=== PATIENT | female | born 1945 | race Caucasian/White ===

== ENCOUNTER 2017-08-30 04:04 | Inpatient (IN) | payer MEDICARE ==
[~2017-08-30] VITALS: Ht 167.6 cm; Wt 67.6 kg
[2017-08-30] VITALS (23 sets, daily range): BP systolic 93–163; BP diastolic 35–97; PULSE 90–134; RESP 15–20; TEMP 98.6–103.1; O2SAT 92–98
[2017-08-30] MEDS ORDERED: IODIXANOL 320 MG/ML 10 ML VIAL (for Rad CT) IVCONTRAST ONE (04:05)
[2017-08-30] MEDS ORDERED: SODIUM CHLOR 0.9% 1000 ML INJ 1,000 ML IV SCH ×2 (04:44→14:08)
[2017-08-30] MEDS ORDERED: ONDANSETRON HCL 4 MG/2 ML VIAL IVP ONE (04:45)
[2017-08-30] MEDS ORDERED: SODIUM CHLORIDE 0.9% FLUSH 10 ML FLUSH IV FLUSH PRN ×4 (04:45→17:00)
[2017-08-30 04:58] LABS: BASOPHIL % 0.7 % (0.0-2.0); HEMATOCRIT 35.6 % (35.0-46.0); HEMOGLOBIN 11.9 GM/DL (11.6-15.3); LYMPH % 5.8 % (9.0-44.0); LYMPHOCYTE # 0.3 TH/MM3 (1.0-4.8); MEAN CELL VOLUME 87.5 FL (80.0-100.0); MEAN CORPUSCULAR HEMOGLOBIN 29.2 PG (27.0-34.0); MEAN CORPUSCULAR HGB CONC 33.3 % (32.0-36.0); MEAN PLATELET VOLUME 9.8 FL (7.0-11.0); MONO % 1.2 % (0.0-8.0); MONOCYTE # 0.1 TH/MM3 (0-0.9); NEUT % 92.3 % (16.0-70.0); PLATELET COUNT 176 TH/MM3 (150-450); RED BLOOD COUNT 4.07 MIL/MM3 (4.00-5.30); RED CELL DISTRIBUTION WIDTH 12.1 % (11.6-17.2); WHITE BLOOD COUNT 5.4 TH/MM3 (4.0-11.0)
[2017-08-30 05:05] LABS: CHLORIDE 101 MEQ/L (98-107); SODIUM (NA) 136 MEQ/L (136-145)
[2017-08-30 05:08] LABS: CALCIUM 8.6 MG/DL (8.5-10.1)
[2017-08-30 05:09] LABS: ALBUMIN 3.3 GM/DL (3.4-5.0); BICARBONATE 20.4 MEQ/L (21.0-32.0); BLOOD UREA NITROGEN 18 MG/DL (7-18); GLUCOSE,RANDOM 259 MG/DL (74-106)
[2017-08-30 05:12] LABS: ALT (GPT) 21 U/L (10-53); AST (GOT) 17 U/L (15-37); GLOMERULAR FILTRATION RATE 40 ML/MIN (>89)
[2017-08-30 05:13] LABS: TOTAL PROTEIN 7.6 GM/DL (6.4-8.2)
[2017-08-30 05:15] LABS: ALKALINE PHOSPHATASE 75 U/L (45-117)
[2017-08-30] MEDS ORDERED: MORPHINE SULFATE 4 MG/ML INJ IV PUSH ONE (05:15)
[2017-08-30] MEDS ORDERED: ONDANSETRON HCL 4 MG/2 ML VIAL IV ONE (05:15)
[2017-08-30] MEDS ORDERED: METF1000 PO (05:16)
[2017-08-30] MEDS ORDERED: LUMI0.01 EACH EYE (05:16)
[2017-08-30] MEDS ORDERED: VENTAER INH (05:16)
[2017-08-30] MEDS ORDERED: GLIM4TAB PO (05:16)
[2017-08-30] MEDS ORDERED: METO25TA3 PO (05:16)
--- NOTE | 2017-08-30 06:54 | PD ---
HPI Chief Complaint: GI Complaint Time Seen by Provider: 04:37 Travel History International Travel<30 days: No Contact w/Intl Traveler<30days: No Traveled to known affect area: No History of Present Illness HPI The patient is a 72-year-old female that complains of chills, vomiting and abdominal pain since 3 PM yesterday. She denies vomiting any blood and denies any fever or diarrhea. She has not had any abdominal surgeries and still has her gallbladder and appendix. The patient attributes his pain to having eaten boiled peanuts, the pain started almost immediately after she ate peanuts. PFSH Past Medical History Asthma: Yes Heart Rhythm Problems: Yes Diabetes: Yes Patient Takes Glucophage: Yes (08/29/17) Diminished Hearing: Yes Tetanus Vaccination: Unknown LMP: 3 : 1 Past Surgical History Hysterectomy: Yes (OOPHORECTOMY) Other Surgery: Yes (SALIVARY GLAND STONE REMOVED) Social History Alcohol Use: No Tobacco Use: No Substance Use: No Allergies-Medications (Allergen,Severity, Reaction): Coded Allergies: No Known Drug Allergies (Verified Allergy, Unknown, 08/30/17) Reported Meds & Prescriptions Reported Meds & Active Scripts Active Reported Lumigan Opth Drops (Bimatoprost) 0.01% Soln 1 Drop EACH EYE HS Ventolin Hfa 18 GM Inh (Albuterol Sulfate) 90 Mcg/Act Aer 2 Puff INH Q4-6H PRN Glimepiride 4 Mg Tab 4 Mg PO BIDAC Metformin (Metformin HCl) 1,000 Mg Tab 1,000 Mg PO BIDPC Metoprolol Tartrate 25 Mg Tab 25 Mg PO BID Review of Systems Except as stated in HPI: all other systems reviewed are Neg Physical Exam Narrative GENERAL: The patient is alert, oriented 3 in moderate apparent distress with her abdominal discomfort. Her vital signs show heart rate of 108 and temperature of 99.9 and blood pressure 142/61. The rest of vital signs are normal. SKIN: Focused skin assessment warm/dry. HEAD: Atraumatic. Normocephalic. EYES: Pupils equal and round. No scleral icterus. No injection or drainage. ENT: No nasal bleeding or discharge. Mucous membranes pink and moist. NECK: Trachea midline. No JVD. CARDIOVASCULAR: Regular rate and rhythm. No murmur appreciated. RESPIRATORY: No accessory muscle use. Clear to auscultation. Breath sounds equal bilaterally. GASTROINTESTINAL: Abdomen soft, with tenderness in the right upper quadrant and midline epigastrium to direct palpation, nondistended. Hepatic and splenic margins not palpable. No guarding or rebound is present. MUSCULOSKELETAL: No obvious deformities. No clubbing. No cyanosis. No edema. NEUROLOGICAL: Awake and alert. No obvious cranial nerve deficits. Motor grossly within normal limits. Normal speech. PSYCHIATRIC: Appropriate mood and affect; insight and judgment normal. Data Data Last Documented VS Vital Signs Date Time Temp Pulse Resp B/P (MAP) Pulse Ox O2 Delivery O2 Flow Rate FiO2 08/30/17 07:22 15 08/30/17 06:00 102 136/47 (76) 98 08/30/17 04:13 99.9 Orders Orders Complete Blood Count With Diff (08/30/17 04:44) Comprehensive Metabolic Panel (08/30/17 04:44) Lipase (08/30/17 04:44) Urinalysis - C+S If Indicated (08/30/17 04:44) Iv Access Insert/Monitor (08/30/17 04:44) Ecg Monitoring (08/30/17 04:44) Oximetry (08/30/17 04:44) Ondansetron Inj (Zofran Inj) (08/30/17 04:45) Sodium Chlor 0.9% 1000 Ml Inj (Ns 1000 M (08/30/17 04:44) Sodium Chloride 0.9% Flush (Ns Flush) (08/30/17 04:45) Morphine Inj (Morphine Inj) (08/30/17 05:15) Ondansetron Inj (Zofran Inj) (08/30/17 05:15) Ct Abd/Pel W Iv Contrast(Rout) (08/30/17 06:54) Sodium Chloride 0.9% Flush (Ns Flush) (08/30/17 07:00) Urine Culture (08/30/17 07:05) Labs Laboratory Tests Test 08/30/17 04:50 08/30/17 07:05 White Blood Count 5.4 TH/MM3 Red Blood Count 4.07 MIL/MM3 Hemoglobin 11.9 GM/DL Hematocrit 35.6 % Mean Corpuscular Volume 87.5 FL Mean Corpuscular Hemoglobin 29.2 PG Mean Corpuscular Hemoglobin Concent 33.3 % Red Cell Distribution Width 12.1 % Platelet Count 176 TH/MM3 Mean Platelet Volume 9.8 FL Neutrophils (%) (Auto) 92.3 % Lymphocytes (%) (Auto) 5.8 % Monocytes (%) (Auto) 1.2 % Eosinophils (%) (Auto) 0.0 % Basophils (%) (Auto) 0.7 % Neutrophils # (Auto) 5.0 TH/MM3 Lymphocytes # (Auto) 0.3 TH/MM3 Monocytes # (Auto) 0.1 TH/MM3 Eosinophils # (Auto) 0.0 TH/MM3 Basophils # (Auto) 0.0 TH/MM3 CBC Comment DIFF FINAL Differential Comment Blood Urea Nitrogen 18 MG/DL Creatinine 1.30 MG/DL Random Glucose 259 MG/DL Total Protein 7.6 GM/DL Albumin 3.3 GM/DL Calcium Level 8.6 MG/DL Alkaline Phosphatase 75 U/L Aspartate Amino Transf (AST/SGOT) 17 U/L Alanine Aminotransferase (ALT/SGPT) 21 U/L Total Bilirubin 1.0 MG/DL Sodium Level 136 MEQ/L Potassium Level 3.3 MEQ/L Chloride Level 101 MEQ/L Carbon Dioxide Level 20.4 MEQ/L Anion Gap 15 MEQ/L Estimat Glomerular Filtration Rate 40 ML/MIN Lipase 121 U/L Urine Collection Type VOIDED Urine Color YELLOW Urine Turbidity CLEAR Urine pH 5.5 Urine Specific [place] 1.020 Urine Protein 30 mg/dL Urine Glucose (UA) 1000 OR GREATER mg/dL Urine Ketones 15 mg/dL Urine Occult Blood MOD Urine Nitrite NEG Urine Bilirubin NEG Urine Urobilinogen 0.2 MG/DL Urine Leukocyte Esterase NEG Urine WBC 6-8 /hpf Urine WBC Clumps RARE Urine Squamous Epithelial Cells 0-3 /hpf Urine Bacteria MANY /hpf Microscopic Urinalysis Comment CULTURE INDICATED MDM Medical Decision Making Medical Screen Exam Complete: Yes Emergency Medical Condition: Yes Medical Record Reviewed: Yes Differential Diagnosis Gastritis, food poisoning, cholelithiasis with colic, acute cholecystitis, pancreatitis, electrolyte disorder, dehydration Narrative Course It is now 0 738 and the patient feels much better and does not want the CAT scan and wants to go home. She will be given prescriptions for Compazine and Percocet 5. She should follow-up with her primary care physician next week. Diagnosis Primary Impression: Abdominal pain Additional Instructions: The pain pill, Percocet, can make you constipated and nauseated. I wrote nausea medicine-prochlorperazine. Drink plenty of liquids to avoid the constipation on the Percocet. Follow-up next week with your primary care physician. Med/Other Pt SpecificInfo: Prescription(s) given Scripts Prochlorperazine Maleate (Prochlorperazine Maleate) 10 Mg Tab 10 MG PO Q6H Y for NAUSEA OR VOMITING, #20 TAB 0 Refills Prov: Ryan Flannery MD 08/30/17 Oxycodone-Acetaminophen (Percocet) 5-325 mg Tab 1-2 TAB PO Q4H Y for PAIN, #20 TAB 0 Refills Prov: Ryan Flannery MD 08/30/17 Disposition: 01 DISCHARGE HOME Condition: Stable Ryan Flannery MD Aug 30, 2017 06:54
[2017-08-30 07:14] LABS: BILIRUBIN, URINE NEG (NEG); BLOOD, URINE MOD (NEG); GLUCOSE,URINE 1000 OR GREATER mg/dL (NEG); KETONE, URINE 15 mg/dL (NEG); NITRITE,URINE NEG (NEG); PH, URINE 5.5 (5.0-8.5); URINE COLOR YELLOW (YELLW/STRAW); URINE LEUKOCYTE ESTERASE NEG (NEG)
[2017-08-30 07:26] LABS: BACTERIA, URINE MANY /hpf; SQUAMOUS EPITHELIAL CELL URINE 0-3 /hpf (0-5); WHITE BLOOD CELL CLUMPS RARE
[2017-08-30] MEDS ORDERED: PERC5TAB12 PO (07:41)
[2017-08-30] MEDS ORDERED: PROC10TA PO (07:41)
[2017-08-30] MEDS ORDERED: MACR100C2 PO (07:56)
[2017-08-30] MEDS ORDERED: MORPHINE SULFATE 2 MG/ML SYRINGE IV PUSH ONE (08:00)
[2017-08-30] MEDS ORDERED: SODIUM CHLOR 0.9% 1000 ML INJ 1,000 ML IV ONE ×2 (09:00→14:00)
[2017-08-30] MEDS ORDERED: PROPOFOL 200 MG/20 ML AMP IV ONE (12:00)
[2017-08-30] MEDS ORDERED: SUCCINYLCHOLINE CHLORIDE 200 MG/10 ML VIAL IV ONE (12:00)
[2017-08-30] MEDS ORDERED: PHENYLEPH/NS 1000 MCG/10 ML SYR IV ONE (12:00)
[2017-08-30] MEDS ORDERED: ePHEDrine/NS 25 MG/5 ML SYRINGE IV ONE (12:00)
[2017-08-30] MEDS ORDERED: ROCURONIUM INJ 50 MG/5 ML SYRINGE IV PUSH ONE (12:00)
--- NOTE | 2017-08-30 13:15 | RADRPT ---
EXAM DATE/TIME: 08/30/2017 12:19 [facility] COMPARISON: No previous studies available for comparison. INDICATIONS : Sudden onset of abdominal pain, chills and vomiting. IV CONTRAST: 48 cc Visipaque (iodixanol) IV ORAL CONTRAST: No oral contrast ingested. RADIATION DOSE: 9.94 CTDIvol (mGy) ; Patient motion MEDICAL HISTORY : Cardiovascular disease. Diabetes mellitus type 2. Asthma. SURGICAL HISTORY : Hysterectomy. ENCOUNTER: Initial ACUITY: 1 day PAIN SCALE: 6/10 LOCATION: Bilateral lower quadrant TECHNIQUE: Volumetric scanning of the abdomen and pelvis was performed. Using automated exposure control and ad justment of the mA and/or kV according to patient size, radiation dose was kept as low as reasonably achievable to obtain optimal diagnostic quality images. DICOM format image data is available electro nically for review and comparison. FINDINGS: LOWER LUNGS: Mild atelectasis in the posterior lung bases bilaterally. LIVER: Homogeneous density without lesion. There is no dilation of the biliary tree. No calcified gallston es. SPLEEN: Normal size without lesion. PANCREAS: Within normal limits. KIDNEYS: Moderate right hydronephrosis and hydroureter proximal to a 3-4 mm stone at the right ureterovesical junction. There is moderate perinephric fatty tissue stranding and periureteric fatty tissue strandin g. ADRENAL GLANDS: Slightly less than 2 cm low-density mass involving the el limb of the left adrenal, likely adenoma. VASCULAR: There is no aortic aneurysm. BOWEL/MESENTERY: Prominent distal colonic diverticulosis. No abnormal dilatation, wall thickening or focal inflammator y changes. ABDOMINAL WALL: Within normal limits. RETROPERITONEUM: There is no lymphadenopathy. BLADDER: No wall thickening or mass. REPRODUCTIVE: Uterus surgically absent. No evidence of pelvic mass. Minimal pelvic fluid INGUINAL: There is no lymphadenopathy or hernia. MUSCULOSKELETAL: Within normal limits for patient age. CONCLUSION: 3-4 mm stone at the right ureterovesical junction with moderate right hydronephrosis. Possible fornic eal rupture. Ben Esquivel MD on August 30, 2017 at 13:08 Board Certified Radiologist. This report was verified electronically.
[2017-08-30] MEDS ORDERED: CEFEPIME INJ 2,000 MG in SODIUM CHLORIDE 0.9% INJ 100 ML IV ONE (14:00)
[2017-08-30] MEDS ORDERED: ACETAMINOPHEN 650 MG SUPP RECTAL ONE (14:00)
[2017-08-30] MEDS ORDERED: ACETAMINOPHEN 325 MG SUPP RECTAL ONE (14:00)
--- NOTE | 2017-08-30 14:13 | PD ---
Data Data Last Documented VS Vital Signs Date Time Temp Pulse Resp B/P (MAP) Pulse Ox O2 Delivery O2 Flow Rate FiO2 08/30/17 12:47 103.1 08/30/17 12:37 120 20 96 08/30/17 11:54 Nasal Cannula 1.00 Orders Orders Complete Blood Count With Diff (08/30/17 04:44) Comprehensive Metabolic Panel (08/30/17 04:44) Lipase (08/30/17 04:44) Urinalysis - C+S If Indicated (08/30/17 04:44) Iv Access Insert/Monitor (08/30/17 04:44) Ecg Monitoring (08/30/17 04:44) Oximetry (08/30/17 04:44) Ondansetron Inj (Zofran Inj) (08/30/17 04:45) Sodium Chlor 0.9% 1000 Ml Inj (Ns 1000 M (08/30/17 04:44) Sodium Chloride 0.9% Flush (Ns Flush) (08/30/17 04:45) Morphine Inj (Morphine Inj) (08/30/17 05:15) Ondansetron Inj (Zofran Inj) (08/30/17 05:15) Sodium Chloride 0.9% Flush (Ns Flush) (08/30/17 07:00) Urine Culture (08/30/17 07:05) Ed Discharge Order (08/30/17 07:43) Morphine Inj (Morphine Inj) (08/30/17 08:00) Sodium Chlor 0.9% 1000 Ml Inj (Ns 1000 M (08/30/17 09:00) Ct Abd/Pel W Iv Contrast(Rout) (08/30/17 ) Iodixanol 320 Inj (Rad Ct) (Visipaque 32 (08/30/17 04:05) Blood Culture (08/30/17 13:51) Lactic Acid (08/30/17 13:51) Cefepime Inj (Maxipime Inj) (08/30/17 14:00) Sodium Chlor 0.9% 1000 Ml Inj (Ns 1000 M (08/30/17 14:00) Acetaminophen Supp (Tylenol Supp) (08/30/17 14:00) Acetaminophen Supp (Tylenol Supp) (08/30/17 14:00) Iv Access Insert/Monitor (08/30/17 13:54) Admit Order (Ed Use Only) (08/30/17 14:02) Labs Laboratory Tests Test 08/30/17 04:50 08/30/17 07:05 White Blood Count 5.4 TH/MM3 Red Blood Count 4.07 MIL/MM3 Hemoglobin 11.9 GM/DL Hematocrit 35.6 % Mean Corpuscular Volume 87.5 FL Mean Corpuscular Hemoglobin 29.2 PG Mean Corpuscular Hemoglobin Concent 33.3 % Red Cell Distribution Width 12.1 % Platelet Count 176 TH/MM3 Mean Platelet Volume 9.8 FL Neutrophils (%) (Auto) 92.3 % Lymphocytes (%) (Auto) 5.8 % Monocytes (%) (Auto) 1.2 % Eosinophils (%) (Auto) 0.0 % Basophils (%) (Auto) 0.7 % Neutrophils # (Auto) 5.0 TH/MM3 Lymphocytes # (Auto) 0.3 TH/MM3 Monocytes # (Auto) 0.1 TH/MM3 Eosinophils # (Auto) 0.0 TH/MM3 Basophils # (Auto) 0.0 TH/MM3 CBC Comment DIFF FINAL Differential Comment Blood Urea Nitrogen 18 MG/DL Creatinine 1.30 MG/DL Random Glucose 259 MG/DL Total Protein 7.6 GM/DL Albumin 3.3 GM/DL Calcium Level 8.6 MG/DL Alkaline Phosphatase 75 U/L Aspartate Amino Transf (AST/SGOT) 17 U/L Alanine Aminotransferase (ALT/SGPT) 21 U/L Total Bilirubin 1.0 MG/DL Sodium Level 136 MEQ/L Potassium Level 3.3 MEQ/L Chloride Level 101 MEQ/L Carbon Dioxide Level 20.4 MEQ/L Anion Gap 15 MEQ/L Estimat Glomerular Filtration Rate 40 ML/MIN Lipase 121 U/L Urine Collection Type VOIDED Urine Color YELLOW Urine Turbidity CLEAR Urine pH 5.5 Urine Specific [place] 1.020 Urine Protein 30 mg/dL Urine Glucose (UA) 1000 OR GREATER mg/dL Urine Ketones 15 mg/dL Urine Occult Blood MOD Urine Nitrite NEG Urine Bilirubin NEG Urine Urobilinogen 0.2 MG/DL Urine Leukocyte Esterase NEG Urine WBC 6-8 /hpf Urine WBC Clumps RARE Urine Squamous Epithelial Cells 0-3 /hpf Urine Bacteria MANY /hpf Microscopic Urinalysis Comment CULTURE INDICATED MDM Supervised Visit with ANI: No Narrative Course This case was checked out to me at [address] Flannery. However it was an atypical case because shortly after checkout time the patient decided she was going to refuse her CAT scan and just wanted to go home. Dr. Flannery then went back into the room and discharge her from the ER. I had mistakenly thought she was discharged and gone and went on to see other patients for quite some time and then the nurse came back to me and said that she was going to give her some more IV fluids because of nausea and vomiting prior to discharging her. I ordered her a liter of saline IV and afterwards some nausea medicine. However turns out hours later she was still here and has changed her mind and now wants the CAT scan done. I ordered it and when it was resulted I reviewed with her and family at bedside. She has a 3-4 mm right-sided ureteral stone with hydronephrosis. There is some forniceal rupture suggested as well. I placed a second IV and gave her another liter of saline Blood culture was obtained followed by dose of IV cefepime 2 g Lactate sent I gave her Tylenol suppository for temp of 103 Blood pressure holding steady at 110 systolic so I do not feel she needs intensive care neighborhood service center director at this time I spoke to urologist Dr. Perdue. He recommends transfer to the main hospital and he will place a right ureteral stent today I spoke to the hospitalist Critical Care Narrative Aggregate critical care time was 36 minutes. Time to perform other separately billable procedures was not included in the critical care time. My time did not include minutes spent treating any other patients simultaneously or on activities that did not directly contribute to the patient's treatment. The services I provided to this patient were to treat and/or prevent clinically significant deterioration that could result in: Renal failure, septic shock, cardiopulmonary arrest I provided critical care services requiring my management, as noted below: Chart data review, documentation time, medication orders and management, vital sign assessments/reviewing monitor data, ordering and reviewing lab tests, ordering and interpreting/reviewing x-rays and diagnostic studies, care of the patient and discussion of the patient with the admitting physicians. Sepsis Criteria SIRS Criteria (2 or more): Temp > 100.9 or < 96.8, Heart rate over 90 Sepsis Criteria (SIRS+source): Infect source susp/known Criteria Outcome: Meets sepsis criteria Diagnosis Primary Impression: Right ureteral calculus Additional Impressions: Fever Qualified Codes: R50.9 - Fever, unspecified UTI (urinary tract infection) Qualified Codes: N39.0 - Urinary tract infection, site not specified Admitting Information Admitting Physician Requests: Admit Referrals: Murtaza Blue MD (PCP) call for appointment Patient Instructions: General Instructions, Narcotic given in the ED, Urinary Tract Infection in Women (ED) Departure Forms: Tests/Procedures Additional Instruction: Scripts Nitrofurantoin Monohydrate Macrocrystals (Macrobid) 100 Mg Capsule 100 MG PO BID for Infection for 10 Days, #20 CAP 0 Refills Prov: Ryan Flannery MD 08/30/17 Prochlorperazine Maleate (Prochlorperazine Maleate) 10 Mg Tab 10 MG PO Q6H Y for NAUSEA OR VOMITING, #20 TAB 0 Refills Prov: Ryan Flannery MD 08/30/17 Oxycodone-Acetaminophen (Percocet) 5-325 mg Tab 1-2 TAB PO Q4H Y for PAIN, #20 TAB 0 Refills Prov: Ryan Flannery MD 08/30/17 Alfred Cotter MD Aug 30, 2017 14:13
--- NOTE | 2017-08-30 15:34 | HHI.HP ---
[facility] Service [facility] Primary Care Physician Murtaza Blue MD Admission Diagnosis R ureteral stone with hydronephrosis, fever/UTI Diagnoses: Chief Complaint: vomiting Travel History International Travel<30 Days: No Contact w/Intl Traveler <30 Da: No Traveled to Known Affected Are: No History of Present Illness 72-year-old white female being admitted for sepsis secondary to nephrolithiasis and hydronephrosis Patient was in her usual state of health until sometime earlier when she began having diffuse abdominal pain and vomiting. Pain was in the lower part of her belly and rated all throughout to bilateral back flanks. Patient reports subjective fevers and chills. Pain was 10 out of 10 at its worse. Took Tylenol to no avail. Patient just came to the emergency department. Emergency room patient was noted to be febrile up to 103. CT abdomen showed 3- 4 mm obstructing stone at the right ureterovesicular junction with hydronephrosis. Discussed case with ER, blood culture (one set) and urine culture were drawn. patient was given IV fluids and cefepime. Lactic acid was elevated at 5.6. Per the daughter, past medical history significant for Social history is unremarkable for any smoking or drinking. Family history significant ovarian cancer in the patient's mother. Review of Systems Except as stated in HPI: all other systems reviewed are Neg Past Family Social History Allergies: Coded Allergies: No Known Drug Allergies (Verified Allergy, Unknown, 08/30/17) Physical Exam Vital Signs Vital Signs Date Time Temp Pulse Resp B/P (MAP) Pulse Ox O2 Delivery O2 Flow Rate FiO2 08/30/17 15:05 102.0 134 15 113/48 (69) 95 Room Air 08/30/17 12:47 103.1 08/30/17 12:37 120 20 110/44 (66) 96 08/30/17 11:54 98 Nasal Cannula 1.00 08/30/17 11:29 99.7 122 20 125/97 (106) 92 Nasal Cannula 2.00 08/30/17 10:44 99 15 93/35 (54) 95 Nasal Cannula 1.00 08/30/17 09:55 99 15 97/41 (59) 97 Nasal Cannula 1.00 08/30/17 09:54 99 15 97/41 (59) 97 Nasal Cannula 1.00 08/30/17 09:00 100 15 98/41 (60) 97 Nasal Cannula 2.00 08/30/17 07:22 15 08/30/17 06:55 104 16 124/58 (80) 93 Room Air 08/30/17 06:00 102 20 136/47 (76) 98 08/30/17 05:30 98 20 131/44 (73) 98 08/30/17 05:01 20 08/30/17 04:47 108 20 151/47 (81) 95 08/30/17 04:13 99.9 108 16 142/61 (88) 96 Physical Exam VS: afebrile GENERAL: Elderly white female, pale appearing, appears to be in moderate distress secondary to fever and chills and pain SKIN: Warm and dry. EYES: No scleral icterus. No injection or drainage. ENT: No nasal bleeding or discharge. Mucous membranes pink and moist. CARDIOVASCULAR: Regular rate and rhythm. no murmurs RESPIRATORY: No accessory muscle use. Clear to auscultation. Breath sounds equal bilaterally. GASTROINTESTINAL: Abdomen soft, non-tender, nondistended. Right flank is tender to palpation Extremities: No clubbing, cyanosis, or edema. No obvious deformities. MUSCULOSKELETAL: adequate muscle bulk and tone for age and habitus NEUROLOGICAL: Partially somnolent, easily aroused, appears to be having slowed mentation but does answer questions coherently. PSYCHIATRIC: Appropriate mood and affect; insight and judgment normal. Laboratory Laboratory Tests Test 08/30/17 04:50 08/30/17 07:05 08/30/17 14:23 White Blood Count 5.4 Red Blood Count 4.07 Hemoglobin 11.9 Hematocrit 35.6 Mean Corpuscular Volume 87.5 Mean Corpuscular Hemoglobin 29.2 Mean Corpuscular Hemoglobin Concent 33.3 Red Cell Distribution Width 12.1 Platelet Count 176 Mean Platelet Volume 9.8 Neutrophils (%) (Auto) 92.3 Lymphocytes (%) (Auto) 5.8 Monocytes (%) (Auto) 1.2 Eosinophils (%) (Auto) 0.0 Basophils (%) (Auto) 0.7 Neutrophils # (Auto) 5.0 Lymphocytes # (Auto) 0.3 Monocytes # (Auto) 0.1 Eosinophils # (Auto) 0.0 Basophils # (Auto) 0.0 CBC Comment DIFF FINAL Differential Comment Blood Urea Nitrogen 18 Creatinine 1.30 Random Glucose 259 Total Protein 7.6 Albumin 3.3 Calcium Level 8.6 Alkaline Phosphatase 75 Aspartate Amino Transf (AST/SGOT) 17 Alanine Aminotransferase (ALT/SGPT) 21 Total Bilirubin 1.0 Sodium Level 136 Potassium Level 3.3 Chloride Level 101 Carbon Dioxide Level 20.4 Anion Gap 15 Estimat Glomerular Filtration Rate 40 Lipase 121 Urine Collection Type VOIDED Urine Color YELLOW Urine Turbidity CLEAR Urine pH 5.5 Urine Specific [place] 1.020 Urine Protein 30 Urine Glucose (UA) 1000 OR GREATER Urine Ketones 15 Urine Occult Blood MOD Urine Nitrite NEG Urine Bilirubin NEG Urine Urobilinogen 0.2 Urine Leukocyte Esterase NEG Urine WBC 6-8 Urine WBC Clumps RARE Urine Squamous Epithelial Cells 0-3 Urine Bacteria MANY Microscopic Urinalysis Comment CULTURE INDICATED Lactic Acid Level 5.6 Date/Time Source Procedure Growth Status 08/30/17 14:23 Blood Peripheral Aerobic Blood Culture Pending Received 08/30/17 14:23 Blood Peripheral Anaerobic Blood Culture Pending Received 08/30/17 07:05 Urine Random Urine Urine Culture Pending Received Result Diagram: 08/30/17 0450 08/30/17 0450 Imaging Last Impressions Abdomen/Pelvis CT 08/30/17 0000 Signed Impressions: Service Date/Time: Wednesday, August 30, 2017 12:19 - CONCLUSION: 3-4 mm stone at the right ureterovesical junction with moderate right hydronephrosis. Possible forniceal rupture. Ben Esquivel MD Caprini VTE Risk Assessment Caprini VTE Risk Assessment: Mod/High Risk (score >= 2) Caprini Risk Assessment Model Point Value = 1 Point Value = 2 Point Value = 3 Point Value = 5 Age 41-60 Minor surgery BMI > 25 kg/m2 Swollen legs Varicose veins or History of unexplained or recurrent spontaneous Oral contraceptives or hormone replacement Sepsis (< 1 month) Serious lung disease, including pneumonia (< 1 month) Abnormal pulmonary function Acute myocardial infarction Congestive heart failure (< 1 month) History of inflammatory bowel disease Medical patient at bed rest Age 61-74 Arthroscopic surgery Major open surgery (> 45 min) Laparoscopic surgery (> 45 min) Malignancy Confined to bed (> 72 hours) Immobilizing plaster cast Central venous access Age >= 75 History of VTE Family history of VTE Factor V Leiden Prothrombin [id number] Lupus anticoagulant Anticardiolipin antibodies Elevated serum homocysteine Heparin-induced thrombocytopenia Other congenital or acquired thrombophilia Stroke (< 1 month) Elective arthroplasty Hip, pelvis, or leg fracture Acute spinal cord injury (< 1 month) Prophylaxis Regimen Total Risk Factor Score Risk Level Prophylaxis Regimen 0-1 Low Early ambulation 2 Moderate Order ONE of the following: *Sequential Compression Device (SCD) *Heparin 5000 units SQ BID 3-4 Higher Order ONE of the following medications: *Heparin 5000 units SQ TID *Enoxaparin/Lovenox 40 mg SQ daily (WT < 150 kg, CrCl > 30 mL/min) *Enoxaparin/Lovenox 30 mg SQ daily (WT < 150 kg, CrCl > 10-29 mL/min) *Enoxaparin/Lovenox 30 mg SQ BID (WT < 150 kg, CrCl > 30 mL/min) AND/OR *Sequential Compression Device (SCD) 5 or more Highest Order ONE of the following medications: *Heparin 5000 units SQ TID (Preferred with Epidurals) *Enoxaparin/Lovenox 40 mg SQ daily (WT < 150 kg, CrCl > 30 mL/min) *Enoxaparin/Lovenox 30 mg SQ daily (WT < 150 kg, CrCl > 10-29 mL/min) *Enoxaparin/Lovenox 30 mg SQ BID (WT < 150 kg, CrCl > 30 mL/min) AND *Sequential Compression Device (SCD) Assessment and Plan Assessment and Plan 72-year-old white female being admitted for sepsis Sepsis -Likely secondary to urinary tract infection secondary to hydronephrosis secondary to nephrolithiasis -Blood cultures pending (ordering second set as only one set was drawn in the ER ) -Urine culture pending -Aggressive IV fluids Nephrolithiasis/hydronephrosis/urinary tract infection -Urology consulted, planning for stent placement today -N.p.o., IV pain medication as needed -broad spectrum abx - will consider consulting whizzer DEE - LDSS w/ hypoglycemia and accu-checks Physician Certification 2 Midnight Certification Type: Admission for Inpatient Services Order for Inpatient Services The services are ordered in accordance with Medicare regulations or non- Medicare payer requirements, as applicable. In the case of services not specified as inpatient-only, they are appropriately provided as inpatient services in accordance with the 2-midnight benchmark. Estimated LOS (days): 3 3 days is the estimated time the patient will need to remain in the hospital, assuming treatment plan goals are met and no additional complications. Post-Hospital Plan: Not yet determined Daryl Rolon MD Aug 30, 2017 15:34
[2017-08-30] MEDS ORDERED: RESP: ALBUTEROL 2.5 MG/3 ML NEB (PRN) INH (15:45)
[2017-08-30] MEDS ORDERED: GLUCAGON 1 MG/ML VIAL OTHER PRN (15:45)
[2017-08-30] MEDS ORDERED: ACETAMINOPHEN/HYDROcodone 325 MG/5 MG TAB PO PRN (15:45)
[2017-08-30] MEDS ORDERED: NURSING INFORMATION XX SCH (15:45)
[2017-08-30] MEDS ORDERED: LACTULOSE SYRUP 20 GM/30 ML CUP PO PRN (15:45)
[2017-08-30] MEDS ORDERED: DEXTROSE 50% IN WATER 50 ML VIAL(D50) IV PUSH PRN (15:45)
[2017-08-30] MEDS ORDERED: BISACODYL 10 MG SUPP RECTAL PRN (15:45)
[2017-08-30] MEDS ORDERED: CHLORHEXIDINE GLUCONATE 2 % 1 PACK (2 CLOTHS) TOP PRN (15:45)
[2017-08-30] MEDS ORDERED: SENNOSIDES 8.6 MG TAB PO PRN (15:45)
[2017-08-30] MEDS ORDERED: MAGNESIUM HYDROXIDE SUSP 30 ML CUP PO PRN (15:45)
[2017-08-30] MEDS ORDERED: ONDANSETRON HCL 4 MG/2 ML VIAL IV PUSH PRN (15:45)
[2017-08-30] MEDS ORDERED: ACETAMINOPHEN 325 MG TAB PO PRN (15:45)
[2017-08-30] MEDS: SODIUM CHLOR 0.9% 1000 ML INJ 1,000 ML IV SCH (15:57)
[2017-08-30] MEDS: RESP: ALBUTEROL 2.5 MG/IPRATROPIUM 0.5 MG NEB (SCH) INH ×2 (16:00→22:00)
[2017-08-30] MEDS: INSULIN ASPART SUPPLEMENTAL SCALE SQ SCH ×2 (16:00→19:50)
[2017-08-30] MEDS ORDERED: MORPHINE SULFATE 2 MG/ML SYRINGE IV PUSH PRN ×2 (16:00)
--- NOTE | 2017-08-30 16:00 | HHI.HP ---
[facility] Service Critical Care Medicine Primary Care Physician Murtaza Blue MD Admission Diagnosis R ureteral stone with hydronephrosis, fever/UTI Diagnosis: (1) Encephalopathy Diagnosis: Principal (2) Pyrexia Diagnosis: Secondary (3) Bigeminy Diagnosis: Secondary (4) Hard of hearing Diagnosis: Secondary (5) Hypertension Diagnosis: Secondary (6) Hyperglycemia Diagnosis: Principal (7) Diabetes mellitus type 2 in nonobese Diagnosis: Secondary (8) Asthma Diagnosis: Secondary (9) Glaucoma Diagnosis: Secondary (10) Lactic acidosis Diagnosis: Principal (11) Acute kidney injury Diagnosis: Principal (12) Hypokalemia Diagnosis: Secondary (13) Hydronephrosis due to obstruction of ureter Diagnosis: Principal (14) Sinus tachycardia Diagnosis: Principal (15) Severe sepsis Diagnosis: Principal (16) Right ureteral calculus Diagnosis: Principal Chief Complaint: Abdominal pain after eating boiled peanuts Travel History International Travel<30 Days: No Contact w/Intl Traveler <30 Da: No Traveled to Known Affected Are: No Sepsis Criteria SIRS Criteria (2 or more): Temp > 100.9 or < 96.8, Heart rate over 90, RR > 20 or PaCO2 < 32 Sepsis Criteria (SIRS+source): Infect source susp/known Severe Sepsis (+one): Lactate >2 Septic Shock Criteria: Lactic acid >=4 Criteria Outcome: Meets septic shock criteria History of Present Illness 72-year-old female. Date of admission 08/30/2017. Past medical history includes hypertension, glaucoma, hard of hearing, asthma, diabetes mellitus. Patient has no history of frequent urinary tract infections. Patient presents to [facility] with acute onset of diffuse abdominal pain service with nausea and vomiting. Patient was rated 10 out of 10 involving right upper and lower quadrants and bilateral flanks. Patient had eaten boiled peanuts ever sitting out and she attributed the symptoms to possible food poisoning. She took acetaminophen at home which that relieved her symptoms. She arrived at the emergency room for further evaluation treatment. Initially, patient was refusing CT abdomen as she thought this is from food poisoning. Later, CT abdomen/pelvis revealed a 4 mm obstructing stone at the right UVJ junction with associated right hydronephrosis. Blood cultures and urine culture sent the patient received 2 g of cefepime. Lactate elevated at 5.6. White blood cell count was within normal limits. Patient did have a creatinine 1.3. Glucose of 259. Patient received 4 L normal saline but her blood pressures continue to slowly drop. Dr. Perdue/urology wishes patient to be in the ICU at the main campus for possible stent placement later on today. Review of Systems Constitutional: COMPLAINS OF: Fatigue, Fever, Chills, Dizziness, DENIES: Weight gain, Weight loss Endocrine: DENIES: Heat/cold intolerance Eyes: DENIES: Blurred vision Ears, nose, mouth, throat: DENIES: Tinnitus Respiratory: COMPLAINS OF: Shortness of breath, DENIES: Apneas, Sputum production Cardiovascular: DENIES: Chest pain, Lower Extremity Edema Gastrointestinal: COMPLAINS OF: Abdominal pain, Nausea, Vomiting Musculoskeletal: DENIES: Joint pain, Muscle aches Integumentary: DENIES: Abnormal pigmentation Hematologic/lymphatic: DENIES: Bruising Immunologic/allergic: DENIES: Eczema Neurologic: DENIES: Abnormal gait Psychiatric: DENIES: Anxiety, Confusion Past Family Social History Allergies: Coded Allergies: No Known Drug Allergies (Verified Allergy, Unknown, 08/30/17) Past Medical History Hard of hearing Glaucoma Hypertension Mild intermittent asthma bigeminy Nausea/vomiting Diabetes mellitus Past Surgical History Oophorectomy Hysterectomy 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 twice daily Albuterol 18 g 1 puff every 4 6 hours as needed Oxycodone/acetaminophen 5/325 1-2 tabs every 4 hours as needed pain Bimatoprost 0.001% 1 drop each eye at night Prochlorperazine 10 mg p.o. every 6 hours Metformin 1000 mg p.o. twice daily Glimepiride 4 mg p.o. twice daily Metoprolol tartrate 25 mg p.o. twice daily Active Ordered Medications Reviewed in EMR Family History Mother from ovarian cancer. Social History No significant alcohol, tobacco or IV drug use Physical Exam Vital Signs Vital Signs Date Time Temp Pulse Resp B/P (MAP) Pulse Ox O2 Delivery O2 Flow Rate FiO2 08/30/17 15:05 102.0 134 15 113/48 (69) 95 Room Air 08/30/17 12:47 103.1 08/30/17 12:37 120 20 110/44 (66) 96 08/30/17 11:54 98 Nasal Cannula 1.00 08/30/17 11:29 99.7 122 20 125/97 (106) 92 Nasal Cannula 2.00 08/30/17 10:44 99 15 93/35 (54) 95 Nasal Cannula 1.00 08/30/17 09:55 99 15 97/41 (59) 97 Nasal Cannula 1.00 08/30/17 09:54 99 15 97/41 (59) 97 Nasal Cannula 1.00 08/30/17 09:00 100 15 98/41 (60) 97 Nasal Cannula 2.00 08/30/17 07:22 15 08/30/17 06:55 104 16 124/58 (80) 93 Room Air 08/30/17 06:00 102 20 136/47 (76) 98 08/30/17 05:30 98 20 131/44 (73) 98 08/30/17 05:01 20 08/30/17 04:47 108 20 151/47 (81) 95 08/30/17 04:13 99.9 108 16 142/61 (88) 96 Physical Exam GENERAL: 72-year-old female very ill-appearing/pale resting in bed SKIN: Warm and dry. Pale. HEAD: Atraumatic. Normocephalic. EYES: Pupils equal and round 3 mm bilaterally and react. No scleral icterus. No injection or drainage. ENT: No nasal bleeding or discharge. Mucous membranes pink and moist. NECK: Trachea midline. No JVD. CARDIOVASCULAR: RRR. S1, S2 predose without murmur RESPIRATORY: No accessory muscle use. Clear to auscultation. Breath sounds equal bilaterally. GASTROINTESTINAL: Abdomen soft, and palpation right upper quadrant and right flank. No guarding. No rebound. MUSCULOSKELETAL: Extremities without significant peripheral edema. No obvious deformities. NEUROLOGICAL: Awake and alert. No obvious cranial nerve deficits. Motor grossly within normal limits. Five out of 5 muscle strength in the arms and legs. Normal speech. Laboratory Laboratory Tests Test 08/30/17 04:50 08/30/17 07:05 08/30/17 14:23 White Blood Count 5.4 Red Blood Count 4.07 Hemoglobin 11.9 Hematocrit 35.6 Mean Corpuscular Volume 87.5 Mean Corpuscular Hemoglobin 29.2 Mean Corpuscular Hemoglobin Concent 33.3 Red Cell Distribution Width 12.1 Platelet Count 176 Mean Platelet Volume 9.8 Neutrophils (%) (Auto) 92.3 Lymphocytes (%) (Auto) 5.8 Monocytes (%) (Auto) 1.2 Eosinophils (%) (Auto) 0.0 Basophils (%) (Auto) 0.7 Neutrophils # (Auto) 5.0 Lymphocytes # (Auto) 0.3 Monocytes # (Auto) 0.1 Eosinophils # (Auto) 0.0 Basophils # (Auto) 0.0 CBC Comment DIFF FINAL Differential Comment Blood Urea Nitrogen 18 Creatinine 1.30 Random Glucose 259 Total Protein 7.6 Albumin 3.3 Calcium Level 8.6 Alkaline Phosphatase 75 Aspartate Amino Transf (AST/SGOT) 17 Alanine Aminotransferase (ALT/SGPT) 21 Total Bilirubin 1.0 Sodium Level 136 Potassium Level 3.3 Chloride Level 101 Carbon Dioxide Level 20.4 Anion Gap 15 Estimat Glomerular Filtration Rate 40 Lipase 121 Urine Collection Type VOIDED Urine Color YELLOW Urine Turbidity CLEAR Urine pH 5.5 Urine Specific [place] 1.020 Urine Protein 30 Urine Glucose (UA) 1000 OR GREATER Urine Ketones 15 Urine Occult Blood MOD Urine Nitrite NEG Urine Bilirubin NEG Urine Urobilinogen 0.2 Urine Leukocyte Esterase NEG Urine WBC 6-8 Urine WBC Clumps RARE Urine Squamous Epithelial Cells 0-3 Urine Bacteria MANY Microscopic Urinalysis Comment CULTURE INDICATED Lactic Acid Level 5.6 Date/Time Source Procedure Growth Status 08/30/17 14:23 Blood Peripheral Aerobic Blood Culture Pending Received 08/30/17 14:23 Blood Peripheral Anaerobic Blood Culture Pending Received 08/30/17 07:05 Urine Random Urine Urine Culture Pending Received Result Diagram: 08/30/17 0450 08/30/17 0450 Imaging Last Impressions Abdomen/Pelvis CT 08/30/17 0000 Signed Impressions: Service Date/Time: Wednesday, August 30, 2017 12:19 - CONCLUSION: 3-4 mm stone at the right ureterovesical junction with moderate right hydronephrosis. Possible forniceal rupture. Ben Esquivel MD Septic Shock Reassessment Septic shock perfusion: reassessment completed Caprini VTE Risk Assessment Caprini VTE Risk Assessment: Mod/High Risk (score >= 2) Caprini Risk Assessment Model Point Value = 1 Point Value = 2 Point Value = 3 Point Value = 5 Age 41-60 Minor surgery BMI > 25 kg/m2 Swollen legs Varicose veins or History of unexplained or recurrent spontaneous Oral contraceptives or hormone replacement Sepsis (< 1 month) Serious lung disease, including pneumonia (< 1 month) Abnormal pulmonary function Acute myocardial infarction Congestive heart failure (< 1 month) History of inflammatory bowel disease Medical patient at bed rest Age 61-74 Arthroscopic surgery Major open surgery (> 45 min) Laparoscopic surgery (> 45 min) Malignancy Confined to bed (> 72 hours) Immobilizing plaster cast Central venous access Age >= 75 History of VTE Family history of VTE Factor V Leiden Prothrombin [id number] Lupus anticoagulant Anticardiolipin antibodies Elevated serum homocysteine Heparin-induced thrombocytopenia Other congenital or acquired thrombophilia Stroke (< 1 month) Elective arthroplasty Hip, pelvis, or leg fracture Acute spinal cord injury (< 1 month) Prophylaxis Regimen Total Risk Factor Score Risk Level Prophylaxis Regimen 0-1 Low Early ambulation 2 Moderate Order ONE of the following: *Sequential Compression Device (SCD) *Heparin 5000 units SQ BID 3-4 Higher Order ONE of the following medications: *Heparin 5000 units SQ TID *Enoxaparin/Lovenox 40 mg SQ daily (WT < 150 kg, CrCl > 30 mL/min) *Enoxaparin/Lovenox 30 mg SQ daily (WT < 150 kg, CrCl > 10-29 mL/min) *Enoxaparin/Lovenox 30 mg SQ BID (WT < 150 kg, CrCl > 30 mL/min) AND/OR *Sequential Compression Device (SCD) 5 or more Highest Order ONE of the following medications: *Heparin 5000 units SQ TID (Preferred with Epidurals) *Enoxaparin/Lovenox 40 mg SQ daily (WT < 150 kg, CrCl > 30 mL/min) *Enoxaparin/Lovenox 30 mg SQ daily (WT < 150 kg, CrCl > 10-29 mL/min) *Enoxaparin/Lovenox 30 mg SQ BID (WT < 150 kg, CrCl > 30 mL/min) AND *Sequential Compression Device (SCD) Assessment and Plan Assessment and Plan Neuro/Psych: Acute encephalopathy likely toxic metabolic Acetaminophen 650 mg p.o. every 6 hours as needed fever Hydrocodone/acetaminophen 5/325 tablet every 4 hours as needed pain 1 through 5 Morphine sulfate 2 mg IV every 4 hours as needed pain 6 or 10 CV: Sinus tachycardia Lactic acidosis History of hypertension Severe sepsis Status post 4 L normal saline bolus in ED. Currently normal saline at 84 cc an hour Initiate vasopressor therapy if indicated Lactate is currently 5.6. Trend every 6 hours until cleared Hold metoprolol tartrate 20 mg p.o. twice daily in light of hypertension Resp: History of mild intermittent asthma Nasal cannula to maintain saturations greater than equal to 92% Incentive spirometry while awake Albuterol/ipratropium aerosols every 6 hours with albuterol aerosols every 2 hours as needed dyspnea Chest x-ray ordered Patient is on albuterol 18 mg 1 puff every 4-6 hours as needed dyspnea at home GI: Nausea/vomiting Left adrenal adenoma 2 mm Distal colonic diverticulosis Hypoalbuminemia CT abdomen/pelvis revealed a right-sided hydronephrosis with 3-4 mm stone at the right UVJ junction. Left adrenal adenoma 2 mm in size. Distal colonic diverticulosis Currently n.p.o. Ondansetron 4 mg IV every 6 hours as needed nausea Pantoprazole 40 mg IV daily GI prophylaxis Continue sodium/senna 1 tablet twice daily bowel regimen : Winslow catheter for I's and O's in a critically ill patient Endo: Diabetes mellitus type 2 with hyperglycemia Holding metformin 1000 mg twice daily and glimepiride 4 mg p.o. twice daily Sliding scale insulin Accu-Cheks every 4 hours to maintain euglycemia Novulog every 4 hours medium protocol Renal: Acute kidney injury Right hydronephrosis with 4 mm stone at the right UVJ junction Urology/Dr. Perdue consulted for possible stent placement today Creatinine currently 1.3 Monitor urine output Accurate I's and O's Repeat BMP Urine electrolytes and eosinophils ordered Heme: CBC within normal limits.. Repeat in a.m. PT/PTT and fibrinogen ordered ID: Severe sepsis secondary to urinary tract infection/infected stone? Received 1 dose of cefepime in ED 2 g. Will start on vancomycin and ampicillin/ sulbactam 3 g IV every 6 hours Blood cultures 2/UA ordered MSK: PT evaluate and treat FEN: Hypokalemia Replace electrolytes as clinically indicated Access -Utilize peripheral IV. Central line if indicated Prophylaxis -GI -pantoprazole -DVT -SCDs/holding foreclosure prophylaxis pending likely procedure Critical Care: The total critical care time was 35 minutes. Time to perform other separately billable procedures was not included in the critical care time. Code Status Full code Discussed Condition With Patient and . Care plan discussed and all questions answered. Problem Qualifiers (1) Pyrexia: Qualified Codes: R50.9 - Fever, unspecified (2) Hard of hearing: Qualified Codes: H91.90 - Unspecified hearing loss, unspecified ear (3) Hypertension: Qualified Codes: I10 - Essential (primary) hypertension (4) Asthma: Qualified Codes: J45.20 - Mild intermittent asthma, uncomplicated (5) Glaucoma: Qualified Codes: H40.9 - Unspecified glaucoma Chandrakant Reed MD Aug 30, 2017 16:00
[2017-08-30] MEDS ORDERED: MAGNESIUM OXIDE 400 MG TAB PO PRN (16:15)
[2017-08-30] MEDS ORDERED: POTASSIUM CHLOR 20 MEQ PREMIX 100 ML IV PRN ×2 (16:15)
[2017-08-30] MEDS ORDERED: MAGNESIUM SULFATE INJ 4 GM in SODIUM CHLORIDE 0.9% INJ 92 ML IV PRN (16:15)
[2017-08-30] MEDS ORDERED: POTASSIUM CHLORIDE 25 MEQ EFFERVESCENT TAB PO PRN (16:15)
[2017-08-30] MEDS ORDERED: POTASSIUM PHOSPHATE MONOBASIC 500 MG TAB PO/TUBE PRN (16:15)
[2017-08-30] MEDS ORDERED: SODIUM PHOSPHATE INJ 30 MMOL in SODIUM CHLOR 0.9% 250 ML INJ 240 ML IV PRN (16:15)
[2017-08-30] MEDS ORDERED: POTASSIUM CHLOR 40 MEQ PREMIX 100 ML IV PRN ×2 (16:15)
[2017-08-30] MEDS ORDERED: MAGNESIUM SULFATE INJ 2 GM in SODIUM CHLORIDE 0.9% INJ 96 ML IV PRN (16:15)
[2017-08-30] MEDS: AMPICILLIN-SULBACTAM INJ 3 GM in SODIUM CHLORIDE 0.9% INJ 100 ML IV SCH (16:16)
[2017-08-30] MEDS ORDERED: PHENYLEPHRINE INJ 160 MG in DEXTROSE 5% IN WATE 500 ML INJ 484 ML IV PRN ×2 (16:30)
[2017-08-30] MEDS ORDERED: TERBUTALINE INJ 1 MG/ML AMP SQ PRN ×2 (16:30→18:45)
[2017-08-30 16:48] LABS: INTERNATIONAL NORMALIZED RATIO 1.5 RATIO; PROTHROMBIN TIME - PATIENT 14.8 SEC (9.8-11.6)
--- NOTE | 2017-08-30 16:53 | PD.PROCEDR ---
Central Line Procedure REASON FOR PROCEDURE Central venous access PROCEDURE PERFORMED Central line placement: Right IJ CVL CONSENT Informed consent for procedure was obtained. The risks and benefits of the procedure were discussed to include but limited to bleeding, clot formation, infection, and even . ANESTHESIA Local injection of 1% Lidocaine DESCRIPTION OF THE PROCEDURE The patient was placed in supine, mild Trendelenburg position. The area was exposed and cleansed with ChloraPrep, times two. Large sterile drape was used to cover the patient, with the site exposed, under sterile conditions including cap, face mask, sterile gown, and sterile gloves. On single attempt, the introducer needle was inserted with negative pressure in syringe and venous flash was obtained. The guide wire was then advanced without any restriction and the needle was removed. The dilator was used without any complications. Using Seldinger technique the triple lumen antibiotic coated catheter was advanced over the guide wire to a depth of 16 centimeters. The guide wire was removed. All ports were aspirated with dark venous blood return and flushed easily with sterile saline. All ports were capped. Antibiotic disc was placed around central line at puncture site. The central line was secured to the skin with two interrupted 2.0 silk sutures. The area was bandaged with sterile see- through central line bandage. RADIOLOGICAL DATA Ultrasound guidance was used to locate right internal jugular vein. Doppler/ color flow was used to confirm venous flow. COMPLICATIONS: No apparent complications ESTIMATED BLOOD LOSS: Less than 1 cc. Chandrakant Reed MD Aug 30, 2017 16:53
[2017-08-30] MEDS ORDERED: Vancomycin Consult Pharmacy 1 EA OTHER SCH (17:00)
[2017-08-30] MEDS: SODIUM CHLORIDE 0.9% FLUSH 10 ML FLUSH IV FLUSH SCH ×2 (17:00→22:00)
--- NOTE | 2017-08-30 17:15 | RADRPT ---
EXAM DATE/TIME: 08/30/2017 16:55 [facility] COMPARISON: No previous studies available for comparison. INDICATIONS : Central line placement. MEDICAL HISTORY : Cardiovascular disease. Diabetes mellitus type 2. Asthma. SURGICAL HISTORY : Oopherectomy. Rightbreast. ENCOUNTER: Initial ACUITY: 1 day PAIN SCORE: 0/10 LOCATION: Bilateral chest FINDINGS: Patchy bilateral consolidation seen, mostly basilar atelectasis. No pleural effusion. No pneumothorax . Heart size normal. Mediastinal silhouette within normal limits. There is a right internal jugular central venous catheter with tip at the atrial caval junction. CONCLUSION: Patchy bilateral atelectasis. Right IJ central venous catheter with tip at the atriocaval junction. N o pneumothorax or other acute complication. Ben Agarwal MD on August 30, 2017 at 17:12 Board Certified Radiologist. This report was verified electronically.
[2017-08-30] MEDS ORDERED: VANCOMYCIN 1 GM/200 ML PREMIX IV SCH (18:00)
[2017-08-30] MEDS ORDERED: VASOPRESSIN INJ 40 UNITS in DEXTROSE 5% IN WATER 100ML INJ 98 ML IV SCH ×2 (18:34)
[2017-08-30] MEDS ORDERED: NOREPINEPHRINE INJ 4 MG in SODIUM CHLOR 0.9% 250 ML INJ 246 ML IV PRN (19:00)
[2017-08-30] MEDS: HYDROCORTISONE SOD SUCCINATE 100 MG VIAL IV PUSH SCH (19:04)
--- NOTE | 2017-08-30 19:15 | PD.CONS ---
[facility] Service Urology Consult Requested By Primary Care Physician Murtaza Blue MD Diagnosis: (1) Encephalopathy ICD Code: G93.40 - Encephalopathy, unspecified (2) Pyrexia ICD Code: R50.9 - Fever, unspecified (3) Bigeminy ICD Code: I49.9 - Cardiac arrhythmia, unspecified (4) Hard of hearing ICD Code: H91.90 - Unspecified hearing loss, unspecified ear (5) Hypertension ICD Code: I10 - Essential (primary) hypertension (6) Hyperglycemia ICD Code: R73.9 - Hyperglycemia, unspecified (7) Diabetes mellitus type 2 in nonobese ICD Code: E11.9 - Type 2 diabetes mellitus without complications (8) Asthma ICD Code: J45.909 - Unspecified asthma, uncomplicated (9) Glaucoma ICD Code: H40.9 - Unspecified glaucoma (10) Lactic acidosis ICD Code: E87.2 - Acidosis (11) Acute kidney injury ICD Code: N17.9 - Acute kidney failure, unspecified (12) Hypokalemia ICD Code: E87.6 - Hypokalemia (13) Hydronephrosis due to obstruction of ureter ICD Code: N13.2 - Hydronephrosis with renal and ureteral calculous obstruction (14) Sinus tachycardia ICD Code: R00.0 - Tachycardia, unspecified (15) Severe sepsis ICD Code: A41.9 - Sepsis, unspecified organism; R65.20 - Severe sepsis without septic shock (16) Right ureteral calculus ICD Code: N20.1 - Calculus of ureter History of Present Illness 72yo female with obstructing right ureteral stone, located in the right distal UVJ with right hydronephrosis and perinephric stranding. Stone is approx 3-4mm in size. Patient reports she began to experience right flank pain yesterday afternoon around 3pm. Pain worsened with sharp severe right flank pain radiating to the right groin, 10/10, with nausea and vomiting. 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 She presented to the [facility] ED. CT scan identified the distal right UVJ stone. She then developed fevers as high as 103 and began to experience hypotension. She was placed on pressors and IV abx. She was then transferred to the [facility]. Review of Systems ROS Limitations: Clinical Condition Constitutional: COMPLAINS OF: Fever Eyes: DENIES: Blurred vision Ears, nose, mouth, throat: DENIES: Hearing loss Respiratory: DENIES: Cough Cardiovascular: DENIES: Chest pain Gastrointestinal: COMPLAINS OF: Abdominal pain, Nausea, Vomiting Genitourinary: COMPLAINS OF: Urgency Musculoskeletal: COMPLAINS OF: Back pain Neurologic: DENIES: Headache Psychiatric: DENIES: Anxiety Except as stated in HPI: all other systems reviewed are Neg Past Family Social History Past Medical History DM HTN Past Surgical History No prior surgeries Reported Medications Reported Meds & Active Scripts Active Macrobid (Nitrofurantoin Monohydrate Macrocrystals) 100 Mg Capsule 100 Mg PO BID 10 Days Prochlorperazine Maleate 10 Mg Tab 10 Mg PO Q6H PRN Percocet (Oxycodone-Acetaminophen) 5-325 mg Tab 1-2 Tab PO Q4H PRN Reported Lumigan Opth Drops (Bimatoprost) 0.01% Soln 1 Drop EACH EYE HS Ventolin Hfa 18 GM Inh (Albuterol Sulfate) 90 Mcg/Act Aer 2 Puff INH Q4-6H PRN Glimepiride 4 Mg Tab 4 Mg PO BIDAC Metformin (Metformin HCl) 1,000 Mg Tab 1,000 Mg PO BIDPC Metoprolol Tartrate 25 Mg Tab 25 Mg PO BID Allergies: Coded Allergies: No Known Drug Allergies (Verified Allergy, Unknown, 08/30/17) Active Ordered Medications Current Medications Medications (Trade) Dose Ordered Sig/Rowan Route Start Time Stop Time Status Last Admin (Xalatan 0.005% Opth Soln) 1 drop HS EACH EYE 08/30/17 21:00 Cefepime HCl 2000 mg/Sodium Chloride 100 ml @ 200 mls/hr Q12H IV 08/31/17 02:00 Ampicillin Sodium/ Sulbactam Sodium 3 gm/Sodium Chloride 100 ml @ 200 mls/hr Q6H IV 08/30/17 16:00 08/30/17 16:16 (D50w (Vial) Inj) 50 ml UNSCH PRN IV PUSH 08/30/17 15:45 (Glucagon Inj) 1 mg UNSCH PRN OTHER 08/30/17 15:45 (NovoLOG SUPPLEMENTAL SCALE) 1 Q4HR SQ 08/30/17 16:00 Sodium Chloride 1,000 ml @ 84 mls/hr [id number] IV 08/30/17 15:32 08/30/17 15:57 (NS Flush) 2 ml UNSCH PRN IV FLUSH 08/30/17 15:45 (NS Flush) 2 ml BID IV FLUSH 08/30/17 21:00 (Tylenol) 650 mg Q6H PRN PO 08/30/17 15:45 ([place] 5-325 Mg) 1 tab Q4H PRN PO 08/30/17 15:45 (Protonix Inj) 40 mg DAILY IV PUSH 08/31/17 09:00 (Zofran Inj) 4 mg Q6H PRN IV PUSH 08/30/17 15:45 (Duoneb Neb) 1 ampule Q6HR NEB INH 08/30/17 16:00 (Albuterol Neb) 2.5 mg Q2HR NEB PRN INH 08/30/17 15:45 Miscellaneous Information 1 Q361D XX 08/30/17 15:45 (Chlorhexidine 2% Cloth) 3 pack Taper DAILY@04 TOP 08/31/17 04:00 08/27/18 03:59 (Chlorhexidine 2% Cloth) 3 pack UNSCH PRN TOP 08/30/17 15:45 (Cate-Colace) 1 tab BID PO 08/30/17 21:00 (Milk Of Magnesia Liq) 30 ml Q12H PRN PO 08/30/17 15:45 (Senokot) 17.2 mg Q12H PRN PO 08/30/17 15:45 (Dulcolax Supp) 10 mg DAILY PRN RECTAL 08/30/17 15:45 (Lactulose Liq) 30 ml DAILY PRN PO 08/30/17 15:45 (Morphine Inj) 2 mg Q2H PRN IV PUSH 08/30/17 16:00 Pharmacy Profile Note 0 ml @ 0 mls/hr UNSCH OTHER 08/30/17 17:00 Potassium Chloride 100 ml @ 50 mls/hr Q2H PRN IV 08/30/17 16:15 Potassium Chloride 100 ml @ 50 mls/hr Q2H PRN IV 08/30/17 16:15 (K-Lyte Cl Eff) 50 meq UNSCH PRN PO 08/30/17 16:15 Potassium Chloride 100 ml @ 25 mls/hr UNSCH PRN IV 08/30/17 16:15 Potassium Chloride 100 ml @ 50 mls/hr Q2H PRN IV 08/30/17 16:15 Magnesium Sulfate 4 gm/Sodium Chloride 100 ml @ 50 mls/hr UNSCH PRN IV 08/30/17 16:15 (Mag-Ox) 800 mg UNSCH PRN PO 08/30/17 16:15 Magnesium Sulfate 2 gm/Sodium Chloride 100 ml @ 50 mls/hr UNSCH PRN IV 08/30/17 16:15 (K-Phos) 2,000 mg Q4H PRN PO 08/30/17 16:15 Sodium Phosphate 30 mmol/Sodium Chloride 250 ml @ 42 mls/hr UNSCH PRN IV 08/30/17 16:15 (K-Phos) 2,000 mg UNSCH PRN PO/TUBE 08/30/17 16:15 Potassium Phosphate 30 mmol/ Sodium Chloride 260 ml @ 42 mls/hr UNSCH PRN IV 08/30/17 16:15 Vancomycin/Sodium Chloride 200 ml @ 200 mls/hr Q24H IV 08/30/17 18:00 Miscellaneous Information SPECIFIC LAB TO BE DRAWN:VANCOMY... ONCE ONCE .XX 09/02/17 17:45 09/02/17 17:46 Phenylephrine HCl 160 mg/Dextrose 500 ml @ 7.5 mls/hr TITRATE PRN IV 08/30/17 16:30 08/30/17 17:12 (NS Flush) DAILY IV FLUSH 08/30/17 17:00 (NS Flush) UNSCH PRN IV FLUSH 08/30/17 17:00 Vasopressin 40 units/Dextrose 100 ml @ 6 mls/hr [id number] IV 08/30/17 18:34 Norepinephrine Bitartrate 4 mg/ Sodium Chloride 250 ml @ 7.5 mls/hr TITRATE PRN IV 08/30/17 19:00 08/30/17 19:37 (Brethine Inj) 1 mg UNSCH PRN SQ 08/30/17 18:45 (SoluCORTEF INJ) 100 mg Q8H IV PUSH 08/30/17 20:00 08/30/17 19:04 Lactated Ringer's 1,000 ml @ 30 mls/hr Q24H PRN IV 08/30/17 20:30 09/02/17 20:29 Sodium Chloride 500 ml @ 30 mls/hr [id number] PRN IV 08/30/17 20:30 09/02/17 20:29 (Betadine 5% Antisepsis Kit) 1 applic ENGINEERING JOB TITLES PRN EACH NARE 08/30/17 20:30 09/02/17 20:29 (Chlorhexidine 2% Cloth) 3 pack ENGINEERING JOB TITLES PRN TOPICAL 08/30/17 20:30 09/02/17 20:29 Family History Family history reviewed and noncontributory to present illness Social History No smoking history Physical Exam Vital Signs Date Time Temp Pulse Resp B/P (MAP) Pulse Ox O2 Delivery O2 Flow Rate FiO2 08/30/17 18:30 98.6 103 20 95/39 (57) 96 Nasal Cannula 2.00 08/30/17 18:27 107 80/31 08/30/17 18:13 107 77/31 08/30/17 18:04 105 80/31 08/30/17 17:59 105 82/39 08/30/17 17:49 103 80/34 08/30/17 17:38 106 80/32 08/30/17 17:28 108 77/32 08/30/17 17:19 110 80/36 08/30/17 17:12 110 84/35 08/30/17 15:41 100.7 122 20 103/37 (59) 94 Room Air 08/30/17 15:05 102.0 134 15 113/48 (69) 95 Room Air 08/30/17 12:47 103.1 08/30/17 12:37 120 20 110/44 (66) 96 08/30/17 11:54 98 Nasal Cannula 1.00 08/30/17 11:29 99.7 122 20 125/97 (106) 92 Nasal Cannula 2.00 08/30/17 10:44 99 15 93/35 (54) 95 Nasal Cannula 1.00 08/30/17 09:55 99 15 97/41 (59) 97 Nasal Cannula 1.00 08/30/17 09:54 99 15 97/41 (59) 97 Nasal Cannula 1.00 08/30/17 09:00 100 15 98/41 (60) 97 Nasal Cannula 2.00 08/30/17 07:22 15 08/30/17 06:55 104 16 124/58 (80) 93 Room Air 08/30/17 06:00 102 20 136/47 (76) 98 08/30/17 05:30 98 20 131/44 (73) 98 08/30/17 05:01 20 08/30/17 04:47 108 20 151/47 (81) 95 08/30/17 04:13 99.9 108 16 142/61 (88) 96 Physical Exam GENERAL: This is a well-nourished, well-developed patient SKIN: No rashes, ecchymoses or lesions. Cool and dry. HEAD: Atraumatic. Normocephalic EYES: Pupils equal round and reactive. No scleral icterus. No injection or drainage. ENT: Nose without bleeding, purulent drainage. Airway patent. NECK: Trachea midline. No JVD or lymphadenopathy. CARDIOVASCULAR: Slight tachycardia RESPIRATORY: nonlabored GASTROINTESTINAL: Abdomen soft, non-tender, nondistended GENITOURINARY: right flank pain MUSCULOSKELETAL: Extremities without clubbing, cyanosis, or edema. NEUROLOGICAL: Awake and alert. Motor and sensory grossly within normal limits. Normal speech. Lab results reviewed: Yes Laboratory Tests Test 08/30/17 04:50 08/30/17 07:05 08/30/17 14:23 08/30/17 15:50 White Blood Count 5.4 Red Blood Count 4.07 Hemoglobin 11.9 Hematocrit 35.6 Mean Corpuscular Volume 87.5 Mean Corpuscular Hemoglobin 29.2 Mean Corpuscular Hemoglobin Concent 33.3 Red Cell Distribution Width 12.1 Platelet Count 176 Mean Platelet Volume 9.8 Neutrophils (%) (Auto) 92.3 Lymphocytes (%) (Auto) 5.8 Monocytes (%) (Auto) 1.2 Eosinophils (%) (Auto) 0.0 Basophils (%) (Auto) 0.7 Neutrophils # (Auto) 5.0 Lymphocytes # (Auto) 0.3 Monocytes # (Auto) 0.1 Eosinophils # (Auto) 0.0 Basophils # (Auto) 0.0 CBC Comment DIFF FINAL Differential Comment Blood Urea Nitrogen 18 Creatinine 1.30 Random Glucose 259 Total Protein 7.6 Albumin 3.3 Calcium Level 8.6 Alkaline Phosphatase 75 Aspartate Amino Transf (AST/SGOT) 17 Alanine Aminotransferase (ALT/SGPT) 21 Total Bilirubin 1.0 Sodium Level 136 Potassium Level 3.3 Chloride Level 101 Carbon Dioxide Level 20.4 Anion Gap 15 Estimat Glomerular Filtration Rate 40 Lipase 121 Urine Collection Type VOIDED Urine Color YELLOW Urine Turbidity CLEAR Urine pH 5.5 Urine Specific Julian 1.020 Urine Protein 30 Urine Glucose (UA) 1000 OR GREATER Urine Ketones 15 Urine Occult Blood MOD Urine Nitrite NEG Urine Bilirubin NEG Urine Urobilinogen 0.2 Urine Leukocyte Esterase NEG Urine WBC 6-8 Urine WBC Clumps RARE Urine Squamous Epithelial Cells 0-3 Urine Bacteria MANY Microscopic Urinalysis Comment CULTURE INDICATED Lactic Acid Level 5.6 Prothrombin Time 14.8 Prothromb Time International Ratio 1.5 Activated Partial Thromboplast Time 29.8 Date/Time Source Procedure Growth Status 08/30/17 15:50 Blood Peripheral Aerobic Blood Culture Pending Received 08/30/17 15:50 Blood Peripheral Anaerobic Blood Culture Pending Received 08/30/17 07:05 Urine Random Urine Urine Culture Pending Received Result Diagram: 08/30/17 0450 08/30/17 0450 Personally reviewed images: Yes Imaging Last Impressions Chest X-Ray 08/30/17 1653 Signed Impressions: Service Date/Time: Wednesday, August 30, 2017 16:55 - CONCLUSION: Patchy bilateral atelectasis. Right IJ central venous catheter with tip at the atriocaval junction. No pneumothorax or other acute complication. Ben Agarwal MD Abdomen/Pelvis CT 08/30/17 0000 Signed Impressions: Service Date/Time: Wednesday, August 30, 2017 12:19 - CONCLUSION: 3-4 mm stone at the right ureterovesical junction with moderate right hydronephrosis. Possible forniceal rupture. Ben Esquivel MD Assessment and Plan Problem List: (1) Abdominal pain ICD Code: R10.9 - Unspecified abdominal pain Status: Acute (2) Fever ICD Code: R50.9 - Fever, unspecified Status: Acute (3) UTI (urinary tract infection) ICD Code: N39.0 - Urinary tract infection, site not specified Status: Acute (4) Right ureteral calculus ICD Code: N20.1 - Calculus of ureter Status: Acute Assessment and Plan Given the patients overall septic presentation, she is at high risk and therefore emergent transfer to [facility] for immediate cysto, right ureteral stent placement Procedure discussed with patient and family in detail. Consent obtained. NPO IV abx; IVF OR for cystoscopy, right ureteral stent placement Problem Qualifiers (1) Pyrexia: Qualified Codes: R50.9 - Fever, unspecified (2) Hard of hearing: Qualified Codes: H91.90 - Unspecified hearing loss, unspecified ear (3) Hypertension: Qualified Codes: I10 - Essential (primary) hypertension (4) Asthma: Qualified Codes: J45.20 - Mild intermittent asthma, uncomplicated (5) Glaucoma: Qualified Codes: H40.9 - Unspecified glaucoma (6) Fever: Qualified Codes: R50.9 - Fever, unspecified (7) UTI (urinary tract infection): Qualified Codes: N39.0 - Urinary tract infection, site not specified Sylvester Perdue MD Aug 30, 2017 19:15
[2017-08-30 20:19] LABS: BICARBONATE 16.6 MEQ/L (21.0-32.0); CREATININE 1.8 MG/DL (0.50-1.00); PHOSPHORUS 0.9 MG/DL (2.5-4.9)
[2017-08-30 20:21] LABS: TROPONIN I 1.11 NG/ML (0.02-0.05)
[2017-08-30] MEDS ORDERED: LACTATED RINGER'S 1000 ML IV PRN (20:30)
[2017-08-30] MEDS ORDERED: POVIDONE IODINE 5% (ANTISEPSIS KIT) 4 APPLICATIONS EACH NARE PRN (20:30)
[2017-08-30] MEDS ORDERED: CHLORHEXIDINE GLUCONATE 2 % 1 PACK (2 CLOTHS) TOPICAL PRN (20:30)
[2017-08-30] MEDS ORDERED: SODIUM CHLORID 0.9% 500 ML IV PRN (20:30)
[2017-08-30 20:32] LABS: CALCIUM-PROTEIN CORRECTED 7.8 MG/DL (8.5-10.1); TOTAL PROTEIN 5.5 GM/DL (6.4-8.2)
[2017-08-30] MEDS ORDERED: VANCOMYCIN HCL 1000 MG VIAL ONE (20:35)
[2017-08-30] MEDS ORDERED: SUGAMMADEX SODIUM 200 MG/2 ML VIAL IV PUSH ONE (21:23)
--- NOTE | 2017-08-30 21:24 | HHI.PR ---
Subjective Patient symptoms today Successful right ureteral stent placement. Significant purulent material expressed upon stent placement. No visible stone on fluoroscopy, however there is significant tortuosity of the proximal right ureter. Winslow catheter replaced at completion of procedure Objective Vital Signs Vital Signs Date Time Temp Pulse Resp B/P (MAP) Pulse Ox O2 Delivery O2 Flow Rate FiO2 08/30/17 20:30 98.9 106 21 103/51 (68) 97 08/30/17 20:30 97 Nasal Cannula 3 08/30/17 20:30 106 08/30/17 20:00 108 18 99/46 (63) Nasal Cannula 08/30/17 19:37 108 98/46 08/30/17 19:15 94 Nasal Cannula 2.00 08/30/17 19:10 106 20 98/48 (65) 97 Nasal Cannula 2.00 08/30/17 18:30 98.6 103 20 95/39 (57) 96 Nasal Cannula 2.00 08/30/17 18:27 107 80/31 08/30/17 18:13 107 77/31 08/30/17 18:04 105 80/31 08/30/17 17:59 105 82/39 08/30/17 17:49 103 80/34 08/30/17 17:38 106 80/32 08/30/17 17:28 108 77/32 08/30/17 17:19 110 80/36 08/30/17 17:12 110 84/35 08/30/17 15:41 100.7 122 20 103/37 (59) 94 Room Air 08/30/17 15:05 102.0 134 15 113/48 (69) 95 Room Air 08/30/17 12:47 103.1 08/30/17 12:37 120 20 110/44 (66) 96 08/30/17 11:54 98 Nasal Cannula 1.00 08/30/17 11:29 99.7 122 20 125/97 (106) 92 Nasal Cannula 2.00 08/30/17 10:44 99 15 93/35 (54) 95 Nasal Cannula 1.00 08/30/17 09:55 99 15 97/41 (59) 97 Nasal Cannula 1.00 08/30/17 09:54 99 15 97/41 (59) 97 Nasal Cannula 1.00 08/30/17 09:00 100 15 98/41 (60) 97 Nasal Cannula 2.00 08/30/17 07:22 15 08/30/17 06:55 104 16 124/58 (80) 93 Room Air 08/30/17 06:00 102 20 136/47 (76) 98 08/30/17 05:30 98 20 131/44 (73) 98 08/30/17 05:01 20 08/30/17 04:47 108 20 151/47 (81) 95 08/30/17 04:13 99.9 108 16 142/61 (88) 96 Intake & Output 08/31/17 08/31/17 07:00 19:00 Intake Total 0 ml Output Total 325 ml Balance -325 ml Intake Oral 0 ml Output Urine Total 325 ml Result Diagram: 08/30/17 0450 08/30/17 1950 Imaging Last 24 hours Impressions Chest X-Ray 08/30/17 1653 Signed Impressions: Service Date/Time: Wednesday, August 30, 2017 16:55 - CONCLUSION: Patchy bilateral atelectasis. Right IJ central venous catheter with tip at the atriocaval junction. No pneumothorax or other acute complication. Ben Agarwal MD Abdomen/Pelvis CT 08/30/17 0000 Signed Impressions: Service Date/Time: Wednesday, August 30, 2017 12:19 - CONCLUSION: 3-4 mm stone at the right ureterovesical junction with moderate right hydronephrosis. Possible forniceal rupture. Ben Esquivel MD Medications and IVs Current Medications Medications (Trade) Dose Ordered Sig/Rowan Route Start Time Stop Time Status Last Admin (Xalatan 0.005% Opth Soln) 1 drop HS EACH EYE 08/30/17 21:00 Cefepime HCl 2000 mg/Sodium Chloride 100 ml @ 200 mls/hr Q12H IV 08/31/17 02:00 Ampicillin Sodium/ Sulbactam Sodium 3 gm/Sodium Chloride 100 ml @ 200 mls/hr Q6H IV 08/30/17 16:00 08/30/17 16:16 (D50w (Vial) Inj) 50 ml UNSCH PRN IV PUSH 08/30/17 15:45 (Glucagon Inj) 1 mg UNSCH PRN OTHER 08/30/17 15:45 (NovoLOG SUPPLEMENTAL SCALE) 1 Q4HR SQ 08/30/17 16:00 Sodium Chloride 1,000 ml @ 84 mls/hr [id number] IV 08/30/17 15:32 08/30/17 15:57 (NS Flush) 2 ml UNSCH PRN IV FLUSH 08/30/17 15:45 (NS Flush) 2 ml BID IV FLUSH 08/30/17 21:00 (Tylenol) 650 mg Q6H PRN PO 08/30/17 15:45 ([place] 5-325 Mg) 1 tab Q4H PRN PO 08/30/17 15:45 (Protonix Inj) 40 mg DAILY IV PUSH 08/31/17 09:00 (Zofran Inj) 4 mg Q6H PRN IV PUSH 08/30/17 15:45 (Duoneb Neb) 1 ampule Q6HR NEB INH 08/30/17 16:00 (Albuterol Neb) 2.5 mg Q2HR NEB PRN INH 08/30/17 15:45 Miscellaneous Information 1 Q361D XX 08/30/17 15:45 (Chlorhexidine 2% Cloth) 3 pack Taper DAILY@04 TOP 08/31/17 04:00 08/27/18 03:59 (Chlorhexidine 2% Cloth) 3 pack UNSCH PRN TOP 08/30/17 15:45 (Cate-Colace) 1 tab BID PO 08/30/17 21:00 (Milk Of Magnesia Liq) 30 ml Q12H PRN PO 08/30/17 15:45 (Senokot) 17.2 mg Q12H PRN PO 08/30/17 15:45 (Dulcolax Supp) 10 mg DAILY PRN RECTAL 08/30/17 15:45 (Lactulose Liq) 30 ml DAILY PRN PO 08/30/17 15:45 (Morphine Inj) 2 mg Q2H PRN IV PUSH 08/30/17 16:00 Pharmacy Profile Note 0 ml @ 0 mls/hr UNSCH OTHER 08/30/17 17:00 Potassium Chloride 100 ml @ 50 mls/hr Q2H PRN IV 08/30/17 16:15 Potassium Chloride 100 ml @ 50 mls/hr Q2H PRN IV 08/30/17 16:15 (K-Lyte Cl Eff) 50 meq UNSCH PRN PO 08/30/17 16:15 Potassium Chloride 100 ml @ 25 mls/hr UNSCH PRN IV 08/30/17 16:15 Potassium Chloride 100 ml @ 50 mls/hr Q2H PRN IV 08/30/17 16:15 Magnesium Sulfate 4 gm/Sodium Chloride 100 ml @ 50 mls/hr UNSCH PRN IV 08/30/17 16:15 (Mag-Ox) 800 mg UNSCH PRN PO 08/30/17 16:15 Magnesium Sulfate 2 gm/Sodium Chloride 100 ml @ 50 mls/hr UNSCH PRN IV 08/30/17 16:15 (K-Phos) 2,000 mg Q4H PRN PO 08/30/17 16:15 Sodium Phosphate 30 mmol/Sodium Chloride 250 ml @ 42 mls/hr UNSCH PRN IV 08/30/17 16:15 (K-Phos) 2,000 mg UNSCH PRN PO/TUBE 08/30/17 16:15 Potassium Phosphate 30 mmol/ Sodium Chloride 260 ml @ 42 mls/hr UNSCH PRN IV 08/30/17 16:15 Vancomycin/Sodium Chloride 200 ml @ 200 mls/hr Q24H IV 08/30/17 18:00 Miscellaneous Information SPECIFIC LAB TO BE DRAWN:VANCOMY... ONCE ONCE .XX 09/02/17 17:45 09/02/17 17:46 Phenylephrine HCl 160 mg/Dextrose 500 ml @ 7.5 mls/hr TITRATE PRN IV 08/30/17 16:30 08/30/17 17:12 (NS Flush) DAILY IV FLUSH 08/30/17 17:00 (NS Flush) UNSCH PRN IV FLUSH 08/30/17 17:00 Vasopressin 40 units/Dextrose 100 ml @ 6 mls/hr [id number] IV 08/30/17 18:34 Norepinephrine Bitartrate 4 mg/ Sodium Chloride 250 ml @ 7.5 mls/hr TITRATE PRN IV 08/30/17 19:00 08/30/17 19:37 (Brethine Inj) 1 mg UNSCH PRN SQ 08/30/17 18:45 (SoluCORTEF INJ) 100 mg Q8H IV PUSH 08/30/17 20:00 08/30/17 19:04 Lactated Ringer's 1,000 ml @ 30 mls/hr Q24H PRN IV 08/30/17 20:30 09/02/17 20:29 Sodium Chloride 500 ml @ 30 mls/hr [id number] PRN IV 08/30/17 20:30 09/02/17 20:29 (Betadine 5% Antisepsis Kit) 1 applic [employer]LECTION SYSTEM OPERATOR PRN EACH NARE 08/30/17 20:30 09/02/17 20:29 (Chlorhexidine 2% Cloth) 3 pack [employer]AND[employer]LL [employer]LE[employer] SYSTEM OPERATOR PRN TOPICAL 08/30/17 20:30 09/02/17 20:29 Assessment and Plan Problem List: (1) Abdominal pain ICD Code: R10.9 - Unspecified abdominal pain Status: Acute (2) Fever ICD Code: R50.9 - Fever, unspecified Status: Acute (3) UTI (urinary tract infection) ICD Code: N39.0 - Urinary tract infection, site not specified Status: Acute (4) Right ureteral calculus ICD Code: N20.1 - Calculus of ureter Status: Acute Assessment and Plan -Winslow catheter may be removed tomorrow morning -Continue ABx -Will follow Problem Qualifiers (1) Fever: Qualified Codes: R50.9 - Fever, unspecified (2) UTI (urinary tract infection): Qualified Codes: N39.0 - Urinary tract infection, site not specified Sylvester Perdue MD Aug 30, 2017 21:24
[2017-08-30] MEDS ORDERED: DO NOT ADM ANY ANTICOAGULANT DRUGS PRN (22:00)
--- NOTE | 2017-08-30 22:23 | RADRPT ---
EXAM DATE/TIME: 08/30/2017 21:08 [place] COMPARISON: No previous studies available for comparison. INDICATIONS : Stent placement. MEDICAL HISTORY : Cardiovascular disease. Diabetes mellitus type 2. Asthma. SURGICAL HISTORY : Oopherectomy. Rightbreast. ENCOUNTER: Subsequent ACUITY: 1 day PAIN SCORE: Non-responsive. LOCATION: Abdomen. FINDINGS: Multiple images in the procedure room show placement of a right ureteral stent with the proximal pigt ail in the pelvis. There is collecting system opacification during contrast injection. I don't see th e distal portions of the stent. CONCLUSION: Right ureteral stent. Proximal portion of the stent appears appropriately positioned. Ben Agarwal MD on August 30, 2017 at 22:20 Board Certified Radiologist. This report was verified electronically.
[2017-08-31] VITALS (14 sets, daily range): BP systolic 109–145; BP diastolic 45–94; PULSE 85–123; RESP 20–25; TEMP 97.8–99.7; O2SAT 95–97
[2017-08-31] MEDS: CEFEPIME INJ 2,000 MG in SODIUM CHLORIDE 0.9% INJ 100 ML IV SCH ×2 (02:07→13:46)
[2017-08-31 02:28] LABS: AUTOMATED NEUTROPHIL # 16.5 TH/MM3 (1.8-7.7); BASOPHIL % 0.1 % (0.0-2.0); EOSINOPHIL % 0.1 % (0.0-4.0); LYMPHOCYTE # 0.5 TH/MM3 (1.0-4.8); MEAN CELL VOLUME 90.9 FL (80.0-100.0); MEAN CORPUSCULAR HEMOGLOBIN 30.2 PG (27.0-34.0); MEAN CORPUSCULAR HGB CONC 33.2 % (32.0-36.0); MEAN PLATELET VOLUME 9.3 FL (7.0-11.0); MONO % 1.9 % (0.0-8.0); MONOCYTE # 0.3 TH/MM3 (0-0.9); NEUT % 94.9 % (16.0-70.0); PLATELET COUNT 115 TH/MM3 (150-450); WHITE BLOOD COUNT 17.5 TH/MM3 (4.0-11.0)
[2017-08-31 02:38] LABS: INTERNATIONAL NORMALIZED RATIO 1.8 RATIO; PROTHROMBIN TIME - PATIENT 18.2 SEC (9.8-11.6)
[2017-08-31 03:03] LABS: BICARBONATE 13.9 MEQ/L (21.0-32.0); CALCIUM 6.7 MG/DL (8.5-10.1); CREATININE 1.71 MG/DL (0.50-1.00)
[2017-08-31] MEDS: RESP: ALBUTEROL 2.5 MG/IPRATROPIUM 0.5 MG NEB (SCH) INH ×4 (03:09→21:25)
[2017-08-31] MEDS: SODIUM CHLOR 0.9% 1000 ML INJ 1,000 ML IV SCH ×2 (03:27→15:22)
[2017-08-31 03:39] LABS: CALCIUM-PROTEIN CORRECTED 7.3 MG/DL (8.5-10.1); TOTAL PROTEIN 5.8 GM/DL (6.4-8.2)
[2017-08-31] MEDS: HYDROCORTISONE SOD SUCCINATE 100 MG VIAL IV PUSH SCH ×3 (03:56→20:50)
[2017-08-31] MEDS: AMPICILLIN-SULBACTAM INJ 3 GM in SODIUM CHLORIDE 0.9% INJ 100 ML IV SCH ×4 (03:56→20:52)
[2017-08-31] MEDS: INSULIN ASPART SUPPLEMENTAL SCALE SQ SCH ×6 (03:56→20:00)
[2017-08-31] MEDS: CHLORHEXIDINE GLUCONATE 2 % 1 PACK (2 CLOTHS) TOP SCH (03:57)
[2017-08-31 06:44] LABS: BANDS 44 % (0-6); DOHLE BODIES PRESENT (NONE SEEN); LYMPHOCYTES 5 % (9-44); MONOCYTES 2 % (0-8); MYELOCYTES 1 % (0-0); NEUTROPHIL # MANUAL DIFF 16.3 TH/MM3 (1.8-7.7); POLYS (SEG NEUTROPHILS) 48 % (16-70); TOXIC VACUOLATION PRESENT (NONE SEEN)
--- NOTE | 2017-08-31 08:31 | MP ---
cc: Sylvester Perdue MD DATE OF OPERATION: 08/30/2017 DATE OF PROCEDURE: 08/30/2017 PREOPERATIVE DIAGNOSIS: Right-sided nephrolithiasis with sepsis. POSTOPERATIVE DIAGNOSIS: Right-sided nephrolithiasis with sepsis. SURGEON: Sylvester Perdue MD PROCEDURE PERFORMED: 1. Cystoscopy. 2. Right ureteral stent placement, 6 x 24 double-J. PERTINENT FINDINGS: 1. Significant purulent material expressed from the right ureteral orifice upon placement of the right ureteral stent. 2. Significant tortuosity noted at the proximal right ureter, difficulty in passing the stent down into the right renal pelvis. 3. Successful placement of 6 x 24 double-J ureteral stent on the right and confirmed position via fluoroscopy. 4. No visible stone on fluoroscopy; however, likely bypass via stent. INDICATION FOR PROCEDURE: Narda Willett is a 72-year-old female who was found to have significant right flank pain with developing fevers and septic picture for which she now presents for emergent right ureteral stent placement. DESCRIPTION OF PROCEDURE: After proper informed consent was obtained, the patient was brought to the operating room and laid supine on table. Bilateral lower extremity SCDs were in place, the patient was placed under general anesthesia, the patient was placed in lithotomy position, prepped and draped in standard surgical fashion. After a proper timeout was completely, a rigid cystoscope was inserted into urethra and bladder. Urethra mucosa within normal limits without any abnormalities or lesions identified. Upon entering the bladder, bilateral ureteral orifices were identified. The bladder was inspected with no abnormalities. No stone noted in the bladder. At this point, a wire was passed into the right ureteral orifice. There was some mild resistance noted distally; however, the wire was able to be passed up into the proximal ureter. However, upon entering the proximal ureter, there was some resistance met. Fluoroscopy identified tortuosity of this right proximal ureter. Manipulation with a wire as well as an open-ended ureteral catheter was completed which I was able to advance the wire into the right renal pelvis. At this point, a 6 x 24 double-J ureteral stent was successfully placed into the right collecting system with good curl in the renal pelvis, as well as in the bladder. Upon placement of the stent ,significant purulent material was expressed from the right collecting system. The patient's bladder was irrigated and drained. A Winslow catheter was placed at the end of the procedure. The patient was then awoken from anesthesia and taken to the PACU in good and stable condition. The patient tolerated the procedure well and there were no complications. DISPOSITION: The patient is to be admitted overnight for observation with continued IV antibiotics. The Winslow catheter was to be maintained in place for overnight and may be removed tomorrow morning. As long as her clinical picture improves, she may potentially be discharged in the next day or so. Sylvester Perdue MD SML/KD , 09:27 PM , 08:30 AM
[2017-08-31] MEDS: DOCUSATE SODIUM 50 MG/SENNA 8.6 MG TAB PO SCH ×2 (09:00→20:50)
[2017-08-31 09:43] LABS: BICARBONATE 14.7 MEQ/L (21.0-32.0); CALCIUM 6.9 MG/DL (8.5-10.1); CREATININE 1.69 MG/DL (0.50-1.00)
--- NOTE | 2017-08-31 09:45 | HHI.PR ---
Subjective Patient symptoms today Doing well this am. Pain improved. Fevers improved. WBC elevated, however expected after procedure last night. Objective Vital Signs Vital Signs Date Time Temp Pulse Resp B/P (MAP) Pulse Ox O2 Delivery O2 Flow Rate FiO2 08/31/17 08:50 97 Nasal Cannula 2.00 08/31/17 06:00 119 08/31/17 04:00 121 08/31/17 04:00 99.4 123 23 109/57 (74) 96 08/31/17 02:00 109 08/31/17 00:00 100 08/31/17 00:00 99.1 100 23 145/94 (111) 96 08/30/17 23:20 95 Nasal Cannula 2.00 08/30/17 23:00 106 08/30/17 22:53 99.2 112 16 163/91 (115) 97 08/30/17 22:30 98.7 115 20 101/50 (67) 95 Nasal Cannula 3 133/49 (77) 08/30/17 22:15 111 20 97/59 (72) 97 Nasal Cannula 3 08/30/17 22:00 114 118/45 08/30/17 22:00 114 18 109/53 (71) 96 Nasal Cannula 3 118/45 (69) 08/30/17 21:45 114 19 107/53 (71) 97 Nasal Cannula 3 08/30/17 21:45 114 107/53 08/30/17 21:45 114 08/30/17 21:42 98.8 114 19 104/52 (69) 98 Nasal Cannula 3 132/40 (70) 08/30/17 20:30 98.9 106 21 103/51 (68) 97 08/30/17 20:30 97 Nasal Cannula 3 08/30/17 20:30 106 08/30/17 20:00 108 18 99/46 (63) Nasal Cannula 08/30/17 20:00 108 18 97 Nasal Cannula 2.00 08/30/17 19:37 108 98/46 08/30/17 19:15 94 Nasal Cannula 2.00 08/30/17 19:10 106 20 98/48 (65) 97 Nasal Cannula 2.00 08/30/17 18:30 98.6 103 20 95/39 (57) 96 Nasal Cannula 2.00 08/30/17 18:27 107 80/31 08/30/17 18:13 107 77/31 08/30/17 18:04 105 80/31 08/30/17 17:59 105 82/39 08/30/17 17:49 103 80/34 08/30/17 17:38 106 80/32 08/30/17 17:28 108 77/32 08/30/17 17:19 110 80/36 08/30/17 17:12 110 84/35 08/30/17 15:41 100.7 122 20 103/37 (59) 94 Room Air 08/30/17 15:05 102.0 134 15 113/48 (69) 95 Room Air 08/30/17 12:47 103.1 08/30/17 12:37 120 20 110/44 (66) 96 08/30/17 11:54 98 Nasal Cannula 1.00 08/30/17 11:29 99.7 122 20 125/97 (106) 92 Nasal Cannula 2.00 08/30/17 10:44 99 15 93/35 (54) 95 Nasal Cannula 1.00 08/30/17 09:55 99 15 97/41 (59) 97 Nasal Cannula 1.00 08/30/17 09:54 99 15 97/41 (59) 97 Nasal Cannula 1.00 Intake & Output 08/31/17 08/31/17 07:00 19:00 Intake Total 2450 ml Output Total 780 ml Balance 1670 ml Intake Oral 100 ml IV Total 1450 ml Other 900 ml Output Urine Total 775 ml Estimated Blood Loss 5 ml # Bowel Movements 0 Result Diagram: 08/31/178 08/31/17 0218 Imaging Last 24 hours Impressions Chest X-Ray 08/30/17 1653 Signed Impressions: Service Date/Time: Wednesday, August 30, 2017 16:55 - CONCLUSION: Patchy bilateral atelectasis. Right IJ central venous catheter with tip at the atriocaval junction. No pneumothorax or other acute complication. Ben Agarwal MD Objective Remarks AAOx3 Resp NL Ab Soft Winslow in place, dark yellow urine Medications and IVs Current Medications Medications (Trade) Dose Ordered Sig/Rowan Route Start Time Stop Time Status Last Admin (Xalatan 0.005% Opth Soln) 1 drop HS EACH EYE 08/30/17 21:00 Cefepime HCl 2000 mg/Sodium Chloride 100 ml @ 200 mls/hr Q12H IV 08/31/17 02:00 08/31/17 02:07 Ampicillin Sodium/ Sulbactam Sodium 3 gm/Sodium Chloride 100 ml @ 200 mls/hr Q6H IV 08/30/17 16:00 08/31/17 03:56 (D50w (Vial) Inj) 50 ml UNSCH PRN IV PUSH 08/30/17 15:45 (Glucagon Inj) 1 mg UNSCH PRN OTHER 08/30/17 15:45 (NovoLOG SUPPLEMENTAL SCALE) 1 Q4HR SQ 08/30/17 16:00 Sodium Chloride 1,000 ml @ 84 mls/hr [id number] IV 08/30/17 15:32 08/31/17 03:27 (NS Flush) 2 ml UNSCH PRN IV FLUSH 08/30/17 15:45 (NS Flush) 2 ml BID IV FLUSH 08/30/17 21:00 08/30/17 22:00 (Tylenol) 650 mg Q6H PRN PO 08/30/17 15:45 (Willis 5-325 Mg) 1 tab Q4H PRN PO 08/30/17 15:45 (Protonix Inj) 40 mg DAILY IV PUSH 08/31/17 09:00 (Zofran Inj) 4 mg Q6H PRN IV PUSH 08/30/17 15:45 (Duoneb Neb) 1 ampule Q6HR NEB INH 08/30/17 16:00 (Albuterol Neb) 2.5 mg Q2HR NEB PRN INH 08/30/17 15:45 Miscellaneous Information 1 Q361D XX 08/30/17 15:45 (Chlorhexidine 2% Cloth) 3 pack Taper DAILY@04 TOP 08/31/17 04:00 08/27/18 03:59 08/31/17 03:57 (Chlorhexidine 2% Cloth) 3 pack UNSCH PRN TOP 08/30/17 15:45 (Cate-Colace) 1 tab BID PO 08/30/17 21:00 (Milk Of Magnesia Liq) 30 ml Q12H PRN PO 08/30/17 15:45 (Senokot) 17.2 mg Q12H PRN PO 08/30/17 15:45 (Dulcolax Supp) 10 mg DAILY PRN RECTAL 08/30/17 15:45 (Lactulose Liq) 30 ml DAILY PRN PO 08/30/17 15:45 (Morphine Inj) 2 mg Q2H PRN IV PUSH 08/30/17 16:00 Pharmacy Profile Note 0 ml @ 0 mls/hr UNSCH OTHER 08/30/17 17:00 Potassium Chloride 100 ml @ 50 mls/hr Q2H PRN IV 08/30/17 16:15 Potassium Chloride 100 ml @ 50 mls/hr Q2H PRN IV 08/30/17 16:15 (K-Lyte Cl Eff) 50 meq UNSCH PRN PO 08/30/17 16:15 Potassium Chloride 100 ml @ 25 mls/hr UNSCH PRN IV 08/30/17 16:15 Potassium Chloride 100 ml @ 50 mls/hr Q2H PRN IV 08/30/17 16:15 Magnesium Sulfate 4 gm/Sodium Chloride 100 ml @ 50 mls/hr UNSCH PRN IV 08/30/17 16:15 (Mag-Ox) 800 mg UNSCH PRN PO 08/30/17 16:15 Magnesium Sulfate 2 gm/Sodium Chloride 100 ml @ 50 mls/hr UNSCH PRN IV 08/30/17 16:15 (K-Phos) 2,000 mg Q4H PRN PO 08/30/17 16:15 Sodium Phosphate 30 mmol/Sodium Chloride 250 ml @ 42 mls/hr UNSCH PRN IV 08/30/17 16:15 (K-Phos) 2,000 mg UNSCH PRN PO/TUBE 08/30/17 16:15 Potassium Phosphate 30 mmol/ Sodium Chloride 260 ml @ 42 mls/hr UNSCH PRN IV 08/30/17 16:15 Vancomycin/Sodium Chloride 200 ml @ 200 mls/hr Q24H IV 08/30/17 18:00 Miscellaneous Information SPECIFIC LAB TO BE DRAWN:VANCOMY... ONCE ONCE .XX 09/02/17 17:45 09/02/17 17:46 Phenylephrine HCl 160 mg/Dextrose 500 ml @ 7.5 mls/hr TITRATE PRN IV 08/30/17 16:30 08/30/17 17:12 (NS Flush) DAILY IV FLUSH 08/30/17 17:00 (NS Flush) UNSCH PRN IV FLUSH 08/30/17 17:00 Vasopressin 40 units/Dextrose 100 ml @ 6 mls/hr [id number] IV 08/30/17 18:34 Norepinephrine Bitartrate 4 mg/ Sodium Chloride 250 ml @ 7.5 mls/hr TITRATE PRN IV 08/30/17 19:00 08/30/17 19:37 (Brethine Inj) 1 mg UNSCH PRN SQ 08/30/17 18:45 (SoluCORTEF INJ) 100 mg Q8H IV PUSH 08/30/17 20:00 08/31/17 03:56 Lactated Ringer's 1,000 ml @ 30 mls/hr Q24H PRN IV 08/30/17 20:30 09/02/17 20:29 Sodium Chloride 500 ml @ 30 mls/hr [id number] PRN IV 08/30/17 20:30 09/02/17 20:29 (Betadine 5% Antisepsis Kit) 1 applic [employer] WET PROCESS PRN EACH NARE 08/30/17 20:30 09/02/17 20:29 (Chlorhexidine 2% Cloth) 3 pack [employer] PRN TOPICAL 08/30/17 20:30 09/02/17 20:29 Miscellaneous Information ALL NURSING DEPARTME... UNSCH PRN .XX 08/30/17 22:00 08/31/17 21:59 Assessment and Plan Problem List: (1) Abdominal pain ICD Code: R10.9 - Unspecified abdominal pain Status: Acute (2) Fever ICD Code: R50.9 - Fever, unspecified Status: Acute (3) UTI (urinary tract infection) ICD Code: N39.0 - Urinary tract infection, site not specified Status: Acute (4) Right ureteral calculus ICD Code: N20.1 - Calculus of ureter Status: Acute Assessment and Plan -Winslow catheter may remain in place until urine clears and patient is more ambulatory -Continue abx, await culture results -Will follow Problem Qualifiers (1) Fever: Qualified Codes: R50.9 - Fever, unspecified (2) UTI (urinary tract infection): Qualified Codes: N39.0 - Urinary tract infection, site not specified Sylvester Perdue MD Aug 31, 2017 09:45
[2017-08-31 10:01] LABS: CALCIUM-PROTEIN CORRECTED 7.6 MG/DL (8.5-10.1); TOTAL PROTEIN 5.7 GM/DL (6.4-8.2)
[2017-08-31 10:14] LABS: TROPONIN I 4.69 NG/ML (0.02-0.05)
[2017-08-31] MEDS: PANTOPRAZOLE SODIUM 40 MG VIAL IV PUSH SCH (10:26)
[2017-08-31] MEDS: SODIUM CHLORIDE 0.9% FLUSH 10 ML FLUSH IV FLUSH SCH ×3 (10:26→20:51)
--- NOTE | 2017-08-31 14:22 | EKG ---
Date Performed: 08/30/2017 Time Performed: 19:40:59 PTAGE: 72 years EKG: SINUS TACHYCARDIA NONSPECIFIC T-WAVE ABNORMALITY ABNORMAL RHYTHM ECG NO PREVIOUS TRACING DOCTOR: Aimee Flores Interpretating Date/Time 08/31/2017 14:20:26
--- NOTE | 2017-08-31 16:00 | HHI.CCPN ---
Subjective Remarks/Hospital Course 72-year-old female. Date of admission 08/30/2017. Past medical history includes hypertension, glaucoma, hard of hearing, asthma, diabetes mellitus. Patient has no history of frequent urinary tract infections. Patient presents to [facility] with acute onset of diffuse abdominal pain service with nausea and vomiting. Patient was rated 10 out of 10 involving right upper and lower quadrants and bilateral flanks. Patient had eaten boiled peanuts ever sitting out and she attributed the symptoms to possible food poisoning. She took acetaminophen at home which that relieved her symptoms. She arrived at the emergency room for further evaluation treatment. Initially, patient was refusing CT abdomen as she thought this is from food poisoning. Later, CT abdomen/pelvis revealed a 4 mm obstructing stone at the right UVJ junction with associated right hydronephrosis. Blood cultures and urine culture sent the patient received 2 g of cefepime. Lactate elevated at 5.6. White blood cell count was within normal limits. Patient did have a creatinine 1.3. Glucose of 259. Patient received 4 L normal saline but her blood pressures continue to slowly drop. Subjective: 08/31: T-max 99.7. The patient underwent ureteral stent placement yesterday . Winslow draining dark dino urine. Blood cultures reveal E. coli bacteremia, as well as urine cultures revealed E. coli.. Lactic acid downtrending. Patient continues on Unasyn, cefepime and vancomycin. Troponin was noted to be significantly elevated at 4.69. Hemoccult obtained. Patient given aspirin 1 dose. Unable to initiate beta lurdes secondary to hypotension and Levophed was discontinued early this a.m. patient continues on phenylephrine infusion at this time. Objective Vital Signs Date Time Temp Pulse Resp B/P (MAP) Pulse Ox O2 Delivery O2 Flow Rate FiO2 08/31/17 14:00 104 08/31/17 12:00 99.5 20 117/56 (76) 95 131/52 (78) 08/31/17 08:50 Nasal Cannula 2.00 Intake and Output 08/31/17 08/31/17 09/01/17 08:00 16:00 00:00 Intake Total 1300 ml Output Total 400 ml Balance 900 ml Result Diagram: 08/31/17 0218 08/31/17 0845 Other Results Laboratory Tests Test 08/30/17 19:30 Blood Gas Puncture Site RT RADIAL Blood Gas Patient Temperature 37.0 Blood Gas HCO3 15 mmol/L (22-26) Blood Gas Base Excess -9.9 mmol/L (-2-2) Blood Gas Oxygen Saturation 92 % (90-100) Arterial Blood pH 7.31 (7.380-7.420) Arterial Blood Partial Pressure CO2 31 mmHg (38-42) Arterial Blood Partial Pressure O2 63 mmHg (61-120) Arterial Blood Oxygen Content 11.9 Vol % (12.0-20.0) Arterial Blood Carboxyhemoglobin 1.3 % (0-4) Arterial Blood Methemoglobin 0.8 % (0-2) Blood Gas Hemoglobin 9.2 G/DL (12.0-16.0) Oxygen Delivery Device NASAL CANNULA Blood Gas Liter Flow 2 L/M Imaging Last Impressions Abdomen/Pelvis CT 08/30/17 0000 Signed Impressions: Service Date/Time: Wednesday, August 30, 2017 12:19 - CONCLUSION: 3-4 mm stone at the right ureterovesical junction with moderate right hydronephrosis. Possible forniceal rupture. Ben Esquivel MD Objective Remarks GENERAL: 72-year-old female very ill-appearing/pale resting in bed SKIN: Warm and dry. Pale. HEAD: Atraumatic. Normocephalic. EYES: Pupils equal and round 3 mm bilaterally and react. No scleral icterus. No injection or drainage. ENT: No nasal bleeding or discharge. Mucous membranes pink and moist. NECK: Trachea midline. No JVD. CARDIOVASCULAR: RRR. S1, S2 predose without murmur RESPIRATORY: No accessory muscle use. Clear to auscultation. Breath sounds equal bilaterally. GASTROINTESTINAL: Abdomen soft, and palpation right upper quadrant and right flank. No guarding. No rebound. MUSCULOSKELETAL: Extremities without significant peripheral edema. No obvious deformities. NEUROLOGICAL: Awake and alert. No obvious cranial nerve deficits. Motor grossly within normal limits. 5/5 muscle strength in the arms and legs. Normal speech. Urinary Catheter: Yes Winslow insert reason: Measure Accurate Output (Patient with urosepsis status post nephrolithiasis with ureteral stent placement) A/P Assessment and Plan Neuro/Psych: Acute encephalopathy likely toxic metabolic Acetaminophen 650 mg p.o. every 6 hours as needed fever Hydrocodone/acetaminophen 5/325 tablet every 4 hours as needed pain 1 through 5 Morphine sulfate 2 mg IV every 4 hours as needed pain 6 or 10 CV: Sinus tachycardia Lactic acidosis History of hypertension Severe sepsis Elevated troponin levels 08/30 Status post 4 L normal saline bolus in ED. Normal saline at 84 cc an hour Levophed discontinued 08/31, Phenyephrine 40mcgs Lactate is currently 5.6-> 4 Trend every 6 hours until cleared Hold metoprolol tartrate 20 mg p.o. twice daily in the setting of hypotension ASA 324 x 1 dose, will begin atorvastatin Heparin infusion to be initiated upon hemoccult results-discussed with Dr. Flores Troponins 1.11->4.69- continue to trend Obtain echo Consult cardiology Resp: History of mild intermittent asthma Nasal cannula to maintain saturations greater than equal to 92% Incentive spirometry while awake Albuterol/ipratropium aerosols every 6 hours with albuterol aerosols every 2 hours as needed dyspnea Chest x-ray ordered Patient is on albuterol 18 mg 1 puff every 4-6 hours as needed dyspnea at home GI: Nausea/vomiting Left adrenal adenoma 2 mm Distal colonic diverticulosis Hypoalbuminemia CT abdomen/pelvis revealed a right-sided hydronephrosis with 3-4 mm stone at the right UVJ junction. Left adrenal adenoma 2 mm in size. Distal colonic diverticulosis Currently n.p.o. Ondansetron 4 mg IV every 6 hours as needed nausea Pantoprazole 40 mg IV daily GI prophylaxis Continue sodium/senna 1 tablet twice daily bowel regimen : Winslow catheter for I's and O's in a critically ill patient Endo: Diabetes mellitus type 2 with hyperglycemia Holding metformin 1000 mg twice daily and glimepiride 4 mg p.o. twice daily Sliding scale insulin Accu-Cheks every 4 hours to maintain euglycemia Novolog every 4 hours medium protocol Renal: Acute kidney injury Right hydronephrosis with 4 mm stone at the right UVJ junction Urology/Dr. Perdue consulted for possible stent placement today Creatinine currently 1.3 Monitor urine output Accurate I's and O's Repeat BMP Urine electrolytes and eosinophils ordered Heme: Leukocytosis PT/PTT and fibrinogen ordered Continue to monitor CBC INR 1.8 ID: Severe sepsis secondary to urinary tract infection/infected stone? Leukocytosis 08/30 Received 1 dose of cefepime in ED 2 g. Cefepime and ampicillin/sulbactam 3 g IV every 6 hours. Vancomycin discontinued. C. difficile ordered ID consulted Blood cultures 2- EColi Urine Culture- EColi MSK: PT evaluate and treat FEN: Hypokalemia Replace electrolytes as clinically indicated NS 84cc/hr Access -Utilize peripheral IV. Central line if indicated Prophylaxis -GI -pantoprazole -DVT -SCDs/holding pharmacologic prophylaxis, planned initiation of heparin infusion Critical Care: my billing statement This patient remains critically ill with one or more organ systems which are or may become a threat to life. I have spent in excess of 49 minutes discontinuously in the care and management of this patient. This time is exclusive of procedures, and includes, but is not limited to, evaluation of the patient, review of the medical record, discussions with family, consultants, nursing staff, or respiratory therapy, and documentation in the medical record. Physician Narda Rand MD Aug 31, 2017 16:00
[2017-08-31] MEDS ORDERED: ASPIRIN 81 MG CHEW TAB CHEW ONE (16:15)
[2017-08-31] MEDS ORDERED: HEPARIN SODIUM - IV 10,000 UNITS/10 ML VIAL IV PUSH ONE (16:15)
[2017-08-31] MEDS ORDERED: HEPARIN-D5W 25,000 U/250 ML 250 ML IV PRN (16:15)
[2017-08-31 16:37] LABS: HEMATOCRIT 27.4 % (35.0-46.0); HEMOGLOBIN 9.1 GM/DL (11.6-15.3); MEAN CELL VOLUME 89.1 FL (80.0-100.0); MEAN CORPUSCULAR HEMOGLOBIN 29.8 PG (27.0-34.0); MEAN CORPUSCULAR HGB CONC 33.4 % (32.0-36.0); MEAN PLATELET VOLUME 10.2 FL (7.0-11.0); PLATELET COUNT 87 TH/MM3 (150-450); RED BLOOD COUNT 3.07 MIL/MM3 (4.00-5.30); RED CELL DISTRIBUTION WIDTH 13.7 % (11.6-17.2)
[2017-08-31 16:56] LABS: INTERNATIONAL NORMALIZED RATIO 1.9 RATIO; PROTHROMBIN TIME - PATIENT 19.2 SEC (9.8-11.6)
[2017-08-31 17:28] LABS: PHOSPHORUS 2.3 MG/DL (2.5-4.9)
[2017-08-31 17:37] LABS: TROPONIN I 9.73 NG/ML (0.02-0.05)
[2017-08-31] MEDS ORDERED: ATORVASTATIN 40 MG TAB PO SCH (21:00)
[2017-08-31] MEDS ORDERED: HEPARIN SODIUM - IV 10,000 UNITS/10 ML VIAL IV PUSH PRN ×2 (21:45)
[2017-09-01] VITALS (13 sets, daily range): BP systolic 92–135; BP diastolic 52–71; PULSE 74–86; RESP 13–29; TEMP 96.9–98.3; O2SAT 94–96
[2017-09-01] MEDS: CEFEPIME INJ 2,000 MG in SODIUM CHLORIDE 0.9% INJ 100 ML IV SCH ×2 (00:43→14:01)
[2017-09-01] MEDS: RESP: ALBUTEROL 2.5 MG/IPRATROPIUM 0.5 MG NEB (SCH) INH ×2 (03:01→09:40)
[2017-09-01] MEDS: SODIUM CHLOR 0.9% 1000 ML INJ 1,000 ML IV SCH ×2 (03:17→12:35)
[2017-09-01] MEDS: CHLORHEXIDINE GLUCONATE 2 % 1 PACK (2 CLOTHS) TOP SCH (04:00)
[2017-09-01] MEDS: INSULIN ASPART SUPPLEMENTAL SCALE SQ SCH ×6 (04:00→20:55)
[2017-09-01] MEDS: AMPICILLIN-SULBACTAM INJ 3 GM in SODIUM CHLORIDE 0.9% INJ 100 ML IV SCH ×4 (05:51→20:54)
[2017-09-01] MEDS: HYDROCORTISONE SOD SUCCINATE 100 MG VIAL IV PUSH SCH ×3 (05:59→20:54)
[2017-09-01 06:53] LABS: AUTOMATED NEUTROPHIL # 17.2 TH/MM3 (1.8-7.7); BASOPHIL % 0.2 % (0.0-2.0); EOSINOPHIL # 0.5 TH/MM3 (0-0.4); EOSINOPHIL % 2.9 % (0.0-4.0); HEMATOCRIT 26.6 % (35.0-46.0); HEMOGLOBIN 8.9 GM/DL (11.6-15.3); LYMPH % 3.8 % (9.0-44.0); LYMPHOCYTE # 0.7 TH/MM3 (1.0-4.8); MEAN CELL VOLUME 88.9 FL (80.0-100.0); MEAN CORPUSCULAR HEMOGLOBIN 29.9 PG (27.0-34.0); MEAN CORPUSCULAR HGB CONC 33.6 % (32.0-36.0); MEAN PLATELET VOLUME 10.9 FL (7.0-11.0); MONO % 2.6 % (0.0-8.0); MONOCYTE # 0.5 TH/MM3 (0-0.9); NEUT % 90.5 % (16.0-70.0); PLATELET COUNT 74 TH/MM3 (150-450); RED BLOOD COUNT 2.99 MIL/MM3 (4.00-5.30)
[2017-09-01 07:16] LABS: ALBUMIN 2.1 GM/DL (3.4-5.0); BICARBONATE 15.6 MEQ/L (21.0-32.0); CALCIUM 7.2 MG/DL (8.5-10.1); CREATININE 1.22 MG/DL (0.50-1.00); MAGNESIUM 1.4 MG/DL (1.5-2.5); PHOSPHORUS 1.8 MG/DL (2.5-4.9)
[2017-09-01 07:28] LABS: CALCIUM-PROTEIN CORRECTED 8.1 MG/DL (8.5-10.1); RANDOM VANCOMYCIN 3.3 COMMENT; TOTAL BILIRUBIN ADULT 0.5 MG/DL (0.2-1.0); TOTAL PROTEIN 5.5 GM/DL (6.4-8.2); TROPONIN I 5.15 NG/ML (0.02-0.05)
[2017-09-01 08:17] LABS: BANDS 22 % (0-6); LYMPHOCYTES 1 % (9-44); NEUTROPHIL # MANUAL DIFF 18.8 TH/MM3 (1.8-7.7); POLYS (SEG NEUTROPHILS) 77 % (16-70)
[2017-09-01 08:18] LABS: BURR CELLS 1+ (NORMAL); DOHLE BODIES PRESENT (NONE SEEN)
[2017-09-01] MEDS: POTASSIUM PHOSPHATE INJ 30 MMOL in SODIUM CHLOR 0.9% 250 ML INJ 250 ML IV PRN ×2 (08:25→22:45)
[2017-09-01] MEDS: SODIUM CHLORIDE 0.9% FLUSH 10 ML FLUSH IV FLUSH SCH ×3 (08:27→20:56)
[2017-09-01] MEDS: DOCUSATE SODIUM 50 MG/SENNA 8.6 MG TAB PO SCH ×2 (08:27→20:54)
[2017-09-01] MEDS: PANTOPRAZOLE SODIUM 40 MG VIAL IV PUSH SCH (08:27)
--- NOTE | 2017-09-01 10:16 | PD.CONS ---
History of Present Illness Service Infectious Disease Consult Requested By Dr Madeleine Pritchett Reason for Consult Evaluate patient with gram-negative sepsis and UTI Primary Care Physician Murtaza Blue MD Diagnoses: History of Present Illness Patient seen and examined. Records reviewed. Patient is a 72-year-old female, admitted to the hospital with acute onset of severe abdominal pain, and nausea and vomiting. Initially thought that she had food poisoning because she had eaten boiled peanuts. In the ED she had a fever up to 103, and was hypotensive. CT of the abdomen and pelvis showed a stone obstructing the right UVJ junction with associated right hydronephrosis. Her initial WBC was normal but it went up. Urology saw the patient, and she underwent cystoscopy and placement of a stent. Her hemodynamics improved. Her WBC remained elevated. Her temperature is better. Blood culture on admission is growing E. coli. Urine culture has E. coli. Patient currently still feels blah. Abdominal pain is still present but a little better. Her WBC remains elevated. Her creatinine is also elevated. She has good urine output. Nausea and vomiting has improved. Infectious disease consultation has been requested to evaluate the patient. Review of Systems Constitutional: COMPLAINS OF: Fatigue, Fever, Chills Eyes: DENIES: Eye pain Ears, nose, mouth, throat: DENIES: Nasal discharge, Oral lesions, Throat pain, Ear Pain, Running Nose, Sinus Pain Respiratory: DENIES: Cough, Shortness of breath Cardiovascular: DENIES: Chest pain, Palpitations, Dyspnea on Exertion, Lower Extremity Edema Gastrointestinal: COMPLAINS OF: Abdominal pain, Diarrhea, DENIES: Nausea, Vomiting, Difficulty Swallowing Genitourinary: DENIES: Urinary frequency, Hematuria, Dysuria Musculoskeletal: COMPLAINS OF: Muscle aches, Back pain, DENIES: Joint pain, Joint Swelling Integumentary: DENIES: Rash Hematologic/lymphatic: DENIES: Lymphadenopathy Neurologic: DENIES: Localized weakness Psychiatric: DENIES: Hallucinations Past Family Social History Allergies: Coded Allergies: No Known Drug Allergies (Verified Allergy, Unknown, 08/30/17) Past Medical History Hard of hearing Glaucoma Hypertension Nausea/vomiting Diabetes mellitus Past Surgical History Oophorectomy Hysterectomy Salivary gland removal secondary to use sialoangitis Active Ordered Medications Current Medications Medications (Trade) Dose Ordered Sig/Rowan Route Start Time Stop Time Status Last Admin (Xalatan 0.005% Opth Soln) 1 drop HS EACH EYE 4/14/18 21:00 Cefepime HCl 2000 mg/Sodium Chloride 100 ml @ 200 mls/hr Q12H IV 08/31/17 02:00 09/01/17 00:43 Ampicillin Sodium/ Sulbactam Sodium 3 gm/Sodium Chloride 100 ml @ 200 mls/hr Q6H IV 08/30/17 16:00 09/01/17 05:51 (D50w (Vial) Inj) 50 ml UNSCH PRN IV PUSH 08/30/17 15:45 (Glucagon Inj) 1 mg UNSCH PRN OTHER 08/30/17 15:45 (NovoLOG SUPPLEMENTAL SCALE) 1 Q4HR SQ 08/30/17 16:00 09/01/17 08:00 Sodium Chloride 1,000 ml @ 84 mls/hr [id number] IV 08/30/17 15:32 09/01/17 03:17 (NS Flush) 2 ml UNSCH PRN IV FLUSH 08/30/17 15:45 (NS Flush) 2 ml BID IV FLUSH 08/30/17 21:00 09/01/17 08:27 (Tylenol) 650 mg Q6H PRN PO 08/30/17 15:45 ([place] 5-325 Mg) 1 tab Q4H PRN PO 08/30/17 15:45 08/31/17 13:47 (Protonix Inj) 40 mg DAILY IV PUSH 08/31/17 09:00 09/01/17 08:27 (Zofran Inj) 4 mg Q6H PRN IV PUSH 08/30/17 15:45 08/31/17 13:46 (Duoneb Neb) 1 ampule Q6HR NEB INH 08/30/17 16:00 (Albuterol Neb) 2.5 mg Q2HR NEB PRN INH 08/30/17 15:45 Miscellaneous Information 1 Q361D XX 08/30/17 15:45 (Chlorhexidine 2% Cloth) 3 pack Taper DAILY@04 TOP 08/31/17 04:00 08/27/18 03:59 09/01/17 04:00 (Chlorhexidine 2% Cloth) 3 pack UNSCH PRN TOP 08/30/17 15:45 (Cate-Colace) 1 tab BID PO 08/30/17 21:00 (Milk Of Magnesia Liq) 30 ml Q12H PRN PO 08/30/17 15:45 (Senokot) 17.2 mg Q12H PRN PO 08/30/17 15:45 (Dulcolax Supp) 10 mg DAILY PRN RECTAL 08/30/17 15:45 (Lactulose Liq) 30 ml DAILY PRN PO 08/30/17 15:45 (Morphine Inj) 2 mg Q2H PRN IV PUSH 08/30/17 16:00 Potassium Chloride 100 ml @ 50 mls/hr Q2H PRN IV 08/30/17 16:15 Potassium Chloride 100 ml @ 50 mls/hr Q2H PRN IV 08/30/17 16:15 (K-Lyte Cl Eff) 50 meq UNSCH PRN PO 08/30/17 16:15 Potassium Chloride 100 ml @ 25 mls/hr UNSCH PRN IV 08/30/17 16:15 Potassium Chloride 100 ml @ 50 mls/hr Q2H PRN IV 08/30/17 16:15 Magnesium Sulfate 4 gm/Sodium Chloride 100 ml @ 50 mls/hr UNSCH PRN IV 08/30/17 16:15 (Mag-Ox) 800 mg UNSCH PRN PO 08/30/17 16:15 Magnesium Sulfate 2 gm/Sodium Chloride 100 ml @ 50 mls/hr UNSCH PRN IV 08/30/17 16:15 09/01/17 08:25 (K-Phos) 2,000 mg Q4H PRN PO 08/30/17 16:15 Sodium Phosphate 30 mmol/Sodium Chloride 250 ml @ 42 mls/hr UNSCH PRN IV 08/30/17 16:15 (K-Phos) 2,000 mg UNSCH PRN PO/TUBE 08/30/17 16:15 Potassium Phosphate 30 mmol/ Sodium Chloride 260 ml @ 42 mls/hr UNSCH PRN IV 08/30/17 16:15 09/01/17 08:25 Miscellaneous Information SPECIFIC LAB TO BE DRAWN:VANCOMY... ONCE ONCE .XX 09/02/17 17:45 09/02/17 17:46 Phenylephrine HCl 160 mg/Dextrose 500 ml @ 7.5 mls/hr TITRATE PRN IV 08/30/17 16:30 08/30/17 17:12 (NS Flush) DAILY IV FLUSH 08/30/17 17:00 09/01/17 08:28 (NS Flush) UNSCH PRN IV FLUSH 08/30/17 17:00 Norepinephrine Bitartrate 4 mg/ Sodium Chloride 250 ml @ 7.5 mls/hr TITRATE PRN IV 08/30/17 19:00 08/30/17 19:37 (Brethine Inj) 1 mg UNSCH PRN SQ 08/30/17 18:45 (SoluCORTEF INJ) 100 mg Q8H IV PUSH 08/30/17 20:00 09/01/17 05:59 Lactated Ringer's 1,000 ml @ 30 mls/hr Q24H PRN IV 08/30/17 20:30 09/02/17 20:29 Sodium Chloride 500 ml @ 30 mls/hr [id number] PRN IV 08/30/17 20:30 09/02/17 20:29 (Betadine 5% Antisepsis Kit) 1 applic CAMPAIGN ASSISTANT PRN EACH NARE 08/30/17 20:30 09/02/17 20:29 (Chlorhexidine 2% Cloth) 3 pack CAMPAIGN ASSISTANT PRN TOPICAL 08/30/17 20:30 09/02/17 20:29 (Heparin Inj) 5,000 units UNSCH PRN IV PUSH 08/31/17 21:45 Future Hold (Heparin Inj) 2,500 units UNSCH PRN IV PUSH 08/31/17 21:45 Future Hold Heparin Sodium/ Dextrose 250 ml @ 8 mls/hr TITRATE PRN IV 08/31/17 16:15 Future Hold (Lipitor) 40 mg HS PO 08/31/17 21:00 08/31/17 20:50 Family History History of ovarian cancer Social History Denies smoking No alcohol abuse No illicit drugs Physical Exam Vital Signs Vital Signs Date Time Temp Pulse Resp B/P (MAP) Pulse Ox O2 Delivery O2 Flow Rate FiO2 09/01/17 09:39 95 21 09/01/17 06:00 82 09/01/17 04:00 80 13 128/59 (82) 94 131/54 (79) 09/01/17 04:00 81 09/01/17 02:00 81 09/01/17 00:00 80 09/01/17 00:00 98.2 86 29 126/64 (84) 95 126/63 (84) 08/31/17 22:00 85 08/31/17 21:25 96 21 08/31/17 20:00 87 08/31/17 20:00 98.4 88 22 117/56 (76) 95 131/58 (82) 08/31/17 18:00 92 08/31/17 16:00 97.8 95 23 113/56 (75) 95 124/53 (76) 08/31/17 16:00 95 08/31/17 14:47 18 08/31/17 14:00 104 08/31/17 12:00 99.5 115 20 117/56 (76) 95 131/52 (78) 08/31/17 12:00 115 Physical Exam GENERAL: Patient is a well-nourished, well-developed patient, awake and alert , not in respiratory distress. She looks pale. SKIN: Warm and dry. No generalized rash, no ecchymoses and no evidence of embolic lesions. Skin looks sallow HEAD: Atraumatic. Normocephalic. No temporal wasting, or tenderness. EYES: Pale conjunctiva. No petechia or hemorrhage. Pupils equal, round and reactive to light. Extraocular movements full and intact. No scleral icterus. No injection or drainage. EARS, NOSE AND THROAT: Nose without bleeding or purulent nasal discharge. No sinus tenderness. Mucous membranes pink and moist. No oral lesions noted. No exudate. No oral thrush. NECK: Trachea midline. Supple and not tender, no meningeal signs CARDIOVASCULAR: Regular rate and rhythm. No murmurs, rubs or gallops heard RESPIRATORY: Clear to auscultation. Breath sounds equal bilaterally. No rales , wheezing or rhonchi ABDOMEN: Soft, nondistended, bowel sounds present and normoactive. Has abdominal tenderness diffusely, no guarding and no rebound. No organomegaly. EXTREMITIES: No clubbing, cyanosis, or edema.No joint effusion, has good ROM. No calf tenderness. Well perfused and warm. NEUROLOGICAL: Awake and alert. Cranial nerves grossly intact. Motor grossly within normal limits. PSYCHIATRIC: Normal affect, calm and cooperative. LINE: No evidence of infection : Winslow in place, clear urine Laboratory Laboratory Tests Test 08/31/17 15:20 08/31/17 16:02 08/31/17 22:07 09/01/17 06:00 Stool C. difficile Toxin (PCR) NEGATIVE Stl C. difficile Toxin Epiderm 027 PRESUMPTIVE NEGATIVE White Blood Count 20.0 19.0 Red Blood Count 3.07 2.99 Hemoglobin 9.1 8.9 Hematocrit 27.4 26.6 Mean Corpuscular Volume 89.1 88.9 Mean Corpuscular Hemoglobin 29.8 29.9 Mean Corpuscular Hemoglobin Concent 33.4 33.6 Red Cell Distribution Width 13.7 14.0 Platelet Count 87 74 Mean Platelet Volume 10.2 10.9 Prothrombin Time 19.2 Prothromb Time International Ratio 1.9 Activated Partial Thromboplast Time 36.9 35.5 Lactic Acid Level 3.5 3.4 Phosphorus Level 2.3 1.8 Troponin I 9.73 8.59 5.15 Neutrophils (%) (Auto) 90.5 Lymphocytes (%) (Auto) 3.8 Monocytes (%) (Auto) 2.6 Eosinophils (%) (Auto) 2.9 Basophils (%) (Auto) 0.2 Neutrophils # (Auto) 17.2 Lymphocytes # (Auto) 0.7 Monocytes # (Auto) 0.5 Eosinophils # (Auto) 0.5 Basophils # (Auto) 0.0 CBC Comment AUTO DIFF Differential Total Cells Counted 100 Neutrophils % (Manual) 77 Band Neutrophils % 22 Lymphocytes % 1 Neutrophils # (Manual) 18.8 Differential Comment FINAL DIFF MANUAL Dohle Bodies PRESENT Platelet Estimate LOW Platelet Morphology Comment NORMAL Tully Cells 1+ Blood Urea Nitrogen 35 Creatinine 1.22 Random Glucose 220 Total Protein 5.5 Albumin 2.1 Calcium Level 7.2 Magnesium Level 1.4 Alkaline Phosphatase 116 Aspartate Amino Transf (AST/SGOT) 215 Alanine Aminotransferase (ALT/SGPT) 233 Total Bilirubin 0.5 Sodium Level 145 Potassium Level 3.4 Chloride Level 118 Carbon Dioxide Level 15.6 Anion Gap 11 Estimat Glomerular Filtration Rate 43 Protein Corrected Calcium 8.1 Random Vancomycin Level 3.3 Test 09/01/17 07:52 Lactic Acid Level 1.8 Date/Time Source Procedure Growth Status 08/30/17 15:50 Blood Peripheral Aerobic Blood Culture - Preliminary NO GROWTH IN 1 DAY Resulted 08/30/17 15:50 Blood Peripheral Anaerobic Blood Culture - Preliminary NO GROWTH IN 1 DAY Resulted 08/31/17 15:20 Stool Stool Stool Occult Blood ([facility]) - Final HEMOCCULT POSITIVE Complete 08/30/17 07:05 Urine Random Urine Urine Culture - Final Escherichia Coli Complete Result Diagram: 09/01/17 0600 09/01/17 0600 Imaging RADIOLOGY STUDIES/FILMS REVIEWED Last Impressions Chest X-Ray 08/30/17 1653 Signed Impressions: Service Date/Time: Wednesday, August 30, 2017 16:55 - CONCLUSION: Patchy bilateral atelectasis. Right IJ central venous catheter with tip at the atriocaval junction. No pneumothorax or other acute complication. Ben Agarwal MD Abdomen/Pelvis CT 08/30/17 0000 Signed Impressions: Service Date/Time: Wednesday, August 30, 2017 12:19 - CONCLUSION: 3-4 mm stone at the right ureterovesical junction with moderate right hydronephrosis. Possible forniceal rupture. Ben Esquivel MD Abdomen X-Ray 08/30/17 0000 Signed Impressions: Service Date/Time: Wednesday, August 30, 2017 21:08 - CONCLUSION: Right ureteral stent. Proximal portion of the stent appears appropriately positioned. Ben Agarwal MD Assessment and Plan Assessment and Plan IMPRESSION E coli sepsis, with shock, due to complicated UTI - BP better, off pressors Complicated pyelonephritis, E coli, with obstructing stone R, S/P placement of stent Leukocytosis, due to UTI and reactive post cysto and stent placement Renal insufficiency, due to sepsis and shock RECOMMENDATION Continue Cefepime Stop Unasyn Repeat 2 BC Repeat UC Follow CBC Follow C/S Monitor progress I will determine course of Abx once work-up completed I will follow along with you Thank you for this consultation Discussed Condition With Explained plan to the patient, and daughter Yadira Bradshaw MD Sep 01, 2017 10:16
[2017-09-01 10:54] LABS: BACTERIA, URINE FEW /hpf; BILIRUBIN, URINE NEG (NEG); BLOOD, URINE MOD (NEG); GLUCOSE,URINE TRACE mg/dL (NEG); KETONE, URINE NEG (NEG); NITRITE,URINE NEG (NEG); SQUAMOUS EPITHELIAL CELL URINE 3 /hpf (0-5); URINE COLOR YELLOW (YELLW/STRAW); URINE LEUKOCYTE ESTERASE LARGE (NEG); WHITE BLOOD CELL CLUMPS MANY
--- NOTE | 2017-09-01 13:48 | HHI.PR ---
Subjective Patient symptoms today 72yo female with obstructing right ureteral stone, located in the right distal UVJ with right hydronephrosis and perinephric stranding. Stone is approx 3-4mm in size. Patient reports she began to experience right flank pain yesterday afternoon around 3pm. Pain worsened with sharp severe right flank pain radiating to the right groin, 10/10, with nausea and vomiting. 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 She presented to the [facility] ED. CT scan identified the distal right UVJ stone. She then developed fevers as high as 103 and began to experience hypotension. She was placed on pressors and IV abx. She was then transferred to the [facility]. Had right JJ stent placement [address] Perdue 08/31/17: Doing well this am. Pain improved. Fevers improved. WBC elevated, however expected after procedure last night. 09/01/17: Was seen at bedside today. Doing better but still weak. no f/c/n/v, pain is controlled. rothman is in place, draining clear yellow urine. Leukocytosis is slightly better. UC pending Objective Vital Signs Vital Signs Date Time Temp Pulse Resp B/P (MAP) Pulse Ox O2 Delivery O2 Flow Rate FiO2 09/01/17 09:39 95 21 09/01/17 08:00 97.3 84 20 133/56 (81) 94 130/55 (80) 09/01/17 08:00 84 09/01/17 06:00 82 09/01/17 04:00 80 13 128/59 (82) 94 131/54 (79) 09/01/17 04:00 81 09/01/17 02:00 81 09/01/17 00:00 80 09/01/17 00:00 98.2 86 29 126/64 (84) 95 126/63 (84) 08/31/17 22:00 85 08/31/17 21:25 96 21 08/31/17 20:00 87 08/31/17 20:00 98.4 88 22 117/56 (76) 95 131/58 (82) 08/31/17 18:00 92 08/31/17 16:00 97.8 95 23 113/56 (75) 95 124/53 (76) 08/31/17 16:00 95 08/31/17 14:47 18 08/31/17 14:00 104 Intake & Output 09/01/17 09/01/17 06:59 18:59 Intake Total 200 ml Output Total 850 ml Balance -650 ml Intake Oral 200 ml Output Urine Total 750 ml Stool Total 100 ml Result Diagram: 09/01/17 0600 09/01/17 0600 Objective Remarks AAOx3 Resp NL RRR Ab Soft Rothman in place, drains yellow urine Medications and IVs Current Medications Medications (Trade) Dose Ordered Sig/Rowan Route Start Time Stop Time Status Last Admin (Xalatan 0.005% Opth Soln) 1 drop HS EACH EYE 08/30/17 21:00 Cefepime HCl 2000 mg/Sodium Chloride 100 ml @ 200 mls/hr Q12H IV 08/31/17 02:00 09/01/17 00:43 Ampicillin Sodium/ Sulbactam Sodium 3 gm/Sodium Chloride 100 ml @ 200 mls/hr Q6H IV 08/30/17 16:00 09/01/17 10:37 (D50w (Vial) Inj) 50 ml UNSCH PRN IV PUSH 08/30/17 15:45 (Glucagon Inj) 1 mg UNSCH PRN OTHER 08/30/17 15:45 (NovoLOG SUPPLEMENTAL SCALE) 1 Q4HR SQ 08/30/17 16:00 09/01/17 12:00 Sodium Chloride 1,000 ml @ 84 mls/hr [id number] IV 08/30/17 15:32 09/01/17 12:35 (NS Flush) 2 ml UNSCH PRN IV FLUSH 08/30/17 15:45 (NS Flush) 2 ml BID IV FLUSH 08/30/17 21:00 09/01/17 08:27 (Tylenol) 650 mg Q6H PRN PO 08/30/17 15:45 ([place] 5-325 Mg) 1 tab Q4H PRN PO 08/30/17 15:45 08/31/17 13:47 (Protonix Inj) 40 mg DAILY IV PUSH 08/31/17 09:00 09/01/17 08:27 (Zofran Inj) 4 mg Q6H PRN IV PUSH 08/30/17 15:45 08/31/17 13:46 (Duoneb Neb) 1 ampule Q6HR NEB INH 08/30/17 16:00 (Albuterol Neb) 2.5 mg Q2HR NEB PRN INH 08/30/17 15:45 Miscellaneous Information 1 Q361D XX 08/30/17 15:45 (Chlorhexidine 2% Cloth) 3 pack Taper DAILY@04 TOP 08/31/17 04:00 08/27/18 03:59 09/01/17 04:00 (Chlorhexidine 2% Cloth) 3 pack UNSCH PRN TOP 08/30/17 15:45 (Cate-Colace) 1 tab BID PO 08/30/17 21:00 (Milk Of Magnesia Liq) 30 ml Q12H PRN PO 08/30/17 15:45 (Senokot) 17.2 mg Q12H PRN PO 08/30/17 15:45 (Dulcolax Supp) 10 mg DAILY PRN RECTAL 08/30/17 15:45 (Lactulose Liq) 30 ml DAILY PRN PO 08/30/17 15:45 (Morphine Inj) 2 mg Q2H PRN IV PUSH 08/30/17 16:00 Potassium Chloride 100 ml @ 50 mls/hr Q2H PRN IV 08/30/17 16:15 Potassium Chloride 100 ml @ 50 mls/hr Q2H PRN IV 08/30/17 16:15 (K-Lyte Cl Eff) 50 meq UNSCH PRN PO 08/30/17 16:15 Potassium Chloride 100 ml @ 25 mls/hr UNSCH PRN IV 08/30/17 16:15 Potassium Chloride 100 ml @ 50 mls/hr Q2H PRN IV 08/30/17 16:15 Magnesium Sulfate 4 gm/Sodium Chloride 100 ml @ 50 mls/hr UNSCH PRN IV 08/30/17 16:15 (Mag-Ox) 800 mg UNSCH PRN PO 08/30/17 16:15 Magnesium Sulfate 2 gm/Sodium Chloride 100 ml @ 50 mls/hr UNSCH PRN IV 08/30/17 16:15 09/01/17 08:25 (K-Phos) 2,000 mg Q4H PRN PO 08/30/17 16:15 Sodium Phosphate 30 mmol/Sodium Chloride 250 ml @ 42 mls/hr UNSCH PRN IV 08/30/17 16:15 (K-Phos) 2,000 mg UNSCH PRN PO/TUBE 08/30/17 16:15 Potassium Phosphate 30 mmol/ Sodium Chloride 260 ml @ 42 mls/hr UNSCH PRN IV 08/30/17 16:15 09/01/17 08:25 Miscellaneous Information SPECIFIC LAB TO BE DRAWN:VANCOMY... ONCE ONCE .XX 09/02/17 17:45 09/02/17 17:46 Phenylephrine HCl 160 mg/Dextrose 500 ml @ 7.5 mls/hr TITRATE PRN IV 08/30/17 16:30 08/30/17 17:12 (NS Flush) DAILY IV FLUSH 08/30/17 17:00 09/01/17 08:28 (NS Flush) UNSCH PRN IV FLUSH 08/30/17 17:00 Norepinephrine Bitartrate 4 mg/ Sodium Chloride 250 ml @ 7.5 mls/hr TITRATE PRN IV 08/30/17 19:00 08/30/17 19:37 (Brethine Inj) 1 mg UNSCH PRN SQ 08/30/17 18:45 (SoluCORTEF INJ) 100 mg Q8H IV PUSH 08/30/17 20:00 09/01/17 12:36 Lactated Ringer's 1,000 ml @ 30 mls/hr Q24H PRN IV 08/30/17 20:30 09/02/17 20:29 Sodium Chloride 500 ml @ 30 mls/hr [id number] PRN IV 08/30/17 20:30 09/02/17 20:29 (Betadine 5% Antisepsis Kit) 1 applic J2EE SOFTWARE ENGINEER PRN EACH NARE 08/30/17 20:30 09/02/17 20:29 (Chlorhexidine 2% Cloth) 3 pack J2EE SOFTWARE ENGINEER PRN TOPICAL 08/30/17 20:30 09/02/17 20:29 (Heparin Inj) 5,000 units UNSCH PRN IV PUSH 08/31/17 21:45 Future Hold (Heparin Inj) 2,500 units UNSCH PRN IV PUSH 08/31/17 21:45 Future Hold Heparin Sodium/ Dextrose 250 ml @ 8 mls/hr TITRATE PRN IV 08/31/17 16:15 Future Hold (Lipitor) 40 mg HS PO 08/31/17 21:00 08/31/17 20:50 Assessment and Plan Problem List: (1) Abdominal pain ICD Code: R10.9 - Unspecified abdominal pain Status: Acute (2) Fever ICD Code: R50.9 - Fever, unspecified Status: Acute (3) UTI (urinary tract infection) ICD Code: N39.0 - Urinary tract infection, site not specified Status: Acute (4) Right ureteral calculus ICD Code: N20.1 - Calculus of ureter Status: Acute Assessment and Plan -No additional intervention needed -Rothman catheter may remain in place until urine clears and patient is more ambulatory. Strain pt's urine from the bag in case she will pass a stone -Continue care as per primary team -Pt to follow up as outpt for further stent and stone management -Urology Will continue to follow Problem Qualifiers (1) Fever: Qualified Codes: R50.9 - Fever, unspecified (2) UTI (urinary tract infection): Qualified Codes: N39.0 - Urinary tract infection, site not specified Иван Melton Sep 01, 2017 13:48
[2017-09-01 15:01] LABS: CREATININE, RANDOM URINE 76.7 MG/DL
--- NOTE | 2017-09-01 16:35 | HHI.CCPN ---
Subjective Remarks/Hospital Course 72-year-old female. Date of admission 08/30/2017. Past medical history includes hypertension, glaucoma, hard of hearing, asthma, diabetes mellitus. Patient has no history of frequent urinary tract infections. Patient presents to [facility] with acute onset of diffuse abdominal pain service with nausea and vomiting. Patient was rated 10 out of 10 involving right upper and lower quadrants and bilateral flanks. Patient had eaten boiled peanuts ever sitting out and she attributed the symptoms to possible food poisoning. She took acetaminophen at home which that relieved her symptoms. She arrived at the emergency room for further evaluation treatment. Initially, patient was refusing CT abdomen as she thought this is from food poisoning. Later, CT abdomen/pelvis revealed a 4 mm obstructing stone at the right UVJ junction with associated right hydronephrosis. Blood cultures and urine culture sent the patient received 2 g of cefepime. Lactate elevated at 5.6. White blood cell count was within normal limits. Patient did have a creatinine 1.3. Glucose of 259. Patient received 4 L normal saline but her blood pressures continue to slowly drop. Subjective: 08/31: T-max 99.7. The patient underwent ureteral stent placement yesterday . Winslow draining dark dino urine. Blood cultures reveal E. coli bacteremia, as well as urine cultures revealed E. coli.. Lactic acid downtrending. Patient continues on Unasyn, cefepime and vancomycin. Troponin was noted to be significantly elevated at 4.69. Hemoccult obtained. Patient given aspirin 1 dose. Unable to initiate beta lurdes secondary to hypotension and Levophed was discontinued early this a.m. patient continues on phenylephrine infusion at this time. 09/01: Afebrile. Patient unable to have heparin initiated last evening secondary to Hemoccult positive, melena. Patient did receive aspirin and atorvastatin yesterday. Noted elevation in liver enzymes this a.m. statins placed on hold. Aspirin now on hold. GI has been called consulted. Serial hemoglobin and hematocrit continue every 12 hours. Patient troponin is now noted to be trending down norepinephrine and phenylephrine infusions discontinued last night. Plan for physical therapy and occupational therapy as well as continue supplemental nutritional shakes Glucerna .Follow-up on GI recommendations. Objective Vital Signs Date Time Temp Pulse Resp B/P (MAP) Pulse Ox O2 Delivery O2 Flow Rate FiO2 09/01/17 14:00 80 09/01/17 12:00 96.9 19 109/53 (71) 96 121/53 (75) 09/01/17 09:39 21 08/31/17 08:50 Nasal Cannula 2.00 Intake and Output 09/01/17 09/01/17 09/02/17 08:00 16:00 00:00 Intake Total 200 ml Output Total 850 ml Balance -650 ml Result Diagram: 09/01/17 0600 09/01/17 0600 Other Results Microbiology Date/Time Source Procedure Growth Status 08/31/17 15:20 Stool Stool Stool Occult Blood (NIXON) - Final HEMOCCULT POSITIVE Complete 08/30/17 07:05 Urine Random Urine Urine Culture - Final Escherichia Coli Complete Imaging Last Impressions Chest X-Ray 08/30/17 1653 Signed Impressions: Service Date/Time: Wednesday, August 30, 2017 16:55 - CONCLUSION: Patchy bilateral atelectasis. Right IJ central venous catheter with tip at the atriocaval junction. No pneumothorax or other acute complication. Ben Agarwal MD Abdomen/Pelvis CT 08/30/17 0000 Signed Impressions: Service Date/Time: Wednesday, August 30, 2017 12:19 - CONCLUSION: 3-4 mm stone at the right ureterovesical junction with moderate right hydronephrosis. Possible forniceal rupture. Ben Esquivel MD Abdomen X-Ray 08/30/17 0000 Signed Impressions: Service Date/Time: Wednesday, August 30, 2017 21:08 - CONCLUSION: Right ureteral stent. Proximal portion of the stent appears appropriately positioned. Ben Agarwal MD Last Impressions Abdomen/Pelvis CT 08/30/17 0000 Signed Impressions: Service Date/Time: Wednesday, August 30, 2017 12:19 - CONCLUSION: 3-4 mm stone at the right ureterovesical junction with moderate right hydronephrosis. Possible forniceal rupture. Ben Esquivel MD Objective Remarks GENERAL: 72-year-old female very ill-appearing/pale resting in bed SKIN: Warm and dry. Pale. HEAD: Atraumatic. Normocephalic. EYES: Pupils equal and round 3 mm bilaterally and react. No scleral icterus. No injection or drainage. ENT: No nasal bleeding or discharge. Mucous membranes pink and moist. NECK: Trachea midline. No JVD. CARDIOVASCULAR: RRR. S1, S2 predose without murmur RESPIRATORY: No accessory muscle use. Clear to auscultation. Breath sounds equal bilaterally. GASTROINTESTINAL: Abdomen soft, and palpation right upper quadrant and right flank. No guarding. No rebound. MUSCULOSKELETAL: Extremities without significant peripheral edema. No obvious deformities. NEUROLOGICAL: Awake and alert. No obvious cranial nerve deficits. Motor grossly within normal limits. 5/5 muscle strength in the arms and legs. Normal speech. Urinary Catheter: Yes Winslow insert reason: Measure Accurate Output Date of Insertion: Aug 30, 2017 A/P Assessment and Plan Neuro/Psych: Acute encephalopathy likely toxic metabolic Acetaminophen 650 mg p.o. every 6 hours as needed fever Hydrocodone/acetaminophen 5/325 tablet every 4 hours as needed pain 1 through 5 Morphine sulfate 2 mg IV every 4 hours as needed pain 6 or 10 CV: Sinus tachycardia-resolved Lactic acidosis History of hypertension Severe sepsis Elevated troponin levels NSTEMI 08/30 Status post 4 L normal saline bolus in ED. Normal saline at 84 cc an hour Levophed discontinued 08/31, Phenyephrine 40mcgs Lactate is currently 4 ->2.1 Trend every 6 hours until cleared Hold metoprolol tartrate 20 mg p.o. twice daily in the setting of hypotension ASA 324 x 1 dose on 08/31, lovastatin placed on hold in the setting of elevated liver enzymes Heparin infusion not initiated 2/2 positive Hemoccult results, melena-discussed with Dr. Flores Troponins 1.11->4.69-> 8.9 ->5.15downtrending Obtain echo 08/31 Cardiology consulted Resp: History of mild intermittent asthma Nasal cannula to maintain O2 sat greater than equal to 92% Continue I pin ncentive spirometry while awake Albuterol/ipratropium aerosols every 6 hours with albuterol aerosols every 2 hours as needed dyspnea Patient is on albuterol 18 mg 1 puff every 4-6 hours as needed dyspnea at home GI: Nausea/vomiting-resolved Left adrenal adenoma 2 mm Distal colonic diverticulosis Hypoalbuminemia CT abdomen/pelvis revealed a right-sided hydronephrosis with 3-4 mm stone at the right UVJ junction. Left adrenal adenoma 2 mm in size. Distal colonic diverticulosis Patient tolerating diet -soup and fruit Ondansetron 4 mg IV every 6 hours as needed nausea Pantoprazole 40 mg IV daily GI prophylaxis Continue sodium/senna 1 tablet twice daily bowel regimen-on hold Fecal containment device (rectal bag) secondary to loose watery stool 08/31-C. difficile PCR negative 09/01-GI consulted-Hemoccult positive : Winslow catheter for I's and O's in a critically ill patient Endo: Diabetes mellitus type 2 with hyperglycemia Holding metformin 1000 mg twice daily and glimepiride 4 mg p.o. twice daily Sliding scale insulin Accu-Cheks every 4 hours to maintain euglycemia Novolog every 4 hours medium protocol Renal: Acute kidney injury Right hydronephrosis with 4 mm stone at the right UVJ junction Urology/Dr. Perdue consulted for possible stent placement today Creatinine currently 1.2 Monitor urine output Accurate I's and O's Repeat BMP Urine electrolytes and eosinophils ordered Heme: Leukocytosis PT/PTT and fibrinogen ordered Continue to monitor CBC INR 1.8 ID: Severe sepsis secondary to urinary tract infection/infected stone? Leukocytosis 08/30 Received 1 dose of cefepime in ED 2 g. Cefepime and ampicillin/sulbactam 3 g IV every 6 hours. Vancomycin discontinued. C. difficile ordered ID [id number] recommendation Blood cultures 2- EColi Urine Culture- EColi MSK: PT evaluate and treat FEN: Hypokalemia Replace electrolytes as clinically indicated NS 84cc/hr Access -Utilize peripheral IV. Central line if indicated Prophylaxis -GI -pantoprazole -DVT -SCDs/holding pharmacologic prophylaxis secondary to thrombocytopenia and lower GI bleeding Critical Care: 09/01-yesterday's troponin significantly elevated patient received aspirin unable to receive beta lurdes statin initiated however now liver enzymes significantly elevated statin placed on hold. Discussed with cardiology Dr. Flores. Extensive discussion with patient and family today in regards to inability to initiate heparin last evening Physician Narda Rand MD Sep 01, 2017 16:35
--- NOTE | 2017-09-01 17:22 | EKG ---
Date Performed: 08/31/2017 Time Performed: 16:04:39 PTAGE: 72 years EKG: Sinus rhythm WITH SHORT NM INTERVAL LOW QRS VOLTAGE IN PRECORDIAL LEADS NONSPECIFIC T WAVE CHANGES Since the prev ious tracing, no significant change noted BORDERLINE ECG PREVIOUS TRACING : 08/30/2017 19.40 DOCTOR: Shawn Carson Interpretating Date/Time 09/01/2017 17:22:01
--- NOTE | 2017-09-01 19:08 | ECHRPT ---
Indication: Hypertensive Heart Disease CONCLUSIONS The left ventricular systolic function is severely reduced with an estimated ejection fraction in th e range of 25-30%. There is probable diffuse global hypokinesis. Doppler parameters are consistent with impaired left ventricular relaxtion (grade 1 diastolic dysfun ction). The right ventricular systoilc function is mildly decreased. Mild mitral valve regurgitation. There is mild tricuspid regurgitation. BP: 128 / 59 HR: 82 Rhythm: Sinus MEASUREMENTS (Male / Female) Normal Values Technical Quality:Fair 2D ECHO LV Diastolic Diameter PLAX 5.1 cm 4.2 - 5.9 / 3.9 - 5.3 cm LV Systolic Diameter PLAX 4.3 cm IVS Diastolic Thickness 0.9 cm 0.6 - 1.0 / 0.6 - 0.9 cm LVPW Diastolic Thickness 0.9 cm 0.6 - 1.0 / 0.6 - 0.9 cm LV Relative Wall Thickness 0.4 RV Internal Dim ED PLAX 3.5 cm LVOT Diameter 2.0 cm LA Systolic Diameter LX 4.6 cm 3.0 - 4.0 / 2.7 - 3.8 cm LA Volume Index 50.2 cm/m 16 - 28 cm/m M-MODE Aortic Root Diameter MM 2.5 cm LA Systolic Diameter MM 3.8 cm LA Ao Ratio MM 1.5 AV Cusp Separation MM 1.7 cm DOPPLER AV Peak Velocity 102.0 cm/s AV Peak Gradient 4.2 mmHg LVOT Peak Velocity 57.1 cm/s LVOT Peak Gradient 1.3 mmHg AV Area Cont Eq pk 1.8 cm MV Area PHT 3.1 cm Mitral E Point Velocity 68.6 cm/s Mitral A Point Velocity 87.9 cm/s Mitral E to A Ratio 0.8 LV E' Lateral Velocity 10.9 cm/s Mitral E to LV E' Lateral Ratio 6.3 LV E' Septal Velocity 7.2 cm/s Mitral E to LV E' Septal Ratio 9.6 TR Peak Velocity 250.0 cm/s TR Peak Gradient 25.0 mmHg Right Atrial Pressure 10.0 mmHg Pulmonary Artery Systolic Pressu 35.0 mmHg Right Ventricular Systolic Press 35.0 mmHg FINDINGS LEFT VENTRICLE The left ventricular systolic function is severely reduced with an estimated ejection fraction in th e range of 25-30%. There is probable diffuse global hypokinesis. Wall thickness is normal. Normal left ventricular size. Doppler parameters are consistent with impaired left ventricular relaxtion (grade 1 diastolic dysfun ction). RIGHT VENTRICLE Normal right ventricular size. The right ventricular systoilc function is mildly decreased. LEFT ATRIUM The left atrial size is moderately dilated. RIGHT ATRIUM The right atrial size is normal. ATRIAL SEPTUM Normal atrial septal thickness AORTA The aortic root and proximal ascending aorta are normal in size on limited imaging. MITRAL VALVE Mild thickening of the mitral valve leaflets. Mild mitral valve regurgitation. No mitral valve stenosis. AORTIC VALVE Trileaflet aortic valve. No aortic valve stenosis or regurgitation. TRICUSPID VALVE Structurally normal tricuspid valve. There is mild tricuspid regurgitation. The estimated pulmonary arterial pressure is 35 mmHg. PULMONARY VALVE Trivial pulmonary valve regurgitation. VESSELS There is less than 50% respiratory change in dimension of the inferior vena cava (abnormal). PERICARDIUM No pericardial effusion. Gino Delaney DO (Electronically Signed) Final Date:01 September 2017 19:07
[2017-09-01 20:43] LABS: HEMATOCRIT 26.9 % (35.0-46.0); HEMOGLOBIN 9.1 GM/DL (11.6-15.3)
[2017-09-01] MEDS: LATANOPROST 0.005% OPHT SOLN 2.5 ML BTL EACH EYE SCH (21:00)
[2017-09-01 21:07] LABS: MAGNESIUM 1.9 MG/DL (1.5-2.5); PHOSPHORUS 1.2 MG/DL (2.5-4.9)
[2017-09-02] VITALS (14 sets, daily range): BP systolic 108–144; BP diastolic 60–81; PULSE 65–78; RESP 13–27; TEMP 96.8–98.2; O2SAT 95–97
[2017-09-02] MEDS: INSULIN ASPART SUPPLEMENTAL SCALE SQ SCH ×6 (00:02→20:36)
[2017-09-02] MEDS: CEFEPIME INJ 2,000 MG in SODIUM CHLORIDE 0.9% INJ 100 ML IV SCH ×2 (02:00→14:20)
[2017-09-02] MEDS: CHLORHEXIDINE GLUCONATE 2 % 1 PACK (2 CLOTHS) TOP SCH (04:00)
[2017-09-02] MEDS: SODIUM CHLOR 0.9% 1000 ML INJ 1,000 ML IV SCH ×2 (04:21→15:40)
[2017-09-02] MEDS: HYDROCORTISONE SOD SUCCINATE 100 MG VIAL IV PUSH SCH ×3 (05:00→20:35)
[2017-09-02] MEDS: AMPICILLIN-SULBACTAM INJ 3 GM in SODIUM CHLORIDE 0.9% INJ 100 ML IV SCH ×2 (05:01→10:03)
[2017-09-02 05:56] LABS: HEMOGLOBIN 9.3 GM/DL (11.6-15.3); MEAN CELL VOLUME 88.5 FL (80.0-100.0); MEAN CORPUSCULAR HEMOGLOBIN 29.3 PG (27.0-34.0); MEAN CORPUSCULAR HGB CONC 33.1 % (32.0-36.0); MEAN PLATELET VOLUME 10.8 FL (7.0-11.0); PLATELET COUNT 74 TH/MM3 (150-450); RED BLOOD COUNT 3.17 MIL/MM3 (4.00-5.30); RED CELL DISTRIBUTION WIDTH 13.9 % (11.6-17.2)
--- NOTE | 2017-09-02 08:41 | MB ---
cc: Gino Delaney DO DATE: 09/01/2017 REASON FOR CONSULTATION: Elevated troponin. HISTORY OF PRESENT ILLNESS: Narda Willett is a pleasant 72-year-old female who presented to [facility] on 08/30/2017 due to acute onset of abdominal pain with nausea and vomiting. She rated the abdominal pain as 10/10 and felt like she may had food poisoning due to boiled peanuts. She did take Tylenol at home, which relieved some of her symptoms. Upon arrival, she was found to have a 4 mm obstructing stone of the right UVJ junction with hydronephrosis. She was also febrile with a temperature of 103. She ended up going to the OR for placement of a right ureteral stent on 08/30/2017. During the initial admission, she was hypotensive with septic shock, with blood pressures as low as 77/32. Since then, she was also found to have bacteremia with E. coli. Lactic acid trended up to 6.6 and has since trended down. During her initial workup, she had troponins checked and this initially increased to 9.73 and has since decreased. As of today, when seeing her, she has been weaned off vasopressor therapy. In seeing her, she is currently hemodynamically stable and starting to feel better. Before this episode, she states that she has had no chest pain or shortness of breath with her normal activities. She does state that she occasionally does get a little more short of breath when she over does it. After she was found to have an elevated troponin, there was a plan to place her on a heparin drip, but there was concern for blood in her stool and so Hemoccult was done, which was positive. She is also noted to have a drop in her platelets from 176-74. PAST MEDICAL HISTORY: 1. Glaucoma. 2. Hypertension. 3. Asthma. 4. History of bigeminy for which she was placed on Lopressor. 5. Diabetes mellitus. PAST SURGICAL HISTORY: 1. Placement of a right ureteral stent (08/30/2017). 2. Oophorectomy. 3. Hysterectomy. 4. Salivary gland removal. ALLERGIES: NO KNOWN DRUG ALLERGIES. MEDICATIONS: 1. Macrobid 100 mg b.i.d. 2. Albuterol 2 puffs every 4-6 hours as needed for shortness of breath. 3. Metoprolol tartrate 25 mg b.i.d. 4. Percocet 1-2 tablets every 4 hours as needed for pain. 5. Lumigan 1 drop each eye every night. 6. Prochlorperazine 10 mg every 6 hours as needed for nausea or vomiting. 7. Metformin 1000 mg b.i.d. 8. Glimepiride 4 mg b.i.d. FAMILY HISTORY: Denies premature coronary artery disease or sudden cardiac within the family. Mother from ovarian cancer. SOCIAL HISTORY: Denies alcohol, tobacco or drug abuse. REVIEW OF SYSTEMS: Fourteen systems are reviewed including osteopathic, pertinent positives and negatives above, otherwise negative. PHYSICAL EXAMINATION: VITAL SIGNS: Temperature 98.3, heart rate 77, blood pressure 135/63, respirations 20, pulse oximetry 95% on room air. GENERAL: The patient appears well, no acute distress. Alert, awake and oriented x 3. HEENT: Extraocular muscles intact. Mucous membranes moist. NECK: Supple. No JVD at 45 degrees. No carotid bruits heard bilaterally. Carotid upstroke is brisk in nature. HEART: Regular rate and rhythm. Positive first and second heart sounds, with no noted murmurs, gallops or rubs. LUNGS: Clear to auscultation bilaterally. No wheezes, rales or rhonchi. ABDOMEN: Soft, nontender, nondistended. No organomegaly noted. EXTREMITIES: Show no clubbing, cyanosis or edema. Femoral and distal pulses intact bilaterally. NEUROLOGIC: No focal deficits. SKIN: Warm, dry and intact. OSTEOPATHICALLY: No kyphoscoliosis, lordosis or paraspinal tender points. LABORATORY DATA: Hemoglobin 8.9, hematocrit 26.6, platelets 74. Potassium 3.4, BUN 35, creatinine 1.22, lactic acid 6.6, decreasing to 2.1, AST 215, ALT 233. Troponin 9.73, decreasing to 5.15. ELECTROCARDIOGRAM (08/31/2017 AT 1604): Sinus rhythm, nonspecific ST-T wave changes. IMPRESSION: 1. Severe sepsis/septic shock. 2. Bacteremia. 3. Right hydronephrosis with 4 mm stone at the right ureterovesical junction, status post ureteral stent. 4. Acute kidney injury. 5. Elevated liver enzymes. 6. Non-ST elevation myocardial infarction, possible type 1 versus type 2. 7. Diabetes mellitus. 8. Hemoccult positive stool. 9. Thrombocytopenia. RECOMMENDATIONS: 1. Ms. Willett appears to have presented with septic shock and has been treated with a ureteral stent, and is currently off vasopressors therapy and hemodynamically stable. 2. She was found to have quite an elevated troponin and although this may be type 2 due to her overall sickness with septic shock, as well as acute kidney injury, type 1 cannot be ruled out at this time. 3. Unfortunately, due to Hemoccult positive stool, as well as significant thrombocytopenia, she is unable to undergo revascularization or consideration of coronary visualization. 4. We will attempt to treat her medically as best as possible. Most likely starting tomorrow, if stable, we will place her on beta lurdes therapy. Unfortunately, she should not be on statin therapy at this time as her LFTs are significantly elevated. This can be further assessed by either inpatient or outpatient once these have resolved. 5. We will await further workup for GI, but consideration of placing on aspirin therapy if possible. 6. We will check a 2-D echo to look at her overall left ventricular function, cardiac structure and possible valvulopathies. Case was discussed with Dr. Pritchett. Thank you for allowing me to see Narda Willett. If there are any questions, please do not hesitate to call. DO JORGE Curry/DONNY , 10:05 PM , 10:38 PM
[2017-09-02] MEDS: DOCUSATE SODIUM 50 MG/SENNA 8.6 MG TAB PO SCH ×2 (08:46→20:36)
[2017-09-02] MEDS: SODIUM CHLORIDE 0.9% FLUSH 10 ML FLUSH IV FLUSH SCH ×3 (08:46→20:36)
[2017-09-02] MEDS: PANTOPRAZOLE SODIUM 40 MG VIAL IV PUSH SCH (08:46)
[2017-09-02 09:17] LABS: BANDS 5 % (0-6); DOHLE BODIES PRESENT (NONE SEEN); LYMPHOCYTES 2 % (9-44); MONOCYTES 1 % (0-8); NEUTROPHIL # MANUAL DIFF 20.4 TH/MM3 (1.8-7.7); POLYS (SEG NEUTROPHILS) 92 % (16-70)
[2017-09-02 09:18] LABS: TOXIC GRANULATION 1+ (NORMAL)
[2017-09-02 10:53] LABS: PHOSPHORUS 1.6 MG/DL (2.5-4.9)
--- NOTE | 2017-09-02 11:30 | PD.CARD.PN ---
Subjective Subjective Remarks No events overnight Feels slightly better today Objective Medications Current Medications Medications (Trade) Dose Ordered Sig/Rowan Route Start Time Stop Time Status Last Admin (Xalatan 0.005% Opth Soln) 1 drop HS EACH EYE 08/30/17 21:00 Cefepime HCl 2000 mg/Sodium Chloride 100 ml @ 200 mls/hr Q12H IV 08/31/17 02:00 09/02/17 02:00 Ampicillin Sodium/ Sulbactam Sodium 3 gm/Sodium Chloride 100 ml @ 200 mls/hr Q6H IV 08/30/17 16:00 09/02/17 10:03 (D50w (Vial) Inj) 50 ml UNSCH PRN IV PUSH 08/30/17 15:45 (Glucagon Inj) 1 mg UNSCH PRN OTHER 08/30/17 15:45 (NovoLOG SUPPLEMENTAL SCALE) 1 Q4HR SQ 08/30/17 16:00 09/02/17 08:00 Sodium Chloride 1,000 ml @ 75 mls/hr [id number] IV 08/30/17 15:32 09/02/17 04:21 (NS Flush) 2 ml UNSCH PRN IV FLUSH 08/30/17 15:45 (NS Flush) 2 ml BID IV FLUSH 08/30/17 21:00 09/02/17 08:46 (Tylenol) 650 mg Q6H PRN PO 08/30/17 15:45 (Clayton 5-325 Mg) 1 tab Q4H PRN PO 08/30/17 15:45 08/31/17 13:47 (Protonix Inj) 40 mg DAILY IV PUSH 08/31/17 09:00 09/02/17 08:46 (Zofran Inj) 4 mg Q6H PRN IV PUSH 08/30/17 15:45 08/31/17 13:46 (Albuterol Neb) 2.5 mg Q2HR NEB PRN INH 08/30/17 15:45 Miscellaneous Information 1 Q361D XX 08/30/17 15:45 (Chlorhexidine 2% Cloth) 3 pack Taper DAILY@04 TOP 08/31/17 04:00 08/27/18 03:59 09/02/17 04:00 (Chlorhexidine 2% Cloth) 3 pack UNSCH PRN TOP 08/30/17 15:45 (Cate-Colace) 1 tab BID PO 08/30/17 21:00 (Milk Of Magnesia Liq) 30 ml Q12H PRN PO 08/30/17 15:45 (Senokot) 17.2 mg Q12H PRN PO 08/30/17 15:45 (Dulcolax Supp) 10 mg DAILY PRN RECTAL 08/30/17 15:45 (Lactulose Liq) 30 ml DAILY PRN PO 08/30/17 15:45 (Morphine Inj) 2 mg Q2H PRN IV PUSH 08/30/17 16:00 Potassium Chloride 100 ml @ 50 mls/hr Q2H PRN IV 08/30/17 16:15 Potassium Chloride 100 ml @ 50 mls/hr Q2H PRN IV 08/30/17 16:15 (K-Lyte Cl Eff) 50 meq UNSCH PRN PO 08/30/17 16:15 Potassium Chloride 100 ml @ 25 mls/hr UNSCH PRN IV 08/30/17 16:15 Potassium Chloride 100 ml @ 50 mls/hr Q2H PRN IV 08/30/17 16:15 Magnesium Sulfate 4 gm/Sodium Chloride 100 ml @ 50 mls/hr UNSCH PRN IV 08/30/17 16:15 (Mag-Ox) 800 mg UNSCH PRN PO 08/30/17 16:15 Magnesium Sulfate 2 gm/Sodium Chloride 100 ml @ 50 mls/hr UNSCH PRN IV 08/30/17 16:15 09/01/17 08:25 (K-Phos) 2,000 mg Q4H PRN PO 08/30/17 16:15 Sodium Phosphate 30 mmol/Sodium Chloride 250 ml @ 42 mls/hr UNSCH PRN IV 08/30/17 16:15 (K-Phos) 2,000 mg UNSCH PRN PO/TUBE 08/30/17 16:15 Potassium Phosphate 30 mmol/ Sodium Chloride 260 ml @ 42 mls/hr UNSCH PRN IV 08/30/17 16:15 09/01/17 22:45 Miscellaneous Information SPECIFIC LAB TO BE DRAWN:VANCOMY... ONCE ONCE .XX 09/02/17 17:45 09/02/17 17:46 (NS Flush) DAILY IV FLUSH 08/30/17 17:00 09/02/17 08:46 (NS Flush) UNSCH PRN IV FLUSH 08/30/17 17:00 (Brethine Inj) 1 mg UNSCH PRN SQ 08/30/17 18:45 (SoluCORTEF INJ) 100 mg Q8H IV PUSH 08/30/17 20:00 09/02/17 05:00 Lactated Ringer's 1,000 ml @ 30 mls/hr Q24H PRN IV 08/30/17 20:30 09/02/17 20:29 Sodium Chloride 500 ml @ 30 mls/hr [id number] PRN IV 08/30/17 20:30 09/02/17 20:29 (Betadine 5% Antisepsis Kit) 1 applic FIRE [employer] MECH[employer]IC PRN EACH NARE 08/30/17 20:30 09/02/17 20:29 (Chlorhexidine 2% Cloth) 3 pack FIRE [employer] MECH[employer]IC PRN TOPICAL 08/30/17 20:30 09/02/17 20:29 (Heparin Inj) 5,000 units UNSCH PRN IV PUSH 08/31/17 21:45 Future Hold (Heparin Inj) 2,500 units UNSCH PRN IV PUSH 08/31/17 21:45 Future Hold Heparin Sodium/ Dextrose 250 ml @ 8 mls/hr TITRATE PRN IV 08/31/17 16:15 Future Hold (Lipitor) 40 mg HS PO 08/31/17 21:00 Future Hold 08/31/17 20:50 (Duoneb Neb) 1 ampule Q6HR NEB PRN NEB 09/01/17 17:30 Vital Signs / I&O Vital Signs Date Time Temp Pulse Resp B/P (MAP) Pulse Ox O2 Delivery O2 Flow Rate FiO2 09/02/17 10:00 74 09/02/17 09:30 97 21 09/02/17 08:00 70 09/02/17 08:00 96.8 70 13 144/67 (92) 96 09/02/17 06:00 75 09/02/17 04:00 76 09/02/17 04:00 98.1 76 19 142/68 (92) 96 Arterial Line 09/02/17 02:00 78 09/02/17 00:00 76 09/02/17 00:00 97.9 76 22 124/60 (81) 95 108/81 (90) 09/01/17 22:00 78 09/01/17 20:00 97.5 74 20 134/62 (86) 96 92/71 (78) 09/01/17 20:00 74 09/01/17 18:00 80 09/01/17 16:00 98.3 77 21 135/63 (87) 95 131/52 (78) 09/01/17 16:00 77 09/01/17 14:00 80 09/01/17 12:00 79 09/01/17 12:00 96.9 79 19 109/53 (71) 96 121/53 (75) I/O 09/01/17 09/01/17 09/01/17 09/02/17 09/02/17 09/02/17 07:00 15:00 23:00 07:00 15:00 23:00 Intake Total 200 ml 1535 ml 680 ml 2260 ml Output Total 850 ml 850 ml 900 ml Balance -650 ml 1535 ml -170 ml 1360 ml Intake Oral 200 ml 480 ml 800 ml IV Total 1535 ml 200 ml 1460 ml Output Urine Total 750 ml 750 ml 750 ml Stool Total 100 ml 100 ml 150 ml Physical Exam GENERAL: NAD, AAOx3 SKIN: Warm and dry. HEAD: Atraumatic. Normocephalic. EYES: Pupils equal and round. No scleral icterus. No injection or drainage. ENT: No nasal bleeding or discharge. Mucous membranes pink and moist. NECK: Trachea midline. No JVD. CARDIOVASCULAR: Regular rate and rhythm. 1/6 holosystolic murmur at the apex RESPIRATORY: No accessory muscle use. Clear to auscultation. Breath sounds equal bilaterally. GASTROINTESTINAL: Abdomen soft, non-tender, nondistended. Hepatic and splenic margins not palpable. MUSCULOSKELETAL: Extremities without clubbing, cyanosis, or edema. No obvious deformities. NEUROLOGICAL: Awake and alert. No obvious cranial nerve deficits. Motor grossly within normal limits. Five out of 5 muscle strength in the arms and legs. Normal speech. PSYCHIATRIC: Appropriate mood and affect; insight and judgment normal. Laboratory Laboratory Tests Test 09/01/17 13:57 09/01/17 19:30 09/02/17 05:39 09/02/17 09:29 Lactic Acid Level 2.1 mmol/L Hemoglobin 9.1 GM/DL 9.3 GM/DL Hematocrit 26.9 % 28.0 % Potassium Level 3.2 MEQ/L 3.5 MEQ/L Phosphorus Level 1.2 MG/DL 1.6 MG/DL Magnesium Level 1.9 MG/DL White Blood Count 21.0 TH/MM3 Red Blood Count 3.17 MIL/MM3 Mean Corpuscular Volume 88.5 FL Mean Corpuscular Hemoglobin 29.3 PG Mean Corpuscular Hemoglobin Concent 33.1 % Red Cell Distribution Width 13.9 % Platelet Count 74 TH/MM3 Mean Platelet Volume 10.8 FL CBC Comment AUTO DIFF Differential Total Cells Counted 100 Neutrophils % (Manual) 92 % Band Neutrophils % 5 % Lymphocytes % 2 % Monocytes % 1 % Neutrophils # (Manual) 20.4 TH/MM3 Differential Comment FINAL DIFF MANUAL Toxic Granulation 1+ Dohle Bodies PRESENT Platelet Estimate LOW Platelet Morphology Comment NORMAL Assessment and Plan Problem List: (1) NSTEMI (non-ST elevation myocardial infarction) ICD Codes: I21.4 - Non-ST elevation (NSTEMI) myocardial infarction (2) Hydronephrosis due to obstruction of ureter ICD Codes: N13.2 - Hydronephrosis with renal and ureteral calculous obstruction (3) Acute kidney injury ICD Codes: N17.9 - Acute kidney failure, unspecified (4) Diabetes mellitus type 2 in nonobese ICD Codes: E11.9 - Type 2 diabetes mellitus without complications (5) Severe sepsis ICD Codes: A41.9 - Sepsis, unspecified organism; R65.20 - Severe sepsis without septic shock (6) Encephalopathy ICD Codes: G93.40 - Encephalopathy, unspecified (7) Lactic acidosis ICD Codes: E87.2 - Acidosis (8) UTI (urinary tract infection) ICD Codes: N39.0 - Urinary tract infection, site not specified Status: Acute (9) Fever ICD Codes: R50.9 - Fever, unspecified Status: Acute (10) Abdominal pain ICD Codes: R10.9 - Unspecified abdominal pain Status: Acute Assessment and Plan 1) NSTEMI Possible Type 1 vs Type 2 Overall septic shock, LEENA, Lactic acidosis, hypotension Would prefer to have her undergo ischemic evaluation due to elevated troponins But unable to with GI bleed and thrombocytopenia Will plan to continue medical management Plan to start BB therapy today No statin at this time due to elevated LFTs 2) Septic shock Off vasopressors 3) Hemoccult positive stool 4) Thrombocytopenia 5) Elevated cardiovascular risk for any procedure 6) EF 25-30% by echo Problem Qualifiers (1) UTI (urinary tract infection): Qualified Codes: N39.0 - Urinary tract infection, site not specified (2) Fever: Qualified Codes: R50.9 - Fever, unspecified Gino Delaney DO Sep 02, 2017 11:29
[2017-09-02] MEDS: POTASSIUM PHOSPHATE MONOBASIC 500 MG TAB PO PRN ×2 (12:14→20:45)
[2017-09-02] MEDS: CARVEDILOL 3.125 MG TAB PO SCH ×2 (12:17→20:35)
--- NOTE | 2017-09-02 13:50 | PD.CONS ---
HPI History of Present Illness This is a 72 year old F who presented to the ER on Friday with complaints of right flank pain that radiated throughout her entire abdomen and vomiting that began at 3pm on Friday. Pt was found to have a 3-4 mm stone at the right ureterovesical junction with moderate right hydronephrosis. Possible forniceal rupture. She was found to be septic with bacteremia, blood cultures positive for E. Coli, infectious disease is following. Nephrology also following, pt underwent cystoscopy with right ureteral stent placement. Pt now off pressors, and seems to be stabilizing. Our service has been consulted to evaluate pt for anemia with positive Hemoccult stool. Pt reports emesis eight times prior to arrival, has not vomited recently, denies any hematemesis and coffee ground emesis. Currently has Flexiseal with liquid brown stool. She denies any issues with acid reflux, heartburn, dysphagia, abdominal pain or cramping, constipation , diarrhea, blood in stool at home. Denies ETOH, smoking, and NSAIDs. Has never had EGD or colonoscopy. Of note, was found to have elevated troponin and cardiology is holding anticoagulation due to anemia with Hemoccult positive stools. (Dodie Oconnor) [facility] Coded Allergies: No Known Drug Allergies (Verified Allergy, Unknown, 08/30/17) Social History Denies ETOH Denies smoking (Dodie Oconnor) Review of Systems Gastrointestinal: COMPLAINS OF: Diarrhea, DENIES: Abdominal pain, Black stools , Bloody stools, Constipation, Nausea, Vomiting, Difficulty Swallowing, Odynophagia, Swelling of Abdomen, Heartburn, Hematemesis (Dodie Oconnor) GI Exam Vitals I&O Vital Signs Date Time Temp Pulse Resp B/P (MAP) Pulse Ox O2 Delivery O2 Flow Rate FiO2 09/02/17 12:00 97.7 69 19 144/64 (90) 97 09/02/17 12:00 69 09/02/17 10:00 74 09/02/17 09:30 97 21 09/02/17 08:00 70 09/02/17 08:00 96.8 70 13 144/67 (92) 96 09/02/17 06:00 75 09/02/17 04:00 76 09/02/17 04:00 98.1 76 19 142/68 (92) 96 Arterial Line 09/02/17 02:00 78 09/02/17 00:00 76 09/02/17 00:00 97.9 76 22 124/60 (81) 95 108/81 (90) 09/01/17 22:00 78 09/01/17 20:00 97.5 74 20 134/62 (86) 96 92/71 (78) 09/01/17 20:00 74 09/01/17 18:00 80 09/01/17 16:00 98.3 77 21 135/63 (87) 95 131/52 (78) 09/01/17 16:00 77 09/01/17 14:00 80 I/O 09/01/17 09/01/17 09/01/17 09/02/17 09/02/17 09/02/17 07:00 15:00 23:00 07:00 15:00 23:00 Intake Total 200 ml 1535 ml 680 ml 2260 ml Output Total 850 ml 850 ml 900 ml Balance -650 ml 1535 ml -170 ml 1360 ml Intake Oral 200 ml 480 ml 800 ml IV Total 1535 ml 200 ml 1460 ml Output Urine Total 750 ml 750 ml 750 ml Stool Total 100 ml 100 ml 150 ml Imaging Last Impressions Chest X-Ray 08/30/17 1653 Signed Impressions: Service Date/Time: Wednesday, August 30, 2017 16:55 - CONCLUSION: Patchy bilateral atelectasis. Right IJ central venous catheter with tip at the atriocaval junction. No pneumothorax or other acute complication. Ben Agarwal MD Abdomen/Pelvis CT 08/30/17 0000 Signed Impressions: Service Date/Time: Wednesday, August 30, 2017 12:19 - CONCLUSION: 3-4 mm stone at the right ureterovesical junction with moderate right hydronephrosis. Possible forniceal rupture. Ben Esquivel MD Abdomen X-Ray 08/30/17 0000 Signed Impressions: Service Date/Time: Wednesday, August 30, 2017 21:08 - CONCLUSION: Right ureteral stent. Proximal portion of the stent appears appropriately positioned. Ben Agarwal MD Laboratory Test 09/01/17 13:57 09/01/17 19:30 09/02/17 05:39 09/02/17 09:29 Lactic Acid Level 2.1 mmol/L Hemoglobin 9.1 GM/DL 9.3 GM/DL Hematocrit 26.9 % 28.0 % Potassium Level 3.2 MEQ/L 3.5 MEQ/L Phosphorus Level 1.2 MG/DL 1.6 MG/DL Magnesium Level 1.9 MG/DL White Blood Count 21.0 TH/MM3 Red Blood Count 3.17 MIL/MM3 Mean Corpuscular Volume 88.5 FL Mean Corpuscular Hemoglobin 29.3 PG Mean Corpuscular Hemoglobin Concent 33.1 % Red Cell Distribution Width 13.9 % Platelet Count 74 TH/MM3 Mean Platelet Volume 10.8 FL CBC Comment AUTO DIFF Differential Total Cells Counted 100 Neutrophils % (Manual) 92 % Band Neutrophils % 5 % Lymphocytes % 2 % Monocytes % 1 % Neutrophils # (Manual) 20.4 TH/MM3 Differential Comment FINAL DIFF MANUAL Toxic Granulation 1+ Dohle Bodies PRESENT Platelet Estimate LOW Platelet Morphology Comment NORMAL Date/Time Source Procedure Growth Status 09/01/17 11:05 Blood Peripheral Aerobic Blood Culture - Preliminary NO GROWTH IN 1 DAY Resulted 09/01/17 11:05 Blood Peripheral Anaerobic Blood Culture - Preliminary NO GROWTH IN 1 DAY Resulted 08/31/17 15:20 Stool Stool Stool Occult Blood ([facility]) - Final HEMOCCULT POSITIVE Complete 09/01/17 09:40 Urine Catheterized Urine Urine Culture - Preliminary NO GROWTH IN 24 HOURS. Resulted Physical Examination HEENT: Normocephalic; atraumatic CHEST: Even/unlabored CARDIAC: RRR ABDOMEN: Soft, nondistended, nontender; bowel sounds active. Flexiseal with liquid stool SKIN: Pale REPORTING SPECIALIST: Alert and oriented times three. (Dodie Oconnor) Assessment and Plan Plan Assessment: - Anemia with Hemoccult positive stool- Normocytic- H/H has trended down some since admission, currently .08/13. Pt denies history of GIB, ETOH, NSAIDs, not on blood thinners. Has never had EGD or colonoscopy. - Liquid stool in Flexiseal. C diff negative. - Elevated LFTs- WNL on admission, likely elevated secondary to shock liver, pt hypotensive on arrival requiring pressors, now BM stabilized with no pressors. Denies history of liver issues. CT abdomen (liver) Homogeneous density without lesion. There is no dilation of the biliary tree. No calcified gallstones. - Elevated troponin- cardiology following- anticoagulation on hold due to anemia and Hemoccult positive stool - Sepsis, bacteremia- blood cultures positive for E. Coli. ID following. Cefepime - Hydronephrosis secondary to 3-4 mm stone at the right ureterovesical junction Possible forniceal rupture. S/P cystoscopy with right ureteral stent. Wins[place] catheter with good output Discussed with pt GI procedures including EGD and colonoscopy to further evaluate GI bleeding as source for anemia. Pt states she is too weak at this time and just sat up for the first time today and would like to hold off on procedures. I discussed with her that cardiology is holding on anticoagulation due to above and she is aware of this and still does not want to proceed with procedures at this time. She states she will see how she is feeling tomorrow and may reconsider. at bedside for conversation and verbalizes understanding as well. Plan will be to monitor H/H and readdress possibility of procedures tomorrow. Plan: Monitor H/H Notify GI of any active bleeding Protonix Readdress possibility of EGD and colonoscopy with pt tomorrow Monitor LFTs Avoid hepatotoxins Further recommendations based on clinical course Pt has been seen and examined by myself and Dr. Knox and this note is written on her behalf (Dodie Oconnor) Physician Comments seen, examined agree with above discussed in detail about egd/colonoscopy and indication-she will think about it (Nicky Knox MD) Dodie Oconnor Sep 02, 2017 13:50 Nicky Knox MD Sep 02, 2017 20:40
--- NOTE | 2017-09-02 15:21 | HHI.IDPN ---
Subjective Subjective Remarks Patient is a 72-year-old female, admitted to the hospital with acute onset of severe abdominal pain, and nausea and vomiting. Initially thought that she had food poisoning because she had eaten boiled peanuts. In the ED she had a fever up to 103, and was hypotensive. CT of the abdomen and pelvis showed a stone obstructing the right UVJ junction with associated right hydronephrosis. Her initial WBC was normal but it went up. Urology saw the patient, and she underwent cystoscopy and placement of a stent. Her hemodynamics improved. Her WBC remained elevated. Her temperature is better. Blood culture on admission is growing E. coli. Urine culture has E. coli. Patient currently still feels blah. Abdominal pain is still present but a little better. Her WBC remains elevated. Her creatinine is also elevated. She has good urine output. Nausea and vomiting has improved. Infectious disease consultation has been requested to evaluate the patient. Notes reviewed D/W RN Temps ok BP good Patient feels better On RA WBC higher today Repeat UA still with pyuria Repeat UC pending BC pending Antibiotics Cefepime Unasyn Current Medications Medications (Trade) Dose Ordered Sig/Rowan Route Start Time Stop Time Status Last Admin (Xalatan 0.005% Opth Soln) 1 drop HS EACH EYE 08/30/17 21:00 Cefepime HCl 2000 mg/Sodium Chloride 100 ml @ 200 mls/hr Q12H IV 08/31/17 02:00 09/02/17 14:20 Ampicillin Sodium/ Sulbactam Sodium 3 gm/Sodium Chloride 100 ml @ 200 mls/hr Q6H IV 08/30/17 16:00 09/02/17 10:03 (D50w (Vial) Inj) 50 ml UNSCH PRN IV PUSH 08/30/17 15:45 (Glucagon Inj) 1 mg UNSCH PRN OTHER 08/30/17 15:45 (NovoLOG SUPPLEMENTAL SCALE) 1 Q4HR SQ 08/30/17 16:00 09/02/17 12:00 Sodium Chloride 1,000 ml @ 75 mls/hr [id number] IV 08/30/17 15:32 09/02/17 04:21 (NS Flush) 2 ml UNSCH PRN IV FLUSH 08/30/17 15:45 (NS Flush) 2 ml BID IV FLUSH 08/30/17 21:00 09/02/17 08:46 (Tylenol) 650 mg Q6H PRN PO 08/30/17 15:45 ([place] 5-325 Mg) 1 tab Q4H PRN PO 08/30/17 15:45 08/31/17 13:47 (Protonix Inj) 40 mg DAILY IV PUSH 08/31/17 09:00 09/02/17 08:46 (Zofran Inj) 4 mg Q6H PRN IV PUSH 08/30/17 15:45 08/31/17 13:46 (Albuterol Neb) 2.5 mg Q2HR NEB PRN INH 08/30/17 15:45 Miscellaneous Information 1 Q361D XX 08/30/17 15:45 (Chlorhexidine 2% Cloth) 3 pack Taper DAILY@04 TOP 08/31/17 04:00 08/27/18 03:59 09/02/17 04:00 (Chlorhexidine 2% Cloth) 3 pack UNSCH PRN TOP 08/30/17 15:45 (Cate-Colace) 1 tab BID PO 08/30/17 21:00 (Milk Of Magnesia Liq) 30 ml Q12H PRN PO 08/30/17 15:45 (Senokot) 17.2 mg Q12H PRN PO 08/30/17 15:45 (Dulcolax Supp) 10 mg DAILY PRN RECTAL 08/30/17 15:45 (Lactulose Liq) 30 ml DAILY PRN PO 08/30/17 15:45 (Morphine Inj) 2 mg Q2H PRN IV PUSH 08/30/17 16:00 Potassium Chloride 100 ml @ 50 mls/hr Q2H PRN IV 08/30/17 16:15 Potassium Chloride 100 ml @ 50 mls/hr Q2H PRN IV 08/30/17 16:15 (K-Lyte Cl Eff) 50 meq UNSCH PRN PO 08/30/17 16:15 09/02/17 12:15 Potassium Chloride 100 ml @ 25 mls/hr UNSCH PRN IV 08/30/17 16:15 Potassium Chloride 100 ml @ 50 mls/hr Q2H PRN IV 08/30/17 16:15 Magnesium Sulfate 4 gm/Sodium Chloride 100 ml @ 50 mls/hr UNSCH PRN IV 08/30/17 16:15 (Mag-Ox) 800 mg UNSCH PRN PO 08/30/17 16:15 Magnesium Sulfate 2 gm/Sodium Chloride 100 ml @ 50 mls/hr UNSCH PRN IV 08/30/17 16:15 09/01/17 08:25 (K-Phos) 2,000 mg Q4H PRN PO 08/30/17 16:15 09/02/17 12:14 Sodium Phosphate 30 mmol/Sodium Chloride 250 ml @ 42 mls/hr UNSCH PRN IV 08/30/17 16:15 (K-Phos) 2,000 mg UNSCH PRN PO/TUBE 08/30/17 16:15 Potassium Phosphate 30 mmol/ Sodium Chloride 260 ml @ 42 mls/hr UNSCH PRN IV 08/30/17 16:15 09/01/17 22:45 Miscellaneous Information SPECIFIC LAB TO BE DRAWN:VANCOMY... ONCE ONCE .XX 09/02/17 17:45 09/02/17 17:46 (NS Flush) DAILY IV FLUSH 08/30/17 17:00 09/02/17 08:46 (NS Flush) UNSCH PRN IV FLUSH 08/30/17 17:00 (Brethine Inj) 1 mg UNSCH PRN SQ 08/30/17 18:45 (SoluCORTEF INJ) 100 mg Q8H IV PUSH 08/30/17 20:00 09/02/17 12:15 Lactated Ringer's 1,000 ml @ 30 mls/hr Q24H PRN IV 08/30/17 20:30 09/02/17 20:29 Sodium Chloride 500 ml @ 30 mls/hr [id number] PRN IV 08/30/17 20:30 09/02/17 20:29 (Betadine 5% Antisepsis Kit) 1 applic DOORKEEPER PRN EACH NARE 08/30/17 20:30 09/02/17 20:29 (Chlorhexidine 2% Cloth) 3 pack DOORKEEPER PRN TOPICAL 08/30/17 20:30 09/02/17 20:29 (Heparin Inj) 5,000 units UNSCH PRN IV PUSH 08/31/17 21:45 Future Hold (Heparin Inj) 2,500 units UNSCH PRN IV PUSH 08/31/17 21:45 Future Hold Heparin Sodium/ Dextrose 250 ml @ 8 mls/hr TITRATE PRN IV 08/31/17 16:15 Future Hold (Lipitor) 40 mg HS PO 08/31/17 21:00 Future Hold 08/31/17 20:50 (Duoneb Neb) 1 ampule Q6HR NEB PRN NEB 09/01/17 17:30 (Coreg) 3.125 mg Q12HR PO 09/02/17 12:00 09/02/17 12:17 Lines Line with no evidence of infection Past Medical History Hard of hearing Glaucoma Hypertension Nausea/vomiting Diabetes mellitus Past Surgical History Oophorectomy Hysterectomy 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 Vital Signs Date Time Temp Pulse Resp B/P (MAP) Pulse Ox O2 Delivery O2 Flow Rate FiO2 09/02/17 14:00 73 09/02/17 12:00 97.7 69 19 144/64 (90) 97 09/02/17 12:00 69 09/02/17 10:00 74 09/02/17 09:30 97 21 09/02/17 08:00 70 09/02/17 08:00 96.8 70 13 144/67 (92) 96 09/02/17 06:00 75 09/02/17 04:00 76 09/02/17 04:00 98.1 76 19 142/68 (92) 96 Arterial Line 09/02/17 02:00 78 09/02/17 00:00 76 09/02/17 00:00 97.9 76 22 124/60 (81) 95 108/81 (90) 09/01/17 22:00 78 09/01/17 20:00 97.5 74 20 134/62 (86) 96 92/71 (78) 09/01/17 20:00 74 09/01/17 18:00 80 09/01/17 16:00 98.3 77 21 135/63 (87) 95 131/52 (78) 09/01/17 16:00 77 . Laboratory Tests Test 08/31/17 16:02 09/01/17 06:00 09/01/17 19:30 09/02/17 05:39 White Blood Count 20.0 TH/MM3 19.0 TH/MM3 21.0 TH/MM3 Red Blood Count 3.07 MIL/MM3 2.99 MIL/MM3 3.17 MIL/MM3 Hemoglobin 9.1 GM/DL 8.9 GM/DL 9.1 GM/DL 9.3 GM/DL Hematocrit 27.4 % 26.6 % 26.9 % 28.0 % Mean Corpuscular Volume 89.1 FL 88.9 FL 88.5 FL Mean Corpuscular Hemoglobin 29.8 PG 29.9 PG 29.3 PG Mean Corpuscular Hemoglobin Concent 33.4 % 33.6 % 33.1 % Red Cell Distribution Width 13.7 % 14.0 % 13.9 % Platelet Count 87 TH/MM3 74 TH/MM3 74 TH/MM3 Mean Platelet Volume 10.2 FL 10.9 FL 10.8 FL Neutrophils (%) (Auto) 90.5 % Lymphocytes (%) (Auto) 3.8 % Monocytes (%) (Auto) 2.6 % Eosinophils (%) (Auto) 2.9 % Basophils (%) (Auto) 0.2 % Neutrophils # (Auto) 17.2 TH/MM3 Lymphocytes # (Auto) 0.7 TH/MM3 Monocytes # (Auto) 0.5 TH/MM3 Eosinophils # (Auto) 0.5 TH/MM3 Basophils # (Auto) 0.0 TH/MM3 CBC Comment AUTO DIFF AUTO DIFF Differential Total Cells Counted 100 100 Neutrophils % (Manual) 77 % 92 % Band Neutrophils % 22 % 5 % Lymphocytes % 1 % 2 % Neutrophils # (Manual) 18.8 TH/MM3 20.4 TH/MM3 Differential Comment FINAL DIFF MANUAL FINAL DIFF MANUAL Dohle Bodies PRESENT PRESENT Platelet Estimate LOW LOW Platelet Morphology Comment NORMAL NORMAL Whitney Cells 1+ Monocytes % 1 % Toxic Granulation 1+ Laboratory Tests Test 08/31/17 16:02 08/31/17 22:07 09/01/17 06:00 09/01/17 07:52 Lactic Acid Level 3.5 mmol/L 3.4 mmol/L 1.8 mmol/L Phosphorus Level 2.3 MG/DL 1.8 MG/DL Troponin I 9.73 NG/ML 8.59 NG/ML 5.15 NG/ML Blood Urea Nitrogen 35 MG/DL Creatinine 1.22 MG/DL Random Glucose 220 MG/DL Total Protein 5.5 GM/DL Albumin 2.1 GM/DL Calcium Level 7.2 MG/DL Magnesium Level 1.4 MG/DL Alkaline Phosphatase 116 U/L Aspartate Amino Transf (AST/SGOT) 215 U/L Alanine Aminotransferase (ALT/SGPT) 233 U/L Total Bilirubin 0.5 MG/DL Sodium Level 145 MEQ/L Potassium Level 3.4 MEQ/L Chloride Level 118 MEQ/L Carbon Dioxide Level 15.6 MEQ/L Anion Gap 11 MEQ/L Estimat Glomerular Filtration Rate 43 ML/MIN Protein Corrected Calcium 8.1 MG/DL Test 09/01/17 09:53 09/01/17 13:57 09/01/17 19:30 09/02/17 09:29 Lactic Acid Level 1.9 mmol/L 2.1 mmol/L Potassium Level 3.2 MEQ/L 3.5 MEQ/L Phosphorus Level 1.2 MG/DL 1.6 MG/DL Magnesium Level 1.9 MG/DL Microbiology Date/Time Source Procedure Growth Status 09/01/17 11:05 Blood Peripheral Aerobic Blood Culture - Preliminary NO GROWTH IN 1 DAY Resulted 09/01/17 11:05 Blood Peripheral Anaerobic Blood Culture - Preliminary NO GROWTH IN 1 DAY Resulted 09/01/17 11:00 Blood Peripheral Aerobic Blood Culture - Preliminary NO GROWTH IN 1 DAY Resulted 09/01/17 11:00 Blood Peripheral Anaerobic Blood Culture - Preliminary NO GROWTH IN 1 DAY Resulted 08/30/17 15:50 Blood Peripheral Aerobic Blood Culture - Preliminary NO GROWTH IN 3 DAYS Resulted 08/30/17 15:50 Blood Peripheral Anaerobic Blood Culture - Preliminary NO GROWTH IN 3 DAYS Resulted 08/31/17 15:20 Stool Stool Stool Occult Blood ([facility]) - Final HEMOCCULT POSITIVE Complete 09/01/17 09:40 Urine Catheterized Urine Urine Culture - Preliminary NO GROWTH IN 24 HOURS. Resulted Imaging Last Impressions Chest X-Ray 08/30/17 1653 Signed Impressions: Service Date/Time: Wednesday, August 30, 2017 16:55 - CONCLUSION: Patchy bilateral atelectasis. Right IJ central venous catheter with tip at the atriocaval junction. No pneumothorax or other acute complication. Ben Agarwal MD Abdomen/Pelvis CT 08/30/17 0000 Signed Impressions: Service Date/Time: Wednesday, August 30, 2017 12:19 - CONCLUSION: 3-4 mm stone at the right ureterovesical junction with moderate right hydronephrosis. Possible forniceal rupture. Ben Esquivel MD Abdomen X-Ray 08/30/17 0000 Signed Impressions: Service Date/Time: Wednesday, August 30, 2017 21:08 - CONCLUSION: Right ureteral stent. Proximal portion of the stent appears appropriately positioned. Ben Agarwal MD Physical Exam GENERAL: awake and alert, not in respiratory distress. She looks pale. SKIN: Warm and dry. No generalized rash, no ecchymoses and no evidence of embolic lesions. Skin looks sallow HEAD: Atraumatic. Normocephalic. No temporal wasting, or tenderness. EYES: Pale conjunctiva. No petechia or hemorrhage. Pupils equal, round and reactive to light. Extraocular movements full and intact. No scleral icterus. No injection or drainage. EARS, NOSE AND THROAT: Nose without bleeding or purulent nasal discharge. No sinus tenderness. Mucous membranes pink and moist. No oral lesions noted. No exudate. No oral thrush. NECK: Trachea midline. Supple and not tender, no meningeal signs CARDIOVASCULAR: Regular rate and rhythm. No murmurs, rubs or gallops heard RESPIRATORY: Clear to auscultation. Breath sounds equal bilaterally. No rales , wheezing or rhonchi ABDOMEN: Soft, nondistended, bowel sounds present and normoactive. Has very mild abdominal tenderness diffusely, no guarding and no rebound. No organomegaly. EXTREMITIES: No clubbing, cyanosis, or edema. No joint effusion, has good ROM. No calf tenderness. Well perfused and warm. NEUROLOGICAL: Awake and alert. Cranial nerves grossly intact. Motor grossly within normal limits. PSYCHIATRIC: Normal affect, calm and cooperative. LINE: No evidence of infection : Wins[place] in place, clear urine Assessment & Plan Remarks IMPRESSION E coli sepsis, with shock, due to complicated UTI - BP better, off pressors Complicated pyelonephritis, E coli, with obstructing stone R, S/P placement of stent Leukocytosis, due to UTI and reactive post cysto and stent placement - higher today Renal insufficiency, due to sepsis and shock Heme occult (+) stool RECOMMENDATION Continue Cefepime Stop Unasyn Follow repeat 2 BC Follow repeat UC Follow CBC Follow C/S Monitor progress D/W RN Discussed plan with patient and Yadira Bradshaw MD Sep 02, 2017 15:21
--- NOTE | 2017-09-02 15:58 | HHI.PR ---
Subjective Patient symptoms today 72yo female with obstructing right ureteral stone, located in the right distal UVJ with right hydronephrosis and perinephric stranding. Stone is approx 3-4mm in size. Patient reports she began to experience right flank pain yesterday afternoon around 3pm. Pain worsened with sharp severe right flank pain radiating to the right groin, 10/10, with nausea and vomiting. 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 She presented to the [facility] ED. CT scan identified the distal right UVJ stone. She then developed fevers as high as 103 and began to experience hypotension. She was placed on pressors and IV abx. She was then transferred to the [facility]. Had right JJ stent placement [address] Perdue 08/31/17: Doing well this am. Pain improved. Fevers improved. WBC elevated, however expected after procedure last night. 09/01/17: Was seen at bedside today. Doing better but still weak. no f/c/n/v, pain is controlled. rothman is in place, draining clear yellow urine. Leukocytosis is slightly better. UC pending 09/02/17: Pt was seen at bedside this afternoon. No new c/o. no flank pain, urine is light brown and slightly cloudy. While count is slightly worse. UC and BC are positive for E coli. Pt was seen by GI and cardiology due to elevated Troponin diagnosed with NSTEMI but needs GI evaluation first prior to any additional cardiac procedures due to a positive occult blood in stool pt is not ready for endoscopy and colonoscopy yet because still weak, possibly will do it as outpt. She did not ambulate yet but sat in bed earlier. No fever Objective Vital Signs Vital Signs Date Time Temp Pulse Resp B/P (MAP) Pulse Ox O2 Delivery O2 Flow Rate FiO2 09/02/17 14:00 73 09/02/17 12:00 97.7 69 19 144/64 (90) 97 09/02/17 12:00 69 09/02/17 10:00 74 09/02/17 09:30 97 21 09/02/17 08:00 70 09/02/17 08:00 96.8 70 13 144/67 (92) 96 09/02/17 06:00 75 09/02/17 04:00 76 09/02/17 04:00 98.1 76 19 142/68 (92) 96 Arterial Line 09/02/17 02:00 78 09/02/17 00:00 76 09/02/17 00:00 97.9 76 22 124/60 (81) 95 108/81 (90) 09/01/17 22:00 78 09/01/17 20:00 97.5 74 20 134/62 (86) 96 92/71 (78) 09/01/17 20:00 74 09/01/17 18:00 80 09/01/17 16:00 98.3 77 21 135/63 (87) 95 131/52 (78) 09/01/17 16:00 77 Intake & Output 09/02/17 09/02/17 07:00 19:00 Intake Total 2360 ml Output Total 900 ml Balance 1460 ml Intake Oral 800 ml IV Total 1560 ml Output Urine Total 750 ml Stool Total 150 ml Result Diagram: 09/02/17 0539 09/02/17 0929 Objective Remarks AAOx3 Resp NL RRR Ab Soft Rothman in place, drains light brown urine Medications and IVs Current Medications Medications (Trade) Dose Ordered Sig/Rowan Route Start Time Stop Time Status Last Admin (Xalatan 0.005% Opth Soln) 1 drop HS EACH EYE 08/30/17 21:00 Cefepime HCl 2000 mg/Sodium Chloride 100 ml @ 200 mls/hr Q12H IV 08/31/17 02:00 09/02/17 14:20 (D50w (Vial) Inj) 50 ml UNSCH PRN IV PUSH 08/30/17 15:45 (Glucagon Inj) 1 mg UNSCH PRN OTHER 08/30/17 15:45 (NovoLOG SUPPLEMENTAL SCALE) 1 Q4HR SQ 08/30/17 16:00 09/02/17 12:00 Sodium Chloride 1,000 ml @ 75 mls/hr [id number] IV 08/30/17 15:32 09/02/17 15:40 (NS Flush) 2 ml UNSCH PRN IV FLUSH 08/30/17 15:45 (NS Flush) 2 ml BID IV FLUSH 08/30/17 21:00 09/02/17 08:46 (Tylenol) 650 mg Q6H PRN PO 08/30/17 15:45 ([place] 5-325 Mg) 1 tab Q4H PRN PO 08/30/17 15:45 08/31/17 13:47 (Protonix Inj) 40 mg DAILY IV PUSH 08/31/17 09:00 09/02/17 08:46 (Zofran Inj) 4 mg Q6H PRN IV PUSH 08/30/17 15:45 08/31/17 13:46 (Albuterol Neb) 2.5 mg Q2HR NEB PRN INH 08/30/17 15:45 Miscellaneous Information 1 Q361D XX 08/30/17 15:45 (Chlorhexidine 2% Cloth) 3 pack Taper DAILY@04 TOP 08/31/17 04:00 08/27/18 03:59 09/02/17 04:00 (Chlorhexidine 2% Cloth) 3 pack UNSCH PRN TOP 08/30/17 15:45 (Cate-Colace) 1 tab BID PO 08/30/17 21:00 (Milk Of Magnesia Liq) 30 ml Q12H PRN PO 08/30/17 15:45 (Senokot) 17.2 mg Q12H PRN PO 08/30/17 15:45 (Dulcolax Supp) 10 mg DAILY PRN RECTAL 08/30/17 15:45 (Lactulose Liq) 30 ml DAILY PRN PO 08/30/17 15:45 (Morphine Inj) 2 mg Q2H PRN IV PUSH 08/30/17 16:00 Potassium Chloride 100 ml @ 50 mls/hr Q2H PRN IV 08/30/17 16:15 Potassium Chloride 100 ml @ 50 mls/hr Q2H PRN IV 08/30/17 16:15 (K-Lyte Cl Eff) 50 meq UNSCH PRN PO 08/30/17 16:15 09/02/17 12:15 Potassium Chloride 100 ml @ 25 mls/hr UNSCH PRN IV 08/30/17 16:15 Potassium Chloride 100 ml @ 50 mls/hr Q2H PRN IV 08/30/17 16:15 Magnesium Sulfate 4 gm/Sodium Chloride 100 ml @ 50 mls/hr UNSCH PRN IV 08/30/17 16:15 (Mag-Ox) 800 mg UNSCH PRN PO 08/30/17 16:15 Magnesium Sulfate 2 gm/Sodium Chloride 100 ml @ 50 mls/hr UNSCH PRN IV 08/30/17 16:15 09/01/17 08:25 (K-Phos) 2,000 mg Q4H PRN PO 08/30/17 16:15 09/02/17 12:14 Sodium Phosphate 30 mmol/Sodium Chloride 250 ml @ 42 mls/hr UNSCH PRN IV 08/30/17 16:15 (K-Phos) 2,000 mg UNSCH PRN PO/TUBE 08/30/17 16:15 Potassium Phosphate 30 mmol/ Sodium Chloride 260 ml @ 42 mls/hr UNSCH PRN IV 08/30/17 16:15 09/01/17 22:45 Miscellaneous Information SPECIFIC LAB TO BE DRAWN:VANCOMY... ONCE ONCE .XX 09/02/17 17:45 09/02/17 17:46 (NS Flush) DAILY IV FLUSH 08/30/17 17:00 09/02/17 08:46 (NS Flush) UNSCH PRN IV FLUSH 08/30/17 17:00 (Brethine Inj) 1 mg UNSCH PRN SQ 08/30/17 18:45 (SoluCORTEF INJ) 100 mg Q8H IV PUSH 08/30/17 20:00 09/02/17 12:15 Lactated Ringer's 1,000 ml @ 30 mls/hr Q24H PRN IV 08/30/17 20:30 09/02/17 20:29 Sodium Chloride 500 ml @ 30 mls/hr [id number] PRN IV 08/30/17 20:30 09/02/17 20:29 (Betadine 5% Antisepsis Kit) 1 applic SURGICAL INSTRUMENT MAKER PRN EACH NARE 08/30/17 20:30 09/02/17 20:29 (Chlorhexidine 2% Cloth) 3 pack SURGICAL INSTRUMENT MAKER PRN TOPICAL 08/30/17 20:30 09/02/17 20:29 (Heparin Inj) 5,000 units UNSCH PRN IV PUSH 08/31/17 21:45 Future Hold (Heparin Inj) 2,500 units UNSCH PRN IV PUSH 08/31/17 21:45 Future Hold Heparin Sodium/ Dextrose 250 ml @ 8 mls/hr TITRATE PRN IV 08/31/17 16:15 Future Hold (Lipitor) 40 mg HS PO 08/31/17 21:00 Future Hold 08/31/17 20:50 (Duoneb Neb) 1 ampule Q6HR NEB PRN NEB 09/01/17 17:30 (Coreg) 3.125 mg Q12HR PO 09/02/17 12:00 09/02/17 12:17 Assessment and Plan Problem List: (1) Abdominal pain ICD Code: R10.9 - Unspecified abdominal pain Status: Acute (2) Fever ICD Code: R50.9 - Fever, unspecified Status: Acute (3) UTI (urinary tract infection) ICD Code: N39.0 - Urinary tract infection, site not specified Status: Acute (4) Right ureteral calculus ICD Code: N20.1 - Calculus of ureter Status: Acute Assessment and Plan -No additional intervention needed -Rothman catheter may remain in place until urine clears and patient is more ambulatory. Strain pt's urine from the bag in case she will pass a stone -Continue care as per primary team. Follow ID and other consulting doctors recommendations -Pt to follow up as outpt for further stent and stone management -Urology Will continue to follow Problem Qualifiers (1) Fever: Qualified Codes: R50.9 - Fever, unspecified (2) UTI (urinary tract infection): Qualified Codes: N39.0 - Urinary tract infection, site not specified Иван Melton Sep 02, 2017 15:58
--- NOTE | 2017-09-02 16:29 | HHI.CCPN ---
Subjective Remarks/Hospital Course 72-year-old female. Date of admission 08/30/2017. Past medical history includes hypertension, glaucoma, hard of hearing, asthma, diabetes mellitus. Patient has no history of frequent urinary tract infections. Patient presents to [facility] with acute onset of diffuse abdominal pain service with nausea and vomiting. Patient was rated 10 out of 10 involving right upper and lower quadrants and bilateral flanks. Patient had eaten boiled peanuts ever sitting out and she attributed the symptoms to possible food poisoning. She took acetaminophen at home which that relieved her symptoms. She arrived at the emergency room for further evaluation treatment. Initially, patient was refusing CT abdomen as she thought this is from food poisoning. Later, CT abdomen/pelvis revealed a 4 mm obstructing stone at the right UVJ junction with associated right hydronephrosis. Blood cultures and urine culture sent the patient received 2 g of cefepime. Lactate elevated at 5.6. White blood cell count was within normal limits. Patient did have a creatinine 1.3. Glucose of 259. Patient received 4 L normal saline but her blood pressures continue to slowly drop. Subjective: 08/31: T-max 99.7. The patient underwent ureteral stent placement yesterday . Winslow draining dark dino urine. Blood cultures reveal E. coli bacteremia, as well as urine cultures revealed E. coli.. Lactic acid downtrending. Patient continues on Unasyn, cefepime and vancomycin. Troponin was noted to be significantly elevated at 4.69. Hemoccult obtained. Patient given aspirin 1 dose. Unable to initiate beta lurdes secondary to hypotension and Levophed was discontinued early this a.m. patient continues on phenylephrine infusion at this time. 09/01: Afebrile. Patient unable to have heparin initiated last evening secondary to Hemoccult positive, melena. Patient did receive aspirin and atorvastatin yesterday. Noted elevation in liver enzymes this a.m. statins placed on hold. Aspirin now on hold. GI has been called consulted. Serial hemoglobin and hematocrit continue every 12 hours. Patient troponin is now noted to be trending down norepinephrine and phenylephrine infusions discontinued last night. Plan for physical therapy and occupational therapy as well as continue supplemental nutritional shakes Glucerna .Follow-up on GI recommendations. 09/02: Afebrile . Patient denies any chest discomfort . Beta-blockers initiated today , hemodynamically stable . Patient tolerating p.o. intake. Objective Vital Signs Date Time Temp Pulse Resp B/P (MAP) Pulse Ox O2 Delivery O2 Flow Rate FiO2 09/02/17 14:00 73 09/02/17 12:00 97.7 19 144/64 (90) 97 09/02/17 09:30 21 08/31/17 08:50 Nasal Cannula 2.00 Intake and Output 09/02/17 09/02/17 09/02/17 07:59 15:59 23:59 Intake Total 2260 ml Output Total 900 ml Balance 1360 ml Result Diagram: 09/02/17 0539 09/02/17 0929 Other Results Microbiology Date/Time Source Procedure Growth Status 08/31/17 15:20 Stool Stool Stool Occult Blood (NIXON) - Final HEMOCCULT POSITIVE Complete Imaging Last Impressions Chest X-Ray 08/30/17 1653 Signed Impressions: Service Date/Time: Wednesday, August 30, 2017 16:55 - CONCLUSION: Patchy bilateral atelectasis. Right IJ central venous catheter with tip at the atriocaval junction. No pneumothorax or other acute complication. Ben Agarwal MD Abdomen/Pelvis CT 08/30/17 0000 Signed Impressions: Service Date/Time: Wednesday, August 30, 2017 12:19 - CONCLUSION: 3-4 mm stone at the right ureterovesical junction with moderate right hydronephrosis. Possible forniceal rupture. Ben Esquivel MD Abdomen X-Ray 08/30/17 0000 Signed Impressions: Service Date/Time: Wednesday, August 30, 2017 21:08 - CONCLUSION: Right ureteral stent. Proximal portion of the stent appears appropriately positioned. Ben Agarwal MD Last Impressions Abdomen/Pelvis CT 08/30/17 0000 Signed Impressions: Service Date/Time: Wednesday, August 30, 2017 12:19 - CONCLUSION: 3-4 mm stone at the right ureterovesical junction with moderate right hydronephrosis. Possible forniceal rupture. Ben Esquivel MD Objective Remarks GENERAL: 72-year-old female lying in bed, in no apparent distress SKIN: Warm and dry. HEAD: Atraumatic. Normocephalic. EYES: Pupils equal and round 3 mm bilaterally and react. No scleral icterus. No injection or drainage. ENT: No nasal bleeding or discharge. Mucous membranes pink and moist. NECK: Trachea midline. No JVD. CARDIOVASCULAR: RRR. S1, S2 predose without murmur RESPIRATORY: No accessory muscle use. Clear to auscultation. Breath sounds equal bilaterally. GASTROINTESTINAL: Abdomen soft, and palpation right upper quadrant and right flank. No guarding. No rebound. Fecal incontinence device in place diarrhea MUSCULOSKELETAL: Extremities 1+ peripheral edema. No obvious deformities. NEUROLOGICAL: GCS 15 .awake and alert. No obvious cranial nerve deficits. Motor grossly within normal limits. 5/5 muscle strength in the arms and legs. Normal speech. Date of Insertion: Aug 30, 2017 A/P Assessment and Plan Neuro/Psych: Acute encephalopathy likely toxic metabolic-resolved Acetaminophen 650 mg p.o. every 6 hours as needed fever Hydrocodone/acetaminophen 5/325 tablet every 4 hours as needed pain 1 through 5 Morphine sulfate 2 mg IV every 4 hours as needed pain 6 or 10 CV: Sinus tachycardia-resolved Lactic acidosis-resolved Hypertension Severe sepsis-resolved Elevated troponin levels-resolved 08/30 Status post 4 L normal saline bolus in ED. Levophed discontinued 08/31, Phenyephrine 40mcgs Lactate cleared Carvedilol initiated Troponins downtrend 08/22 2D echo-EF 25- 30% Cardiology following Resp: History of mild intermittent asthma Nasal cannula to maintain saturations greater than equal to 92% Incentive spirometry while awake Albuterol/ipratropium aerosols every 6 hours with albuterol aerosols every 2 hours as needed dyspnea Patient is on albuterol 18 mg 1 puff every 4-6 hours as needed dyspnea at home GI: Nausea/vomiting Left adrenal adenoma 2 mm Distal colonic diverticulosis Hypoalbuminemia CT abdomen/pelvis revealed a right-sided hydronephrosis with 3-4 mm stone at the right UVJ junction. Left adrenal adenoma 2 mm in size. Distal colonic diverticulosis Heart healthy diet as tolerated Ondansetron 4 mg IV every 6 hours as needed nausea Pantoprazole 40 mg IV daily GI prophylaxis Continue sodium/senna 1 tablet twice daily bowel regimen-hold for diarrhea : Winslow catheter for I's and O's in a critically ill patient Endo: Diabetes mellitus type 2 with hyperglycemia Holding metformin 1000 mg twice daily and glimepiride 4 mg p.o. twice daily Sliding scale insulin Accu-Cheks every 4 hours to maintain euglycemia Novolog every 4 hours medium protocol Renal: Acute kidney injury Right hydronephrosis with 4 mm stone at the right UVJ junction Urology/Dr. Perdue consulted for possible stent placement today Maintain Winslow Monitor urine output Accurate I's and O's Repeat BMP Urine electrolytes and eosinophils ordered Heme: Leukocytosis Continue to monitor CBC ID: Severe sepsis secondary to urinary tract infection/infected stone? Leukocytosis 08/30 Received 1 dose of cefepime in ED 2 g. Cefepime and ampicillin/sulbactam 3 g IV every 6 hours. Vancomycin discontinued. C. difficile ordered ID following Blood cultures 2- EColi Urine Culture- EColi MSK: PT evaluate and treat FEN: Hypokalemia Hypophosphatemia Replace electrolytes as clinically indicated Access -Utilize peripheral IV. Discontinue central line Prophylaxis -GI -pantoprazole -DVT -SCDs Level 2 follow-up [facility] transfer to [facility] floor when bed becomes available Discussed with patient family and CAR SANDER at bedside (Bri). All questions answered. Physician Narda Rand MD Sep 02, 2017 16:29
[2017-09-02] MEDS ORDERED: VANCOMYCIN TROUGH ONE (17:45)
[2017-09-02 19:27] LABS: ALKALINE PHOSPHATASE 173 U/L (45-117); ALT (GPT) 177 U/L (10-53); AST (GOT) 60 U/L (15-37); BICARBONATE 18.4 MEQ/L (21.0-32.0); BLOOD UREA NITROGEN 23 MG/DL (7-18); CALCIUM 7.2 MG/DL (8.5-10.1); CHLORIDE 115 MEQ/L (98-107); CREATININE 0.78 MG/DL (0.50-1.00); GLOMERULAR FILTRATION RATE 73 ML/MIN (>89); GLUCOSE,RANDOM 233 MG/DL (74-106); PHOSPHORUS 1.2 MG/DL (2.5-4.9); SODIUM (NA) 143 MEQ/L (136-145); TOTAL BILIRUBIN ADULT 0.5 MG/DL (0.2-1.0); TOTAL PROTEIN 5.6 GM/DL (6.4-8.2); VANCOMYCIN TROUGH LESS THAN 0.8 MCG/ML (5.0-10.0)
[2017-09-02] MEDS: LATANOPROST 0.005% OPHT SOLN 2.5 ML BTL EACH EYE SCH (20:36)
[2017-09-02 21:50] LABS: HEMATOCRIT 30.2 % (35.0-46.0); HEMOGLOBIN 10.1 GM/DL (11.6-15.3)
[2017-09-02] MEDS: RESP: ALBUTEROL 2.5 MG/IPRATROPIUM 0.5 MG NEB (PRN) NEB (23:57)
[2017-09-03] VITALS (12 sets, daily range): BP systolic 115–144; BP diastolic 58–88; PULSE 58–73; RESP 14–20; TEMP 97.3–98; O2SAT 94–97
[2017-09-03] MEDS: INSULIN ASPART SUPPLEMENTAL SCALE SQ SCH ×7 (00:07→23:30)
[2017-09-03] MEDS: CEFEPIME INJ 2,000 MG in SODIUM CHLORIDE 0.9% INJ 100 ML IV SCH (03:25)
[2017-09-03] MEDS: HYDROCORTISONE SOD SUCCINATE 100 MG VIAL IV PUSH SCH ×3 (03:25→21:53)
[2017-09-03] MEDS: CHLORHEXIDINE GLUCONATE 2 % 1 PACK (2 CLOTHS) TOP SCH (03:34)
[2017-09-03] MEDS: SODIUM CHLOR 0.9% 1000 ML INJ 1,000 ML IV SCH ×2 (05:27→23:30)
--- NOTE | 2017-09-03 07:13 | RADRPT ---
EXAM DATE/TIME: 09/03/2017 06:18 [place] COMPARISON: CHEST SINGLE AP, August 30, 2017, 16:55. INDICATIONS : Infiltrates. MEDICAL HISTORY : Cardiovascular disease. Diabetes mellitus type II. Asthma. SURGICAL HISTORY : Oopherectomy. Right breast. ENCOUNTER: Subsequent ACUITY: 4 - 6 days PAIN SCORE: 0/10 LOCATION: Bilateral chest FINDINGS: There is been removal of the right-sided central line. There is bilateral basilar airspace consolidat ion, right greater than left. The right hemidiaphragm is obscured. Heart size appears minimally enlar ged possibly secondary to portable technique. Pulmonary vasculature is normal in caliber. CONCLUSION: Bilateral basilar consolidation, right greater than left. Patricia Christianson MD on September 03, 2017 at 7:10 Board Certified Radiologist. This report was verified electronically.
[2017-09-03] MEDS: SODIUM CHLORIDE 0.9% FLUSH 10 ML FLUSH IV FLUSH SCH ×3 (07:50→21:00)
[2017-09-03] MEDS: PANTOPRAZOLE SODIUM 40 MG VIAL IV PUSH SCH (07:58)
[2017-09-03] MEDS: CARVEDILOL 3.125 MG TAB PO SCH ×2 (07:58→21:51)
[2017-09-03] MEDS: DOCUSATE SODIUM 50 MG/SENNA 8.6 MG TAB PO SCH ×3 (07:58→21:51)
--- NOTE | 2017-09-03 10:20 | HHI.IDPN ---
Subjective Subjective Remarks Patient is a 72-year-old female, admitted to the hospital with acute onset of severe abdominal pain, and nausea and vomiting. Initially thought that she had food poisoning because she had eaten boiled peanuts. In the ED she had a fever up to 103, and was hypotensive. CT of the abdomen and pelvis showed a stone obstructing the right UVJ junction with associated right hydronephrosis. Her initial WBC was normal but it went up. Urology saw the patient, and she underwent cystoscopy and placement of a stent. Her hemodynamics improved. Her WBC remained elevated. Her temperature is better. Blood culture on admission is growing E. coli. Urine culture has E. coli. Patient currently still feels blah. Abdominal pain is still present but a little better. Her WBC remains elevated. Her creatinine is also elevated. She has good urine output. Nausea and vomiting has improved. Infectious disease consultation has been requested to evaluate the patient. Notes reviewed D/W RN Temps ok BP good Patient feels better On RA Denies SOB Very weak C/O unable to tell if she has BM - pasty Labs pending Repeat UC negative BC negative Antibiotics Cefepime Current Medications Medications (Trade) Dose Ordered Sig/Rowan Route Start Time Stop Time Status Last Admin (Xalatan 0.005% Opth Soln) 1 drop HS EACH EYE 08/30/17 21:00 (D50w (Vial) Inj) 50 ml UNSCH PRN IV PUSH 08/30/17 15:45 (Glucagon Inj) 1 mg UNSCH PRN OTHER 08/30/17 15:45 (NovoLOG SUPPLEMENTAL SCALE) 1 Q4HR SQ 08/30/17 16:00 09/03/17 07:59 Sodium Chloride 1,000 ml @ 75 mls/hr [id number] IV 08/30/17 15:32 09/03/17 05:27 (NS Flush) 2 ml UNSCH PRN IV FLUSH 08/30/17 15:45 (NS Flush) 2 ml BID IV FLUSH 08/30/17 21:00 09/03/17 07:50 (Tylenol) 650 mg Q6H PRN PO 08/30/17 15:45 ([place] 5-325 Mg) 1 tab Q4H PRN PO 08/30/17 15:45 08/31/17 13:47 (Protonix Inj) 40 mg DAILY IV PUSH 08/31/17 09:00 09/03/17 07:58 (Zofran Inj) 4 mg Q6H PRN IV PUSH 08/30/17 15:45 08/31/17 13:46 (Albuterol Neb) 2.5 mg Q2HR NEB PRN INH 08/30/17 15:45 Miscellaneous Information 1 Q361D XX 08/30/17 15:45 (Chlorhexidine 2% Cloth) 3 pack Taper DAILY@04 TOP 08/31/17 04:00 08/27/18 03:59 09/02/17 04:00 (Chlorhexidine 2% Cloth) 3 pack UNSCH PRN TOP 08/30/17 15:45 (Cate-Colace) 1 tab BID PO 08/30/17 21:00 09/03/17 07:58 (Milk Of Magnesia Liq) 30 ml Q12H PRN PO 08/30/17 15:45 (Senokot) 17.2 mg Q12H PRN PO 08/30/17 15:45 (Dulcolax Supp) 10 mg DAILY PRN RECTAL 08/30/17 15:45 (Lactulose Liq) 30 ml DAILY PRN PO 08/30/17 15:45 (Morphine Inj) 2 mg Q2H PRN IV PUSH 08/30/17 16:00 (NS Flush) DAILY IV FLUSH 08/30/17 17:00 09/02/17 08:46 (NS Flush) UNSCH PRN IV FLUSH 08/30/17 17:00 (Brethine Inj) 1 mg UNSCH PRN SQ 08/30/17 18:45 (SoluCORTEF INJ) 100 mg Q8H IV PUSH 08/30/17 20:00 09/03/17 03:25 (Heparin Inj) 5,000 units UNSCH PRN IV PUSH 08/31/17 21:45 Future Hold (Heparin Inj) 2,500 units UNSCH PRN IV PUSH 08/31/17 21:45 Future Hold Heparin Sodium/ Dextrose 250 ml @ 8 mls/hr TITRATE PRN IV 08/31/17 16:15 Future Hold (Lipitor) 40 mg HS PO 08/31/17 21:00 Future Hold 08/31/17 20:50 (Duoneb Neb) 1 ampule Q6HR NEB PRN NEB 09/01/17 17:30 09/02/17 23:57 (Coreg) 3.125 mg Q12HR PO 09/02/17 12:00 09/03/17 07:58 Ceftriaxone Sodium 2000 mg/ Sodium Chloride 100 ml @ 200 mls/hr Q24H IV 09/03/17 10:00 Lines PIV - Line with no evidence of infection Past Medical History Hard of hearing Glaucoma Hypertension Nausea/vomiting Diabetes mellitus Past Surgical History Oophorectomy Hysterectomy 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 Vital Signs Date Time Temp Pulse Resp B/P (MAP) Pulse Ox O2 Delivery O2 Flow Rate FiO2 09/03/17 04:07 62 09/03/17 04:00 97.6 63 20 115/88 (97) 96 09/03/17 00:00 69 09/03/17 00:00 98.0 70 20 127/62 (83) 94 09/02/17 22:00 97.8 68 18 135/75 (95) 96 09/02/17 20:00 67 09/02/17 20:00 98.2 67 27 132/63 (86) 97 09/02/17 19:02 97 21 09/02/17 18:00 65 09/02/17 16:00 98.0 68 24 138/68 (91) 97 09/02/17 16:00 68 09/02/17 14:00 73 09/02/17 12:00 97.7 69 19 144/64 (90) 97 09/02/17 12:00 69 . Laboratory Tests Test 09/01/17 19:30 09/02/17 05:39 09/02/17 20:29 Hemoglobin 9.1 GM/DL 9.3 GM/DL 10.1 GM/DL Hematocrit 26.9 % 28.0 % 30.2 % White Blood Count 21.0 TH/MM3 Red Blood Count 3.17 MIL/MM3 Mean Corpuscular Volume 88.5 FL Mean Corpuscular Hemoglobin 29.3 PG Mean Corpuscular Hemoglobin Concent 33.1 % Red Cell Distribution Width 13.9 % Platelet Count 74 TH/MM3 Mean Platelet Volume 10.8 FL CBC Comment AUTO DIFF Differential Total Cells Counted 100 Neutrophils % (Manual) 92 % Band Neutrophils % 5 % Lymphocytes % 2 % Monocytes % 1 % Neutrophils # (Manual) 20.4 TH/MM3 Differential Comment FINAL DIFF MANUAL Toxic Granulation 1+ Dohle Bodies PRESENT Platelet Estimate LOW Platelet Morphology Comment NORMAL Laboratory Tests Test 09/01/17 13:57 09/01/17 19:30 09/02/17 09:29 09/02/17 17:45 Lactic Acid Level 2.1 mmol/L Potassium Level 3.2 MEQ/L 3.5 MEQ/L 4.5 MEQ/L Phosphorus Level 1.2 MG/DL 1.6 MG/DL 1.2 MG/DL Magnesium Level 1.9 MG/DL Blood Urea Nitrogen 23 MG/DL Creatinine 0.78 MG/DL Random Glucose 233 MG/DL Total Protein 5.6 GM/DL Albumin 2.0 GM/DL Calcium Level 7.2 MG/DL Alkaline Phosphatase 173 U/L Aspartate Amino Transf (AST/SGOT) 60 U/L Alanine Aminotransferase (ALT/SGPT) 177 U/L Total Bilirubin 0.5 MG/DL Sodium Level 143 MEQ/L Chloride Level 115 MEQ/L Carbon Dioxide Level 18.4 MEQ/L Anion Gap 10 MEQ/L Estimat Glomerular Filtration Rate 73 ML/MIN Protein Corrected Calcium 8.0 MG/DL Microbiology Date/Time Source Procedure Growth Status 09/01/17 11:05 Blood Peripheral Aerobic Blood Culture - Preliminary NO GROWTH IN 1 DAY Resulted 09/01/17 11:05 Blood Peripheral Anaerobic Blood Culture - Preliminary NO GROWTH IN 1 DAY Resulted 09/01/17 11:00 Blood Peripheral Aerobic Blood Culture - Preliminary NO GROWTH IN 1 DAY Resulted 09/01/17 11:00 Blood Peripheral Anaerobic Blood Culture - Preliminary NO GROWTH IN 1 DAY Resulted 08/31/17 15:20 Stool Stool Stool Occult Blood (NIXON) - Final HEMOCCULT POSITIVE Complete 09/01/17 09:40 Urine Catheterized Urine Urine Culture - Final NO GROWTH IN 48 HOURS. Complete Imaging Last Impressions Chest X-Ray 08/30/17 1653 Signed Impressions: Service Date/Time: Wednesday, August 30, 2017 16:55 - CONCLUSION: Patchy bilateral atelectasis. Right IJ central venous catheter with tip at the atriocaval junction. No pneumothorax or other acute complication. Ben Agarwal MD Abdomen/Pelvis CT 08/30/17 0000 Signed Impressions: Service Date/Time: Wednesday, August 30, 2017 12:19 - CONCLUSION: 3-4 mm stone at the right ureterovesical junction with moderate right hydronephrosis. Possible forniceal rupture. Ben Esquivel MD Abdomen X-Ray 08/30/17 0000 Signed Impressions: Service Date/Time: Wednesday, August 30, 2017 21:08 - CONCLUSION: Right ureteral stent. Proximal portion of the stent appears appropriately positioned. Ben Agarwal MD Physical Exam GENERAL: awake and alert, not in respiratory distress. SKIN: Warm and dry. No generalized rash, no ecchymoses and no evidence of embolic lesions. Skin looks sallow HEAD: Atraumatic. Normocephalic. No temporal wasting, or tenderness. EYES: Pale conjunctiva. No petechia or hemorrhage. Pupils equal, round and reactive to light. Extraocular movements full and intact. No scleral icterus. No injection or drainage. EARS, NOSE AND THROAT: Nose without bleeding or purulent nasal discharge. No sinus tenderness. Mucous membranes pink and moist. No oral lesions noted. No exudate. No oral thrush. NECK: Trachea midline. Supple and not tender, no meningeal signs CARDIOVASCULAR: Regular rate and rhythm. No murmurs, rubs or gallops heard RESPIRATORY: Clear to auscultation. Breath sounds equal bilaterally. No rales , wheezing or rhonchi ABDOMEN: Soft, nondistended, bowel sounds present and normoactive. Min abdominal tenderness diffusely, no guarding and no rebound. No organomegaly. EXTREMITIES: No clubbing, cyanosis, or edema. No joint effusion, has good ROM. No calf tenderness. Well perfused and warm. NEUROLOGICAL: Non-focal. PSYCHIATRIC: Normal affect, calm and cooperative. LINE: No evidence of infection : Winslow in place, clear urine Assessment & Plan Remarks IMPRESSION E coli sepsis, with shock, due to complicated UTI - BP better, off pressors Complicated pyelonephritis, E coli, with obstructing stone R, S/P placement of stent Leukocytosis, due to UTI and reactive post cysto and stent placement Renal insufficiency, due to sepsis and shock - resolved Heme occult (+) stool RECOMMENDATION Change Cefepime to Rocephin Follow CBC Follow C/S Monitor progress Discussed plan with patient and daughter Yadira Bradshaw MD Sep 03, 2017 10:20
[2017-09-03] MEDS: RESP: ALBUTEROL 2.5 MG/IPRATROPIUM 0.5 MG NEB (PRN) NEB (11:34)
[2017-09-03] MEDS: cefTRIAXone INJ 2,000 MG in SODIUM CHLORIDE 0.9% INJ 100 ML IV SCH (12:55)
[2017-09-03 14:07] LABS: HEMATOCRIT 32.2 % (35.0-46.0); HEMOGLOBIN 10.7 GM/DL (11.6-15.3); MEAN CELL VOLUME 88.9 FL (80.0-100.0); MEAN CORPUSCULAR HEMOGLOBIN 29.4 PG (27.0-34.0); PLATELET COUNT 78 TH/MM3 (150-450); RED BLOOD COUNT 3.63 MIL/MM3 (4.00-5.30); WHITE BLOOD COUNT 22.3 TH/MM3 (4.0-11.0)
--- NOTE | 2017-09-03 14:09 | HHI.GIFU ---
Subjective Remarks Pt resting in bed. Still does not want EGD and colonoscopy. (Kassie Amador) Objective Vitals I&O Vital Signs Date Time Temp Pulse Resp B/P (MAP) Pulse Ox O2 Delivery O2 Flow Rate FiO2 09/03/17 08:50 97 21 09/03/17 08:18 97.3 72 17 129/60 (83) 96 09/03/17 04:07 62 09/03/17 04:00 97.6 63 20 115/88 (97) 96 09/03/17 00:00 69 09/03/17 00:00 98.0 70 20 127/62 (83) 94 09/02/17 22:00 97.8 68 18 135/75 (95) 96 09/02/17 20:00 67 09/02/17 20:00 98.2 67 27 132/63 (86) 97 09/02/17 19:02 97 21 09/02/17 18:00 65 09/02/17 16:00 98.0 68 24 138/68 (91) 97 09/02/17 16:00 68 I/O 09/02/17 09/02/17 09/02/17 09/03/17 09/03/17 09/03/17 07:00 15:00 23:00 07:00 15:00 23:00 Intake Total 2260 ml 200 ml 1960 ml 1320 ml Output Total 900 ml 650 ml 450 ml Balance 1360 ml 200 ml 1310 ml 870 ml Intake Oral 800 ml 960 ml 220 ml IV Total 1460 ml 200 ml 1000 ml 1100 ml Output Urine Total 750 ml 650 ml 450 ml Stool Total 150 ml # Bowel Movements 3 1 Laboratory Laboratory Tests Test 09/02/17 17:45 09/02/17 20:29 09/03/17 12:44 Blood Urea Nitrogen 23 Creatinine 0.78 Random Glucose 233 Total Protein 5.6 Albumin 2.0 Calcium Level 7.2 Phosphorus Level 1.2 Alkaline Phosphatase 173 Aspartate Amino Transf (AST/SGOT) 60 Alanine Aminotransferase (ALT/SGPT) 177 Total Bilirubin 0.5 Sodium Level 143 Potassium Level 4.5 Chloride Level 115 Carbon Dioxide Level 18.4 Anion Gap 10 Estimat Glomerular Filtration Rate 73 Protein Corrected Calcium 8.0 Vancomycin Level Trough LESS THAN 0.8 Hemoglobin 10.1 Hematocrit 30.2 Date/Time Source Procedure Growth Status 09/01/17 11:05 Blood Peripheral Aerobic Blood Culture - Preliminary NO GROWTH IN 2 DAYS Resulted 09/01/17 11:05 Blood Peripheral Anaerobic Blood Culture - Preliminary NO GROWTH IN 2 DAYS Resulted 08/31/17 15:20 Stool Stool Stool Occult Blood (NIXON) - Final HEMOCCULT POSITIVE Complete 09/01/17 09:40 Urine Catheterized Urine Urine Culture - Final NO GROWTH IN 48 HOURS. Complete Imaging Last Impressions Chest X-Ray 09/03/17 0000 Signed Impressions: Service Date/Time: Sunday, September 03, 2017 06:18 - CONCLUSION: Bilateral basilar consolidation, right greater than left. Patricia Christianson MD Abdomen/Pelvis CT 08/30/17 0000 Signed Impressions: Service Date/Time: Wednesday, August 30, 2017 12:19 - CONCLUSION: 3-4 mm stone at the right ureterovesical junction with moderate right hydronephrosis. Possible forniceal rupture. Ben Esquivel MD Abdomen X-Ray 08/30/17 0000 Signed Impressions: Service Date/Time: Wednesday, August 30, 2017 21:08 - CONCLUSION: Right ureteral stent. Proximal portion of the stent appears appropriately positioned. Ben Agarwal MD Physical Exam HEENT: PERRL; normocephalic; atraumatic; no jaundice. CHEST: CTA CARDIAC: RRR ABDOMEN: Soft, obese, nontender; no hepatosplenomegaly; bowel sounds are present in all four quadrants. EXTREMITIES: No clubbing, cyanosis, or edema. SKIN: Normal; no rash; no jaundice. HOPPER OPERATOR: No focal deficits; alert and oriented times three. (Kassie Amador [facility]) Assessment and Plan Plan Assessment: - Anemia with Hemoccult positive stool- Normocytic- H/H has trended down some since admission, currently 9.328. Pt denies history of GIB, ETOH, NSAIDs, not on blood thinners. Has never had EGD or colonoscopy. - Liquid stool in Flexiseal. C diff negative. - Elevated LFTs- WNL on admission, likely elevated secondary to shock liver, pt hypotensive on arrival requiring pressors, now BM stabilized with no pressors. Denies history of liver issues. CT abdomen (liver) Homogeneous density without lesion. There is no dilation of the biliary tree. No calcified gallstones. - Elevated troponin- cardiology following- anticoagulation on hold due to anemia and Hemoccult positive stool - Sepsis, bacteremia- blood cultures positive for E. Coli. ID following. Cefepime - Hydronephrosis secondary to 3-4 mm stone at the right ureterovesical junction Possible forniceal rupture. S/P cystoscopy with right ureteral stent. Winslow catheter with good output Discussed with pt GI procedures including EGD and colonoscopy to further evaluate GI bleeding as source for anemia. Pt states she is too weak at this time and just sat up for the first time today and would like to hold off on procedures. I discussed with her that cardiology is holding on anticoagulation due to above and she is aware of this and still does not want to proceed with procedures at this time. She states she will see how she is feeling tomorrow and may reconsider. at bedside for conversation and verbalizes understanding as well. Plan will be to monitor H/H and readdress possibility of procedures tomorrow. 09/03/17 pt still does not want procedures. HH improving. LFTs trending down. no obvious bleeding Plan: Monitor H/H Notify GI of any active bleeding Protonix pt does not want procedures now Monitor LFTs Avoid hepatotoxins f/u with GI after d/c for outpt EGD and colonoscopy GI will sign off. please reconsult if needed Pt has been seen and examined by myself and Dr. Knox and this note is written on her behalf (Kassie Amador) Physician Comments agree with above (Nicky Knox MD) Kassie Amador Sep 03, 2017 14:09 Nicky Knox MD Sep 03, 2017 17:43
[2017-09-03 14:40] LABS: DIRECT BILIRUBIN ADULT 0.1 MG/DL (0.0-0.2)
[2017-09-03 14:42] LABS: INDIRECT BILIRUBIN 0.5 MG/DL (0.0-0.8); TOTAL BILIRUBIN ADULT 0.6 MG/DL (0.2-1.0); TOTAL PROTEIN 5.4 GM/DL (6.4-8.2)
--- NOTE | 2017-09-03 15:03 | PD.CARD.PN ---
Subjective Subjective Remarks No events overnight Feels slightly better today Objective Medications Current Medications Medications (Trade) Dose Ordered Sig/Rowan Route Start Time Stop Time Status Last Admin (Xalatan 0.005% Opth Soln) 1 drop HS EACH EYE 08/30/17 21:00 (D50w (Vial) Inj) 50 ml UNSCH PRN IV PUSH 08/30/17 15:45 (Glucagon Inj) 1 mg UNSCH PRN OTHER 08/30/17 15:45 (NovoLOG SUPPLEMENTAL SCALE) 1 Q4HR SQ 08/30/17 16:00 09/03/17 12:54 Sodium Chloride 1,000 ml @ 75 mls/hr [id number] IV 08/30/17 15:32 09/03/17 05:27 (NS Flush) 2 ml UNSCH PRN IV FLUSH 08/30/17 15:45 (NS Flush) 2 ml BID IV FLUSH 08/30/17 21:00 09/03/17 07:50 (Tylenol) 650 mg Q6H PRN PO 08/30/17 15:45 ([place] 5-325 Mg) 1 tab Q4H PRN PO 08/30/17 15:45 08/31/17 13:47 (Protonix Inj) 40 mg DAILY IV PUSH 08/31/17 09:00 09/03/17 07:58 (Zofran Inj) 4 mg Q6H PRN IV PUSH 08/30/17 15:45 08/31/17 13:46 (Albuterol Neb) 2.5 mg Q2HR NEB PRN INH 08/30/17 15:45 Miscellaneous Information 1 Q361D XX 08/30/17 15:45 (Chlorhexidine 2% Cloth) 3 pack Taper DAILY@04 TOP 08/31/17 04:00 08/27/18 03:59 09/02/17 04:00 (Chlorhexidine 2% Cloth) 3 pack UNSCH PRN TOP 08/30/17 15:45 (Cate-Colace) 1 tab BID PO 08/30/17 21:00 09/03/17 07:58 (Milk Of Magnesia Liq) 30 ml Q12H PRN PO 08/30/17 15:45 (Senokot) 17.2 mg Q12H PRN PO 08/30/17 15:45 (Dulcolax Supp) 10 mg DAILY PRN RECTAL 08/30/17 15:45 (Lactulose Liq) 30 ml DAILY PRN PO 08/30/17 15:45 (Morphine Inj) 2 mg Q2H PRN IV PUSH 08/30/17 16:00 (NS Flush) DAILY IV FLUSH 08/30/17 17:00 09/02/17 08:46 (NS Flush) UNSCH PRN IV FLUSH 08/30/17 17:00 (Brethine Inj) 1 mg UNSCH PRN SQ 08/30/17 18:45 (SoluCORTEF INJ) 100 mg Q8H IV PUSH 08/30/17 20:00 09/03/17 12:55 (Heparin Inj) 5,000 units UNSCH PRN IV PUSH 08/31/17 21:45 Future Hold (Heparin Inj) 2,500 units UNSCH PRN IV PUSH 08/31/17 21:45 Future Hold Heparin Sodium/ Dextrose 250 ml @ 8 mls/hr TITRATE PRN IV 08/31/17 16:15 Future Hold (Lipitor) 40 mg HS PO 08/31/17 21:00 Future Hold 08/31/17 20:50 (Duoneb Neb) 1 ampule Q6HR NEB PRN NEB 09/01/17 17:30 09/03/17 11:34 (Coreg) 3.125 mg Q12HR PO 09/02/17 12:00 09/03/17 07:58 Ceftriaxone Sodium 2000 mg/ Sodium Chloride 100 ml @ 200 mls/hr Q24H IV 09/03/17 10:00 09/03/17 12:55 Vital Signs / I&O Vital Signs Date Time Temp Pulse Resp B/P (MAP) Pulse Ox O2 Delivery O2 Flow Rate FiO2 09/03/17 08:50 97 21 09/03/17 08:18 97.3 72 17 129/60 (83) 96 09/03/17 04:07 62 09/03/17 04:00 97.6 63 20 115/88 (97) 96 09/03/17 00:00 69 09/03/17 00:00 98.0 70 20 127/62 (83) 94 09/02/17 22:00 97.8 68 18 135/75 (95) 96 09/02/17 20:00 67 09/02/17 20:00 98.2 67 27 132/63 (86) 97 09/02/17 19:02 97 21 09/02/17 18:00 65 09/02/17 16:00 98.0 68 24 138/68 (91) 97 09/02/17 16:00 68 I/O 09/02/17 09/02/17 09/02/17 09/03/17 09/03/17 09/03/17 07:00 15:00 23:00 07:00 15:00 23:00 Intake Total 2260 ml 200 ml 1960 ml 1320 ml Output Total 900 ml 650 ml 450 ml Balance 1360 ml 200 ml 1310 ml 870 ml Intake Oral 800 ml 960 ml 220 ml IV Total 1460 ml 200 ml 1000 ml 1100 ml Output Urine Total 750 ml 650 ml 450 ml Stool Total 150 ml # Bowel Movements 3 1 Physical Exam GENERAL: NAD, AAOx3 SKIN: Warm and dry. HEAD: Atraumatic. Normocephalic. EYES: Pupils equal and round. No scleral icterus. No injection or drainage. ENT: No nasal bleeding or discharge. Mucous membranes pink and moist. NECK: Trachea midline. No JVD. CARDIOVASCULAR: Regular rate and rhythm. 1/6 holosystolic murmur at the apex RESPIRATORY: No accessory muscle use. Clear to auscultation. Breath sounds equal bilaterally. GASTROINTESTINAL: Abdomen soft, non-tender, nondistended. Hepatic and splenic margins not palpable. MUSCULOSKELETAL: Extremities without clubbing, cyanosis, or edema. No obvious deformities. NEUROLOGICAL: Awake and alert. No obvious cranial nerve deficits. Motor grossly within normal limits. Five out of 5 muscle strength in the arms and legs. Normal speech. PSYCHIATRIC: Appropriate mood and affect; insight and judgment normal. Laboratory Laboratory Tests Test 09/02/17 17:45 09/02/17 20:29 09/03/17 12:44 Blood Urea Nitrogen 23 MG/DL Creatinine 0.78 MG/DL Random Glucose 233 MG/DL Total Protein 5.6 GM/DL 5.4 GM/DL Albumin 2.0 GM/DL 2.0 GM/DL Calcium Level 7.2 MG/DL Phosphorus Level 1.2 MG/DL Alkaline Phosphatase 173 U/L 168 U/L Aspartate Amino Transf (AST/SGOT) 60 U/L 39 U/L Alanine Aminotransferase (ALT/SGPT) 177 U/L 140 U/L Total Bilirubin 0.5 MG/DL 0.6 MG/DL Sodium Level 143 MEQ/L Potassium Level 4.5 MEQ/L Chloride Level 115 MEQ/L Carbon Dioxide Level 18.4 MEQ/L Anion Gap 10 MEQ/L Estimat Glomerular Filtration Rate 73 ML/MIN Protein Corrected Calcium 8.0 MG/DL Vancomycin Level Trough LESS THAN 0.8 MCG/ML Hemoglobin 10.1 GM/DL 10.7 GM/DL Hematocrit 30.2 % 32.2 % White Blood Count 22.3 TH/MM3 Red Blood Count 3.63 MIL/MM3 Mean Corpuscular Volume 88.9 FL Mean Corpuscular Hemoglobin 29.4 PG Mean Corpuscular Hemoglobin Concent 33.0 % Red Cell Distribution Width 14.0 % Platelet Count 78 TH/MM3 Mean Platelet Volume 12.0 FL Direct Bilirubin 0.1 MG/DL Indirect Bilirubin 0.5 MG/DL Imaging Last 24 hours Impressions Chest X-Ray 09/03/17 0000 Signed Impressions: Service Date/Time: Sunday, September 03, 2017 06:18 - CONCLUSION: Bilateral basilar consolidation, right greater than left. Patricia Christianson MD Assessment and Plan Problem List: (1) NSTEMI (non-ST elevation myocardial infarction) ICD Codes: I21.4 - Non-ST elevation (NSTEMI) myocardial infarction (2) Hydronephrosis due to obstruction of ureter ICD Codes: N13.2 - Hydronephrosis with renal and ureteral calculous obstruction (3) Acute kidney injury ICD Codes: N17.9 - Acute kidney failure, unspecified (4) Diabetes mellitus type 2 in nonobese ICD Codes: E11.9 - Type 2 diabetes mellitus without complications (5) Severe sepsis ICD Codes: A41.9 - Sepsis, unspecified organism; R65.20 - Severe sepsis without septic shock (6) Encephalopathy ICD Codes: G93.40 - Encephalopathy, unspecified (7) Lactic acidosis ICD Codes: E87.2 - Acidosis (8) UTI (urinary tract infection) ICD Codes: N39.0 - Urinary tract infection, site not specified Status: Acute (9) Fever ICD Codes: R50.9 - Fever, unspecified Status: Acute (10) Abdominal pain ICD Codes: R10.9 - Unspecified abdominal pain Status: Acute Assessment and Plan 1) NSTEMI Possible Type 1 vs Type 2 Overall septic shock, LEENA, Lactic acidosis, hypotension Would prefer to have her undergo ischemic evaluation due to elevated troponins But unable to with GI bleed and thrombocytopenia Will plan to continue medical management No statin at this time due to elevated LFTs 2) Septic shock Off vasopressors 3) Hemoccult positive stool Patient feels too weak to do EGD/Cscope, plan to continue medical management 4) Thrombocytopenia 5) Elevated cardiovascular risk for any procedure 6) EF 25-30% by echo Problem Qualifiers (1) UTI (urinary tract infection): Qualified Codes: N39.0 - Urinary tract infection, site not specified (2) Fever: Qualified Codes: R50.9 - Fever, unspecified Gino Delaney DO Sep 03, 2017 15:03
--- NOTE | 2017-09-03 15:24 | HHI.PR ---
Subjective Remarks 72-year-old female. Date of admission 08/30/2017. Past medical history includes hypertension, glaucoma, hard of hearing, asthma, diabetes mellitus. Patient has no history of frequent urinary tract infections. Patient [facility] to [facility] with acute onset of diffuse abdominal pain service with nausea and vomiting. Patient was rated 10 out of 10 involving right upper and lower quadrants and bilateral flanks. Patient had eaten boiled peanuts ever sitting out and she attributed the symptoms to possible food poisoning. She took acetaminophen at home which that relieved her symptoms. She arrived at the emergency room for further evaluation treatment. Initially, patient was refusing CT abdomen as she thought this is from food poisoning. Later, CT abdomen/pelvis revealed a 4 mm obstructing stone at the right UVJ junction with associated right hydronephrosis. Blood cultures and urine culture sent the patient received 2 g of cefepime. Lactate elevated at 5.6. White blood cell count was within normal limits. Patient did have a creatinine 1.3. Glucose of 259. Patient received 4 L normal saline but her blood pressures continue to slowly drop. Patient with E.coli Bacteremia, elevated troponin, She required pressors. Also had melena in the ICU. 09/03/17: Patient reports feeling much better. Appetite better. No pain. Objective Vitals Vital Signs Date Time Temp Pulse Resp B/P (MAP) Pulse Ox O2 Delivery O2 Flow Rate FiO2 09/03/17 08:50 97 21 09/03/17 08:18 97.3 72 17 129/60 (83) 96 09/03/17 04:07 62 09/03/17 04:00 97.6 63 20 115/88 (97) 96 09/03/17 00:00 69 09/03/17 00:00 98.0 70 20 127/62 (83) 94 09/02/17 22:00 97.8 68 18 135/75 (95) 96 09/02/17 20:00 67 09/02/17 20:00 98.2 67 27 132/63 (86) 97 09/02/17 19:02 97 21 09/02/17 18:00 65 09/02/17 16:00 98.0 68 24 138/68 (91) 97 09/02/17 16:00 68 I/O 09/02/17 09/02/17 09/02/17 09/03/17 09/03/17 4/18/18 06:59 14:59 22:59 06:59 14:59 22:59 Intake Total 2260 ml 200 ml 1960 ml 1320 ml Output Total 900 ml 650 ml 450 ml Balance 1360 ml 200 ml 1310 ml 870 ml Intake Oral 800 ml 960 ml 220 ml IV Total 1460 ml 200 ml 1000 ml 1100 ml Output Urine Total 750 ml 650 ml 450 ml Stool Total 150 ml # Bowel Movements 3 1 Result Diagram: 09/03/17 1244 09/02/17 1745 Objective Remarks GENERAL: Elderly and frail female. CARDIOVASCULAR: Regular rate and rhythm. RESPIRATORY: No accessory muscle use. Clear to auscultation. Breath sounds equal bilaterally. GASTROINTESTINAL: Abdomen soft, non-tender, nondistended. Hepatic and splenic margins not palpable. MUSCULOSKELETAL: Extremities without clubbing, cyanosis, or edema. No obvious deformities. NEUROLOGICAL: Awake and alert. No obvious cranial nerve deficits. Motor grossly within normal limits. Generalized weakness. Normal speech. PSYCHIATRIC: Appropriate mood and affect; insight and judgment normal. Date of Insertion: Aug 30, 2017 A/P Problem List: (1) Encephalopathy ICD Code: G93.40 - Encephalopathy, unspecified (2) Pyrexia ICD Code: R50.9 - Fever, unspecified (3) [place]eminy ICD Code: I49.9 - Cardiac arrhythmia, unspecified (4) Hard of hearing ICD Code: H91.90 - Unspecified hearing loss, unspecified ear (5) Hypertension ICD Code: I10 - Essential (primary) hypertension (6) Hyperglycemia ICD Code: R73.9 - Hyperglycemia, unspecified (7) Diabetes mellitus type 2 in nonobese ICD Code: E11.9 - Type 2 diabetes mellitus without complications (8) Asthma ICD Code: J45.909 - Unspecified asthma, uncomplicated (9) Glaucoma ICD Code: H40.9 - Unspecified glaucoma (10) Lactic acidosis ICD Code: E87.2 - Acidosis (11) Acute kidney injury ICD Code: N17.9 - Acute kidney failure, unspecified (12) Hypokalemia ICD Code: E87.6 - Hypokalemia (13) Hydronephrosis due to obstruction of ureter ICD Code: N13.2 - Hydronephrosis with renal and ureteral calculous obstruction (14) Sinus tachycardia ICD Code: R00.0 - Tachycardia, unspecified (15) Severe sepsis ICD Code: A41.9 - Sepsis, unspecified organism; R65.20 - Severe sepsis without septic shock (16) Right ureteral calculus ICD Code: N20.1 - Calculus of ureter Status: Acute Assessment and Plan 72 Y/O female with E. Coli sepsis with shock, infected stone. Patient also with NSTEMI, Melena. S/P ICU course. Severe Ecoli sepsis with shock secondary to urinary tract infection/infected stone? Leukocytosis ID following. On Rocephin S/P pressors. Improving Acute kidney injury Right hydronephrosis with 4 mm stone at the right UVJ junction Urology/Dr. Perdue following. S/P stent placement Maintain Wins[place] Monitor urine output Accurate I's and O's Follow BMP NSTEMI Possible Type 1 vs Type 2 Overall septic shock, LEENA, Lactic acidosis, hypotension Cardiology following and consider ischemic evaluation due to elevated troponins But unable to with GI bleed and thrombocytopenia Medical management advised. No statin at this time due to elevated LFTs Cardiomyopathy: EF 25-30% by echo Cardiology following History of mild intermittent asthma Nasal cannula to maintain saturations greater than equal to 92% Incentive spirometry while awake Albuterol/ipratropium aerosols every 6 hours with albuterol aerosols every 2 hours as needed dyspnea Patient is on albuterol 18 mg 1 puff every 4-6 hours as needed dyspnea at home Diabetes mellitus type 2 with hyperglycemia Holding metformin 1000 mg twice daily and glimepiride 4 mg p.o. twice daily Sliding scale insulin Accu-Cheks every 4 hours to maintain euglycemia Novolog every 4 hours medium protocol Hypokalemia Hypophosphatemia Replace electrolytes as clinically indicated Access -Utilize peripheral IV. Prophylaxis -GI -pantoprazole -DVT -SCDs Discharge Planning May need rehab. PT to eval. Problem Qualifiers (1) Pyrexia: Qualified Codes: R50.9 - Fever, unspecified (2) Hard of hearing: Qualified Codes: H91.90 - Unspecified hearing loss, unspecified ear (3) Hypertension: Qualified Codes: I10 - Essential (primary) hypertension (4) Asthma: Qualified Codes: J45.20 - Mild intermittent asthma, uncomplicated (5) Glaucoma: Qualified Codes: H40.9 - Unspecified glaucoma Anthony Cuevas MD Sep 03, 2017 15:24
[2017-09-03] MEDS: LATANOPROST 0.005% OPHT SOLN 2.5 ML BTL EACH EYE SCH (21:00)
[2017-09-04] VITALS (12 sets, daily range): BP systolic 113–150; BP diastolic 56–76; PULSE 60–82; RESP 16–20; TEMP 97.1–98.1; O2SAT 93–96
[2017-09-04] MEDS: CHLORHEXIDINE GLUCONATE 2 % 1 PACK (2 CLOTHS) TOP SCH (04:00)
[2017-09-04] MEDS: INSULIN ASPART SUPPLEMENTAL SCALE SQ SCH ×5 (05:26→20:00)
[2017-09-04] MEDS: HYDROCORTISONE SOD SUCCINATE 100 MG VIAL IV PUSH SCH ×2 (05:27→21:14)
[2017-09-04] MEDS: SODIUM CHLORIDE 0.9% FLUSH 10 ML FLUSH IV FLUSH SCH ×3 (09:00→21:00)
[2017-09-04] MEDS: DOCUSATE SODIUM 50 MG/SENNA 8.6 MG TAB PO SCH ×2 (09:00→21:00)
[2017-09-04] MEDS: CARVEDILOL 3.125 MG TAB PO SCH ×2 (09:20→21:13)
[2017-09-04] MEDS: PANTOPRAZOLE SODIUM 40 MG VIAL IV PUSH SCH (09:20)
[2017-09-04 09:24] LABS: HEMATOCRIT 30.4 % (35.0-46.0); HEMOGLOBIN 10.3 GM/DL (11.6-15.3); MEAN CELL VOLUME 88.1 FL (80.0-100.0); MEAN CORPUSCULAR HEMOGLOBIN 29.8 PG (27.0-34.0); MEAN CORPUSCULAR HGB CONC 33.8 % (32.0-36.0); MEAN PLATELET VOLUME 12.2 FL (7.0-11.0); PLATELET COUNT 104 TH/MM3 (150-450); RED BLOOD COUNT 3.45 MIL/MM3 (4.00-5.30); RED CELL DISTRIBUTION WIDTH 13.8 % (11.6-17.2); WHITE BLOOD COUNT 23.3 TH/MM3 (4.0-11.0)
[2017-09-04] MEDS: cefTRIAXone INJ 2,000 MG in SODIUM CHLORIDE 0.9% INJ 100 ML IV SCH (09:45)
[2017-09-04 09:57] LABS: BICARBONATE 21.7 MEQ/L (21.0-32.0); CALCIUM 7.4 MG/DL (8.5-10.1); CREATININE 0.73 MG/DL (0.50-1.00)
[2017-09-04 10:27] LABS: CALCIUM-PROTEIN CORRECTED 8.4 MG/DL (8.5-10.1); TOTAL PROTEIN 5.3 GM/DL (6.4-8.2)
[2017-09-04] MEDS: SODIUM CHLOR 0.9% 1000 ML INJ 1,000 ML IV SCH (11:45)
--- NOTE | 2017-09-04 13:39 | HHI.IDPN ---
Subjective Subjective Remarks Patient is a 72-year-old female, admitted to the hospital with acute onset of severe abdominal pain, and nausea and vomiting. Initially thought that she had food poisoning because she had eaten boiled peanuts. In the ED she had a fever up to 103, and was hypotensive. CT of the abdomen and pelvis showed a stone obstructing the right UVJ junction with associated right hydronephrosis. Her initial WBC was normal but it went up. Urology saw the patient, and she underwent cystoscopy and placement of a stent. Her hemodynamics improved. Her WBC remained elevated. Her temperature is better. Blood culture on admission is growing E. coli. Urine culture has E. coli. Patient currently still feels blah. Abdominal pain is still present but a little better. Her WBC remains elevated. Her creatinine is also elevated. She has good urine output. Nausea and vomiting has improved. Infectious disease consultation has been requested to evaluate the patient. Notes reviewed Temps ok BP good Weak NO diarrhea Not SOB Abdominal pain stable No rash or itching No N/V WBC continues to rise; platelets better Repeat UC negative BC negative Antibiotics Rocephin Current Medications Medications (Trade) Dose Ordered Sig/Rowan Route Start Time Stop Time Status Last Admin (Xalatan 0.005% Opth Soln) 1 drop HS EACH EYE 08/30/17 21:00 (D50w (Vial) Inj) 50 ml UNSCH PRN IV PUSH 08/30/17 15:45 (Glucagon Inj) 1 mg UNSCH PRN OTHER 08/30/17 15:45 (NovoLOG SUPPLEMENTAL SCALE) 1 Q4HR SQ 08/30/17 16:00 09/04/17 13:34 Sodium Chloride 1,000 ml @ 75 mls/hr [id number] IV 08/30/17 15:32 09/04/17 11:45 (NS Flush) 2 ml UNSCH PRN IV FLUSH 08/30/17 15:45 (NS Flush) 2 ml BID IV FLUSH 08/30/17 21:00 09/03/17 07:50 (Tylenol) 650 mg Q6H PRN PO 08/30/17 15:45 ([place] 5-325 Mg) 1 tab Q4H PRN PO 08/30/17 15:45 08/31/17 13:47 (Protonix Inj) 40 mg DAILY IV PUSH 08/31/17 09:00 09/04/17 09:20 (Zofran Inj) 4 mg Q6H PRN IV PUSH 08/30/17 15:45 08/31/17 13:46 (Albuterol Neb) 2.5 mg Q2HR NEB PRN INH 08/30/17 15:45 09/03/17 22:07 Miscellaneous Information 1 Q361D XX 08/30/17 15:45 (Chlorhexidine 2% Cloth) 3 pack Taper DAILY@04 TOP 08/31/17 04:00 08/27/18 03:59 09/02/17 04:00 (Chlorhexidine 2% Cloth) 3 pack UNSCH PRN TOP 08/30/17 15:45 (Cate-Colace) 1 tab BID PO 08/30/17 21:00 09/03/17 07:58 (Milk Of Magnesia Liq) 30 ml Q12H PRN PO 08/30/17 15:45 (Senokot) 17.2 mg Q12H PRN PO 08/30/17 15:45 (Dulcolax Supp) 10 mg DAILY PRN RECTAL 08/30/17 15:45 (Lactulose Liq) 30 ml DAILY PRN PO 08/30/17 15:45 (Morphine Inj) 2 mg Q2H PRN IV PUSH 08/30/17 16:00 (NS Flush) DAILY IV FLUSH 08/30/17 17:00 09/02/17 08:46 (NS Flush) UNSCH PRN IV FLUSH 08/30/17 17:00 (Brethine Inj) 1 mg UNSCH PRN SQ 08/30/17 18:45 (Heparin Inj) 5,000 units UNSCH PRN IV PUSH 08/31/17 21:45 Future Hold (Heparin Inj) 2,500 units UNSCH PRN IV PUSH 08/31/17 21:45 Future Hold Heparin Sodium/ Dextrose 250 ml @ 8 mls/hr TITRATE PRN IV 08/31/17 16:15 Future Hold (Lipitor) 40 mg HS PO 08/31/17 21:00 Future Hold 08/31/17 20:50 (Duoneb Neb) 1 ampule Q6HR NEB PRN NEB 09/01/17 17:30 09/03/17 11:34 (Coreg) 3.125 mg Q12HR PO 09/02/17 12:00 4/19/18 09:20 Ceftriaxone Sodium 2000 mg/ Sodium Chloride 100 ml @ 200 mls/hr Q24H IV 09/03/17 10:00 09/04/17 09:45 (SoluCORTEF INJ) 50 mg Q12HR IV PUSH 09/04/17 21:00 Current Medications Medications (Trade) Dose Ordered Sig/Rowan Route Start Time Stop Time Status Last Admin (Xalatan 0.005% Opth Soln) 1 drop HS EACH EYE 08/30/17 21:00 (D50w (Vial) Inj) 50 ml UNSCH PRN IV PUSH 08/30/17 15:45 (Glucagon Inj) 1 mg UNSCH PRN OTHER 08/30/17 15:45 (NovoLOG SUPPLEMENTAL SCALE) 1 Q4HR SQ 08/30/17 16:00 09/03/17 07:59 Sodium Chloride 1,000 ml @ 75 mls/hr [id number] IV 08/30/17 15:32 09/03/17 05:27 (NS Flush) 2 ml UNSCH PRN IV FLUSH 08/30/17 15:45 (NS Flush) 2 ml BID IV FLUSH 08/30/17 21:00 09/03/17 07:50 (Tylenol) 650 mg Q6H PRN PO 08/30/17 15:45 ([place] 5-325 Mg) 1 tab Q4H PRN PO 08/30/17 15:45 08/31/17 13:47 (Protonix Inj) 40 mg DAILY IV PUSH 08/31/17 09:00 09/03/17 07:58 (Zofran Inj) 4 mg Q6H PRN IV PUSH 08/30/17 15:45 08/31/17 13:46 (Albuterol Neb) 2.5 mg Q2HR NEB PRN INH 08/30/17 15:45 Miscellaneous Information 1 Q361D XX 08/30/17 15:45 (Chlorhexidine 2% Cloth) 3 pack Taper DAILY@04 TOP 08/31/17 04:00 08/27/18 03:59 09/02/17 04:00 (Chlorhexidine 2% Cloth) 3 pack UNSCH PRN TOP 08/30/17 15:45 (Cate-Colace) 1 tab BID PO 08/30/17 21:00 09/03/17 07:58 (Milk Of Magnesia Liq) 30 ml Q12H PRN PO 08/30/17 15:45 (Senokot) 17.2 mg Q12H PRN PO 08/30/17 15:45 (Dulcolax Supp) 10 mg DAILY PRN RECTAL 08/30/17 15:45 (Lactulose Liq) 30 ml DAILY PRN PO 08/30/17 15:45 (Morphine Inj) 2 mg Q2H PRN IV PUSH 08/30/17 16:00 (NS Flush) DAILY IV FLUSH 08/30/17 17:00 09/02/17 08:46 (NS Flush) UNSCH PRN IV FLUSH 08/30/17 17:00 (Brethine Inj) 1 mg UNSCH PRN SQ 08/30/17 18:45 (SoluCORTEF INJ) 100 mg Q8H IV PUSH 08/30/17 20:00 09/03/17 03:25 (Heparin Inj) 5,000 units UNSCH PRN IV PUSH 08/31/17 21:45 Future Hold (Heparin Inj) 2,500 units UNSCH PRN IV PUSH 08/31/17 21:45 Future Hold Heparin Sodium/ Dextrose 250 ml @ 8 mls/hr TITRATE PRN IV 08/31/17 16:15 Future Hold (Lipitor) 40 mg HS PO 08/31/17 21:00 Future Hold 08/31/17 20:50 (Duoneb Neb) 1 ampule Q6HR NEB PRN NEB 09/01/17 17:30 09/02/17 23:57 (Coreg) 3.125 mg Q12HR PO 09/02/17 12:00 09/03/17 07:58 Ceftriaxone Sodium 2000 mg/ Sodium Chloride 100 ml @ 200 mls/hr Q24H IV 09/03/17 10:00 Lines PIV - Line with no evidence of infection Past Medical History Hard of hearing Glaucoma Hypertension Nausea/vomiting Diabetes mellitus Past Surgical History Oophorectomy Hysterectomy 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 Vital Signs Date Time Temp Pulse Resp B/P (MAP) Pulse Ox O2 Delivery O2 Flow Rate FiO2 09/04/17 11:25 98.0 67 18 113/56 (75) 93 09/04/17 09:10 96 09/04/17 07:00 97.7 71 16 132/76 (94) 96 09/04/17 04:00 97.1 69 18 135/63 (87) 96 09/04/17 04:00 Room Air 09/04/17 04:00 60 09/04/17 00:00 97.3 67 20 130/63 (85) 95 09/04/17 00:00 Room Air 09/04/17 00:00 67 09/03/17 21:55 98.0 67 144/65 (91) 95 09/03/17 21:27 96 09/03/17 20:00 73 09/03/17 20:00 Room Air 09/03/17 20:00 98.0 67 14 144/65 (91) 95 09/03/17 16:05 97.6 68 15 125/58 (80) 96 09/03/17 16:00 67 . Laboratory Tests Test 09/02/17 20:29 09/03/17 12:44 09/04/17 07:05 Hemoglobin 10.1 GM/DL 10.7 GM/DL 10.3 GM/DL Hematocrit 30.2 % 32.2 % 30.4 % White Blood Count 22.3 TH/MM3 23.3 TH/MM3 Red Blood Count 3.63 MIL/MM3 3.45 MIL/MM3 Mean Corpuscular Volume 88.9 FL 88.1 FL Mean Corpuscular Hemoglobin 29.4 PG 29.8 PG Mean Corpuscular Hemoglobin Concent 33.0 % 33.8 % Red Cell Distribution Width 14.0 % 13.8 % Platelet Count 78 TH/MM3 104 TH/MM3 Mean Platelet Volume 12.0 FL 12.2 FL Laboratory Tests Test 09/02/17 17:45 09/03/17 12:44 09/04/17 07:45 Blood Urea Nitrogen 23 MG/DL 21 MG/DL Creatinine 0.78 MG/DL 0.73 MG/DL Random Glucose 233 MG/DL 222 MG/DL Total Protein 5.6 GM/DL 5.4 GM/DL 5.3 GM/DL Albumin 2.0 GM/DL 2.0 GM/DL Calcium Level 7.2 MG/DL 7.4 MG/DL Phosphorus Level 1.2 MG/DL Alkaline Phosphatase 173 U/L 168 U/L Aspartate Amino Transf (AST/SGOT) 60 U/L 39 U/L Alanine Aminotransferase (ALT/SGPT) 177 U/L 140 U/L Total Bilirubin 0.5 MG/DL 0.6 MG/DL Sodium Level 143 MEQ/L 145 MEQ/L Potassium Level 4.5 MEQ/L 3.3 MEQ/L Chloride Level 115 MEQ/L 114 MEQ/L Carbon Dioxide Level 18.4 MEQ/L 21.7 MEQ/L Anion Gap 10 MEQ/L 9 MEQ/L Estimat Glomerular Filtration Rate 73 ML/MIN 79 ML/MIN Protein Corrected Calcium 8.0 MG/DL 8.4 MG/DL Direct Bilirubin 0.1 MG/DL Indirect Bilirubin 0.5 MG/DL Imaging Last Impressions Chest X-Ray 08/30/17 1653 Signed Impressions: Service Date/Time: Wednesday, August 30, 2017 16:55 - CONCLUSION: Patchy bilateral atelectasis. Right IJ central venous catheter with tip at the atriocaval junction. No pneumothorax or other acute complication. Ben Agarwal MD Abdomen/Pelvis CT 08/30/17 0000 Signed Impressions: Service Date/Time: Wednesday, August 30, 2017 12:19 - CONCLUSION: 3-4 mm stone at the right ureterovesical junction with moderate right hydronephrosis. Possible forniceal rupture. Ben Esquivel MD Abdomen X-Ray 08/30/17 0000 Signed Impressions: Service Date/Time: Wednesday, August 30, 2017 21:08 - CONCLUSION: Right ureteral stent. Proximal portion of the stent appears appropriately positioned. Ben Agarwal MD Physical Exam GENERAL: awake and alert, not in respiratory distress. SKIN: Warm and dry. No generalized rash HEAD: Atraumatic. Normocephalic. No temporal wasting, or tenderness. EYES: Pale conjunctiva. No petechia or hemorrhage. Pupils equal, round and reactive to light. Extraocular movements full and intact. No scleral icterus. No injection or drainage. EARS, NOSE AND THROAT: Nose without bleeding or purulent nasal discharge. No sinus tenderness. Mucous membranes pink and moist. No oral lesions noted. No exudate. No oral thrush. NECK: Trachea midline. Supple and not tender, no meningeal signs CARDIOVASCULAR: Regular rate and rhythm. No murmurs, rubs or gallops heard RESPIRATORY: Clear to auscultation. Breath sounds equal bilaterally. No rales , wheezing or rhonchi ABDOMEN: Soft, nondistended, bowel sounds present and normoactive. Min abdominal tenderness diffusely, no guarding and no rebound. No organomegaly. EXTREMITIES: No clubbing, cyanosis. Has mild pedal edema. No calf tenderness. Well perfused and warm. Large ecchymosis L forearm NEUROLOGICAL: Non-focal. PSYCHIATRIC: Normal affect, calm and cooperative. LINE: No evidence of infection : Wins[place] in place, clear urine Assessment & Plan Remarks IMPRESSION E coli sepsis, with shock, due to complicated UTI - BP better, off pressors Complicated pyelonephritis, E coli, with obstructing stone R, S/P placement of stent Leukocytosis, due to UTI and reactive post cysto and stent placement - ?other etiology - worsening Renal insufficiency, due to sepsis and shock - resolved Heme occult (+) stool - currently refusing endoscopy RECOMMENDATION Continue Rocephin UA and C/S Repeat CT A/P Follow CBC Add Diflucan Follow C/S Monitor progress Decreased steroids Discussed plan with patient, and daughter; answered all their questions D/W Yadira Lindquist MD Sep 04, 2017 13:39
[2017-09-04] MEDS: FLUCONAZOLE 100 MG TAB PO SCH (14:17)
--- NOTE | 2017-09-04 15:47 | HHI.PR ---
Subjective Remarks Reports feeling better today. Appetite is better. No fevers. Objective Vitals Vital Signs Date Time Temp Pulse Resp B/P (MAP) Pulse Ox O2 Delivery O2 Flow Rate FiO2 09/04/17 11:25 98.0 67 18 113/56 (75) 93 09/04/17 09:10 96 09/04/17 08:00 78 09/04/17 08:00 Room Air 09/04/17 07:00 97.7 71 16 132/76 (94) 96 09/04/17 04:00 97.1 69 18 135/63 (87) 96 09/04/17 04:00 Room Air 09/04/17 04:00 60 09/04/17 00:00 97.3 67 20 130/63 (85) 95 09/04/17 00:00 Room Air 09/04/17 00:00 67 09/03/17 21:55 98.0 67 144/65 (91) 95 09/03/17 21:27 96 09/03/17 20:00 73 09/03/17 20:00 Room Air 09/03/17 20:00 98.0 67 14 144/65 (91) 95 09/03/17 16:05 97.6 68 15 125/58 (80) 96 09/03/17 16:00 67 I/O 09/03/17 09/03/17 09/03/17 09/04/17 09/04/17 09/04/17 07:00 15:00 23:00 07:00 15:00 23:00 Intake Total 1320 ml 380 ml 1465 ml Output Total 450 ml 1200 ml 1175 ml Balance 870 ml -820 ml 290 ml Intake Oral 220 ml 380 ml 0 ml IV Total 1100 ml 1465 ml Output Urine Total 450 ml 1200 ml 1175 ml # Bowel Movements 1 1 0 Result Diagram: 09/04/17 0705 09/04/17 0745 Objective Remarks GENERAL: Elderly and frail female. CARDIOVASCULAR: Regular rate and rhythm. RESPIRATORY: No accessory muscle use. Clear to auscultation. Breath sounds equal bilaterally. GASTROINTESTINAL: Abdomen soft, non-tender, nondistended. Hepatic and splenic margins not palpable. MUSCULOSKELETAL: Extremities without clubbing, cyanosis, or edema. No obvious deformities. NEUROLOGICAL: Awake and alert. No obvious cranial nerve deficits. Motor grossly within normal limits. Generalized weakness. Normal speech. PSYCHIATRIC: Appropriate mood and affect; insight and judgment normal. Date of Insertion: Aug 30, 2017 A/P Problem List: (1) Encephalopathy ICD Code: G93.40 - Encephalopathy, unspecified (2) Pyrexia ICD Code: R50.9 - Fever, unspecified (3) Bigeminy ICD Code: I49.9 - Cardiac arrhythmia, unspecified (4) Hard of hearing ICD Code: H91.90 - Unspecified hearing loss, unspecified ear (5) Hypertension ICD Code: I10 - Essential (primary) hypertension (6) Hyperglycemia ICD Code: R73.9 - Hyperglycemia, unspecified (7) Diabetes mellitus type 2 in nonobese ICD Code: E11.9 - Type 2 diabetes mellitus without complications (8) Asthma ICD Code: J45.909 - Unspecified asthma, uncomplicated (9) Glaucoma ICD Code: H40.9 - Unspecified glaucoma (10) Lactic acidosis ICD Code: E87.2 - Acidosis (11) Acute kidney injury ICD Code: N17.9 - Acute kidney failure, unspecified (12) Hypokalemia ICD Code: E87.6 - Hypokalemia (13) Hydronephrosis due to obstruction of ureter ICD Code: N13.2 - Hydronephrosis with renal and ureteral calculous obstruction (14) Sinus tachycardia ICD Code: R00.0 - Tachycardia, unspecified (15) Severe sepsis ICD Code: A41.9 - Sepsis, unspecified organism; R65.20 - Severe sepsis without septic shock (16) Right ureteral calculus ICD Code: N20.1 - Calculus of ureter Status: Acute Assessment and Plan 72 Y/O female with E. Coli sepsis with shock, infected stone. Patient also with NSTEMI, Melena. S/P ICU course. Severe Ecoli sepsis with shock secondary to urinary tract infection/infected stone? Leukocytosis ID following. On Rocephin S/P pressors. Wean off stress dose steroid. Cut dose by half today. May discontinue tomorrow. Leukocytosis worse. May be related to steroids. Repeat abdominal CT per ID. Acute kidney injury Right hydronephrosis with 4 mm stone at the right UVJ junction Urology/Dr. Perdue following. S/P stent placement DC rothman Monitor urine output Accurate I's and O's Follow BMP NSTEMI Possible Type 1 vs Type 2 Overall septic shock, LEENA, Lactic acidosis, hypotension Cardiology following and consider ischemic evaluation due to elevated troponin But unable to with GI bleed and thrombocytopenia Medical management advised. No statin at this time due to elevated LFTs Cardiomyopathy: EF 25-30% by echo Cardiology following History of mild intermittent asthma Nasal cannula to maintain saturations greater than equal to 92% Incentive spirometry while awake Albuterol/ipratropium aerosols every 6 hours with albuterol aerosols every 2 hours as needed dyspnea Patient is on albuterol 18 mg 1 puff every 4-6 hours as needed dyspnea at home Diabetes mellitus type 2 with hyperglycemia Holding metformin 1000 mg twice daily and glimepiride 4 mg p.o. twice daily Sliding scale insulin Accu-Cheks every 4 hours to maintain euglycemia Novolog every 4 hours medium protocol Hypokalemia Hypophosphatemia Replace electrolytes as clinically indicated Access -Utilize peripheral IV. Prophylaxis -GI -pantoprazole -DVT -SCDs Discharge Planning Will need rehab. Follow leukocytosis and specialist recs for DC planning. Problem Qualifiers (1) Pyrexia: Qualified Codes: R50.9 - Fever, unspecified (2) Hard of hearing: Qualified Codes: H91.90 - Unspecified hearing loss, unspecified ear (3) Hypertension: Qualified Codes: I10 - Essential (primary) hypertension (4) Asthma: Qualified Codes: J45.20 - Mild intermittent asthma, uncomplicated (5) Glaucoma: Qualified Codes: H40.9 - Unspecified glaucoma Anthony Cuevas MD Sep 04, 2017 15:47
--- NOTE | 2017-09-04 18:38 | PD.CARD.PN ---
Subjective Subjective Remarks Patient was seen earlier today, late entry note No events overnight Feels better overall today Objective Medications Current Medications Medications (Trade) Dose Ordered Sig/Rowan Route Start Time Stop Time Status Last Admin (Xalatan 0.005% Opth Soln) 1 drop HS EACH EYE 08/30/17 21:00 (D50w (Vial) Inj) 50 ml UNSCH PRN IV PUSH 08/30/17 15:45 (Glucagon Inj) 1 mg UNSCH PRN OTHER 08/30/17 15:45 (NovoLOG SUPPLEMENTAL SCALE) 1 Q4HR SQ 08/30/17 16:00 09/04/17 17:36 Sodium Chloride 1,000 ml @ 75 mls/hr [id number] IV 08/30/17 15:32 09/04/17 11:45 (NS Flush) 2 ml UNSCH PRN IV FLUSH 08/30/17 15:45 (NS Flush) 2 ml BID IV FLUSH 08/30/17 21:00 09/03/17 07:50 (Tylenol) 650 mg Q6H PRN PO 08/30/17 15:45 (Niles 5-325 Mg) 1 tab Q4H PRN PO 08/30/17 15:45 08/31/17 13:47 (Protonix Inj) 40 mg DAILY IV PUSH 08/31/17 09:00 09/04/17 09:20 (Zofran Inj) 4 mg Q6H PRN IV PUSH 08/30/17 15:45 08/31/17 13:46 (Albuterol Neb) 2.5 mg Q2HR NEB PRN INH 08/30/17 15:45 09/03/17 22:07 Miscellaneous Information 1 Q361D XX 08/30/17 15:45 (Chlorhexidine 2% Cloth) 3 pack Taper DAILY@04 TOP 08/31/17 04:00 08/27/18 03:59 09/02/17 04:00 (Chlorhexidine 2% Cloth) 3 pack UNSCH PRN TOP 08/30/17 15:45 (Cate-Colace) 1 tab BID PO 08/30/17 21:00 09/03/17 07:58 (Milk Of Magnesia Liq) 30 ml Q12H PRN PO 08/30/17 15:45 (Senokot) 17.2 mg Q12H PRN PO 08/30/17 15:45 (Dulcolax Supp) 10 mg DAILY PRN RECTAL 08/30/17 15:45 (Lactulose Liq) 30 ml DAILY PRN PO 08/30/17 15:45 (Morphine Inj) 2 mg Q2H PRN IV PUSH 08/30/17 16:00 (NS Flush) DAILY IV FLUSH 08/30/17 17:00 09/02/17 08:46 (NS Flush) UNSCH PRN IV FLUSH 08/30/17 17:00 (Brethine Inj) 1 mg UNSCH PRN SQ 08/30/17 18:45 (Heparin Inj) 5,000 units UNSCH PRN IV PUSH 08/31/17 21:45 Future Hold (Heparin Inj) 2,500 units UNSCH PRN IV PUSH 08/31/17 21:45 Future Hold Heparin Sodium/ Dextrose 250 ml @ 8 mls/hr TITRATE PRN IV 08/31/17 16:15 Future Hold (Lipitor) 40 mg HS PO 08/31/17 21:00 Future Hold 08/31/17 20:50 (Duoneb Neb) 1 ampule Q6HR NEB PRN NEB 09/01/17 17:30 09/03/17 11:34 (Coreg) 3.125 mg Q12HR PO 09/02/17 12:00 09/04/17 09:20 Ceftriaxone Sodium 2000 mg/ Sodium Chloride 100 ml @ 200 mls/hr Q24H IV 09/03/17 10:00 09/04/17 09:45 (SoluCORTEF INJ) 50 mg Q12HR IV PUSH 09/04/17 21:00 (Diflucan) 100 mg DAILY PO 09/04/17 13:45 09/04/17 14:17 Vital Signs / I&O Vital Signs Date Time Temp Pulse Resp B/P (MAP) Pulse Ox O2 Delivery O2 Flow Rate FiO2 09/04/17 17:33 95 21 09/04/17 16:00 75 09/04/17 15:40 98.1 80 20 128/60 (82) 95 09/04/17 12:00 77 09/04/17 11:25 98.0 67 18 113/56 (75) 93 09/04/17 09:10 96 09/04/17 08:00 78 09/04/17 08:00 Room Air 09/04/17 07:00 97.7 71 16 132/76 (94) 96 09/04/17 04:00 97.1 69 18 135/63 (87) 96 09/04/17 04:00 Room Air 09/04/17 04:00 60 09/04/17 00:00 97.3 67 20 130/63 (85) 95 09/04/17 00:00 Room Air 09/04/17 00:00 67 09/03/17 21:55 98.0 67 144/65 (91) 95 09/03/17 21:27 96 09/03/17 20:00 73 09/03/17 20:00 Room Air 09/03/17 20:00 98.0 67 14 144/65 (91) 95 I/O 09/03/17 09/03/17 09/03/17 09/04/17 09/04/17 09/04/17 07:00 15:00 23:00 07:00 15:00 23:00 Intake Total 1320 ml 380 ml 1465 ml Output Total 450 ml 1200 ml 1175 ml 1200 ml Balance 870 ml -820 ml 290 ml -1200 ml Intake Oral 220 ml 380 ml 0 ml IV Total 1100 ml 1465 ml Output Urine Total 450 ml 1200 ml 1175 ml 1200 ml # Bowel Movements 1 1 0 Physical Exam GENERAL: NAD, AAOx3 SKIN: Warm and dry. HEAD: Atraumatic. Normocephalic. EYES: Pupils equal and round. No scleral icterus. No injection or drainage. ENT: No nasal bleeding or discharge. Mucous membranes pink and moist. NECK: Trachea midline. No JVD. CARDIOVASCULAR: Regular rate and rhythm. 1/6 holosystolic murmur at the apex RESPIRATORY: No accessory muscle use. Clear to auscultation. Breath sounds equal bilaterally. GASTROINTESTINAL: Abdomen soft, non-tender, nondistended. Hepatic and splenic margins not palpable. MUSCULOSKELETAL: Extremities without clubbing, cyanosis, or edema. No obvious deformities. NEUROLOGICAL: Awake and alert. No obvious cranial nerve deficits. Motor grossly within normal limits. Five out of 5 muscle strength in the arms and legs. Normal speech. PSYCHIATRIC: Appropriate mood and affect; insight and judgment normal. Laboratory Laboratory Tests Test 09/04/17 07:05 09/04/17 07:45 09/04/17 10:00 White Blood Count 23.3 TH/MM3 Red Blood Count 3.45 MIL/MM3 Hemoglobin 10.3 GM/DL Hematocrit 30.4 % Mean Corpuscular Volume 88.1 FL Mean Corpuscular Hemoglobin 29.8 PG Mean Corpuscular Hemoglobin Concent 33.8 % Red Cell Distribution Width 13.8 % Platelet Count 104 TH/MM3 Mean Platelet Volume 12.2 FL Blood Urea Nitrogen 21 MG/DL Creatinine 0.73 MG/DL Random Glucose 222 MG/DL Total Protein 5.3 GM/DL Calcium Level 7.4 MG/DL Sodium Level 145 MEQ/L Potassium Level 3.3 MEQ/L Chloride Level 114 MEQ/L Carbon Dioxide Level 21.7 MEQ/L Anion Gap 9 MEQ/L Estimat Glomerular Filtration Rate 79 ML/MIN Protein Corrected Calcium 8.4 MG/DL Urine Eosinophils NONE SEEN /HPF Assessment and Plan Problem List: (1) NSTEMI (non-ST elevation myocardial infarction) ICD Codes: I21.4 - Non-ST elevation (NSTEMI) myocardial infarction (2) Hydronephrosis due to obstruction of ureter ICD Codes: N13.2 - Hydronephrosis with renal and ureteral calculous obstruction (3) Acute kidney injury ICD Codes: N17.9 - Acute kidney failure, unspecified (4) Diabetes mellitus type 2 in nonobese ICD Codes: E11.9 - Type 2 diabetes mellitus without complications (5) Severe sepsis ICD Codes: A41.9 - Sepsis, unspecified organism; R65.20 - Severe sepsis without septic shock (6) Encephalopathy ICD Codes: G93.40 - Encephalopathy, unspecified (7) Lactic acidosis ICD Codes: E87.2 - Acidosis (8) UTI (urinary tract infection) ICD Codes: N39.0 - Urinary tract infection, site not specified Status: Acute (9) Fever ICD Codes: R50.9 - Fever, unspecified Status: Acute (10) Abdominal pain ICD Codes: R10.9 - Unspecified abdominal pain Status: Acute Assessment and Plan 1) NSTEMI Possible Type 1 vs Type 2 Overall septic shock, LEENA, Lactic acidosis, hypotension No ischemic evaluation due to GI bleed Will plan to continue medical management No statin at this time due to elevated LFTs 2) Septic shock Off vasopressors 3) Hemoccult positive stool Patient feels too weak to do EGD/Cscope, plan to continue medical management 4) Thrombocytopenia 5) Elevated cardiovascular risk for any procedure 6) EF 25-30% by echo Problem Qualifiers (1) UTI (urinary tract infection): Qualified Codes: N39.0 - Urinary tract infection, site not specified (2) Fever: Qualified Codes: R50.9 - Fever, unspecified Gino Delaney DO Sep 04, 2017 18:38
--- NOTE | 2017-09-04 19:43 | RADRPT ---
EXAM DATE/TIME: 09/04/2017 19:11 [facility] COMPARISON: CT ABDOMEN & PELVIS W CONTRAST, August 30, 2017, 12:19. INDICATIONS : Complicated UTI, has stent, has worsening leukocytes ORAL CONTRAST: No oral contrast ingested. RADIATION DOSE: 14.82 CTDIvol (mGy) MEDICAL HISTORY : Diabetes,asthma SURGICAL HISTORY : oophorectomy ENCOUNTER: Initial ACUITY: 1 day PAIN SCALE: 3/10 LOCATION: Abdomen TECHNIQUE: Volumetric scanning of the abdomen and pelvis was performed. Using automated exposure control and ad justment of the mA and/or kV according to patient size, radiation dose was kept as low as reasonably achievable to obtain optimal diagnostic quality images. DICOM format image data is available electro nically for review and comparison. FINDINGS: LOWER LUNGS: Small bilateral pleural effusions and lung base atelectasis. LIVER: Homogeneous density without lesion. There is no dilation of the biliary tree. No calcified gallston es. SPLEEN: Normal size without lesion. PANCREAS: Within normal limits. KIDNEYS: Interval placement of a right ureteral stent with decrease in right hydronephrosis. Left kidney is un remarkable. ADRENAL GLANDS: Left adrenal nodule again noted. VASCULAR: There is no aortic aneurysm. BOWEL/MESENTERY: Distal colonic diverticulosis. No abnormal dilatation, wall thickening or inflammatory change. Small bottom of nonspecific peritoneal and retroperitoneal ABDOMINAL WALL: Within normal limits. RETROPERITONEUM: Slight interval decrease in indurated changes in the right retroperitoneum BLADDER: No wall thickening or mass. REPRODUCTIVE: Uterus surgically absent. No evidence of pelvic mass or free fluid INGUINAL: There is no lymphadenopathy or hernia. MUSCULOSKELETAL: Within normal limits for patient age. CONCLUSION: Interval placement of a right ureteral stent with decrease in right hydronephrosis. No new acute find ings in the abdomen or pelvis. Lung base infiltrates and effusions Ben Esquivel MD on September 04, 2017 at 19:35 Board Certified Radiologist. This report was verified electronically.
[2017-09-04] MEDS: LATANOPROST 0.005% OPHT SOLN 2.5 ML BTL EACH EYE SCH (21:00)
[2017-09-05] VITALS (11 sets, daily range): BP systolic 125–142; BP diastolic 61–68; PULSE 70–90; RESP 16–20; TEMP 97.5–98.3; O2SAT 92–95
[2017-09-05] MEDS: SODIUM CHLOR 0.9% 1000 ML INJ 1,000 ML IV SCH ×2 (02:05→15:45)
[2017-09-05] MEDS: INSULIN ASPART SUPPLEMENTAL SCALE SQ SCH ×6 (04:00→20:51)
[2017-09-05] MEDS: CHLORHEXIDINE GLUCONATE 2 % 1 PACK (2 CLOTHS) TOP SCH (04:00)
[2017-09-05 07:28] LABS: HEMATOCRIT 34.5 % (35.0-46.0); HEMOGLOBIN 11.3 GM/DL (11.6-15.3); MEAN CORPUSCULAR HEMOGLOBIN 29.2 PG (27.0-34.0); MEAN CORPUSCULAR HGB CONC 32.8 % (32.0-36.0); MEAN PLATELET VOLUME 11.5 FL (7.0-11.0); PLATELET COUNT 159 TH/MM3 (150-450); RED BLOOD COUNT 3.88 MIL/MM3 (4.00-5.30); RED CELL DISTRIBUTION WIDTH 13.6 % (11.6-17.2); WHITE BLOOD COUNT 29.2 TH/MM3 (4.0-11.0)
[2017-09-05 07:56] LABS: ALBUMIN 2.2 GM/DL (3.4-5.0); BICARBONATE 24.4 MEQ/L (21.0-32.0); CALCIUM 7.6 MG/DL (8.5-10.1); CREATININE 0.74 MG/DL (0.50-1.00); DIRECT BILIRUBIN ADULT 0.2 MG/DL (0.0-0.2); INDIRECT BILIRUBIN 0.5 MG/DL (0.0-0.8); TOTAL BILIRUBIN ADULT 0.7 MG/DL (0.2-1.0); TOTAL PROTEIN 5.7 GM/DL (6.4-8.2)
[2017-09-05] MEDS ORDERED: POTASSIUM CHLORIDE 20 MEQ CONTROLLED RELEASE TAB PO ONE ×3 (08:30→17:15)
[2017-09-05] MEDS: HYDROCORTISONE SOD SUCCINATE 100 MG VIAL IV PUSH SCH ×2 (08:32→20:51)
[2017-09-05] MEDS: CARVEDILOL 3.125 MG TAB PO SCH ×2 (08:32→20:51)
[2017-09-05] MEDS: PANTOPRAZOLE SODIUM 40 MG VIAL IV PUSH SCH (08:32)
[2017-09-05] MEDS: FLUCONAZOLE 100 MG TAB PO SCH (08:32)
[2017-09-05] MEDS: DOCUSATE SODIUM 50 MG/SENNA 8.6 MG TAB PO SCH ×2 (08:33→20:52)
[2017-09-05] MEDS: SODIUM CHLORIDE 0.9% FLUSH 10 ML FLUSH IV FLUSH SCH ×3 (08:33→20:51)
[2017-09-05 08:43] LABS: MAGNESIUM 1.4 MG/DL (1.5-2.5); PHOSPHORUS 1.7 MG/DL (2.5-4.9)
[2017-09-05] MEDS: cefTRIAXone INJ 2,000 MG in SODIUM CHLORIDE 0.9% INJ 100 ML IV SCH (08:48)
--- NOTE | 2017-09-05 10:47 | HHI.PR ---
Subjective Remarks This is a pleasant [address] of the abdomen and pelvis showed a stone obstructing the right UVJ junction with associated right hydronephrosis. 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 09/05: Seen in her bedroom discussed with nurse and on MDR, no nausea, vomit or diarrhea. Objective Vital Signs Date Time Temp Pulse Resp B/P (MAP) Pulse Ox O2 Delivery O2 Flow Rate FiO2 09/05/17 08:00 70 09/05/17 08:00 Room Air 09/05/17 07:00 98.0 85 16 139/68 (91) 95 09/05/17 04:00 98.0 74 18 140/64 (89) 92 09/05/17 04:00 Room Air 09/05/17 04:00 71 09/05/17 00:05 72 09/05/17 00:00 Room Air 09/04/17 20:10 82 09/04/17 20:00 Room Air 09/04/17 20:00 97.4 76 19 150/65 (93) 95 09/04/17 17:33 95 21 09/04/17 16:00 75 09/04/17 15:40 98.1 80 20 128/60 (82) 95 09/04/17 12:00 77 09/04/17 11:25 98.0 67 18 113/56 (75) 93 I/O 09/04/17 09/04/17 09/04/17 09/05/17 09/05/17 09/05/17 06:59 14:59 22:59 06:59 14:59 22:59 Intake Total 1465 ml 1320 ml 1120 ml Output Total 1175 ml 1200 ml Balance 290 ml 120 ml 1120 ml Intake Oral 0 ml 1320 ml 120 ml IV Total 1465 ml 1000 ml Output Urine Total 1175 ml 1200 ml # Voids 3 # Bowel Movements 0 2 0 Result Diagram: 09/05/17 0645 09/05/17 0645 Imaging Last Impressions Abdomen/Pelvis CT 09/04/17 0000 Signed Impressions: Service Date/Time: August 19:11 - CONCLUSION: Interval placement of a right ureteral stent with decrease in right hydronephrosis. No new acute findings in the abdomen or pelvis. Lung base infiltrates and effusions Ben Esquivel MD Chest X-Ray 09/03/17 0000 Signed Impressions: Service Date/Time: Sunday, September 03, 2017 06:18 - CONCLUSION: Bilateral basilar consolidation, right greater than left. Patricia Christianson MD Abdomen X-Ray 08/30/17 0000 Signed Impressions: Service Date/Time: Wednesday, August 30, 2017 21:08 - CONCLUSION: Right ureteral stent. Proximal portion of the stent appears appropriately positioned. Ben Agarwal MD Procedures Pressors. Other Results Laboratory Tests Test 08/30/17 07:05 08/30/17 15:50 08/30/17 19:30 08/30/17 19:50 Urine Collection Type VOIDED Fibrinogen 326 mg/dL Blood Gas Puncture Site RT RADIAL Blood Gas Patient Temperature 37.0 Blood Gas HCO3 15 mmol/L Blood Gas Base Excess -9.9 mmol/L Blood Gas Oxygen Saturation 92 % Arterial Blood pH 7.31 Arterial Blood Partial Pressure CO2 31 mmHg Arterial Blood Partial Pressure O2 63 mmHg Arterial Blood Oxygen Content 11.9 Vol % Arterial Blood Carboxyhemoglobin 1.3 % Arterial Blood Methemoglobin 0.8 % Blood Gas Hemoglobin 9.2 G/DL Oxygen Delivery Device NASAL CANNULA Blood Gas Liter Flow 2 L/M Ammonia 23 MCMOL/L Total Creatine Kinase 131 U/L Amylase Level 38 U/L Lipase 91 U/L Test 08/30/17 22:40 08/31/17 02:18 08/31/17 08:45 08/31/17 15:20 Nasal Screen MRSA (PCR) MRSA NOT DETECTED Myelocytes 1 % Toxic Vacuolation PRESENT Thyroid Stimulating Hormone 3rd Gen 0.625 uIU/ML Stool C. difficile Toxin (PCR) NEGATIVE Stl C. difficile Toxin Epiderm 027 PRESUMPTIVE NEGATIVE Test 08/31/17 16:02 08/31/17 22:07 09/01/17 06:00 09/01/17 09:40 Prothrombin Time 19.2 SEC Prothromb Time International Ratio 1.9 RATIO Activated Partial Thromboplast Time 35.5 SEC Neutrophils (%) (Auto) 90.5 % Lymphocytes (%) (Auto) 3.8 % Monocytes (%) (Auto) 2.6 % Eosinophils (%) (Auto) 2.9 % Basophils (%) (Auto) 0.2 % Neutrophils # (Auto) 17.2 TH/MM3 Lymphocytes # (Auto) 0.7 TH/MM3 Monocytes # (Auto) 0.5 TH/MM3 Eosinophils # (Auto) 0.5 TH/MM3 Basophils # (Auto) 0.0 TH/MM3 Whitney Cells 1+ Troponin I 5.15 NG/ML Random Vancomycin Level 3.3 COMMENT Urine Color YELLOW Urine Turbidity CLOUDY Urine pH 6.0 Urine Specific [place] 1.022 Urine Protein 100 mg/dL Urine Glucose (UA) TRACE mg/dL Urine Ketones NEG mg/dL Urine Occult Blood MOD Urine Nitrite NEG Urine Bilirubin NEG Urine Urobilinogen LESS THAN 2.0 MG/DL Urine Leukocyte Esterase LARGE Urine RBC /hpf Urine WBC /hpf Urine WBC Clumps MANY Urine Squamous Epithelial Cells 3 /hpf Urine Bacteria FEW /hpf Microscopic Urinalysis Comment CATH-CULTURE IND Urine Random Creatinine 76.7 MG/DL Urine Random Sodium 15 MEQ/L Test 09/01/17 13:57 09/02/17 05:39 09/02/17 17:45 09/04/17 07:45 Lactic Acid Level 2.1 mmol/L CBC Comment AUTO DIFF Differential Total Cells Counted 100 Neutrophils % (Manual) 92 % Band Neutrophils % 5 % Lymphocytes % 2 % Monocytes % 1 % Neutrophils # (Manual) 20.4 TH/MM3 Differential Comment FINAL DIFF MANUAL Toxic Granulation 1+ Dohle Bodies PRESENT Platelet Estimate LOW Platelet Morphology Comment NORMAL Vancomycin Level Trough LESS THAN 0.8 MCG/ML Protein Corrected Calcium 8.4 MG/DL Test 09/04/17 10:00 09/05/17 06:45 Urine Eosinophils NONE SEEN /HPF White Blood Count 29.2 TH/MM3 Red Blood Count 3.88 MIL/MM3 Hemoglobin 11.3 GM/DL Hematocrit 34.5 % Mean Corpuscular Volume 89.0 FL Mean Corpuscular Hemoglobin 29.2 PG Mean Corpuscular Hemoglobin Concent 32.8 % Red Cell Distribution Width 13.6 % Platelet Count 159 TH/MM3 Mean Platelet Volume 11.5 FL Blood Urea Nitrogen 14 MG/DL Creatinine 0.74 MG/DL Random Glucose 194 MG/DL Total Protein 5.7 GM/DL Albumin 2.2 GM/DL Calcium Level 7.6 MG/DL Alkaline Phosphatase 153 U/L Aspartate Amino Transf (AST/SGOT) 24 U/L Alanine Aminotransferase (ALT/SGPT) 98 U/L Total Bilirubin 0.7 MG/DL Direct Bilirubin 0.2 MG/DL Sodium Level 143 MEQ/L Potassium Level 2.8 MEQ/L Chloride Level 111 MEQ/L Carbon Dioxide Level 24.4 MEQ/L Anion Gap 8 MEQ/L Estimat Glomerular Filtration Rate 77 ML/MIN Phosphorus Level 1.7 MG/DL Magnesium Level 1.4 MG/DL Indirect Bilirubin 0.5 MG/DL Objective Remarks GENERAL: Elderly and frail female. CARDIOVASCULAR: Regular rate and rhythm. RESPIRATORY: No accessory muscle use. Clear to auscultation. Breath sounds equal bilaterally. GASTROINTESTINAL: Abdomen soft, non-tender, nondistended. Hepatic and splenic margins not palpable. MUSCULOSKELETAL: Extremities without clubbing, cyanosis, or edema. No obvious deformities. NEUROLOGICAL: Awake and alert. No obvious cranial nerve deficits. Motor grossly within normal limits. Generalized weakness. Normal speech. PSYCHIATRIC: Appropriate mood and affect; insight and judgment normal. Medications and IVs Current Medications Medications (Trade) Dose Ordered Sig/Rowan Route Start Time Stop Time Status Last Admin (Xalatan 0.005% Opth Soln) 1 drop HS EACH EYE 08/30/17 21:00 (D50w (Vial) Inj) 50 ml UNSCH PRN IV PUSH 08/30/17 15:45 (Glucagon Inj) 1 mg UNSCH PRN OTHER 08/30/17 15:45 (NovoLOG SUPPLEMENTAL SCALE) 1 Q4HR SQ 08/30/17 16:00 09/05/17 08:47 Sodium Chloride 1,000 ml @ 75 mls/hr [id number] IV 08/30/17 15:32 09/05/17 02:05 (NS Flush) 2 ml UNSCH PRN IV FLUSH 08/30/17 15:45 (NS Flush) 2 ml BID IV FLUSH 08/30/17 21:00 09/05/17 08:33 (Tylenol) 650 mg Q6H PRN PO 08/30/17 15:45 ([place] 5-325 Mg) 1 tab Q4H PRN PO 08/30/17 15:45 08/31/17 13:47 (Protonix Inj) 40 mg DAILY IV PUSH 08/31/17 09:00 09/05/17 08:32 (Zofran Inj) 4 mg Q6H PRN IV PUSH 08/30/17 15:45 08/31/17 13:46 (Albuterol Neb) 2.5 mg Q2HR NEB PRN INH 08/30/17 15:45 09/03/17 22:07 Miscellaneous Information 1 Q361D XX 08/30/17 15:45 (Chlorhexidine 2% Cloth) Taper DAILY@04 TOP 08/31/17 04:00 08/27/18 03:59 09/02/17 04:00 (Chlorhexidine 2% Cloth) 3 pack UNSCH PRN TOP 08/30/17 15:45 (Cate-Colace) 1 tab BID PO 08/30/17 21:00 09/03/17 07:58 (Milk Of Magnesia Liq) 30 ml Q12H PRN PO 08/30/17 15:45 (Senokot) 17.2 mg Q12H PRN PO 08/30/17 15:45 (Dulcolax Supp) 10 mg DAILY PRN RECTAL 08/30/17 15:45 (Lactulose Liq) 30 ml DAILY PRN PO 08/30/17 15:45 (Morphine Inj) 2 mg Q2H PRN IV PUSH 08/30/17 16:00 (NS Flush) DAILY IV FLUSH 08/30/17 17:00 09/02/17 08:46 (NS Flush) UNSCH PRN IV FLUSH 08/30/17 17:00 (Brethine Inj) 1 mg UNSCH PRN SQ 08/30/17 18:45 (Heparin Inj) 5,000 units UNSCH PRN IV PUSH 08/31/17 21:45 Future Hold (Heparin Inj) 2,500 units UNSCH PRN IV PUSH 08/31/17 21:45 Future Hold Heparin Sodium/ Dextrose 250 ml @ 8 mls/hr TITRATE PRN IV 08/31/17 16:15 Future Hold (Lipitor) 40 mg HS PO 08/31/17 21:00 Future Hold 08/31/17 20:50 (Duoneb Neb) 1 ampule Q6HR NEB PRN NEB 09/01/17 17:30 09/03/17 11:34 (Coreg) 3.125 mg Q12HR PO 09/02/17 12:00 09/05/17 08:32 Ceftriaxone Sodium 2000 mg/ Sodium Chloride 100 ml @ 200 mls/hr Q24H IV 09/03/17 10:00 09/05/17 08:48 (SoluCORTEF INJ) 50 mg Q12HR IV PUSH 09/04/17 21:00 09/05/17 08:32 (Diflucan) 100 mg DAILY PO 09/04/17 13:45 09/05/17 08:32 (KCl) 40 meq ONCE ONCE PO 09/05/17 11:00 09/05/17 11:01 A/P Assessment and Plan (1) Encephalopathy ICD Code: G93.40 - Encephalopathy, unspecified (2) Pyrexia ICD Code: R50.9 - Fever, unspecified (3) Bigeminy ICD Code: I49.9 - Cardiac arrhythmia, unspecified (4) Hard of hearing ICD Code: H91.90 - Unspecified hearing loss, unspecified ear (5) Hypertension ICD Code: I10 - Essential (primary) hypertension (6) Hyperglycemia ICD Code: R73.9 - Hyperglycemia, unspecified (7) Diabetes mellitus type 2 in nonobese ICD Code: E11.9 - Type 2 diabetes mellitus without complications (8) Asthma ICD Code: J45.909 - Unspecified asthma, uncomplicated (9) Glaucoma ICD Code: H40.9 - Unspecified glaucoma (10) Lactic acidosis ICD Code: E87.2 - Acidosis (11) Acute kidney injury ICD Code: N17.9 - Acute kidney failure, unspecified (12) Hypokalemia ICD Code: E87.6 - Hypokalemia (13) Hydronephrosis due to obstruction of ureter ICD Code: N13.2 - Hydronephrosis with renal and ureteral calculous obstruction (14) Sinus tachycardia ICD Code: R00.0 - Tachycardia, unspecified (15) Severe sepsis ICD Code: A41.9 - Sepsis, unspecified organism; R65.20 - Severe sepsis without septic shock (16) Right ureteral calculus ICD Code: N20.1 - Calculus of ureter Status: Acute 72 Y/O female with E. Coli sepsis with shock, infected stone. Patient also with NSTEMI, Melena. S/P ICU course. Severe Ecoli sepsis with shock secondary to urinary tract infection/infected stone? Leukocytosis ID following. On Rocephin S/P pressors. Wean off stress dose steroid. Cut dose by half today. May discontinue tomorrow. Leukocytosis worse. May be related to steroids. Repeat abdominal CT per ID did not found new acute pathology. CT of the abdomen and pelvis showed a stone obstructing the right UVJ junction with associated right hydronephrosis. E Coli Sepsis with shock due to complicated UTI, was on Pressors, complicated Pyelonephritis, E coli, with obstructing stone R, S/P placement of stent Leukocytosis, due to UTI and reactive post cysto and stent placement, to continue Rocephin, added Diflucan. 3) Hemoccult positive stool Patient feels too weak to do EGD/Cscope, plan to continue medical management 4) Thrombocytopenia 5) Elevated cardiovascular risk for any procedure 6) EF 25-30% by echo 7) Any concerns over the weekend, Dr. Soares will be covering Acute kidney injury Improved. Right hydronephrosis with 4 mm stone at the right UVJ junction Urology/Dr. Perdue following. 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 Cardiomyopathy: EF 25-30% by echo Cardiology following History of mild intermittent asthma stable. Nasal cannula to maintain saturations greater than equal to 92% Incentive spirometry while awake Albuterol/ipratropium aerosols every 6 hours with albuterol aerosols every 2 hours as needed dyspnea Patient is on albuterol 18 mg 1 puff every 4-6 hours as needed dyspnea at home Diabetes mellitus type 2 with hyperglycemia Holding metformin 1000 mg twice daily and glimepiride 4 mg p.o. twice daily Sliding scale insulin Accu-Cheks every 4 hours to maintain euglycemia Novolog every 4 hours medium protocol Uncontrolled. Hypokalemia Hypophosphatemia Replace electrolytes as clinically indicated Access -Utilize peripheral IV. Prophylaxis -GI -pantoprazole -DVT -SCDs Discharge Planning Will need rehab. Follow leukocytosis and specialist recs for DC planning. Rickey Wu MD Sep 05, 2017 10:47
--- NOTE | 2017-09-05 13:35 | PD.CARD.PN ---
Subjective Subjective Remarks No events overnight Feels better overall today Objective Medications Current Medications Medications (Trade) Dose Ordered Sig/Rowan Route Start Time Stop Time Status Last Admin (Xalatan 0.005% Opth Soln) 1 drop HS EACH EYE 08/30/17 21:00 (D50w (Vial) Inj) 50 ml UNSCH PRN IV PUSH 08/30/17 15:45 (Glucagon Inj) 1 mg UNSCH PRN OTHER 08/30/17 15:45 (NovoLOG SUPPLEMENTAL SCALE) 1 Q4HR SQ 08/30/17 16:00 09/05/17 13:12 Sodium Chloride 1,000 ml @ 75 mls/hr [id number] IV 08/30/17 15:32 09/05/17 02:05 (NS Flush) 2 ml UNSCH PRN IV FLUSH 08/30/17 15:45 (NS Flush) 2 ml BID IV FLUSH 08/30/17 21:00 09/05/17 08:33 (Tylenol) 650 mg Q6H PRN PO 08/30/17 15:45 ([place] 5-325 Mg) 1 tab Q4H PRN PO 08/30/17 15:45 08/31/17 13:47 (Protonix Inj) 40 mg DAILY IV PUSH 08/31/17 09:00 09/05/17 08:32 (Zofran Inj) 4 mg Q6H PRN IV PUSH 08/30/17 15:45 08/31/17 13:46 (Albuterol Neb) 2.5 mg Q2HR NEB PRN INH 08/30/17 15:45 09/03/17 22:07 Miscellaneous Information 1 Q361D XX 08/30/17 15:45 (Chlorhexidine 2% Cloth) Taper DAILY@04 TOP 08/31/17 04:00 08/27/18 03:59 09/02/17 04:00 (Chlorhexidine 2% Cloth) 3 pack UNSCH PRN TOP 08/30/17 15:45 (Cate-Colace) 1 tab BID PO 08/30/17 21:00 09/03/17 07:58 (Milk Of Magnesia Liq) 30 ml Q12H PRN PO 08/30/17 15:45 (Senokot) 17.2 mg Q12H PRN PO 4/14/18 15:45 (Dulcolax Supp) 10 mg DAILY PRN RECTAL 08/30/17 15:45 (Lactulose Liq) 30 ml DAILY PRN PO 08/30/17 15:45 (Morphine Inj) 2 mg Q2H PRN IV PUSH 08/30/17 16:00 (NS Flush) DAILY IV FLUSH 08/30/17 17:00 09/02/17 08:46 (NS Flush) UNSCH PRN IV FLUSH 08/30/17 17:00 (Brethine Inj) 1 mg UNSCH PRN SQ 08/30/17 18:45 (Heparin Inj) 5,000 units UNSCH PRN IV PUSH 08/31/17 21:45 Future Hold (Heparin Inj) 2,500 units UNSCH PRN IV PUSH 08/31/17 21:45 Future Hold Heparin Sodium/ Dextrose 250 ml @ 8 mls/hr TITRATE PRN IV 08/31/17 16:15 Future Hold (Lipitor) 40 mg HS PO 08/31/17 21:00 Future Hold 08/31/17 20:50 (Duoneb Neb) 1 ampule Q6HR NEB PRN NEB 09/01/17 17:30 09/03/17 11:34 (Coreg) 3.125 mg Q12HR PO 09/02/17 12:00 09/05/17 08:32 Ceftriaxone Sodium 2000 mg/ Sodium Chloride 100 ml @ 200 mls/hr Q24H IV 09/03/17 10:00 09/05/17 08:48 (SoluCORTEF INJ) 50 mg Q12HR IV PUSH 09/04/17 21:00 09/05/17 08:32 (Diflucan) 100 mg DAILY PO 09/04/17 13:45 09/05/17 08:32 Vital Signs / I&O Vital Signs Date Time Temp Pulse Resp B/P (MAP) Pulse Ox O2 Delivery O2 Flow Rate FiO2 09/05/17 11:25 97.5 78 16 139/61 (87) 93 09/05/17 08:00 70 09/05/17 08:00 Room Air 09/05/17 07:00 98.0 85 16 139/68 (91) 95 09/05/17 04:00 98.0 74 18 140/64 (89) 92 09/05/17 04:00 Room Air 09/05/17 04:00 71 09/05/17 00:05 72 09/05/17 00:00 Room Air 09/04/17 20:10 82 09/04/17 20:00 Room Air 09/04/17 20:00 97.4 76 19 150/65 (93) 95 09/04/17 17:33 95 21 09/04/17 16:00 75 09/04/17 15:40 98.1 80 20 128/60 (82) 95 I/O 09/04/17 09/04/17 09/04/17 09/05/17 09/05/17 09/05/17 07:00 15:00 23:00 07:00 15:00 23:00 Intake Total 1465 ml 1320 ml 1120 ml Output Total 1175 ml 1200 ml Balance 290 ml 120 ml 1120 ml Intake Oral 0 ml 1320 ml 120 ml IV Total 1465 ml 1000 ml Output Urine Total 1175 ml 1200 ml # Voids 3 # Bowel Movements 0 2 0 Physical Exam GENERAL: NAD, AAOx3 SKIN: Warm and dry. HEAD: Atraumatic. Normocephalic. EYES: Pupils equal and round. No scleral icterus. No injection or drainage. ENT: No nasal bleeding or discharge. Mucous membranes pink and moist. NECK: Trachea midline. No JVD. CARDIOVASCULAR: Regular rate and rhythm. 1/6 holosystolic murmur at the apex RESPIRATORY: No accessory muscle use. Clear to auscultation. Breath sounds equal bilaterally. GASTROINTESTINAL: Abdomen soft, non-tender, nondistended. Hepatic and splenic margins not palpable. MUSCULOSKELETAL: Extremities without clubbing, cyanosis, or edema. No obvious deformities. NEUROLOGICAL: Awake and alert. No obvious cranial nerve deficits. Motor grossly within normal limits. Five out of 5 muscle strength in the arms and legs. Normal speech. PSYCHIATRIC: Appropriate mood and affect; insight and judgment normal. Laboratory Laboratory Tests Test 09/05/17 06:45 White Blood Count 29.2 TH/MM3 Red Blood Count 3.88 MIL/MM3 Hemoglobin 11.3 GM/DL Hematocrit 34.5 % Mean Corpuscular Volume 89.0 FL Mean Corpuscular Hemoglobin 29.2 PG Mean Corpuscular Hemoglobin Concent 32.8 % Red Cell Distribution Width 13.6 % Platelet Count 159 TH/MM3 Mean Platelet Volume 11.5 FL Blood Urea Nitrogen 14 MG/DL Creatinine 0.74 MG/DL Random Glucose 194 MG/DL Total Protein 5.7 GM/DL Albumin 2.2 GM/DL Calcium Level 7.6 MG/DL Alkaline Phosphatase 153 U/L Aspartate Amino Transf (AST/SGOT) 24 U/L Alanine Aminotransferase (ALT/SGPT) 98 U/L Total Bilirubin 0.7 MG/DL Direct Bilirubin 0.2 MG/DL Sodium Level 143 MEQ/L Potassium Level 2.8 MEQ/L Chloride Level 111 MEQ/L Carbon Dioxide Level 24.4 MEQ/L Anion Gap 8 MEQ/L Estimat Glomerular Filtration Rate 77 ML/MIN Phosphorus Level 1.7 MG/DL Magnesium Level 1.4 MG/DL Indirect Bilirubin 0.5 MG/DL Assessment and Plan Problem List: (1) NSTEMI (non-ST elevation myocardial infarction) ICD Codes: I21.4 - Non-ST elevation (NSTEMI) myocardial infarction (2) Hydronephrosis due to obstruction of ureter ICD Codes: N13.2 - Hydronephrosis with renal and ureteral calculous obstruction (3) Acute kidney injury ICD Codes: N17.9 - Acute kidney failure, unspecified (4) Diabetes mellitus type 2 in nonobese ICD Codes: E11.9 - Type 2 diabetes mellitus without complications (5) Severe sepsis ICD Codes: A41.9 - Sepsis, unspecified organism; R65.20 - Severe sepsis without septic shock (6) Encephalopathy ICD Codes: G93.40 - Encephalopathy, unspecified (7) Lactic acidosis ICD Codes: E87.2 - Acidosis (8) UTI (urinary tract infection) ICD Codes: N39.0 - Urinary tract infection, site not specified Status: Acute (9) Fever ICD Codes: R50.9 - Fever, unspecified Status: Acute (10) Abdominal pain ICD Codes: R10.9 - Unspecified abdominal pain Status: Acute Assessment and Plan 1) NSTEMI Possible Type 1 vs Type 2 Overall septic shock, LEENA, Lactic acidosis, hypotension No ischemic evaluation due to GI bleed Will plan to continue medical management No statin at this time due to elevated LFTs 2) Septic shock Off vasopressors 3) Hemoccult positive stool Patient feels too weak to do EGD/Cscope, plan to continue medical management 4) Thrombocytopenia 5) Elevated cardiovascular risk for any procedure 6) EF 25-30% by echo 7) Any concerns over the weekend, Dr. Soares will be covering Problem Qualifiers (1) UTI (urinary tract infection): Qualified Codes: N39.0 - Urinary tract infection, site not specified (2) Fever: Qualified Codes: R50.9 - Fever, unspecified Gino Delaney DO Sep 05, 2017 13:35
[2017-09-05] MEDS ORDERED: POTASSIUM PHOSPHATE INJ 21 MMOL in SODIUM CHLORIDE 0.9% INJ 150 ML IV ONE (17:15)
[2017-09-05] MEDS: MAGNESIUM SULFATE 1 GM PREMIX 100 ML IV SCH ×2 (17:56→18:56)
[2017-09-05] MEDS: LATANOPROST 0.005% OPHT SOLN 2.5 ML BTL EACH EYE SCH (20:55)
[2017-09-06] VITALS: BP 146/74; PULSE 85; RESP 20; TEMP 98.4; O2SAT 93
[2017-09-06] MEDS: INSULIN ASPART SUPPLEMENTAL SCALE SQ SCH ×6 (00:06→20:31)
[2017-09-06] MEDS: SODIUM CHLOR 0.9% 1000 ML INJ 1,000 ML IV SCH ×3 (01:41→23:20)
[2017-09-06 03:48] VITALS: PULSE 81
[2017-09-06] MEDS: CHLORHEXIDINE GLUCONATE 2 % 1 PACK (2 CLOTHS) TOP SCH (04:00)
[2017-09-06 08:00] VITALS: BP 145/82; PULSE 93; PULSE 95; RESP 20; TEMP 98; O2SAT 96
[2017-09-06] MEDS: DOCUSATE SODIUM 50 MG/SENNA 8.6 MG TAB PO SCH ×2 (09:00→20:31)
[2017-09-06] MEDS: SODIUM CHLORIDE 0.9% FLUSH 10 ML FLUSH IV FLUSH SCH ×3 (09:00→20:30)
[2017-09-06] MEDS: FLUCONAZOLE 100 MG TAB PO SCH (09:07)
[2017-09-06] MEDS: CARVEDILOL 3.125 MG TAB PO SCH ×2 (09:07→20:30)
[2017-09-06] MEDS: HYDROCORTISONE SOD SUCCINATE 100 MG VIAL IV PUSH SCH ×2 (09:08→20:30)
[2017-09-06] MEDS: PANTOPRAZOLE SODIUM 40 MG VIAL IV PUSH SCH (09:08)
[2017-09-06] MEDS: cefTRIAXone INJ 2,000 MG in SODIUM CHLORIDE 0.9% INJ 100 ML IV SCH (09:10)
[2017-09-06 12:00] VITALS: BP 135/68; PULSE 82; PULSE 87; RESP 20; TEMP 98.1; O2SAT 91
[2017-09-06 15:26] LABS: BILIRUBIN, URINE NEG (NEG); BLOOD, URINE LARGE (NEG); GLUCOSE,URINE 1000 mg/dL (NEG); HYALINE CAST, URINE 2 /lpf (RARE); KETONE, URINE TRACE mg/dL (NEG); NITRITE,URINE NEG (NEG); SQUAMOUS EPITHELIAL CELL URINE <1 /hpf (0-5); URINE COLOR YELLOW (YELLW/STRAW); URINE LEUKOCYTE ESTERASE MOD (NEG)
[2017-09-06 16:00] VITALS: BP 140/75; PULSE 83; PULSE 87; RESP 20; TEMP 97.9; O2SAT 93
--- NOTE | 2017-09-06 16:57 | HHI.PR ---
Subjective Remarks This is a pleasant [address] CT of the abdomen and pelvis showed a stone obstructing the right UVJ junction with associated right hydronephrosis. 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 09/05: Seen in her bedroom discussed with nurse and on MDR. 09/06: Stable in her bedroom, continue with uncontrolled blood sugars, will titrate the dosages of Solu-Medrol and her insulin will need further adjustments no nausea, vomit or diarrhea Objective Vital Signs Date Time Temp Pulse Resp B/P (MAP) Pulse Ox O2 Delivery O2 Flow Rate FiO2 09/06/17 08:00 98.0 95 20 145/82 (103) 96 09/06/17 07:00 Room Air 09/06/17 03:48 81 09/06/17 00:00 98.4 85 20 146/74 (98) 93 09/06/17 00:00 Room Air 09/05/17 23:48 90 09/05/17 20:00 Room Air 09/05/17 20:00 98.3 90 17 142/61 (88) 95 09/05/17 19:54 83 I/O 09/05/17 09/05/17 09/05/17 09/06/17 09/06/17 09/06/17 07:00 15:00 23:00 07:00 15:00 23:00 Intake Total 1120 ml 820 ml 637 ml Balance 1120 ml 820 ml 637 ml Intake Oral 120 ml 720 ml 480 ml IV Total 1000 ml 100 ml 157 ml # Voids 3 2 3 # Bowel Movements 0 2 3 Result Diagram: 09/05/17 0645 09/05/17 1440 Imaging Last Impressions Abdomen/Pelvis CT 09/04/17 0000 Signed Impressions: Service Date/Time: August 19:11 - CONCLUSION: Interval placement of a right ureteral stent with decrease in right hydronephrosis. No new acute findings in the abdomen or pelvis. Lung base infiltrates and effusions Ben Esquivel MD Chest X-Ray 09/03/17 0000 Signed Impressions: Service Date/Time: Sunday, September 03, 2017 06:18 - CONCLUSION: Bilateral basilar consolidation, right greater than left. Patricia Christianson MD Abdomen X-Ray 08/30/17 0000 Signed Impressions: Service Date/Time: Wednesday, August 30, 2017 21:08 - CONCLUSION: Right ureteral stent. Proximal portion of the stent appears appropriately positioned. Ben Agarwal MD Procedures Pressors Other Results Laboratory Tests Test 08/30/17 07:05 08/30/17 15:50 08/30/17 19:30 08/30/17 19:50 Urine Collection Type VOIDED Fibrinogen 326 mg/dL Blood Gas Puncture Site RT RADIAL Blood Gas Patient Temperature 37.0 Blood Gas HCO3 15 mmol/L Blood Gas Base Excess -9.9 mmol/L Blood Gas Oxygen Saturation 92 % Arterial Blood pH 7.31 Arterial Blood Partial Pressure CO2 31 mmHg Arterial Blood Partial Pressure O2 63 mmHg Arterial Blood Oxygen Content 11.9 Vol % Arterial Blood Carboxyhemoglobin 1.3 % Arterial Blood Methemoglobin 0.8 % Blood Gas Hemoglobin 9.2 G/DL Oxygen Delivery Device NASAL CANNULA Blood Gas Liter Flow 2 L/M Ammonia 23 MCMOL/L Total Creatine Kinase 131 U/L Amylase Level 38 U/L Lipase 91 U/L Test 08/30/17 22:40 08/31/17 02:18 08/31/17 08:45 08/31/17 15:20 Nasal Screen MRSA (PCR) MRSA NOT DETECTED Myelocytes 1 % Toxic Vacuolation PRESENT Thyroid Stimulating Hormone 3rd Gen 0.625 uIU/ML Stool C. difficile Toxin (PCR) NEGATIVE Stl C. difficile Toxin Epiderm 027 PRESUMPTIVE NEGATIVE Test 08/31/17 16:02 08/31/17 22:07 09/01/17 06:00 09/01/17 09:40 Prothrombin Time 19.2 SEC Prothromb Time International Ratio 1.9 RATIO Activated Partial Thromboplast Time 35.5 SEC Neutrophils (%) (Auto) 90.5 % Lymphocytes (%) (Auto) 3.8 % Monocytes (%) (Auto) 2.6 % Eosinophils (%) (Auto) 2.9 % Basophils (%) (Auto) 0.2 % Neutrophils # (Auto) 17.2 TH/MM3 Lymphocytes # (Auto) 0.7 TH/MM3 Monocytes # (Auto) 0.5 TH/MM3 Eosinophils # (Auto) 0.5 TH/MM3 Basophils # (Auto) 0.0 TH/MM3 Douglass Cells 1+ Troponin I 5.15 NG/ML Random Vancomycin Level 3.3 COMMENT Urine WBC Clumps MANY Urine Bacteria FEW /hpf Urine Random Creatinine 76.7 MG/DL Urine Random Sodium 15 MEQ/L Test 09/01/17 13:57 09/02/17 05:39 09/02/17 17:45 09/04/17 07:45 Lactic Acid Level 2.1 mmol/L CBC Comment AUTO DIFF Differential Total Cells Counted 100 Neutrophils % (Manual) 92 % Band Neutrophils % 5 % Lymphocytes % 2 % Monocytes % 1 % Neutrophils # (Manual) 20.4 TH/MM3 Differential Comment FINAL DIFF MANUAL Toxic Granulation 1+ Dohle Bodies PRESENT Platelet Estimate LOW Platelet Morphology Comment NORMAL Vancomycin Level Trough LESS THAN 0.8 MCG/ML Protein Corrected Calcium 8.4 MG/DL Test 09/04/17 10:00 09/05/17 06:45 09/05/17 14:40 09/06/17 14:40 Urine Eosinophils NONE SEEN /HPF White Blood Count 29.2 TH/MM3 Red Blood Count 3.88 MIL/MM3 Hemoglobin 11.3 GM/DL Hematocrit 34.5 % Mean Corpuscular Volume 89.0 FL Mean Corpuscular Hemoglobin 29.2 PG Mean Corpuscular Hemoglobin Concent 32.8 % Red Cell Distribution Width 13.6 % Platelet Count 159 TH/MM3 Mean Platelet Volume 11.5 FL Blood Urea Nitrogen 14 MG/DL Creatinine 0.74 MG/DL Random Glucose 194 MG/DL Total Protein 5.7 GM/DL Albumin 2.2 GM/DL Calcium Level 7.6 MG/DL Alkaline Phosphatase 153 U/L Aspartate Amino Transf (AST/SGOT) 24 U/L Alanine Aminotransferase (ALT/SGPT) 98 U/L Total Bilirubin 0.7 MG/DL Direct Bilirubin 0.2 MG/DL Sodium Level 143 MEQ/L Potassium Level 2.8 MEQ/L 3.7 MEQ/L Chloride Level 111 MEQ/L Carbon Dioxide Level 24.4 MEQ/L Anion Gap 8 MEQ/L Estimat Glomerular Filtration Rate 77 ML/MIN Phosphorus Level 1.7 MG/DL Magnesium Level 1.4 MG/DL Indirect Bilirubin 0.5 MG/DL Urine Color YELLOW Urine Turbidity CLEAR Urine pH 6.0 Urine Specific Rogers 1.023 Urine Protein TRACE mg/dL Urine Glucose (UA) 1000 mg/dL Urine Ketones TRACE mg/dL Urine Occult Blood LARGE Urine Nitrite NEG Urine Bilirubin NEG Urine Urobilinogen LESS THAN 2.0 MG/DL Urine Leukocyte Esterase MOD Urine RBC 10 /hpf Urine WBC 25 /hpf Urine Squamous Epithelial Cells <1 /hpf Urine Hyaline Casts 2 /lpf Microscopic Urinalysis Comment CATH-CULTURE IND Objective Remarks GENERAL: No acute distress. CARDIOVASCULAR: Regular rate and rhythm. RESPIRATORY: No accessory muscle use. Clear to auscultation. Breath sounds equal bilaterally. GASTROINTESTINAL: Abdomen soft, non-tender, nondistended. Hepatic and splenic margins not palpable. MUSCULOSKELETAL: Extremities without clubbing, cyanosis, or edema. No obvious deformities. NEUROLOGICAL: Awake and alert. No obvious cranial nerve deficits. Motor grossly within normal limits. Generalized weakness. Normal speech. PSYCHIATRIC: Appropriate mood and affect; insight and judgment normal. Medications and IVs Current Medications Medications (Trade) Dose Ordered Sig/Rowan Route Start Time Stop Time Status Last Admin (Xalatan 0.005% Opth Soln) 1 drop HS EACH EYE 08/30/17 21:00 (D50w (Vial) Inj) 50 ml UNSCH PRN IV PUSH 08/30/17 15:45 (Glucagon Inj) 1 mg UNSCH PRN OTHER 08/30/17 15:45 (NovoLOG SUPPLEMENTAL SCALE) 1 Q4HR SQ 08/30/17 16:00 09/06/17 12:00 Sodium Chloride 1,000 ml @ 75 mls/hr [id number] IV 08/30/17 15:32 09/06/17 09:15 (NS Flush) 2 ml UNSCH PRN IV FLUSH 08/30/17 15:45 (NS Flush) 2 ml BID IV FLUSH 08/30/17 21:00 09/05/17 20:51 (Tylenol) 650 mg Q6H PRN PO 08/30/17 15:45 ([place] 5-325 Mg) 1 tab Q4H PRN PO 08/30/17 15:45 08/31/17 13:47 (Protonix Inj) 40 mg DAILY IV PUSH 08/31/17 09:00 09/06/17 09:08 (Zofran Inj) 4 mg Q6H PRN IV PUSH 08/30/17 15:45 08/31/17 13:46 (Albuterol Neb) 2.5 mg Q2HR NEB PRN INH 08/30/17 15:45 09/03/17 22:07 Miscellaneous Information 1 Q361D XX 08/30/17 15:45 (Chlorhexidine 2% Cloth) Taper DAILY@04 TOP 08/31/17 04:00 08/27/18 03:59 09/02/17 04:00 (Chlorhexidine 2% Cloth) 3 pack UNSCH PRN TOP 08/30/17 15:45 (Cate-Colace) 1 tab BID PO 08/30/17 21:00 09/03/17 07:58 (Milk Of Magnesia Liq) 30 ml Q12H PRN PO 08/30/17 15:45 (Senokot) 17.2 mg Q12H PRN PO 08/30/17 15:45 (Dulcolax Supp) 10 mg DAILY PRN RECTAL 08/30/17 15:45 (Lactulose Liq) 30 ml DAILY PRN PO 08/30/17 15:45 (Morphine Inj) 2 mg Q2H PRN IV PUSH 08/30/17 16:00 (NS Flush) DAILY IV FLUSH 08/30/17 17:00 09/02/17 08:46 (NS Flush) UNSCH PRN IV FLUSH 08/30/17 17:00 (Brethine Inj) 1 mg UNSCH PRN SQ 08/30/17 18:45 (Heparin Inj) 5,000 units UNSCH PRN IV PUSH 08/31/17 21:45 Future Hold (Heparin Inj) 2,500 units UNSCH PRN IV PUSH 08/31/17 21:45 Future Hold Heparin Sodium/ Dextrose 250 ml @ 8 mls/hr TITRATE PRN IV 08/31/17 16:15 Future Hold (Lipitor) 40 mg HS PO 08/31/17 21:00 Future Hold 08/31/17 20:50 (Duoneb Neb) 1 ampule Q6HR NEB PRN NEB 09/01/17 17:30 09/03/17 11:34 (Coreg) 3.125 mg Q12HR PO 09/02/17 12:00 09/06/17 09:07 Ceftriaxone Sodium 2000 mg/ Sodium Chloride 100 ml @ 200 mls/hr Q24H IV 09/03/17 10:00 09/06/17 09:10 (SoluCORTEF INJ) 50 mg Q12HR IV PUSH 09/04/17 21:00 09/06/17 09:08 (Diflucan) 100 mg DAILY PO 09/04/17 13:45 09/06/17 09:07 A/P Assessment and Plan (1) Encephalopathy ICD Code: G93.40 - Encephalopathy, unspecified (2) Pyrexia ICD Code: R50.9 - Fever, unspecified (3) Bigeminy ICD Code: I49.9 - Cardiac arrhythmia, unspecified (4) Hard of hearing ICD Code: H91.90 - Unspecified hearing loss, unspecified ear (5) Hypertension ICD Code: I10 - Essential (primary) hypertension (6) Hyperglycemia ICD Code: R73.9 - Hyperglycemia, unspecified (7) Diabetes mellitus type 2 in nonobese ICD Code: E11.9 - Type 2 diabetes mellitus without complications (8) Asthma ICD Code: J45.909 - Unspecified asthma, uncomplicated (9) Glaucoma ICD Code: H40.9 - Unspecified glaucoma (10) Lactic acidosis ICD Code: E87.2 - Acidosis (11) Acute kidney injury ICD Code: N17.9 - Acute kidney failure, unspecified (12) Hypokalemia ICD Code: E87.6 - Hypokalemia (13) Hydronephrosis due to obstruction of ureter ICD Code: N13.2 - Hydronephrosis with renal and ureteral calculous obstruction (14) Sinus tachycardia ICD Code: R00.0 - Tachycardia, unspecified (15) Severe sepsis ICD Code: A41.9 - Sepsis, unspecified organism; R65.20 - Severe sepsis without septic shock (16) Right ureteral calculus ICD Code: N20.1 - Calculus of ureter Status: Acute 72 Y/O female with E. Coli sepsis with shock, infected stone. Patient also with NSTEMI, Melena. S/P ICU course. Severe Ecoli sepsis with shock secondary to urinary tract infection/infected stone? Leukocytosis ID following. On Rocephin S/P pressors. Wean off stress dose steroid. Cut dose by half today. May discontinue tomorrow. Leukocytosis worse. May be related to steroids. Repeat abdominal CT per ID did not found new acute pathology. CT of the abdomen and pelvis showed a stone obstructing the right UVJ junction with associated right hydronephrosis. E Coli Sepsis with shock due to complicated UTI, was on Pressors, complicated Pyelonephritis, E coli, with obstructing stone R, S/P placement of stent Leukocytosis, due to UTI and reactive post cysto and stent placement, to continue Rocephin, added Diflucan. Acute kidney injury Improved. Right hydronephrosis with 4 mm stone at the right UVJ junction Urology/Dr. Perdue following. 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 Cardiomyopathy: EF 25-30% by echo Cardiology following History of mild intermittent asthma stable. Nasal cannula to maintain saturations greater than equal to 92% Incentive spirometry while awake Albuterol/ipratropium aerosols every 6 hours with albuterol aerosols every 2 hours as needed dyspnea Patient is on albuterol 18 mg 1 puff every 4-6 hours as needed dyspnea at home Diabetes mellitus type 2 with hyperglycemia Holding metformin 1000 mg twice daily and glimepiride 4 mg p.o. twice daily Continue sliding scale, uncontrolled blood sugars, will decrease dosages of Solu -Medrol and follow Hypokalemia Hypophosphatemia Replace electrolytes as clinically indicated Access -Utilize peripheral IV. Prophylaxis -GI -pantoprazole -DVT -SCDs Discharge Planning Will need rehab. Follow leukocytosis and specialist recs for DC planning. Rickey Wu MD Sep 06, 2017 16:57
[2017-09-06 20:00] VITALS: BP 129/63; PULSE 85; PULSE 88; RESP 16; TEMP 97.4; O2SAT 94
[2017-09-06] MEDS: LATANOPROST 0.005% OPHT SOLN 2.5 ML BTL EACH EYE SCH (20:31)
[2017-09-07] VITALS: PULSE 79
[2017-09-07 04:00] VITALS: PULSE 94
[2017-09-07] MEDS: CHLORHEXIDINE GLUCONATE 2 % 1 PACK (2 CLOTHS) TOP SCH (04:00)
[2017-09-07] MEDS: INSULIN ASPART SUPPLEMENTAL SCALE SQ SCH ×7 (04:56→22:33)
[2017-09-07 06:35] LABS: AUTOMATED NEUTROPHIL # 16.7 TH/MM3 (1.8-7.7); BASOPHIL % 0.2 % (0.0-2.0); EOSINOPHIL # 0.1 TH/MM3 (0-0.4); EOSINOPHIL % 0.3 % (0.0-4.0); HEMATOCRIT 31.2 % (35.0-46.0); HEMOGLOBIN 10.3 GM/DL (11.6-15.3); LYMPH % 8.4 % (9.0-44.0); LYMPHOCYTE # 1.6 TH/MM3 (1.0-4.8); MEAN CELL VOLUME 90.7 FL (80.0-100.0); MEAN CORPUSCULAR HEMOGLOBIN 29.8 PG (27.0-34.0); MEAN CORPUSCULAR HGB CONC 32.9 % (32.0-36.0); MEAN PLATELET VOLUME 10.4 FL (7.0-11.0); MONO % 5.1 % (0.0-8.0); PLATELET COUNT 240 TH/MM3 (150-450); RED BLOOD COUNT 3.44 MIL/MM3 (4.00-5.30); RED CELL DISTRIBUTION WIDTH 14.2 % (11.6-17.2); WHITE BLOOD COUNT 19.5 TH/MM3 (4.0-11.0)
[2017-09-07 08:00] VITALS: BP 146/80; PULSE 90; PULSE 93; RESP 20; TEMP 97.7; O2SAT 96
[2017-09-07 08:25] LABS: BANDS 7 % (0-6); LYMPHOCYTES 8 % (9-44); METAMYELOCYTES 3 % (0-1); MONOCYTES 4 % (0-8); POLYS (SEG NEUTROPHILS) 77 % (16-70)
[2017-09-07] MEDS: SODIUM CHLORIDE 0.9% FLUSH 10 ML FLUSH IV FLUSH SCH ×3 (09:00→20:48)
[2017-09-07] MEDS: DOCUSATE SODIUM 50 MG/SENNA 8.6 MG TAB PO SCH ×2 (09:00→20:48)
[2017-09-07] MEDS: CARVEDILOL 3.125 MG TAB PO SCH ×2 (09:05→20:48)
[2017-09-07] MEDS: FLUCONAZOLE 100 MG TAB PO SCH (09:05)
[2017-09-07] MEDS: HYDROCORTISONE SOD SUCCINATE 100 MG VIAL IV PUSH SCH ×2 (09:08→20:48)
[2017-09-07] MEDS: PANTOPRAZOLE SODIUM 40 MG VIAL IV PUSH SCH (09:08)
[2017-09-07] MEDS: cefTRIAXone INJ 2,000 MG in SODIUM CHLORIDE 0.9% INJ 100 ML IV SCH (09:10)
--- NOTE | 2017-09-07 10:32 | HHI.PR ---
Subjective Remarks This is a pleasant [address] CT of the abdomen and pelvis showed a stone obstructing the right UVJ junction with associated right hydronephrosis. 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 09/05: Seen in her bedroom discussed with nurse and on MDR. 09/06: Stable in her bedroom, continue with uncontrolled blood sugars, will titrate the dosages of Solu-Medrol and her insulin will need further adjustments 09/07: No complaint stable increased activity, no nausea, vomit or diarrhea, encourage ambulation. Objective Vital Signs Date Time Temp Pulse Resp B/P (MAP) Pulse Ox O2 Delivery O2 Flow Rate FiO2 09/07/17 04:00 94 09/07/17 00:00 Room Air 09/07/17 00:00 79 09/06/17 22:18 21 09/06/17 20:10 Room Air 09/06/17 20:00 85 09/06/17 20:00 97.4 88 16 129/63 (85) 94 09/06/17 16:00 83 09/06/17 16:00 97.9 87 20 140/75 (96) 93 09/06/17 12:00 87 09/06/17 12:00 98.1 82 20 135/68 (90) 91 I/O 09/06/17 09/06/17 09/06/17 09/07/17 09/07/17 09/07/17 07:00 15:00 23:00 07:00 15:00 23:00 Intake Total 1487 ml 250 ml 2370 ml 1278 ml Balance 1487 ml 250 ml 2370 ml 1278 ml Intake Oral 480 ml 720 ml 480 ml IV Total 1007 ml 250 ml 1650 ml 798 ml # Voids 3 6 2 # Bowel Movements 3 6 1 Result Diagram: 09/07/17 0613 09/05/17 1440 Imaging Last Impressions Abdomen/Pelvis CT 09/04/17 0000 Signed Impressions: Service Date/Time: August 19:11 - CONCLUSION: Interval placement of a right ureteral stent with decrease in right hydronephrosis. No new acute findings in the abdomen or pelvis. Lung base infiltrates and effusions Ben Esquivel MD Chest X-Ray 09/03/17 0000 Signed Impressions: Service Date/Time: Sunday, September 03, 2017 06:18 - CONCLUSION: Bilateral basilar consolidation, right greater than left. Patricia Christianson MD Abdomen X-Ray 08/30/17 0000 Signed Impressions: Service Date/Time: Wednesday, August 30, 2017 21:08 - CONCLUSION: Right ureteral stent. Proximal portion of the stent appears appropriately positioned. Ben Agarwal MD Procedures Pressors Other Results Laboratory Tests Test 08/30/17 07:05 08/30/17 15:50 08/30/17 19:30 08/30/17 19:50 Urine Collection Type VOIDED Fibrinogen 326 mg/dL Blood Gas Puncture Site RT RADIAL Blood Gas Patient Temperature 37.0 Blood Gas HCO3 15 mmol/L Blood Gas Base Excess -9.9 mmol/L Blood Gas Oxygen Saturation 92 % Arterial Blood pH 7.31 Arterial Blood Partial Pressure CO2 31 mmHg Arterial Blood Partial Pressure O2 63 mmHg Arterial Blood Oxygen Content 11.9 Vol % Arterial Blood Carboxyhemoglobin 1.3 % Arterial Blood Methemoglobin 0.8 % Blood Gas Hemoglobin 9.2 G/DL Oxygen Delivery Device NASAL CANNULA Blood Gas Liter Flow 2 L/M Ammonia 23 MCMOL/L Total Creatine Kinase 131 U/L Amylase Level 38 U/L Lipase 91 U/L Test 08/30/17 22:40 08/31/17 02:18 08/31/17 08:45 08/31/17 15:20 Nasal Screen MRSA (PCR) MRSA NOT DETECTED Myelocytes 1 % Toxic Vacuolation PRESENT Thyroid Stimulating Hormone 3rd Gen 0.625 uIU/ML Stool C. difficile Toxin (PCR) NEGATIVE Stl C. difficile Toxin Epiderm 027 PRESUMPTIVE NEGATIVE Test 08/31/17 16:02 08/31/17 22:07 09/01/17 06:00 09/01/17 09:40 Prothrombin Time 19.2 SEC Prothromb Time International Ratio 1.9 RATIO Activated Partial Thromboplast Time 35.5 SEC Whitney Cells 1+ Troponin I 5.15 NG/ML Random Vancomycin Level 3.3 COMMENT Urine WBC Clumps MANY Urine Bacteria FEW /hpf Urine Random Creatinine 76.7 MG/DL Urine Random Sodium 15 MEQ/L Test 09/01/17 13:57 09/02/17 05:39 09/02/17 17:45 09/04/17 07:45 Lactic Acid Level 2.1 mmol/L Toxic Granulation 1+ Dohle Bodies PRESENT Vancomycin Level Trough LESS THAN 0.8 MCG/ML Protein Corrected Calcium 8.4 MG/DL Test 09/04/17 10:00 09/05/17 06:45 09/05/17 14:40 09/06/17 14:40 Urine Eosinophils NONE SEEN /HPF Blood Urea Nitrogen 14 MG/DL Creatinine 0.74 MG/DL Random Glucose 194 MG/DL Total Protein 5.7 GM/DL Albumin 2.2 GM/DL Calcium Level 7.6 MG/DL Alkaline Phosphatase 153 U/L Aspartate Amino Transf (AST/SGOT) 24 U/L Alanine Aminotransferase (ALT/SGPT) 98 U/L Total Bilirubin 0.7 MG/DL Direct Bilirubin 0.2 MG/DL Sodium Level 143 MEQ/L Potassium Level 2.8 MEQ/L 3.7 MEQ/L Chloride Level 111 MEQ/L Carbon Dioxide Level 24.4 MEQ/L Anion Gap 8 MEQ/L Estimat Glomerular Filtration Rate 77 ML/MIN Phosphorus Level 1.7 MG/DL Magnesium Level 1.4 MG/DL Indirect Bilirubin 0.5 MG/DL Urine Color YELLOW Urine Turbidity CLEAR Urine pH 6.0 Urine Specific [place] 1.023 Urine Protein TRACE mg/dL Urine Glucose (UA) 1000 mg/dL Urine Ketones TRACE mg/dL Urine Occult Blood LARGE Urine Nitrite NEG Urine Bilirubin NEG Urine Urobilinogen LESS THAN 2.0 MG/DL Urine Leukocyte Esterase MOD Urine RBC 10 /hpf Urine WBC 25 /hpf Urine Squamous Epithelial Cells <1 /hpf Urine Hyaline Casts 2 /lpf Microscopic Urinalysis Comment CATH-CULTURE IND Test 09/07/17 06:13 White Blood Count 19.5 TH/MM3 Red Blood Count 3.44 MIL/MM3 Hemoglobin 10.3 GM/DL Hematocrit 31.2 % Mean Corpuscular Volume 90.7 FL Mean Corpuscular Hemoglobin 29.8 PG Mean Corpuscular Hemoglobin Concent 32.9 % Red Cell Distribution Width 14.2 % Platelet Count 240 TH/MM3 Mean Platelet Volume 10.4 FL Neutrophils (%) (Auto) 86.0 % Lymphocytes (%) (Auto) 8.4 % Monocytes (%) (Auto) 5.1 % Eosinophils (%) (Auto) 0.3 % Basophils (%) (Auto) 0.2 % Neutrophils # (Auto) 16.7 TH/MM3 Lymphocytes # (Auto) 1.6 TH/MM3 Monocytes # (Auto) 1.0 TH/MM3 Eosinophils # (Auto) 0.1 TH/MM3 Basophils # (Auto) 0.0 TH/MM3 CBC Comment AUTO DIFF Differential Total Cells Counted 100 Neutrophils % (Manual) 77 % Band Neutrophils % 7 % Lymphocytes % 8 % Monocytes % 4 % Eosinophils % 1 % Neutrophils # (Manual) 17.0 TH/MM3 Metamyelocytes 3 % Differential Comment FINAL DIFF MANUAL Platelet Estimate NORMAL Platelet Morphology Comment NORMAL Objective Remarks GENERAL: No acute distress. CARDIOVASCULAR: Regular rate and rhythm. RESPIRATORY: No accessory muscle use. Clear to auscultation. Breath sounds equal bilaterally. GASTROINTESTINAL: Abdomen soft, non-tender, nondistended. Hepatic and splenic margins not palpable. MUSCULOSKELETAL: Extremities without clubbing, cyanosis, or edema. No obvious deformities. NEUROLOGICAL: Awake and alert. No obvious cranial nerve deficits. Motor grossly within normal limits. Generalized weakness. Normal speech. PSYCHIATRIC: Appropriate mood and affect; insight and judgment normal. Medications and IVs Current Medications Medications (Trade) Dose Ordered Sig/Rowan Route Start Time Stop Time Status Last Admin (Xalatan 0.005% Opth Soln) 1 drop HS EACH EYE 08/30/17 21:00 (D50w (Vial) Inj) 50 ml UNSCH PRN IV PUSH 08/30/17 15:45 (Glucagon Inj) 1 mg UNSCH PRN OTHER 08/30/17 15:45 (NovoLOG SUPPLEMENTAL SCALE) 1 Q4HR SQ 08/30/17 16:00 09/07/17 09:04 Sodium Chloride 1,000 ml @ 75 mls/hr [id number] IV 08/30/17 15:32 09/06/17 23:20 (NS Flush) 2 ml UNSCH PRN IV FLUSH 08/30/17 15:45 (NS Flush) 2 ml BID IV FLUSH 08/30/17 21:00 09/06/17 20:30 (Tylenol) 650 mg Q6H PRN PO 08/30/17 15:45 ([place] 5-325 Mg) 1 tab Q4H PRN PO 08/30/17 15:45 08/31/17 13:47 (Protonix Inj) 40 mg DAILY IV PUSH 08/31/17 09:00 09/07/17 09:08 (Zofran Inj) 4 mg Q6H PRN IV PUSH 08/30/17 15:45 08/31/17 13:46 (Albuterol Neb) 2.5 mg Q2HR NEB PRN INH 08/30/17 15:45 09/03/17 22:07 Miscellaneous Information 1 Q361D XX 08/30/17 15:45 (Chlorhexidine 2% Cloth) Taper DAILY@04 TOP 08/31/17 04:00 08/27/18 03:59 09/02/17 04:00 (Chlorhexidine 2% Cloth) 3 pack UNSCH PRN TOP 08/30/17 15:45 (Cate-Colace) 1 tab BID PO 08/30/17 21:00 09/03/17 07:58 (Milk Of Magnesia Liq) 30 ml Q12H PRN PO 08/30/17 15:45 (Senokot) 17.2 mg Q12H PRN PO 08/30/17 15:45 (Dulcolax Supp) 10 mg DAILY PRN RECTAL 08/30/17 15:45 (Lactulose Liq) 30 ml DAILY PRN PO 08/30/17 15:45 (Morphine Inj) 2 mg Q2H PRN IV PUSH 08/30/17 16:00 (NS Flush) DAILY IV FLUSH 08/30/17 17:00 09/02/17 08:46 (NS Flush) UNSCH PRN IV FLUSH 08/30/17 17:00 (Brethine Inj) 1 mg UNSCH PRN SQ 08/30/17 18:45 (Heparin Inj) 5,000 units UNSCH PRN IV PUSH 08/31/17 21:45 Future Hold (Heparin Inj) 2,500 units UNSCH PRN IV PUSH 08/31/17 21:45 Future Hold Heparin Sodium/ Dextrose 250 ml @ 8 mls/hr TITRATE PRN IV 08/31/17 16:15 Future Hold (Lipitor) 40 mg HS PO 08/31/17 21:00 Future Hold 08/31/17 20:50 (Duoneb Neb) 1 ampule Q6HR NEB PRN NEB 09/01/17 17:30 09/03/17 11:34 (Coreg) 3.125 mg Q12HR PO 09/02/17 12:00 09/07/17 09:05 Ceftriaxone Sodium 2000 mg/ Sodium Chloride 100 ml @ 200 mls/hr Q24H IV 09/03/17 10:00 09/07/17 09:10 (SoluCORTEF INJ) 50 mg Q12HR IV PUSH 09/04/17 21:00 09/07/17 09:08 (Diflucan) 100 mg DAILY PO 09/04/17 13:45 09/07/17 09:05 A/P Assessment and Plan (1) Encephalopathy ICD Code: G93.40 - Encephalopathy, unspecified (2) Pyrexia ICD Code: R50.9 - Fever, unspecified (3) Bigeminy ICD Code: I49.9 - Cardiac arrhythmia, unspecified (4) Hard of hearing ICD Code: H91.90 - Unspecified hearing loss, unspecified ear (5) Hypertension ICD Code: I10 - Essential (primary) hypertension (6) Hyperglycemia ICD Code: R73.9 - Hyperglycemia, unspecified (7) Diabetes mellitus type 2 in nonobese ICD Code: E11.9 - Type 2 diabetes mellitus without complications (8) Asthma ICD Code: J45.909 - Unspecified asthma, uncomplicated (9) Glaucoma ICD Code: H40.9 - Unspecified glaucoma (10) Lactic acidosis ICD Code: E87.2 - Acidosis (11) Acute kidney injury ICD Code: N17.9 - Acute kidney failure, unspecified (12) Hypokalemia ICD Code: E87.6 - Hypokalemia (13) Hydronephrosis due to obstruction of ureter ICD Code: N13.2 - Hydronephrosis with renal and ureteral calculous obstruction (14) Sinus tachycardia ICD Code: R00.0 - Tachycardia, unspecified (15) Severe sepsis ICD Code: A41.9 - Sepsis, unspecified organism; R65.20 - Severe sepsis without septic shock (16) Right ureteral calculus ICD Code: N20.1 - Calculus of ureter Status: Acute 72 Y/O female with E. Coli sepsis with shock, infected stone. Patient also with NSTEMI, Melena. S/P ICU course. Severe Ecoli sepsis with shock secondary to urinary tract infection/infected stone? Leukocytosis ID following. On Rocephin S/P pressors. Wean off stress dose steroid. Cut dose by half today. May discontinue tomorrow. Leukocytosis worse. May be related to steroids. Repeat abdominal CT per ID did not found new acute pathology. CT of the abdomen and pelvis showed a stone obstructing the right UVJ junction with associated right hydronephrosis. E Coli Sepsis with shock due to complicated UTI, was on Pressors, complicated Pyelonephritis, E coli, with obstructing stone R, S/P placement of stent Leukocytosis, due to UTI and reactive post cysto and stent placement, to continue Rocephin, added Diflucan. Acute kidney injury Improved. Right hydronephrosis with 4 mm stone at the right UVJ junction Urology/Dr. Perdue following. 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 Cardiomyopathy: EF 25-30% by echo Cardiology following History of mild intermittent asthma stable. Nasal cannula to maintain saturations greater than equal to 92% Incentive spirometry while awake Albuterol/ipratropium aerosols every 6 hours with albuterol aerosols every 2 hours as needed dyspnea Patient is on albuterol 18 mg 1 puff every 4-6 hours as needed dyspnea at home Diabetes mellitus type 2 with hyperglycemia Holding metformin 1000 mg twice daily and glimepiride 4 mg p.o. twice daily Continue sliding scale, uncontrolled blood sugars, will decrease dosages of Solu -Medrol and follow Hypokalemia Hypophosphatemia Replace electrolytes as clinically indicated Access -Utilize peripheral IV. Prophylaxis -GI -pantoprazole -DVT -SCDs Discharge Planning Will need rehab. Follow leukocytosis and specialist recs for DC planning. Rickey Wu MD Sep 07, 2017 10:32
[2017-09-07] MEDS: INSULIN DETEMIR 100 UNITS/ML VIAL SQ SCH ×2 (11:00→20:49)
--- NOTE | 2017-09-07 11:23 | HHI.IDPN ---
Subjective Subjective Remarks Patient is a 72-year-old female, admitted to the hospital with acute onset of severe abdominal pain, and nausea and vomiting. Initially thought that she had food poisoning because she had eaten boiled peanuts. In the ED she had a fever up to 103, and was hypotensive. CT of the abdomen and pelvis showed a stone obstructing the right UVJ junction with associated right hydronephrosis. Her initial WBC was normal but it went up. Urology saw the patient, and she underwent cystoscopy and placement of a stent. Her hemodynamics improved. Her WBC remained elevated. Her temperature is better. Blood culture on admission is growing E. coli. Urine culture has E. coli. Patient currently still feels blah. Abdominal pain is still present but a little better. Her WBC remains elevated. Her creatinine is also elevated. She has good urine output. Nausea and vomiting has improved. Infectious disease consultation has been requested to evaluate the patient. Notes reviewed Temps ok BP good Weak, but improving [place] has been removed She is incontinent of urine and stool Stools are semi-formed No rash or itching No N/V WBC down to 19,000 Repeat UC negative BC negative Repeat UA better Antibiotics Rocephin Current Medications Medications (Trade) Dose Ordered Sig/Rowan Route Start Time Stop Time Status Last Admin (Xalatan 0.005% Opth Soln) 1 drop HS EACH EYE 08/30/17 21:00 (D50w (Vial) Inj) 50 ml UNSCH PRN IV PUSH 08/30/17 15:45 (Glucagon Inj) 1 mg UNSCH PRN OTHER 08/30/17 15:45 (NovoLOG SUPPLEMENTAL SCALE) 1 Q4HR SQ 08/30/17 16:00 09/07/17 09:04 Sodium Chloride 1,000 ml @ 75 mls/hr [id number] IV 08/30/17 15:32 09/06/17 23:20 (NS Flush) 2 ml UNSCH PRN IV FLUSH 08/30/17 15:45 (NS Flush) 2 ml BID IV FLUSH 08/30/17 21:00 09/06/17 20:30 (Tylenol) 650 mg Q6H PRN PO 08/30/17 15:45 ([place] 5-325 Mg) 1 tab Q4H PRN PO 08/30/17 15:45 08/31/17 13:47 (Protonix Inj) 40 mg DAILY IV PUSH 08/31/17 09:00 09/07/17 09:08 (Zofran Inj) 4 mg Q6H PRN IV PUSH 08/30/17 15:45 08/31/17 13:46 (Albuterol Neb) 2.5 mg Q2HR NEB PRN INH 08/30/17 15:45 09/03/17 22:07 Miscellaneous Information 1 Q361D XX 08/30/17 15:45 (Chlorhexidine 2% Cloth) Taper DAILY@04 TOP 08/31/17 04:00 08/27/18 03:59 09/02/17 04:00 (Chlorhexidine 2% Cloth) 3 pack UNSCH PRN TOP 08/30/17 15:45 (Cate-Colace) 1 tab BID PO 08/30/17 21:00 09/03/17 07:58 (Milk Of Magnesia Liq) 30 ml Q12H PRN PO 08/30/17 15:45 (Senokot) 17.2 mg Q12H PRN PO 08/30/17 15:45 (Dulcolax Supp) 10 mg DAILY PRN RECTAL 08/30/17 15:45 (Lactulose Liq) 30 ml DAILY PRN PO 08/30/17 15:45 (Morphine Inj) 2 mg Q2H PRN IV PUSH 08/30/17 16:00 (NS Flush) DAILY IV FLUSH 08/30/17 17:00 09/02/17 08:46 (NS Flush) UNSCH PRN IV FLUSH 08/30/17 17:00 (Brethine Inj) 1 mg UNSCH PRN SQ 08/30/17 18:45 (Heparin Inj) 5,000 units UNSCH PRN IV PUSH 08/31/17 21:45 Future Hold (Heparin Inj) 2,500 units UNSCH PRN IV PUSH 08/31/17 21:45 Future Hold Heparin Sodium/ Dextrose 250 ml @ 8 mls/hr TITRATE PRN IV 08/31/17 16:15 Future Hold (Lipitor) 40 mg HS PO 08/31/17 21:00 Future Hold 08/31/17 20:50 (Duoneb Neb) 1 ampule Q6HR NEB PRN NEB 09/01/17 17:30 09/03/17 11:34 (Coreg) 3.125 mg Q12HR PO 09/02/17 12:00 09/07/17 09:05 Ceftriaxone Sodium 2000 mg/ Sodium Chloride 100 ml @ 200 mls/hr Q24H IV 09/03/17 10:00 09/07/17 09:10 (Diflucan) 100 mg DAILY PO 09/04/17 13:45 09/07/17 09:05 (SoluCORTEF INJ) 40 mg Q12HR IV PUSH 09/07/17 21:00 (NovoLOG INJ) 5 units TIDAC SQ 09/07/17 12:00 (Levemir Inj) 10 units BID SQ 09/07/17 11:00 Lines PIV - Line with no evidence of infection Past Medical History Hard of hearing Glaucoma Hypertension Nausea/vomiting Diabetes mellitus Past Surgical History Oophorectomy Hysterectomy 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 Vital Signs Date Time Temp Pulse Resp B/P (MAP) Pulse Ox O2 Delivery O2 Flow Rate FiO2 09/07/17 08:00 97.7 93 20 146/80 (102) 96 09/07/17 08:00 90 09/07/17 07:00 Room Air 09/07/17 04:00 94 09/07/17 00:00 Room Air 09/07/17 00:00 79 09/06/17 22:18 21 09/06/17 20:10 Room Air 09/06/17 20:00 85 09/06/17 20:00 97.4 88 16 129/63 (85) 94 09/06/17 16:00 83 09/06/17 16:00 97.9 87 20 140/75 (96) 93 09/06/17 12:00 87 09/06/17 12:00 98.1 82 20 135/68 (90) 91 . Laboratory Tests Test 09/07/17 06:13 White Blood Count 19.5 TH/MM3 Red Blood Count 3.44 MIL/MM3 Hemoglobin 10.3 GM/DL Hematocrit 31.2 % Mean Corpuscular Volume 90.7 FL Mean Corpuscular Hemoglobin 29.8 PG Mean Corpuscular Hemoglobin Concent 32.9 % Red Cell Distribution Width 14.2 % Platelet Count 240 TH/MM3 Mean Platelet Volume 10.4 FL Neutrophils (%) (Auto) 86.0 % Lymphocytes (%) (Auto) 8.4 % Monocytes (%) (Auto) 5.1 % Eosinophils (%) (Auto) 0.3 % Basophils (%) (Auto) 0.2 % Neutrophils # (Auto) 16.7 TH/MM3 Lymphocytes # (Auto) 1.6 TH/MM3 Monocytes # (Auto) 1.0 TH/MM3 Eosinophils # (Auto) 0.1 TH/MM3 Basophils # (Auto) 0.0 TH/MM3 CBC Comment AUTO DIFF Differential Total Cells Counted 100 Neutrophils % (Manual) 77 % Band Neutrophils % 7 % Lymphocytes % 8 % Monocytes % 4 % Eosinophils % 1 % Neutrophils # (Manual) 17.0 TH/MM3 Metamyelocytes 3 % Differential Comment FINAL DIFF MANUAL Platelet Estimate NORMAL Platelet Morphology Comment NORMAL Laboratory Tests Test 09/05/17 14:40 Potassium Level 3.7 MEQ/L Microbiology Date/Time Source Procedure Growth Status 09/05/17 14:40 Blood Peripheral Aerobic Blood Culture - Preliminary NO GROWTH IN 2 DAYS Resulted 09/05/17 14:40 Blood Peripheral Anaerobic Blood Culture - Preliminary NO GROWTH IN 2 DAYS Resulted 09/05/17 14:40 Blood Peripheral Aerobic Blood Culture - Preliminary NO GROWTH IN 2 DAYS Resulted 09/05/17 14:40 Blood Peripheral Anaerobic Blood Culture - Preliminary NO GROWTH IN 2 DAYS Resulted 09/06/17 14:40 Urine Catheterized Urine Urine Culture Pending Received Imaging Last Impressions Chest X-Ray 08/30/17 1653 Signed Impressions: Service Date/Time: Wednesday, August 30, 2017 16:55 - CONCLUSION: Patchy bilateral atelectasis. Right IJ central venous catheter with tip at the atriocaval junction. No pneumothorax or other acute complication. Ben Agarwal MD Abdomen/Pelvis CT 08/30/17 0000 Signed Impressions: Service Date/Time: Wednesday, August 30, 2017 12:19 - CONCLUSION: 3-4 mm stone at the right ureterovesical junction with moderate right hydronephrosis. Possible forniceal rupture. Ben Esquivel MD Abdomen X-Ray 08/30/17 0000 Signed Impressions: Service Date/Time: Wednesday, August 30, 2017 21:08 - CONCLUSION: Right ureteral stent. Proximal portion of the stent appears appropriately positioned. Ben Agarwal MD Physical Exam GENERAL: awake and alert, not in respiratory distress. SKIN: Warm and dry. No generalized rash HEAD: Atraumatic. Normocephalic. No temporal wasting, or tenderness. EYES: Pale conjunctiva. No petechia or hemorrhage. Pupils equal, round and reactive to light. Extraocular movements full and intact. No scleral icterus. No injection or drainage. EARS, NOSE AND THROAT: Nose without bleeding or purulent nasal discharge. No sinus tenderness. Mucous membranes pink and moist. No oral lesions noted. No exudate. No oral thrush. NECK: Trachea midline. Supple and not tender, no meningeal signs CARDIOVASCULAR: Regular rate and rhythm. No murmurs, rubs or gallops heard RESPIRATORY: Clear to auscultation. Breath sounds equal bilaterally. No rales , wheezing or rhonchi ABDOMEN: Soft, nondistended, bowel sounds present and normoactive. Min abdominal tenderness diffusely, no guarding and no rebound. No organomegaly. EXTREMITIES: No clubbing, cyanosis. Has mild pedal edema. No calf tenderness. Well perfused and warm. Large ecchymosis L forearm NEUROLOGICAL: Non-focal. PSYCHIATRIC: Normal affect, calm and cooperative. LINE: No evidence of infection Assessment & Plan Remarks IMPRESSION E coli sepsis, with shock, due to complicated UTI - BP better, off pressors Complicated pyelonephritis, E coli, with obstructing stone R, S/P placement of stent Leukocytosis, due to UTI and reactive post cysto and stent placement - ?other etiology - worsening Renal insufficiency, due to sepsis and shock - resolved Heme occult (+) stool - currently refusing endoscopy RECOMMENDATION Continue Rocephin Will switch to Bactrim in next day or two if she remains stable Follow CBC Continue Diflucan Follow C/S Monitor progress Decrease steroids Discussed plan with patient, and daughter; answered all their questions Patient does not want to go to a rehab facility Yadira Bradshaw MD Sep 07, 2017 11:23
[2017-09-07 12:00] VITALS: BP 153/73; PULSE 80; PULSE 81; RESP 20; TEMP 98; O2SAT 93
[2017-09-07] MEDS: INSULIN ASPART 1,000 UNITS/10 ML VIAL SQ SCH ×2 (12:00→17:00)
[2017-09-07] MEDS: SODIUM CHLOR 0.9% 1000 ML INJ 1,000 ML IV SCH (13:15)
[2017-09-07 16:00] VITALS: BP 149/73; PULSE 81; PULSE 85; RESP 20; TEMP 97.9; O2SAT 93
[2017-09-07 20:00] VITALS: PULSE 87
[2017-09-07] MEDS: LATANOPROST 0.005% OPHT SOLN 2.5 ML BTL EACH EYE SCH (20:48)
[2017-09-08] VITALS (9 sets, daily range): BP systolic 129–154; BP diastolic 60–65; PULSE 70–95; RESP 16–20; TEMP 97.4–98.5; O2SAT 93–96
[2017-09-08] MEDS: INSULIN ASPART SUPPLEMENTAL SCALE SQ SCH ×6 (04:00→20:00)
[2017-09-08] MEDS: CHLORHEXIDINE GLUCONATE 2 % 1 PACK (2 CLOTHS) TOP SCH (04:00)
[2017-09-08] MEDS: DOCUSATE SODIUM 50 MG/SENNA 8.6 MG TAB PO SCH ×2 (09:00→21:49)
[2017-09-08] MEDS: SODIUM CHLORIDE 0.9% FLUSH 10 ML FLUSH IV FLUSH SCH ×3 (09:00→21:50)
[2017-09-08] MEDS: INSULIN DETEMIR 100 UNITS/ML VIAL SQ SCH ×2 (09:27→21:48)
[2017-09-08] MEDS: INSULIN ASPART 1,000 UNITS/10 ML VIAL SQ SCH ×3 (09:28→18:35)
[2017-09-08] MEDS: cefTRIAXone INJ 2,000 MG in SODIUM CHLORIDE 0.9% INJ 100 ML IV SCH (09:29)
[2017-09-08] MEDS: HYDROCORTISONE SOD SUCCINATE 100 MG VIAL IV PUSH SCH (09:29)
[2017-09-08] MEDS: PANTOPRAZOLE SODIUM 40 MG VIAL IV PUSH SCH (09:29)
[2017-09-08] MEDS: FLUCONAZOLE 100 MG TAB PO SCH (09:30)
[2017-09-08] MEDS: CARVEDILOL 3.125 MG TAB PO SCH ×2 (09:30→21:49)
--- NOTE | 2017-09-08 10:32 | PD.CARD.PN ---
Subjective Subjective Remarks No events over the weekend Doing well today No chest pain/SOB Objective Medications Current Medications Medications (Trade) Dose Ordered Sig/Rowan Route Start Time Stop Time Status Last Admin (Xalatan 0.005% Opth Soln) 1 drop HS EACH EYE 08/30/17 21:00 (D50w (Vial) Inj) 50 ml UNSCH PRN IV PUSH 08/30/17 15:45 (Glucagon Inj) 1 mg UNSCH PRN OTHER 08/30/17 15:45 (NovoLOG SUPPLEMENTAL SCALE) 1 Q4HR SQ 08/30/17 16:00 09/07/17 22:33 (NS Flush) 2 ml UNSCH PRN IV FLUSH 08/30/17 15:45 (NS Flush) 2 ml BID IV FLUSH 08/30/17 21:00 09/08/17 09:30 (Tylenol) 650 mg Q6H PRN PO 08/30/17 15:45 ([place] 5-325 Mg) 1 tab Q4H PRN PO 08/30/17 15:45 08/31/17 13:47 (Protonix Inj) 40 mg DAILY IV PUSH 08/31/17 09:00 09/08/17 09:29 (Zofran Inj) 4 mg Q6H PRN IV PUSH 08/30/17 15:45 08/31/17 13:46 (Albuterol Neb) 2.5 mg Q2HR NEB PRN INH 08/30/17 15:45 09/03/17 22:07 Miscellaneous Information 1 Q361D XX 08/30/17 15:45 (Chlorhexidine 2% Cloth) Taper DAILY@04 TOP 08/31/17 04:00 08/27/18 03:59 09/02/17 04:00 (Chlorhexidine 2% Cloth) 3 pack UNSCH PRN TOP 08/30/17 15:45 (Cate-Colace) 1 tab BID PO 08/30/17 21:00 09/03/17 07:58 (Milk Of Magnesia Liq) 30 ml Q12H PRN PO 08/30/17 15:45 (Senokot) 17.2 mg Q12H PRN PO 08/30/17 15:45 (Dulcolax Supp) 10 mg DAILY PRN RECTAL 08/30/17 15:45 (Lactulose Liq) 30 ml DAILY PRN PO 08/30/17 15:45 (Morphine Inj) 2 mg Q2H PRN IV PUSH 08/30/17 16:00 (NS Flush) DAILY IV FLUSH 08/30/17 17:00 09/02/17 08:46 (NS Flush) UNSCH PRN IV FLUSH 08/30/17 17:00 (Brethine Inj) 1 mg UNSCH PRN SQ 08/30/17 18:45 (Heparin Inj) 5,000 units UNSCH PRN IV PUSH 08/31/17 21:45 Future Hold (Heparin Inj) 2,500 units UNSCH PRN IV PUSH 08/31/17 21:45 Future Hold Heparin Sodium/ Dextrose 250 ml @ 8 mls/hr TITRATE PRN IV 08/31/17 16:15 Future Hold (Lipitor) 40 mg HS PO 08/31/17 21:00 Future Hold 08/31/17 20:50 (Duoneb Neb) 1 ampule Q6HR NEB PRN NEB 09/01/17 17:30 09/03/17 11:34 (Coreg) 3.125 mg Q12HR PO 09/02/17 12:00 09/08/17 09:30 Ceftriaxone Sodium 2000 mg/ Sodium Chloride 100 ml @ 200 mls/hr Q24H IV 09/03/17 10:00 09/08/17 09:29 (Diflucan) 100 mg DAILY PO 09/04/17 13:45 09/08/17 09:30 (SoluCORTEF INJ) 40 mg Q12HR IV PUSH 09/07/17 21:00 09/08/17 09:29 (NovoLOG INJ) 5 units TIDAC SQ 09/07/17 12:00 09/08/17 09:28 (Levemir Inj) 10 units BID SQ 09/07/17 11:00 09/08/17 09:27 Vital Signs / I&O Vital Signs Date Time Temp Pulse Resp B/P (MAP) Pulse Ox O2 Delivery O2 Flow Rate FiO2 09/08/17 08:00 97.9 76 20 134/60 (84) 95 09/08/17 04:00 97.7 95 20 139/65 (89) 93 09/08/17 04:00 70 09/08/17 00:00 Room Air 09/08/17 00:00 97.4 80 20 138/62 (87) 94 09/08/17 00:00 76 09/07/17 20:00 87 09/07/17 20:00 Room Air 09/07/17 16:00 97.9 81 20 149/73 (98) 93 09/07/17 16:00 85 09/07/17 12:00 80 09/07/17 12:00 98.0 81 20 153/73 (99) 93 I/O 09/07/17 09/07/17 09/07/17 09/08/17 09/08/17 09/08/17 07:00 15:00 23:00 07:00 15:00 23:00 Intake Total 1278 ml 550 ml 1780 ml 120 ml Balance 1278 ml 550 ml 1780 ml 120 ml Intake Oral 480 ml 480 ml 120 ml IV Total 798 ml 550 ml 1300 ml # Voids 2 4 6 # Bowel Movements 1 4 1 Physical Exam GENERAL: NAD, AAOx3 SKIN: Warm and dry. HEAD: Atraumatic. Normocephalic. EYES: Pupils equal and round. No scleral icterus. No injection or drainage. ENT: No nasal bleeding or discharge. Mucous membranes pink and moist. NECK: Trachea midline. No JVD. CARDIOVASCULAR: Regular rate and rhythm. 1/6 holosystolic murmur at the apex RESPIRATORY: No accessory muscle use. Clear to auscultation. Breath sounds equal bilaterally. GASTROINTESTINAL: Abdomen soft, non-tender, nondistended. Hepatic and splenic margins not palpable. MUSCULOSKELETAL: Extremities without clubbing, cyanosis, or edema. No obvious deformities. NEUROLOGICAL: Awake and alert. No obvious cranial nerve deficits. Motor grossly within normal limits. Five out of 5 muscle strength in the arms and legs. Normal speech. PSYCHIATRIC: Appropriate mood and affect; insight and judgment normal. Assessment and Plan Problem List: (1) NSTEMI (non-ST elevation myocardial infarction) ICD Codes: I21.4 - Non-ST elevation (NSTEMI) myocardial infarction (2) Hydronephrosis due to obstruction of ureter ICD Codes: N13.2 - Hydronephrosis with renal and ureteral calculous obstruction (3) Acute kidney injury ICD Codes: N17.9 - Acute kidney failure, unspecified (4) Diabetes mellitus type 2 in nonobese ICD Codes: E11.9 - Type 2 diabetes mellitus without complications (5) Severe sepsis ICD Codes: A41.9 - Sepsis, unspecified organism; R65.20 - Severe sepsis without septic shock (6) Encephalopathy ICD Codes: G93.40 - Encephalopathy, unspecified (7) Lactic acidosis ICD Codes: E87.2 - Acidosis (8) UTI (urinary tract infection) ICD Codes: N39.0 - Urinary tract infection, site not specified Status: Acute (9) Fever ICD Codes: R50.9 - Fever, unspecified Status: Acute (10) Abdominal pain ICD Codes: R10.9 - Unspecified abdominal pain Status: Acute Assessment and Plan 1) NSTEMI Possible Type 1 vs Type 2 Overall septic shock, ELENA, Lactic acidosis, hypotension No ischemic evaluation due to GI bleed Will plan to continue medical management No statin at this time due to elevated LFTs 2) Septic shock Off vasopressors 3) Hemoccult positive stool Patient feels too weak to do EGD/Cscope, plan to continue medical management 4) Thrombocytopenia 5) Elevated cardiovascular risk for any procedure 6) EF 25-30% by echo On Coreg Plan to add Lisinopril for cardiomyopathy Problem Qualifiers (1) UTI (urinary tract infection): Qualified Codes: N39.0 - Urinary tract infection, site not specified (2) Fever: Qualified Codes: R50.9 - Fever, unspecified Gino Delaney DO Sep 08, 2017 10:32
[2017-09-08] MEDS: LISINOPRIL 5 MG TAB PO SCH (12:51)
--- NOTE | 2017-09-08 17:32 | HHI.PR ---
Subjective Remarks This is a pleasant 72 [address] CT of the abdomen and pelvis showed a stone obstructing the right UVJ junction with associated right hydronephrosis. E Coli Sepsis with shock due to complicated UTI, was on Pressors, complicated Pyelonephritis, E coli, with obstructing stone R, S/P placement of stent Leukocytosis, due to UTI and reactive post cysto and stent placement, to continue Rocephin, added Diflucan, debt collection specialist following for NSTEMI Possible Type 1 vs Type 2 overall septic shock, LEENA Lactic acidosis, Hypotension , No ischemic evaluation due to GI bleed, recommended to continue medical management No statin at this time due to elevated LFTs. 09/05: Seen in her bedroom discussed with nurse and on MDR. 09/06: Stable in her bedroom, continue with uncontrolled blood sugars, will titrate the dosages of Solu-Medrol and her insulin will need further adjustments 09/07: No complaint stable increased activity, encourage ambulation. 09/08: Seen in her bedroom, discussed with nurse Miss Vasques no new issues, no nausea, vomit or diarrhea. Objective Vital Signs Date Time Temp Pulse Resp B/P (MAP) Pulse Ox O2 Delivery O2 Flow Rate FiO2 09/08/17 11:20 98.5 75 20 129/62 (84) 96 09/08/17 08:00 97.9 76 20 134/60 (84) 95 09/08/17 04:00 97.7 95 20 139/65 (89) 93 09/08/17 04:00 70 09/08/17 00:00 Room Air 09/08/17 00:00 97.4 80 20 138/62 (87) 94 09/08/17 00:00 76 09/07/17 20:00 87 09/07/17 20:00 Room Air I/O 09/07/17 09/07/17 09/07/17 09/08/17 09/08/17 09/08/17 07:00 15:00 23:00 07:00 15:00 23:00 Intake Total 1278 ml 550 ml 1780 ml 120 ml Balance 1278 ml 550 ml 1780 ml 120 ml Intake Oral 480 ml 480 ml 120 ml IV Total 798 ml 550 ml 1300 ml # Voids 2 4 6 # Bowel Movements 1 4 1 Result Diagram: 09/07/17 0613 09/05/17 1440 Imaging Last Impressions Abdomen/Pelvis CT 09/04/17 0000 Signed Impressions: Service Date/Time: August 19:11 - CONCLUSION: Interval placement of a right ureteral stent with decrease in right hydronephrosis. No new acute findings in the abdomen or pelvis. Lung base infiltrates and effusions Ben Esquivel MD Chest X-Ray 09/03/17 0000 Signed Impressions: Service Date/Time: Sunday, September 03, 2017 06:18 - CONCLUSION: Bilateral basilar consolidation, right greater than left. Patricia Christianson MD Abdomen X-Ray 08/30/17 0000 Signed Impressions: Service Date/Time: Wednesday, August 30, 2017 21:08 - CONCLUSION: Right ureteral stent. Proximal portion of the stent appears appropriately positioned. Ben Agarwal MD Procedures Pressors Other Results Laboratory Tests Test 08/30/17 07:05 08/30/17 15:50 08/30/17 19:30 08/30/17 19:50 Urine Collection Type VOIDED Fibrinogen 326 mg/dL Blood Gas Puncture Site RT RADIAL Blood Gas Patient Temperature 37.0 Blood Gas HCO3 15 mmol/L Blood Gas Base Excess -9.9 mmol/L Blood Gas Oxygen Saturation 92 % Arterial Blood pH 7.31 Arterial Blood Partial Pressure CO2 31 mmHg Arterial Blood Partial Pressure O2 63 mmHg Arterial Blood Oxygen Content 11.9 Vol % Arterial Blood Carboxyhemoglobin 1.3 % Arterial Blood Methemoglobin 0.8 % Blood Gas Hemoglobin 9.2 G/DL Oxygen Delivery Device NASAL CANNULA Blood Gas Liter Flow 2 L/M Ammonia 23 MCMOL/L Total Creatine Kinase 131 U/L Amylase Level 38 U/L Lipase 91 U/L Test 08/30/17 22:40 08/31/17 02:18 08/31/17 08:45 08/31/17 15:20 Nasal Screen MRSA (PCR) MRSA NOT DETECTED Myelocytes 1 % Toxic Vacuolation PRESENT Thyroid Stimulating Hormone 3rd Gen 0.625 uIU/ML Stool C. difficile Toxin (PCR) NEGATIVE Stl C. difficile Toxin Epiderm 027 PRESUMPTIVE NEGATIVE Test 08/31/17 16:02 08/31/17 22:07 09/01/17 06:00 09/01/17 09:40 Prothrombin Time 19.2 SEC Prothromb Time International Ratio 1.9 RATIO Activated Partial Thromboplast Time 35.5 SEC [place] Cells 1+ Troponin I 5.15 NG/ML Random Vancomycin Level 3.3 COMMENT Urine WBC Clumps MANY Urine Bacteria FEW /hpf Urine Random Creatinine 76.7 MG/DL Urine Random Sodium 15 MEQ/L Test 09/01/17 13:57 09/02/17 05:39 09/02/17 17:45 09/04/17 07:45 Lactic Acid Level 2.1 mmol/L Toxic Granulation 1+ Dohle Bodies PRESENT Vancomycin Level Trough LESS THAN 0.8 MCG/ML Protein Corrected Calcium 8.4 MG/DL Test 09/04/17 10:00 09/05/17 06:45 09/05/17 14:40 09/06/17 14:40 Urine Eosinophils NONE SEEN /HPF Blood Urea Nitrogen 14 MG/DL Creatinine 0.74 MG/DL Random Glucose 194 MG/DL Total Protein 5.7 GM/DL Albumin 2.2 GM/DL Calcium Level 7.6 MG/DL Alkaline Phosphatase 153 U/L Aspartate Amino Transf (AST/SGOT) 24 U/L Alanine Aminotransferase (ALT/SGPT) 98 U/L Total Bilirubin 0.7 MG/DL Direct Bilirubin 0.2 MG/DL Sodium Level 143 MEQ/L Potassium Level 2.8 MEQ/L 3.7 MEQ/L Chloride Level 111 MEQ/L Carbon Dioxide Level 24.4 MEQ/L Anion Gap 8 MEQ/L Estimat Glomerular Filtration Rate 77 ML/MIN Phosphorus Level 1.7 MG/DL Magnesium Level 1.4 MG/DL Indirect Bilirubin 0.5 MG/DL Urine Color YELLOW Urine Turbidity CLEAR Urine pH 6.0 Urine Specific [place] 1.023 Urine Protein TRACE mg/dL Urine Glucose (UA) 1000 mg/dL Urine Ketones TRACE mg/dL Urine Occult Blood LARGE Urine Nitrite NEG Urine Bilirubin NEG Urine Urobilinogen LESS THAN 2.0 MG/DL Urine Leukocyte Esterase MOD Urine RBC 10 /hpf Urine WBC 25 /hpf Urine Squamous Epithelial Cells <1 /hpf Urine Hyaline Casts 2 /lpf Microscopic Urinalysis Comment CATH-CULTURE IND Test 09/07/17 06:13 White Blood Count 19.5 TH/MM3 Red Blood Count 3.44 MIL/MM3 Hemoglobin 10.3 GM/DL Hematocrit 31.2 % Mean Corpuscular Volume 90.7 FL Mean Corpuscular Hemoglobin 29.8 PG Mean Corpuscular Hemoglobin Concent 32.9 % Red Cell Distribution Width 14.2 % Platelet Count 240 TH/MM3 Mean Platelet Volume 10.4 FL Neutrophils (%) (Auto) 86.0 % Lymphocytes (%) (Auto) 8.4 % Monocytes (%) (Auto) 5.1 % Eosinophils (%) (Auto) 0.3 % Basophils (%) (Auto) 0.2 % Neutrophils # (Auto) 16.7 TH/MM3 Lymphocytes # (Auto) 1.6 TH/MM3 Monocytes # (Auto) 1.0 TH/MM3 Eosinophils # (Auto) 0.1 TH/MM3 Basophils # (Auto) 0.0 TH/MM3 CBC Comment AUTO DIFF Differential Total Cells Counted 100 Neutrophils % (Manual) 77 % Band Neutrophils % 7 % Lymphocytes % 8 % Monocytes % 4 % Eosinophils % 1 % Neutrophils # (Manual) 17.0 TH/MM3 Metamyelocytes 3 % Differential Comment FINAL DIFF MANUAL Platelet Estimate NORMAL Platelet Morphology Comment NORMAL Objective Remarks GENERAL: No acute distress. CARDIOVASCULAR: Regular rate and rhythm. RESPIRATORY: No accessory muscle use. Clear to auscultation. Breath sounds equal bilaterally. GASTROINTESTINAL: Abdomen soft, non-tender, nondistended. Hepatic and splenic margins not palpable. MUSCULOSKELETAL: Extremities without clubbing, cyanosis, or edema. No obvious deformities. NEUROLOGICAL: Awake and alert. No obvious cranial nerve deficits. Motor grossly within normal limits. Generalized weakness. Normal speech. PSYCHIATRIC: Appropriate mood and affect; insight and judgment normal. Medications and IVs Current Medications Medications (Trade) Dose Ordered Sig/Rowan Route Start Time Stop Time Status Last Admin (Xalatan 0.005% Opth Soln) 1 drop HS EACH EYE 08/30/17 21:00 (D50w (Vial) Inj) 50 ml UNSCH PRN IV PUSH 08/30/17 15:45 (Glucagon Inj) 1 mg UNSCH PRN OTHER 08/30/17 15:45 (NovoLOG SUPPLEMENTAL SCALE) 1 Q4HR SQ 08/30/17 16:00 09/08/17 12:52 (NS Flush) 2 ml UNSCH PRN IV FLUSH 08/30/17 15:45 (NS Flush) 2 ml BID IV FLUSH 08/30/17 21:00 09/08/17 09:30 (Tylenol) 650 mg Q6H PRN PO 08/30/17 15:45 ([place] 5-325 Mg) 1 tab Q4H PRN PO 08/30/17 15:45 08/31/17 13:47 (Protonix Inj) 40 mg DAILY IV PUSH 08/31/17 09:00 09/08/17 09:29 (Zofran Inj) 4 mg Q6H PRN IV PUSH 08/30/17 15:45 08/31/17 13:46 (Albuterol Neb) 2.5 mg Q2HR NEB PRN INH 08/30/17 15:45 09/03/17 22:07 Miscellaneous Information 1 Q361D XX 08/30/17 15:45 (Chlorhexidine 2% Cloth) Taper DAILY@04 TOP 08/31/17 04:00 08/27/18 03:59 09/02/17 04:00 (Chlorhexidine 2% Cloth) 3 pack UNSCH PRN TOP 08/30/17 15:45 (Cate-Colace) 1 tab BID PO 08/30/17 21:00 09/03/17 07:58 (Milk Of Magnesia Liq) 30 ml Q12H PRN PO 08/30/17 15:45 (Senokot) 17.2 mg Q12H PRN PO 08/30/17 15:45 (Dulcolax Supp) 10 mg DAILY PRN RECTAL 08/30/17 15:45 (Lactulose Liq) 30 ml DAILY PRN PO 08/30/17 15:45 (Morphine Inj) 2 mg Q2H PRN IV PUSH 08/30/17 16:00 (NS Flush) DAILY IV FLUSH 08/30/17 17:00 09/02/17 08:46 (NS Flush) UNSCH PRN IV FLUSH 08/30/17 17:00 (Brethine Inj) 1 mg UNSCH PRN SQ 08/30/17 18:45 (Heparin Inj) 5,000 units UNSCH PRN IV PUSH 08/31/17 21:45 Future Hold (Heparin Inj) 2,500 units UNSCH PRN IV PUSH 08/31/17 21:45 Future Hold Heparin Sodium/ Dextrose 250 ml @ 8 mls/hr TITRATE PRN IV 08/31/17 16:15 Future Hold (Lipitor) 40 mg HS PO 08/31/17 21:00 Future Hold 08/31/17 20:50 (Duoneb Neb) 1 ampule Q6HR NEB PRN NEB 09/01/17 17:30 09/03/17 11:34 (Coreg) 3.125 mg Q12HR PO 09/02/17 12:00 09/08/17 09:30 (Diflucan) 100 mg DAILY PO 09/04/17 13:45 09/08/17 09:30 (SoluCORTEF INJ) 40 mg Q12HR IV PUSH 09/07/17 21:00 09/08/17 09:29 (NovoLOG INJ) 5 units TIDAC SQ 09/07/17 12:00 09/08/17 12:52 (Levemir Inj) 10 units BID SQ 09/07/17 11:00 09/08/17 09:27 (Prinivil) 5 mg DAILY PO 09/08/17 10:45 09/08/17 12:51 (Bactrim 400-80 Mg) 1 tab Q12HR PO 09/08/17 21:00 A/P Assessment and Plan (1) Encephalopathy ICD Code: G93.40 - Encephalopathy, unspecified (2) Pyrexia ICD Code: R50.9 - Fever, unspecified (3) Bigeminy ICD Code: I49.9 - Cardiac arrhythmia, unspecified (4) Hard of hearing ICD Code: H91.90 - Unspecified hearing loss, unspecified ear (5) Hypertension ICD Code: I10 - Essential (primary) hypertension (6) Hyperglycemia ICD Code: R73.9 - Hyperglycemia, unspecified (7) Diabetes mellitus type 2 in nonobese ICD Code: E11.9 - Type 2 diabetes mellitus without complications (8) Asthma ICD Code: J45.909 - Unspecified asthma, uncomplicated (9) Glaucoma ICD Code: H40.9 - Unspecified glaucoma (10) Lactic acidosis ICD Code: E87.2 - Acidosis (11) Acute kidney injury ICD Code: N17.9 - Acute kidney failure, unspecified (12) Hypokalemia ICD Code: E87.6 - Hypokalemia (13) Hydronephrosis due to obstruction of ureter ICD Code: N13.2 - Hydronephrosis with renal and ureteral calculous obstruction (14) Sinus tachycardia ICD Code: R00.0 - Tachycardia, unspecified (15) Severe sepsis ICD Code: A41.9 - Sepsis, unspecified organism; R65.20 - Severe sepsis without septic shock (16) Right ureteral calculus ICD Code: N20.1 - Calculus of ureter Status: Acute 72 Y/O female with E. Coli sepsis with shock, infected stone. Patient also with NSTEMI, Melena. S/P ICU course. Severe Ecoli sepsis with shock secondary to urinary tract infection/infected stone? Leukocytosis ID following. On Rocephin S/P pressors. Wean off stress dose steroid. Cut dose by half today. May discontinue tomorrow. Leukocytosis worse. May be related to steroids. Repeat abdominal CT per ID did not found new acute pathology. CT of the abdomen and pelvis showed a stone obstructing the right UVJ junction with associated right hydronephrosis. E Coli Sepsis with shock due to complicated UTI, was on Pressors, complicated Pyelonephritis, E coli, with obstructing stone R, S/P placement of stent Leukocytosis, due to UTI and reactive post cysto and stent placement, to continue Rocephin, added Diflucan. Acute kidney injury Improved. Right hydronephrosis with 4 mm stone at the right UVJ junction Urology/Dr. Perdue following. S/P stent placement DC rothman NSTEMI Possible Type 1 vs Type 2 Overall septic shock, LEENA, Lactic acidosis, hypotension debt collection specialist following for NSTEMI Possible Type 1 vs Type 2 overall septic shock, LEENA Lactic acidosis, Hypotension, No ischemic evaluation due to GI bleed, recommended to continue medical management No statin at this time due to elevated LFTs. Cardiomyopathy: EF 25-30% by echo Cardiology recommended to continue Coreg. Plan add Lisinopril. History of mild intermittent asthma stable. Nasal cannula to maintain saturations greater than equal to 92% Incentive spirometry while awake Albuterol/ipratropium aerosols every 6 hours with albuterol aerosols every 2 hours as needed dyspnea Patient is on albuterol 18 mg 1 puff every 4-6 hours as needed dyspnea at home Diabetes mellitus type 2 with hyperglycemia Holding metformin 1000 mg twice daily and glimepiride 4 mg p.o. twice daily Continue sliding scale, better control after removing Solu Cortef that was given for acute stress. Hypokalemia Hypophosphatemia Replace electrolytes as clinically indicated Access -Utilize peripheral IV. Prophylaxis -GI -pantoprazole -DVT -SCDs PT asked for Home with [facility]. Discharge Planning Will need rehab. Follow leukocytosis and specialist recs for DC planning. Rickey Wu MD Sep 08, 2017 17:32
[2017-09-08] MEDS: LATANOPROST 0.005% OPHT SOLN 2.5 ML BTL EACH EYE SCH (21:00)
[2017-09-08] MEDS ORDERED: HYDROCORTISONE SOD SUCCINATE 100 MG VIAL IV PUSH SCH (21:00)
[2017-09-08] MEDS: SULFAMETHOXAZOLE-TRIMETHOPRIM 400-80 MG TAB PO SCH (21:49)
[2017-09-09] VITALS (7 sets, daily range): BP systolic 134–150; BP diastolic 59–69; PULSE 74–91; RESP 18; TEMP 97.6–98.5; O2SAT 91–94
[2017-09-09] MEDS: CHLORHEXIDINE GLUCONATE 2 % 1 PACK (2 CLOTHS) TOP SCH ×2 (04:00→21:15)
[2017-09-09] MEDS: INSULIN ASPART SUPPLEMENTAL SCALE SQ SCH ×7 (04:00→23:54)
[2017-09-09] MEDS: INSULIN ASPART 1,000 UNITS/10 ML VIAL SQ SCH ×3 (08:00→17:00)
[2017-09-09] MEDS: SODIUM CHLORIDE 0.9% FLUSH 10 ML FLUSH IV FLUSH SCH ×3 (09:00→21:00)
[2017-09-09] MEDS: PANTOPRAZOLE SODIUM 40 MG VIAL IV PUSH SCH (09:11)
[2017-09-09] MEDS: SULFAMETHOXAZOLE-TRIMETHOPRIM 400-80 MG TAB PO SCH ×2 (09:11→21:08)
[2017-09-09] MEDS: DOCUSATE SODIUM 50 MG/SENNA 8.6 MG TAB PO SCH ×2 (09:11→21:00)
[2017-09-09] MEDS: CARVEDILOL 3.125 MG TAB PO SCH ×2 (09:12→21:07)
[2017-09-09] MEDS: LISINOPRIL 5 MG TAB PO SCH (09:12)
[2017-09-09] MEDS: FLUCONAZOLE 100 MG TAB PO SCH (09:12)
[2017-09-09] MEDS: INSULIN DETEMIR 100 UNITS/ML VIAL SQ SCH ×2 (09:12→21:00)
--- NOTE | 2017-09-09 10:44 | PD.CARD.PN ---
Subjective Subjective Remarks No events over night Feels better today No chest pain/SOB Objective Medications Current Medications Medications (Trade) Dose Ordered Sig/Rowan Route Start Time Stop Time Status Last Admin (Xalatan 0.005% Opth Soln) 1 drop HS EACH EYE 08/30/17 21:00 09/08/17 21:00 (D50w (Vial) Inj) 50 ml UNSCH PRN IV PUSH 08/30/17 15:45 (Glucagon Inj) 1 mg UNSCH PRN OTHER 08/30/17 15:45 (NovoLOG SUPPLEMENTAL SCALE) 1 Q4HR SQ 08/30/17 16:00 09/08/17 16:00 (NS Flush) 2 ml UNSCH PRN IV FLUSH 08/30/17 15:45 (NS Flush) 2 ml BID IV FLUSH 08/30/17 21:00 09/09/17 09:13 (Tylenol) 650 mg Q6H PRN PO 08/30/17 15:45 ([place] 5-325 Mg) 1 tab Q4H PRN PO 08/30/17 15:45 08/31/17 13:47 (Protonix Inj) 40 mg DAILY IV PUSH 08/31/17 09:00 09/09/17 09:11 (Zofran Inj) 4 mg Q6H PRN IV PUSH 08/30/17 15:45 08/31/17 13:46 (Albuterol Neb) 2.5 mg Q2HR NEB PRN INH 08/30/17 15:45 09/03/17 22:07 Miscellaneous Information 1 Q361D XX 08/30/17 15:45 (Chlorhexidine 2% Cloth) Taper DAILY@04 TOP 08/31/17 04:00 08/27/18 03:59 09/02/17 04:00 (Chlorhexidine 2% Cloth) 3 pack UNSCH PRN TOP 08/30/17 15:45 (Cate-Colace) 1 tab BID PO 08/30/17 21:00 09/09/17 09:11 (Milk Of Magnesia Liq) 30 ml Q12H PRN PO 08/30/17 15:45 (Senokot) 17.2 mg Q12H PRN PO 08/30/17 15:45 (Dulcolax Supp) 10 mg DAILY PRN RECTAL 4/14/18 15:45 (Lactulose Liq) 30 ml DAILY PRN PO 08/30/17 15:45 (Morphine Inj) 2 mg Q2H PRN IV PUSH 08/30/17 16:00 (NS Flush) DAILY IV FLUSH 08/30/17 17:00 09/02/17 08:46 (NS Flush) UNSCH PRN IV FLUSH 08/30/17 17:00 (Brethine Inj) 1 mg UNSCH PRN SQ 08/30/17 18:45 (Heparin Inj) 5,000 units UNSCH PRN IV PUSH 08/31/17 21:45 Future Hold (Heparin Inj) 2,500 units UNSCH PRN IV PUSH 08/31/17 21:45 Future Hold Heparin Sodium/ Dextrose 250 ml @ 8 mls/hr TITRATE PRN IV 08/31/17 16:15 Future Hold (Lipitor) 40 mg HS PO 08/31/17 21:00 Future Hold 08/31/17 20:50 (Duoneb Neb) 1 ampule Q6HR NEB PRN NEB 09/01/17 17:30 09/03/17 11:34 (Coreg) 3.125 mg Q12HR PO 09/02/17 12:00 09/09/17 09:12 (Diflucan) 100 mg DAILY PO 09/04/17 13:45 09/09/17 09:12 (NovoLOG INJ) 5 units TIDAC SQ 09/07/17 12:00 09/08/17 18:35 (Levemir Inj) 10 units BID SQ 09/07/17 11:00 09/09/17 09:12 (Prinivil) 5 mg DAILY PO 09/08/17 10:45 09/09/17 09:12 (Bactrim 400-80 Mg) 1 tab Q12HR PO 09/08/17 21:00 09/09/17 09:11 Vital Signs / I&O Vital Signs Date Time Temp Pulse Resp B/P (MAP) Pulse Ox O2 Delivery O2 Flow Rate FiO2 09/09/17 08:00 Room Air 09/09/17 08:00 98.5 91 18 137/69 (91) 94 09/09/17 04:00 78 09/09/17 00:00 74 09/08/17 21:15 Room Air 09/08/17 21:10 98.2 85 16 153/65 (94) 95 09/08/17 20:00 95 09/08/17 16:00 82 09/08/17 15:15 97.8 81 18 154/ 95 09/08/17 12:00 77 09/08/17 11:20 98.5 75 20 129/62 (84) 96 I/O 09/08/17 09/08/17 09/08/17 09/09/17 09/09/17 09/09/17 07:00 15:00 23:00 07:00 15:00 23:00 Intake Total 120 ml 100 ml 700 ml Balance 120 ml 100 ml 700 ml Intake Oral 120 ml 600 ml IV Total 100 ml 100 ml # Voids 6 3 # Bowel Movements 1 1 Physical Exam GENERAL: NAD, AAOx3 SKIN: Warm and dry. HEAD: Atraumatic. Normocephalic. EYES: Pupils equal and round. No scleral icterus. No injection or drainage. ENT: No nasal bleeding or discharge. Mucous membranes pink and moist. NECK: Trachea midline. No JVD. CARDIOVASCULAR: Regular rate and rhythm. 1/6 holosystolic murmur at the apex RESPIRATORY: No accessory muscle use. Clear to auscultation. Breath sounds equal bilaterally. GASTROINTESTINAL: Abdomen soft, non-tender, nondistended. Hepatic and splenic margins not palpable. MUSCULOSKELETAL: Extremities without clubbing, cyanosis, or edema. No obvious deformities. NEUROLOGICAL: Awake and alert. No obvious cranial nerve deficits. Motor grossly within normal limits. Five out of 5 muscle strength in the arms and legs. Normal speech. PSYCHIATRIC: Appropriate mood and affect; insight and judgment normal. Assessment and Plan Problem List: (1) NSTEMI (non-ST elevation myocardial infarction) ICD Codes: I21.4 - Non-ST elevation (NSTEMI) myocardial infarction (2) Hydronephrosis due to obstruction of ureter ICD Codes: N13.2 - Hydronephrosis with renal and ureteral calculous obstruction (3) Acute kidney injury ICD Codes: N17.9 - Acute kidney failure, unspecified (4) Diabetes mellitus type 2 in nonobese ICD Codes: E11.9 - Type 2 diabetes mellitus without complications (5) Severe sepsis ICD Codes: A41.9 - Sepsis, unspecified organism; R65.20 - Severe sepsis without septic shock (6) Encephalopathy ICD Codes: G93.40 - Encephalopathy, unspecified (7) Lactic acidosis ICD Codes: E87.2 - Acidosis (8) UTI (urinary tract infection) ICD Codes: N39.0 - Urinary tract infection, site not specified Status: Acute (9) Fever ICD Codes: R50.9 - Fever, unspecified Status: Acute (10) Abdominal pain ICD Codes: R10.9 - Unspecified abdominal pain Status: Acute Assessment and Plan 1) NSTEMI Possible Type 1 vs Type 2 Overall septic shock, LEENA, Lactic acidosis, hypotension No ischemic evaluation due to GI bleed Will plan to continue medical management No statin at this time due to elevated LFTs, coming down 2) Septic shock Off vasopressors 3) Hemoccult positive stool Patient feels too weak to do EGD/Cscope, plan to continue medical management 4) Thrombocytopenia 5) Elevated cardiovascular risk for any procedure 6) EF 25-30% by echo On Coreg/Lisinopril for cardiomyopathy 7) Weights up, Lasix IV daily Problem Qualifiers (1) UTI (urinary tract infection): Qualified Codes: N39.0 - Urinary tract infection, site not specified (2) Fever: Qualified Codes: R50.9 - Fever, unspecified Gino Delaney DO Sep 09, 2017 10:44
[2017-09-09] MEDS ORDERED: FUROSEMIDE 20 MG/2 ML VIAL IV PUSH SCH (10:45)
--- NOTE | 2017-09-09 15:14 | HHI.PR ---
Subjective Remarks no complains of urgency or dysuria or flank pain afebrile laying flat + weight gain from steroids Objective Vitals Vital Signs Date Time Temp Pulse Resp B/P (MAP) Pulse Ox O2 Delivery O2 Flow Rate FiO2 09/09/17 12:00 98.1 78 18 140/60 (86) 91 09/09/17 11:14 21 09/09/17 08:00 Room Air 09/09/17 08:00 98.5 91 18 137/69 (91) 94 09/09/17 04:00 78 09/09/17 00:00 74 09/08/17 21:15 Room Air 09/08/17 21:10 98.2 85 16 153/65 (94) 95 09/08/17 20:00 95 09/08/17 16:00 82 09/08/17 15:15 97.8 81 18 154/ 95 I/O 09/08/17 09/08/17 09/08/17 09/09/17 09/09/17 09/09/17 07:00 15:00 23:00 07:00 15:00 23:00 Intake Total 120 ml 100 ml 700 ml Balance 120 ml 100 ml 700 ml Intake Oral 120 ml 600 ml IV Total 100 ml 100 ml # Voids 6 3 # Bowel Movements 1 1 Result Diagram: 09/07/17 0613 09/05/17 1440 Imaging Last Impressions Abdomen/Pelvis CT 09/04/17 0000 Signed Impressions: Service Date/Time: August 19:11 - CONCLUSION: Interval placement of a right ureteral stent with decrease in right hydronephrosis. No new acute findings in the abdomen or pelvis. Lung base infiltrates and effusions Ben Esquivel MD Chest X-Ray 09/03/17 0000 Signed Impressions: Service Date/Time: Sunday, September 03, 2017 06:18 - CONCLUSION: Bilateral basilar consolidation, right greater than left. Patricia Christianson MD Abdomen X-Ray 08/30/17 0000 Signed Impressions: Service Date/Time: Wednesday, August 30, 2017 21:08 - CONCLUSION: Right ureteral stent. Proximal portion of the stent appears appropriately positioned. Ben Agarwal MD Objective Remarks awake and alert, no acute distress laying flat in bed anicteric no rales regular rhythm abdomen- soft, good bowel sounds extremities no edema Urinary Catheter: No Assessment to: Remove Date of Insertion: Aug 30, 2017 Date of Removal: Sep 04, 2017 A/P Problem List: (1) Encephalopathy ICD Code: G93.40 - Encephalopathy, unspecified (2) Pyrexia ICD Code: R50.9 - Fever, unspecified (3) Bigeminy ICD Code: I49.9 - Cardiac arrhythmia, unspecified (4) Hard of hearing ICD Code: H91.90 - Unspecified hearing loss, unspecified ear (5) Hypertension ICD Code: I10 - Essential (primary) hypertension (6) Hyperglycemia ICD Code: R73.9 - Hyperglycemia, unspecified (7) Diabetes mellitus type 2 in nonobese ICD Code: E11.9 - Type 2 diabetes mellitus without complications (8) Asthma ICD Code: J45.909 - Unspecified asthma, uncomplicated (9) Glaucoma ICD Code: H40.9 - Unspecified glaucoma (10) Lactic acidosis ICD Code: E87.2 - Acidosis (11) Acute kidney injury ICD Code: N17.9 - Acute kidney failure, unspecified (12) Hypokalemia ICD Code: E87.6 - Hypokalemia (13) Hydronephrosis due to obstruction of ureter ICD Code: N13.2 - Hydronephrosis with renal and ureteral calculous obstruction (14) Sinus tachycardia ICD Code: R00.0 - Tachycardia, unspecified (15) Severe sepsis ICD Code: A41.9 - Sepsis, unspecified organism; R65.20 - Severe sepsis without septic shock (16) Right ureteral calculus ICD Code: N20.1 - Calculus of ureter Status: Acute Assessment and Plan 72 Y/O female with E. Coli sepsis with shock, infected stone. Patient also with NSTEMI, Melena. S/P ICU course. Severe Ecoli sepsis with shock secondary to urinary tract infection/infected stone? Leukocytosis ID following.Bactrim till 5/6 S/P pressors. Wean off stress dose steroid. Cut dose by half today. May discontinue tomorrow. Leukocytosis worse. May be related to steroids. Repeat abdominal CT per ID did not found new acute pathology. CT of the abdomen and pelvis showed a stone obstructing the right UVJ junction with associated right hydronephrosis. E Coli Sepsis with shock due to complicated UTI, was on Pressors, complicated Pyelonephritis, E coli, with obstructing stone R, S/P placement of stent Leukocytosis, due to UTI and reactive post cysto and stent placement, to continue Rocephin, added Diflucan. till 09/10 Acute kidney injury Improved. Right hydronephrosis with 4 mm stone at the right UVJ junction Urology/Dr. Perdue following. S/P stent placement DC rothman - voiding spontaenously NSTEMI Possible Type 1 vs Type 2 Overall septic shock, LEENA, Lactic acidosis, hypotension pharmacy specialist following for NSTEMI Possible Type 1 vs Type 2 overall septic shock, LEENA Lactic acidosis, Hypotension, No ischemic evaluation due to GI bleed, recommended to continue medical management No statin at this time due to elevated LFTs. Cardiomyopathy: EF 25-30% by echo + weight increase Cardiology ff- Coreg.+ Lisinopril. Lasix 20 mg IV daily History of mild intermittent asthma stable. Nasal cannula to maintain saturations greater than equal to 92% Incentive spirometry while awake Albuterol/ipratropium aerosols every 6 hours with albuterol aerosols every 2 hours as needed dyspnea Patient is on albuterol 18 mg 1 puff every 4-6 hours as needed dyspnea at home Diabetes mellitus type 2 with hyperglycemia Holding metformin 1000 mg twice daily and glimepiride 4 mg p.o. twice daily Continue sliding scale, better control - off Solu Cortef that was given for acute stress. Hypokalemia Hypophosphatemia Replace electrolytes as clinically indicated Access -Utilize peripheral IV. Prophylaxis -GI -pantoprazole -DVT -SCDs PT asked for Home with [facility]. Discharge Planning Will need rehab. Follow leukocytosis and specialist recs for DC planning. Problem Qualifiers (1) Pyrexia: Qualified Codes: R50.9 - Fever, unspecified (2) Hard of hearing: Qualified Codes: H91.90 - Unspecified hearing loss, unspecified ear (3) Hypertension: Qualified Codes: I10 - Essential (primary) hypertension (4) Asthma: Qualified Codes: J45.20 - Mild intermittent asthma, uncomplicated (5) Glaucoma: Qualified Codes: H40.9 - Unspecified glaucoma Jessy Menendez MD Sep 09, 2017 15:14
[2017-09-09 15:38] LABS: TOTAL BILIRUBIN ADULT 0.4 MG/DL (0.2-1.0); TOTAL PROTEIN 5.8 GM/DL (6.4-8.2)
[2017-09-09 16:05] LABS: ALBUMIN 2.1 GM/DL (3.4-5.0); DIRECT BILIRUBIN ADULT 0.1 MG/DL (0.0-0.2); INDIRECT BILIRUBIN 0.3 MG/DL (0.0-0.8)
[2017-09-09] MEDS: LATANOPROST 0.005% OPHT SOLN 2.5 ML BTL EACH EYE SCH (21:00)
[2017-09-10] VITALS (8 sets, daily range): BP systolic 108–148; BP diastolic 53–86; PULSE 78–93; RESP 16–19; TEMP 97.8–98.5; O2SAT 90–96
[2017-09-10] MEDS: INSULIN ASPART SUPPLEMENTAL SCALE SQ SCH ×6 (04:00→23:33)
[2017-09-10] MEDS: INSULIN ASPART 1,000 UNITS/10 ML VIAL SQ SCH ×3 (08:21→16:07)
--- NOTE | 2017-09-10 08:49 | HHI.PR ---
Subjective Remarks feeling better, no leg swelling laying flat in bed Objective Vitals Vital Signs Date Time Temp Pulse Resp B/P (MAP) Pulse Ox O2 Delivery O2 Flow Rate FiO2 09/10/17 04:08 98.1 83 18 111/53 (72) 90 09/10/17 04:00 81 09/10/17 00:42 98.5 85 18 148/65 (92) 93 09/10/17 00:00 87 09/09/17 20:45 Room Air 09/09/17 20:02 97.6 81 18 150/59 (89) 93 09/09/17 20:00 86 09/09/17 16:00 98.1 75 18 134/64 (87) 93 09/09/17 16:00 87 09/09/17 12:00 98.1 78 18 140/60 (86) 91 09/09/17 12:00 91 09/09/17 11:14 21 I/O 09/09/17 09/09/17 09/09/17 09/10/17 09/10/17 09/10/17 07:00 15:00 23:00 07:00 15:00 23:00 Intake Total 240 ml Balance 240 ml Intake Oral 240 ml # Voids 8 10 5 # Bowel Movements 2 5 Result Diagram: 09/07/17 0613 Imaging Last Impressions Abdomen/Pelvis CT 09/04/17 0000 Signed Impressions: Service Date/Time: August 19:11 - CONCLUSION: Interval placement of a right ureteral stent with decrease in right hydronephrosis. No new acute findings in the abdomen or pelvis. Lung base infiltrates and effusions Ben Esquivel MD Chest X-Ray 09/03/17 0000 Signed Impressions: Service Date/Time: Sunday, September 03, 2017 06:18 - CONCLUSION: Bilateral basilar consolidation, right greater than left. Patricia Christianson MD Abdomen X-Ray 08/30/17 0000 Signed Impressions: Service Date/Time: Wednesday, August 30, 2017 21:08 - CONCLUSION: Right ureteral stent. Proximal portion of the stent appears appropriately positioned. Ben Agarwal MD Objective Remarks awake and alert, no acute distress anicteric no rales regular rhythm abdomen- soft, good bowel sounds extremities no edema Date of Insertion: Aug 30, 2017 Date of Removal: Sep 04, 2017 A/P Problem List: (1) Encephalopathy ICD Code: G93.40 - Encephalopathy, unspecified (2) Pyrexia ICD Code: R50.9 - Fever, unspecified (3) Bigeminy ICD Code: I49.9 - Cardiac arrhythmia, unspecified (4) Hard of hearing ICD Code: H91.90 - Unspecified hearing loss, unspecified ear (5) Hypertension ICD Code: I10 - Essential (primary) hypertension (6) Hyperglycemia ICD Code: R73.9 - Hyperglycemia, unspecified (7) Diabetes mellitus type 2 in nonobese ICD Code: E11.9 - Type 2 diabetes mellitus without complications (8) Asthma ICD Code: J45.909 - Unspecified asthma, uncomplicated (9) Glaucoma ICD Code: H40.9 - Unspecified glaucoma (10) Lactic acidosis ICD Code: E87.2 - Acidosis (11) Acute kidney injury ICD Code: N17.9 - Acute kidney failure, unspecified (12) Hypokalemia ICD Code: E87.6 - Hypokalemia (13) Hydronephrosis due to obstruction of ureter ICD Code: N13.2 - Hydronephrosis with renal and ureteral calculous obstruction (14) Sinus tachycardia ICD Code: R00.0 - Tachycardia, unspecified (15) Severe sepsis ICD Code: A41.9 - Sepsis, unspecified organism; R65.20 - Severe sepsis without septic shock (16) Right ureteral calculus ICD Code: N20.1 - Calculus of ureter Status: Acute Assessment and Plan 72 Y/O female with E. Coli sepsis with shock, infected stone. Patient also with NSTEMI, Melena. S/P ICU course. Severe Ecoli sepsis with shock secondary to urinary tract infection/infected stone? Leukocytosis- trending down ID following.Bactrim till 5/6 S/P pressors. Wean off stress dose steroid. Cut dose by half today. - weaned off steroids May be related to steroids. Repeat abdominal CT per ID did not found new acute pathology. CT of the abdomen and pelvis showed a stone obstructing the right UVJ junction with associated right hydronephrosis. E Coli Sepsis with shock due to complicated UTI, was on Pressors, complicated Pyelonephritis, E coli, with obstructing stone R, S/P placement of stent Leukocytosis, due to UTI and reactive post cysto and stent placement, to continue Rocephin, added Diflucan. till 09/10 Acute kidney injury Improved. Right hydronephrosis with 4 mm stone at the right UVJ junction Urology/Dr. Perdue following. S/P stent placement voiding spontaenously NSTEMI Possible Type 1 vs Type 2 Overall septic shock, LEENA, Lactic acidosis, hypotension senior talent acquisition specialist following for NSTEMI Possible Type 1 vs Type 2 overall septic shock, LEENA Lactic acidosis, Hypotension, No ischemic evaluation due to GI bleed, recommended to continue medical management No statin at this time due to elevated LFTs. Cardiomyopathy: EF 25-30% by echo Cardiology ff- Coreg.+ Lisinopril. Lasix 20 mg IV daily- change to po today and check lytes History of mild intermittent asthma stable. Nasal cannula to maintain saturations greater than equal to 92% Incentive spirometry while awake Albuterol/ipratropium aerosols every 6 hours with albuterol aerosols every 2 hours as needed dyspnea Patient is on albuterol 18 mg 1 puff every 4-6 hours as needed dyspnea at home Diabetes mellitus type 2 with hyperglycemia Holding metformin 1000 mg twice daily and glimepiride 4 mg p.o. twice daily- held due to LEENA Continue sliding scale, better control - off Solu Cortef that was given for acute stress. on Insulin d/w with her that we may have to send her home on Insulin- will hold off on Metformin because of recent LEENA OP ff up with her PCP- Dr. Blue Hypokalemia- Hypophosphatemia Replace electrolytes as clinically indicated recheck today- on Lasix Thromobocytopenia- secondary to sepsis- resolved Access -Utilize peripheral IV. Prophylaxis -GI -pantoprazole -DVT -SCDs DC planning - Home with [facility]. Problem Qualifiers (1) Pyrexia: Qualified Codes: R50.9 - Fever, unspecified (2) Hard of hearing: Qualified Codes: H91.90 - Unspecified hearing loss, unspecified ear (3) Hypertension: Qualified Codes: I10 - Essential (primary) hypertension (4) Asthma: Qualified Codes: J45.20 - Mild intermittent asthma, uncomplicated (5) Glaucoma: Qualified Codes: H40.9 - Unspecified glaucoma Jessy Menendez MD Sep 10, 2017 08:49
--- NOTE | 2017-09-10 08:50 | HHI.FF ---
Face to Face Verification Diagnosis: (1) UTI (urinary tract infection) (2) Right ureteral calculus (3) NSTEMI (non-ST elevation myocardial infarction) (4) Diabetes mellitus type 2 in nonobese (5) Acute kidney injury Physical Therapy Order: Evaluate and Treat, Improve ambulation Home Health Nursing Order: Signs/symptoms of disease process Diabetic education CHF education Nursing assessment with vital signs Marker Shipments Order: To Evaluate: Living conditions/environment, Support services I have seen patient Narda Guallpa on 09/10/17. My clinical findings support the need for the requested home health care services because: Ltd mobility - disease progression Deconditioned w/ increased weakness Need for psychosocial assistance Infection w/ risk of complications I certify that my clinical findings support that this patient is homebound because: Need for psychosocial assistance Poor cardiac reserve Jessy Menendez MD Sep 10, 2017 08:50
[2017-09-10] MEDS: CARVEDILOL 3.125 MG TAB PO SCH ×2 (09:20→21:12)
[2017-09-10] MEDS: SULFAMETHOXAZOLE-TRIMETHOPRIM 400-80 MG TAB PO SCH ×2 (09:20→21:12)
[2017-09-10] MEDS: FLUCONAZOLE 100 MG TAB PO SCH (09:20)
[2017-09-10] MEDS: SODIUM CHLORIDE 0.9% FLUSH 10 ML FLUSH IV FLUSH SCH ×3 (09:20→21:12)
[2017-09-10] MEDS: INSULIN DETEMIR 100 UNITS/ML VIAL SQ SCH ×2 (09:21→21:00)
[2017-09-10] MEDS: LISINOPRIL 5 MG TAB PO SCH (09:21)
[2017-09-10] MEDS: FUROSEMIDE 20 MG TAB PO SCH (09:21)
[2017-09-10] MEDS: DOCUSATE SODIUM 50 MG/SENNA 8.6 MG TAB PO SCH ×2 (09:26→21:00)
[2017-09-10 12:38] LABS: BICARBONATE 32.5 MEQ/L (21.0-32.0); CALCIUM 7.7 MG/DL (8.5-10.1); CREATININE 0.67 MG/DL (0.50-1.00)
[2017-09-10] MEDS ORDERED: POTASSIUM CHLORIDE 20 MEQ CONTROLLED RELEASE TAB PO ONE (16:00)
[2017-09-10] MEDS: POTASSIUM CHLORIDE 10 MEQ CONTROLLED RELEASE TAB PO SCH (21:12)
[2017-09-10] MEDS: LATANOPROST 0.005% OPHT SOLN 2.5 ML BTL EACH EYE SCH (21:13)
--- NOTE | 2017-09-10 22:17 | PD.CARD.PN ---
Subjective Subjective Remarks No events over night Feels better today No chest pain/SOB Objective Medications Current Medications Medications (Trade) Dose Ordered Sig/Rowan Route Start Time Stop Time Status Last Admin (Xalatan 0.005% Opth Soln) 1 drop HS EACH EYE 08/30/17 21:00 09/10/17 21:13 (D50w (Vial) Inj) 50 ml UNSCH PRN IV PUSH 08/30/17 15:45 (Glucagon Inj) 1 mg UNSCH PRN OTHER 08/30/17 15:45 (NovoLOG SUPPLEMENTAL SCALE) 1 Q4HR SQ 08/30/17 16:00 09/08/17 16:00 (NS Flush) 2 ml UNSCH PRN IV FLUSH 08/30/17 15:45 (NS Flush) 2 ml BID IV FLUSH 08/30/17 21:00 09/10/17 21:12 (Tylenol) 650 mg Q6H PRN PO 08/30/17 15:45 ([place] 5-325 Mg) 1 tab Q4H PRN PO 08/30/17 15:45 08/31/17 13:47 (Zofran Inj) 4 mg Q6H PRN IV PUSH 08/30/17 15:45 08/31/17 13:46 (Albuterol Neb) 2.5 mg Q2HR NEB PRN INH 08/30/17 15:45 09/03/17 22:07 Miscellaneous Information 1 Q361D XX 08/30/17 15:45 (Chlorhexidine 2% Cloth) Taper DAILY@04 TOP 08/31/17 04:00 08/27/18 03:59 09/02/17 04:00 (Chlorhexidine 2% Cloth) 3 pack UNSCH PRN TOP 08/30/17 15:45 (Cate-Colace) 1 tab BID PO 08/30/17 21:00 09/09/17 09:11 (Milk Of Magnesia Liq) 30 ml Q12H PRN PO 08/30/17 15:45 (Senokot) 17.2 mg Q12H PRN PO 08/30/17 15:45 (Dulcolax Supp) 10 mg DAILY PRN RECTAL 08/30/17 15:45 (Lactulose Liq) 30 ml DAILY PRN PO 08/30/17 15:45 (Morphine Inj) 2 mg Q2H PRN IV PUSH 08/30/17 16:00 (NS Flush) DAILY IV FLUSH 08/30/17 17:00 09/02/17 08:46 (NS Flush) UNSCH PRN IV FLUSH 08/30/17 17:00 (Brethine Inj) 1 mg UNSCH PRN SQ 08/30/17 18:45 (Heparin Inj) 5,000 units UNSCH PRN IV PUSH 08/31/17 21:45 Future Hold (Heparin Inj) 2,500 units UNSCH PRN IV PUSH 08/31/17 21:45 Future Hold Heparin Sodium/ Dextrose 250 ml @ 8 mls/hr TITRATE PRN IV 08/31/17 16:15 Future Hold (Lipitor) 40 mg HS PO 08/31/17 21:00 Future Hold 08/31/17 20:50 (Duoneb Neb) 1 ampule Q6HR NEB PRN NEB 09/01/17 17:30 09/03/17 11:34 (Coreg) 3.125 mg Q12HR PO 09/02/17 12:00 09/10/17 21:12 (Diflucan) 100 mg DAILY PO 09/04/17 13:45 09/10/17 23:00 09/10/17 09:20 (NovoLOG INJ) 5 units TIDAC SQ 09/07/17 12:00 09/08/17 18:35 (Levemir Inj) 10 units BID SQ 09/07/17 11:00 09/09/17 09:12 (Prinivil) 5 mg DAILY PO 09/08/17 10:45 09/10/17 09:21 (Bactrim 400-80 Mg) 1 tab Q12HR PO 09/08/17 21:00 09/21/17 23:00 09/10/17 21:12 (Lasix) 20 mg DAILY PO 09/10/17 09:00 09/10/17 09:21 (KCl) 10 meq Q12HR PO 09/10/17 21:00 09/10/17 21:12 Vital Signs / I&O Vital Signs Date Time Temp Pulse Resp B/P (MAP) Pulse Ox O2 Delivery O2 Flow Rate FiO2 09/10/17 16:00 87 09/10/17 16:00 97.8 86 18 108/86 (93) 96 09/10/17 12:00 82 4/25/18 12:00 98.0 82 19 134/56 (82) 90 09/10/17 09:20 94 Room Air 09/10/17 08:00 78 09/10/17 08:00 98.0 85 19 142/73 (96) 94 09/10/17 04:08 98.1 83 18 111/53 (72) 90 09/10/17 04:00 81 09/10/17 00:42 98.5 85 18 148/65 (92) 93 09/10/17 00:00 87 I/O 09/09/17 09/09/17 09/09/17 09/10/17 09/10/17 09/10/17 07:00 15:00 23:00 07:00 15:00 23:00 Intake Total 240 ml 960 ml Balance 240 ml 960 ml Intake Oral 240 ml 960 ml # Voids 8 10 5 6 # Bowel Movements 2 5 4 Physical Exam GENERAL: NAD, AAOx3 SKIN: Warm and dry. HEAD: Atraumatic. Normocephalic. EYES: Pupils equal and round. No scleral icterus. No injection or drainage. ENT: No nasal bleeding or discharge. Mucous membranes pink and moist. NECK: Trachea midline. No JVD. CARDIOVASCULAR: Regular rate and rhythm. 1/6 holosystolic murmur at the apex RESPIRATORY: No accessory muscle use. Clear to auscultation. Breath sounds equal bilaterally. GASTROINTESTINAL: Abdomen soft, non-tender, nondistended. Hepatic and splenic margins not palpable. MUSCULOSKELETAL: Extremities without clubbing, cyanosis, or edema. No obvious deformities. NEUROLOGICAL: Awake and alert. No obvious cranial nerve deficits. Motor grossly within normal limits. Five out of 5 muscle strength in the arms and legs. Normal speech. PSYCHIATRIC: Appropriate mood and affect; insight and judgment normal. Laboratory Laboratory Tests Test 09/10/17 11:49 Blood Urea Nitrogen 7 MG/DL Creatinine 0.67 MG/DL Random Glucose 252 MG/DL Calcium Level 7.7 MG/DL Sodium Level 138 MEQ/L Potassium Level 3.0 MEQ/L Chloride Level 100 MEQ/L Carbon Dioxide Level 32.5 MEQ/L Anion Gap 6 MEQ/L Estimat Glomerular Filtration Rate 87 ML/MIN Assessment and Plan Problem List: (1) NSTEMI (non-ST elevation myocardial infarction) ICD Codes: I21.4 - Non-ST elevation (NSTEMI) myocardial infarction (2) Hydronephrosis due to obstruction of ureter ICD Codes: N13.2 - Hydronephrosis with renal and ureteral calculous obstruction (3) Acute kidney injury ICD Codes: N17.9 - Acute kidney failure, unspecified (4) Diabetes mellitus type 2 in nonobese ICD Codes: E11.9 - Type 2 diabetes mellitus without complications (5) Severe sepsis ICD Codes: A41.9 - Sepsis, unspecified organism; R65.20 - Severe sepsis without septic shock (6) Encephalopathy ICD Codes: G93.40 - Encephalopathy, unspecified (7) Lactic acidosis ICD Codes: E87.2 - Acidosis (8) UTI (urinary tract infection) ICD Codes: N39.0 - Urinary tract infection, site not specified Status: Acute (9) Fever ICD Codes: R50.9 - Fever, unspecified Status: Acute (10) Abdominal pain ICD Codes: R10.9 - Unspecified abdominal pain Status: Acute Assessment and Plan 1) NSTEMI Possible Type 1 vs Type 2 Overall septic shock, LEENA, Lactic acidosis, hypotension No ischemic evaluation due to GI bleed Will plan to continue medical management No statin at this time due to elevated LFTs, coming down 2) Septic shock Off vasopressors 3) Hemoccult positive stool Patient feels too weak to do EGD/Cscope, plan to continue medical management 4) Thrombocytopenia 5) Elevated cardiovascular risk for any procedure 6) EF 25-30% by echo On Coreg/Lisinopril for cardiomyopathy 7) Weights up, Lasix IV daily 8) Plan for discharge tomorrow with home health care Will see PRN, call with questions Problem Qualifiers (1) UTI (urinary tract infection): Qualified Codes: N39.0 - Urinary tract infection, site not specified (2) Fever: Qualified Codes: R50.9 - Fever, unspecified Gino Delaney DO Sep 10, 2017 22:17
[2017-09-11] VITALS: BP 136/63; PULSE 81; PULSE 93; RESP 16; TEMP 98.5; O2SAT 93
[2017-09-11 04:00] VITALS: PULSE 84
[2017-09-11] MEDS: INSULIN ASPART SUPPLEMENTAL SCALE SQ SCH ×4 (04:00→15:22)
[2017-09-11] MEDS: CHLORHEXIDINE GLUCONATE 2 % 1 PACK (2 CLOTHS) TOP SCH (04:00)
[2017-09-11 05:32] VITALS: BP 130/62; PULSE 85; RESP 17; TEMP 97.9; O2SAT 92; O2SAT 94
[2017-09-11 08:00] VITALS: BP 148/67; PULSE 83; RESP 18; TEMP 97.8; O2SAT 94
[2017-09-11] MEDS: INSULIN ASPART 1,000 UNITS/10 ML VIAL SQ SCH ×3 (08:00→15:22)
[2017-09-11] MEDS: SODIUM CHLORIDE 0.9% FLUSH 10 ML FLUSH IV FLUSH SCH ×2 (08:38→08:44)
[2017-09-11] MEDS: SULFAMETHOXAZOLE-TRIMETHOPRIM 400-80 MG TAB PO SCH (08:43)
[2017-09-11] MEDS: FUROSEMIDE 20 MG TAB PO SCH (08:44)
[2017-09-11] MEDS: LISINOPRIL 5 MG TAB PO SCH (08:44)
[2017-09-11] MEDS: CARVEDILOL 3.125 MG TAB PO SCH (08:44)
[2017-09-11] MEDS: POTASSIUM CHLORIDE 10 MEQ CONTROLLED RELEASE TAB PO SCH (08:44)
[2017-09-11] MEDS: DOCUSATE SODIUM 50 MG/SENNA 8.6 MG TAB PO SCH (08:44)
[2017-09-11] MEDS ORDERED: SULF400T18 PO (08:47)
[2017-09-11] MEDS ORDERED: CARV3.125 PO (08:48)
[2017-09-11] MEDS ORDERED: LISI-519 PO (08:48)
[2017-09-11] MEDS: INSULIN DETEMIR 100 UNITS/ML VIAL SQ SCH (08:49)
[2017-09-11] MEDS ORDERED: FURO20TA PO (08:53)
[2017-09-11 10:16] LABS: BICARBONATE 30.3 MEQ/L (21.0-32.0); CALCIUM 8.6 MG/DL (8.5-10.1); CREATININE 0.69 MG/DL (0.50-1.00)
[2017-09-11] MEDS ORDERED: SODIUM PHOSPHATE INJ 30 MMOL in SODIUM CHLOR 0.9% 250 ML INJ 250 ML IV ONE (10:45)
[2017-09-11] MEDS ORDERED: POTASSIUM PHOSPHATE MONOBASIC 500 MG TAB PO ONE (11:00)
--- NOTE | 2017-09-11 11:05 | HHI.PR ---
Subjective Remarks feels great, no chest pain or shortness of breath no leg swelling wanting to go home telemetry- in SR Objective Vitals Vital Signs Date Time Temp Pulse Resp B/P (MAP) Pulse Ox O2 Delivery O2 Flow Rate FiO2 09/11/17 08:00 83 09/11/17 08:00 97.8 83 18 148/67 (94) 94 09/11/17 07:29 Room Air 09/11/17 05:32 97.9 85 17 130/62 (84) 94 09/11/17 04:00 84 09/11/17 00:00 98.5 93 16 136/63 (87) 93 09/11/17 00:00 81 09/10/17 20:00 91 09/10/17 20:00 97.9 93 16 131/66 (87) 93 09/10/17 19:00 Room Air 09/10/17 16:00 87 09/10/17 16:00 97.8 86 18 108/86 (93) 96 09/10/17 12:00 82 09/10/17 12:00 98.0 82 19 134/56 (82) 90 I/O 09/10/17 09/10/17 09/10/17 09/11/17 09/11/17 09/11/17 07:00 15:00 23:00 07:00 15:00 23:00 Intake Total 960 ml Balance 960 ml Intake Oral 960 ml # Voids 5 6 # Bowel Movements 4 Result Diagram: 09/07/17 0613 09/11/17 0939 Imaging Last Impressions Abdomen/Pelvis CT 09/04/17 0000 Signed Impressions: Service Date/Time: August 19:11 - CONCLUSION: Interval placement of a right ureteral stent with decrease in right hydronephrosis. No new acute findings in the abdomen or pelvis. Lung base infiltrates and effusions Ben Esquivel MD Chest X-Ray 09/03/17 0000 Signed Impressions: Service Date/Time: Sunday, September 03, 2017 06:18 - CONCLUSION: Bilateral basilar consolidation, right greater than left. Patricia Christianson MD Abdomen X-Ray 08/30/17 0000 Signed Impressions: Service Date/Time: Wednesday, August 30, 2017 21:08 - CONCLUSION: Right ureteral stent. Proximal portion of the stent appears appropriately positioned. Ben Agawral MD Objective Remarks awake and alert, no acute distress anicteric no rales regular rhythm abdomen- soft, good bowel sounds extremities no edema Date of Insertion: Aug 30, 2017 Date of Removal: Sep 04, 2017 A/P Problem List: (1) Encephalopathy ICD Code: G93.40 - Encephalopathy, unspecified (2) Pyrexia ICD Code: R50.9 - Fever, unspecified (3) Bigeminy ICD Code: I49.9 - Cardiac arrhythmia, unspecified (4) Hard of hearing ICD Code: H91.90 - Unspecified hearing loss, unspecified ear (5) Hypertension ICD Code: I10 - Essential (primary) hypertension (6) Hyperglycemia ICD Code: R73.9 - Hyperglycemia, unspecified (7) Diabetes mellitus type 2 in nonobese ICD Code: E11.9 - Type 2 diabetes mellitus without complications (8) Asthma ICD Code: J45.909 - Unspecified asthma, uncomplicated (9) Glaucoma ICD Code: H40.9 - Unspecified glaucoma (10) Lactic acidosis ICD Code: E87.2 - Acidosis (11) Acute kidney injury ICD Code: N17.9 - Acute kidney failure, unspecified (12) Hypokalemia ICD Code: E87.6 - Hypokalemia (13) Hydronephrosis due to obstruction of ureter ICD Code: N13.2 - Hydronephrosis with renal and ureteral calculous obstruction (14) Sinus tachycardia ICD Code: R00.0 - Tachycardia, unspecified (15) Severe sepsis ICD Code: A41.9 - Sepsis, unspecified organism; R65.20 - Severe sepsis without septic shock (16) Right ureteral calculus ICD Code: N20.1 - Calculus of ureter Status: Acute Assessment and Plan 72 Y/O female with E. Coli sepsis with shock, infected stone. Patient also with NSTEMI, Melena. S/P ICU course. Severe Ecoli sepsis with shock secondary to urinary tract infection/infected stone? Leukocytosis- trending down ID following.Bactrim till 5/6 S/P pressors. Wean off stress dose steroid. Cut dose by half today. - weaned off steroids May be related to steroids. Repeat abdominal CT per ID did not found new acute pathology. CT of the abdomen and pelvis showed a stone obstructing the right UVJ junction with associated right hydronephrosis. E Coli Sepsis with shock due to complicated UTI, was on Pressors, complicated Pyelonephritis, E coli, with obstructing stone R S/P placement of stent Leukocytosis, due to UTI and reactive post cysto and stent placement, to continue Rocephin, on Diflucan.- completed 09/10 Acute kidney injury Improved. Right hydronephrosis with 4 mm stone at the right UVJ junction Urology/Dr. Perdue following. 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 Cardiomyopathy: EF 25-30% by echo Cardiology ff- Coreg.+ Lisinopril. Lasix 20 mg IV daily- change to po today and check lytes History of mild intermittent asthma stable. Nasal cannula to maintain saturations greater than equal to 92% Incentive spirometry while awake Albuterol/ipratropium aerosols every 6 hours with albuterol aerosols every 2 hours as needed dyspnea Patient is on albuterol 18 mg 1 puff every 4-6 hours as needed dyspnea at home Diabetes mellitus type 2 with hyperglycemia Holding metformin 1000 mg twice daily and glimepiride 4 mg p.o. twice daily- held due to LEENA Continue sliding scale, better control - off Solu Cortef that was given for acute stress. on Insulin d/w with her that we may have to send her home on Insulin- will hold off on Metformin because of recent LEENA OP ff up with her PCP- Dr. Blue Hypokalemia- Hypophosphatemia Replace electrolytes as clinically indicated recheck today- on Lasix Thromobocytopenia- secondary to sepsis- resolved Access -Utilize peripheral IV. Prophylaxis -GI -pantoprazole -DVT -SCDs DC planning - [facility] with [facility]. Problem Qualifiers (1) Pyrexia: Qualified Codes: R50.9 - Fever, unspecified (2) Hard of hearing: Qualified Codes: H91.90 - Unspecified hearing loss, unspecified ear (3) Hypertension: Qualified Codes: I10 - Essential (primary) hypertension (4) Asthma: Qualified Codes: J45.20 - Mild intermittent asthma, uncomplicated (5) Glaucoma: Qualified Codes: H40.9 - Unspecified glaucoma Jessy Menendez MD Sep 11, 2017 11:05
[2017-09-11 12:00] VITALS: PULSE 79
--- NOTE | 2017-09-11 15:00 | HHI.FF ---
Face to Face Verification Home Health Nursing Order: Medical education Signs/symptoms of disease process Diabetic education Nursing assessment with vital signs I have seen patient Narda Guallpa on 09/11/17. My clinical findings support the need for the requested home health care services because: Deconditioned w/ increased weakness Need for psychosocial assistance Infection w/ risk of complications I certify that my clinical findings support that this patient is homebound because: Jessy Menendez MD Sep 11, 2017 14:59
[2017-09-11] MEDS ORDERED: K-PHTAB PO (15:05)
--- NOTE | 2017-09-11 15:10 | HHI.DS ---
Discharge Summary Admission Date Aug 30, 2017 at 14:04 Discharge Date: Sep 11, 2017 Admitting Diagnosis R ureteral stone with hydronephrosis, fever/UTI (1) Encephalopathy ICD Code: G93.40 - Encephalopathy, unspecified Diagnosis: Principal (2) Pyrexia ICD Code: R50.9 - Fever, unspecified Diagnosis: Secondary (3) Bigeminy ICD Code: I49.9 - Cardiac arrhythmia, unspecified Diagnosis: Secondary (4) Hard of hearing ICD Code: H91.90 - Unspecified hearing loss, unspecified ear Diagnosis: Secondary (5) Hypertension ICD Code: I10 - Essential (primary) hypertension Diagnosis: Secondary (6) Hyperglycemia ICD Code: R73.9 - Hyperglycemia, unspecified Diagnosis: Principal (7) Diabetes mellitus type 2 in nonobese ICD Code: E11.9 - Type 2 diabetes mellitus without complications Diagnosis: Secondary (8) Asthma ICD Code: J45.909 - Unspecified asthma, uncomplicated Diagnosis: Secondary (9) Glaucoma ICD Code: H40.9 - Unspecified glaucoma Diagnosis: Secondary (10) Lactic acidosis ICD Code: E87.2 - Acidosis Diagnosis: Principal (11) Acute kidney injury ICD Code: N17.9 - Acute kidney failure, unspecified Diagnosis: Principal (12) Hypokalemia ICD Code: E87.6 - Hypokalemia Diagnosis: Secondary (13) Hydronephrosis due to obstruction of ureter ICD Code: N13.2 - Hydronephrosis with renal and ureteral calculous obstruction Diagnosis: Principal (14) Sinus tachycardia ICD Code: R00.0 - Tachycardia, unspecified Diagnosis: Principal (15) Severe sepsis ICD Code: A41.9 - Sepsis, unspecified organism; R65.20 - Severe sepsis without septic shock Diagnosis: Principal (16) Right ureteral calculus ICD Code: N20.1 - Calculus of ureter Diagnosis: Principal Status: Acute Brief History - From Admission 72-year-old female. Date of admission 08/30/2017. Past medical history includes hypertension, glaucoma, hard of hearing, asthma, diabetes mellitus. Patient has no history of frequent urinary tract infections. Patient presents to [facility] with acute onset of diffuse abdominal pain service with nausea and vomiting. Patient was rated 10 out of 10 involving right upper and lower quadrants and bilateral flanks. Patient had eaten boiled peanuts ever sitting out and she attributed the symptoms to possible food poisoning. She took acetaminophen at home which that relieved her symptoms. She arrived at the emergency room for further evaluation treatment. Initially, patient was refusing CT abdomen as she thought this is from food poisoning. Later, CT abdomen/pelvis revealed a 4 mm obstructing stone at the right UVJ junction with associated right hydronephrosis. Blood cultures and urine culture sent the patient received 2 g of cefepime. Lactate elevated at 5.6. White blood cell count was within normal limits. Patient did have a creatinine 1.3. Glucose of 259. Patient received 4 L normal saline but her blood pressures continue to slowly drop. Dr. Perdue/urology wishes patient to be in the ICU at the [facility] for possible stent placement later on today. CBC/BMP: 09/07/17 0613 09/11/17 0939 Significant Findings Laboratory Tests Test 09/09/17 14:45 09/10/17 11:49 09/11/17 09:39 Total Protein 5.8 GM/DL (6.4-8.2) Albumin 2.1 GM/DL (3.4-5.0) Random Glucose 252 MG/DL (74-106) 246 MG/DL (74-106) Calcium Level 7.7 MG/DL (8.5-10.1) Potassium Level 3.0 MEQ/L (3.5-5.1) Carbon Dioxide Level 32.5 MEQ/L (21.0-32.0) Estimat Glomerular Filtration Rate 87 ML/MIN (>89) 84 ML/MIN (>89) Phosphorus Level 2.1 MG/DL (2.5-4.9) PE at Discharge awake and alert, no acute distress anicteric no rales regular rhythm abdomen- soft, good bowel sounds extremities no edema Pt update on day of discharge vitals stable interactive no pain voiding well Pt Condition on Discharge: Stable Discharge Disposition: Disch w/ Home Health Serv Discharge Instructions DIET: Follow Instructions for: Heart Healthy Diet, Diabetic Diet Speech Therapy-Diet Recommends: Regular Activities you can perform: Weight Bearing as [place] Activities to Avoid: Prolonged Standing, Strenuous Activity Follow up Referrals: Cardiology - 2 Weeks with Huong PCP Follow-up - 09/15/17 with [facility] - 1 Week with Sylvester Perdue MD New Orders: COMP MET PROF (CMP) - 09/15/17 PHOSPHORUS (PO4) - 09/15/17 New Medications: Potassium Phosphate Monobasic (K-Phos) 500 Mg Tab 500 MG PO BIDAC for Electrolyte Replacement for 7 Days, #14 TAB 0 Refills Carvedilol (Coreg) 3.125 Mg Tab 3.125 MG PO Q12HR for card, #60 TAB Furosemide (Furosemide) 20 Mg Tab 20 MG PO DAILY for card for 30 Days, #30 TAB Lisinopril (Lisinopril) 5 Mg Tab 5 MG PO DAILY for card for 30 Days, #30 TAB Sulfamethoxazole/Trimethoprim (Sulfamethoxazole-Tmp Ss Tablet) 400 Mg-80 Mg Tablet 1 TAB PO Q12HR for Infection, #21 TAB Continued Medications: Albuterol 18 GM Inh (Ventolin Hfa 18 GM Inh) 90 Mcg/Act Aer 2 PUFF INH Q4-6H PRN for SHORTNESS OF BREATH, #1 INHALER 0 Refills Bimatoprost Opth Drops (Lumigan Opth Drops) 0.01% Soln 1 DROP EACH EYE HS for Intraocular Pressure, #1 BOTTLE 0 Refills Glimepiride (Glimepiride) 4 Mg Tab 4 MG PO BIDAC for Blood Sugar Management, #60 TAB 0 Refills Metformin (Metformin) 1,000 Mg Tab 1000 MG PO BIDPC for Blood Sugar Management, #60 TAB 0 Refills Discontinued Medications: Metoprolol Tartrate (Metoprolol Tartrate) 25 Mg Tab 25 MG PO BID, #60 TAB 0 Refills Nitrofurantoin Monohydrate Macrocrystals (Macrobid) 100 Mg Capsule 100 MG PO BID for Infection for 10 Days, #20 CAP 0 Refills Prochlorperazine Maleate (Prochlorperazine Maleate) 10 Mg Tab 10 MG PO Q6H PRN for NAUSEA OR VOMITING, #20 TAB 0 Refills Jessy Menendez MD Sep 11, 2017 15:10
[2017-09-11] MEDS ORDERED: BEDSIDE COMMODE1 MI1 (16:58)
[2017-09-11] MEDS ORDERED: WALKER WHEELS/F1 MIS (17:00)
[2017-09-11] MEDS ORDERED: POTASSIUM PHOSPHATE MONOBASIC 500 MG TAB PO SCH (21:00)
== END 2017-09-11 17:25 | disposition home or self-care (01) | DRG 871 ==
LOC: PHED 04:04 → PHEDA 14:04 → HPAC 20:28 → HIMN 22:35 → N04A 09-02 21:52
PROVIDERS: ADMIT Internal Medicine; ATTEND Internal Medicine
PROC: 0T9B70Z Drainage of Bladder with Drainage Device, Via Natural or Artificial Opening (ICD-10-PCS; 2017-08-30)
PROC: 05HM33Z Insertion of Infusion Device into Right Internal Jugular Vein, Percutaneous Approach (ICD-10-PCS; 2017-08-30)
PROC: 0T768DZ Dilation of Right Ureter with Intraluminal Device, Via Natural or Artificial Opening Endoscopic (ICD-10-PCS; principal; 2017-08-30 20:35)
DX: A41.51 Sepsis due to Escherichia coli [E. coli] (principal); R65.21 Severe sepsis with septic shock; I21.4 Non-ST elevation (NSTEMI) myocardial infarction; K72.00 Acute and subacute hepatic failure without coma; G93.41 Metabolic encephalopathy; E87.2 Acidosis; D69.6 Thrombocytopenia, unspecified; N17.9 Acute kidney failure, unspecified; N13.6 Pyonephrosis; I42.9 Cardiomyopathy, unspecified; E11.65 Type 2 diabetes mellitus with hyperglycemia; H91.90 Unspecified hearing loss, unspecified ear; J45.20 Mild intermittent asthma, uncomplicated; I10 Essential (primary) hypertension; R00.8 Other abnormalities of heart beat; H40.9 Unspecified glaucoma; E87.6 Hypokalemia; R00.0 Tachycardia, unspecified; D35.02 Benign neoplasm of left adrenal gland; K57.30 Diverticulosis of large intestine without perforation or abscess without bleeding; E88.09 Other disorders of plasma-protein metabolism, not elsewhere classified; Z80.41 Family history of malignant neoplasm of ovary; Z79.84 Long term (current) use of oral hypoglycemic drugs; Z90.710 Acquired absence of both cervix and uterus; D64.9 Anemia, unspecified; E83.39 Other disorders of phosphorus metabolism
CPT/HCPCS: 36600; 71045; 74018; 74176; 74177; 76000; 80048; 80053; 80076; 80202; 81001; 82140; 82150; 82272; 82550; 82570; 82805; 82948; 83605; 83690; 83735; 84100; 84132; 84155; 84300; 84443; 84484; 85007; 85014; 85018; 85025; 85027; 85384; 85610; 85730; 87040; 87077; 87086; 87186; 87205; 87493; 87641; 93005; 93306; 94150; 94640; 96361; 96374; 96375; 96376; C1769; C2617; C9113; J0295; J0330; J0692; J0696; J1720; J1815; J1940; J2270; J2370; J2405; J3010; J3370; J3475; J7030; J7050; J7060; J7613; Q9967